=== PATIENT | female | born 1970 | race Caucasian/White ===

== ENCOUNTER 2017-08-05 10:26 | Emergency (ER) | payer SELFPAY ==
[2017-08-05 10:27] VITALS: BP 161/97; PULSE 77; RESP 16; TEMP 36.7; O2SAT 99; BMI 44.3
--- NOTE | 2017-08-05 10:43 | RAD_ITS ---
STUDY: X-RAY - ACUTE ABDOMINAL SERIES REASON FOR EXAM: Female, 46 years old. Abdominal pain. TECHNIQUE: Single view of the chest. Supine, and erect view(s) of the abdomen were obtained. COMPARISON: None. FINDINGS: There is hyperinflation of the lungs consistent with chronic obstructive lung disease (COPD). Normal size heart. Normal mediastinum and víctor. Normal visualized pulmonary arteries. Normal visualized aortic arch and descending thoracic aorta. There is a non-specific bowel gas pattern. Moderate fecal retention. The soft tissue structures of the abdomen and pelvis are unremarkable. Normal visualized osseous structures. RAD/Acute Abdomen Inc Chest IMPRESSION: Moderate fecal retention. No evidence for obstruction. Electronically Signed: Alan Petty MD at 12:37 EST , Service support ,
--- NOTE | 2017-08-05 10:44 | ED.VISSUMM ---
- ER Visit Summary Date of Service: 08/05/17 Chief Complaint: Abdominal pain History of Present Illness: The patient is a 46 F reports onset of abdominal pain and bloating yesterday. She denies nausea or vomiting. Her last bowel movement was last evening. Patient has had prior cholecystectomy. She does report a history of colitis. Physical Examination: Vital signs are significant for blood pressure 161/97, otherwise unremarkable. Patient is doing upright in bed no acute distress. She is nontoxic appearing. Head and neck examination is unremarkable. Heart is regular rate and rhythm. Lung sounds are clear. Abdomen is soft with mild diffuse tenderness. There is no guarding or rebound. Abdomen is distended. Bowel sounds are hypoactive. Test Results: CBC and chemistry studies are unremarkable. Urinalysis shows no sign of infection. test negative. Acute abdominal series reveals moderate fecal retention with no sign of obstruction. Emergency Department Course and Treatment: Repeat evaluation patient is resting comfortably. Test results were discussed with her. She will be given Go[facility] for home. She was instructed to eat a high-fiber diet and use MiraLAX for constipation. Treatment Plan: [] Disposition: Discharge Impression: Constipation This note was generated with [employer] dictation software. It may contain incorrect words, spelling, and punctuation that were not noted in review of the chart prior to signing ED Disposition - Plan for ED Patient: Disposition: Home or Assisted Living Chief Complaint: Abd Pain Instructions: ED Constipation Referrals: Hong Frazier MD [Primary Care Provider] - 1 Week if not improving
[2017-08-05 11:00] LABS: Absolute Lymphocyte Count 2.57 X10^3/ul (0.83-4.51); Absolute Neutrophil Count 6.5 X10^3/uL (2.0-7.7); Basophil# 0.05 X10^3/uL; Basophil% 0.5 % (0-1); Eosinophil# 0.21 X10^3/uL; Eosinophils% 2.1 % (0-5); Hematocrit 42.6 % (37-47); Hemoglobin 13.7 g/dl (12.0-15.0); Lymphocyte # 2.57 X10^3/ul (4.0); Lymphocyte % 25.8 % (19-41); Mean Corp Hgb Conc 32.2 g/gl (32-36); Mean Corpuscular Hgb 26.3 pg (27.0-32.0); Mean Corpuscular Volume 81.9 fL (81-99); Mean Platelet Vol. 8.8 fl (6.2-12.0); Monocyte# 0.58 X10^3/uL; Monocyte% 5.8 % (0-10); Neutrophil # 6.51 X10^3/uL (2.7-7.7); Neutrophil % 65.4 % (47-70); Platelet Count 384 K/mm3 (150-450); RBC Distribution Width CV 15.1 % (11.6-14.6); RBC Distribution Width SD 45.9 fl (35.1-43.9)
[2017-08-05 11:01] LABS: POSITIVE COUNT NO; POSITIVE DIFFERENTIAL NO; POSITIVE MORPHOLOGY NO
[2017-08-05 11:11] LABS: Anion Gap 8 (5-15); BUN 9 mg/dL (7-18); Calcium,Total 8.9 mg/dL (8.5-10.1); Chloride 107 mmol/L (98-107); Creatinine, Serum 0.75 mg/dL (0.55-1.02); EST Glomerular Filtration Rate 88 mL/min (>60); Est Glom Filt Rate - Afr Amer 107 mL/min (>60); Estimated Creatinine Clearance 92.11 ml/min; Glucose 89 mg/dL (74-106); Potassium 3.9 mmol/L (3.5-5.1); Sodium Level 142 mmol/L (136-145)
[2017-08-05] MEDS: Ketorolac 30 MG/ML Syringe IV (11:18)
[2017-08-05 11:41] LABS: Pregnancy, Serum, hCG Quali. NEGATIVE Negative (0-9 Nonpreg)
[2017-08-05 12:34] VITALS: BP 143/70; PULSE 80; RESP 14; O2SAT 96
[2017-08-05 12:39] LABS: Red Blood Cells-Urine 0 SEEN /hpf (0-5)
[2017-08-05 12:47] LABS: Color, Urine Yellow (Yellow); Glucose, Dipstick Normal (Normal); Ketone-Dipstick 5 mg/dl (Negative); Leukocyte Esterase-Dipstick 100 /ul (Negative); Nitrite-Dipstick Negative (Negative); Occult Blood-Urine 25 /ul (Negative); Protein-Dipstick 30 mg/dl (Negative); Specific Gravity, Urine 1.025 (1.002-1.030); Urine Bilirubin Dipstick Negative (Negative); Urine Clarity Sl. Cloudy (Clear); Urine Urobilinogen Normal (Normal)
[2017-08-05 13:04] LABS: Amorphous Sediment 1+; Bacteria RARE /hpf (None Seen); Mucous, Urine 1+ /hpf (<or=2+); Squamous Epithelial Cells - UA 5-10 SEEN /hpf (5-10); White Blood Cells 0-5 SEEN /hpf (0-5)
--- NOTE | 2017-08-05 13:22 | ED.DEP ---
ED Disposition - Plan for ED Patient: Disposition: Home or Assisted Living Chief Complaint: Abd Pain Instructions: ED Constipation Referrals: Hong Frazier MD [Primary Care Provider] - 1 Week if not improving
[2017-08-05] MEDS: Electrolyte Solution/Peg's 4000 ML PO (14:00)
[2017-08-05 14:01] VITALS: BP 144/70; PULSE 85; RESP 14; O2SAT 99
== END 2017-08-05 14:03 | disposition home or self-care (01) ==
PROVIDERS: Emergency Provider Emergency Medicine; Family Provider Family Medicine; PCP Family Medicine
DX: K59.00 Constipation, unspecified (principal); E66.9 Obesity, unspecified; E03.9 Hypothyroidism, unspecified; F60.4 Histrionic personality disorder; Z87.19 Personal history of other diseases of the digestive system; Z90.49 Acquired absence of other specified parts of digestive tract; Z87.891 Personal history of nicotine dependence; Z79.899 Other long term (current) drug therapy
CPT/HCPCS: 74022; 80048; 81001; 84703; 85025; 96374; 99283; A4216

== ENCOUNTER 2017-08-23 12:59 | Emergency (ER) | payer SELFPAY ==
[2017-08-23 12:59] VITALS: BP 136/89; PULSE 90; RESP 16; TEMP 36.2; O2SAT 96; BMI 44.0
[2017-08-23 13:16] VITALS: BP 138/95; PULSE 90; RESP 14; O2SAT 96
--- NOTE | 2017-08-23 13:29 | RAD_ITS ---
STUDY: X-RAY - LEFT TIBIA AND FIBULA REASON FOR EXAM: Female, 47 years old. Swelling and redness TECHNIQUE: 2 view(s) of the tibia and fibula were obtained. COMPARISON: None. FINDINGS: No evidence for acute fracture or dislocation. Extensive soft tissue swelling noted. The distal tibia and fibula are not entirely included on this exam RAD/Tibia & Fibula 2 Views IMPRESSION: Soft tissue swelling seen. No evidence for acute fractures Electronically Signed: Lucas Kang, at 14:13 EDT Tel , Service support ,
--- NOTE | 2017-08-23 13:30 | RAD_ITS ---
STUDY: X-RAY - LEFT ANKLE REASON FOR EXAM: Female, 47 years old. Leg swelling and redness TECHNIQUE: 3 view(s) of the ankle. COMPARISON: None. FINDINGS: Talar dome appears intact. Soft tissue swelling noted. Plantar spurring seen.. Fifth metatarsal base is within normal limits RAD/Ankle min 3 Views IMPRESSION: Soft tissue swelling noted. No evidence for acute fractures Electronically Signed: Lucas Kang, at 14:12 EDT Tel , Service support ,
--- NOTE | 2017-08-23 13:30 | ED.VISSUMM ---
- ER Visit Summary Date of Service: 08/23/17 Chief Complaint: [] Left lower extremity injury for a week after striking her mid concepcion against a baseboard History of Present Illness: The patient is a 47 F [] has chronic lower extremity edema she is a large woman, she indicates she was walking in [employer] about 1 week ago when she struck her left concepcion mid mid position against the baseboard in [employer] she has had pain to this area and also believe she may have twisted her left ankle pain to the lateral ankle symptoms have not gone away and she comes in for evaluation. She has had no history of fracture or any joint disorder to that extremity. She has no history of DVT PE that is her only complaint she has no other complaints review systems are negative, her chronic edema is unchanged Physical Examination: [] Again she is a large woman head neck chest unremarkable the abdomen is obese but soft the back is nontender the left lower extremity she has pain to the mid concepcion that goes into her left ankle, she has mild palpable discomfort to the left lateral ankle there is no instability deformity she is able dorsi and plantarflex Achilles intact foot is nontender she has symmetric edema to both lower extremities that is unchanged or different, there is some chronic skin changes bilaterally no signs of infection cellulitis no skin breakdown Test Results: [] Emergency Department Course and Treatment: [] xays are obtained pain management Trace of the tib-fib and ankle unremarkable, at this time I explained all the above to her she was started on Naprosyn [place]. 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 she does have bilateral lower extremity edema she is a large woman she has no history of DVT or PE but given all of the above I explained I believe would be prudent to obtain a duplex scan of her lower leg to make shows no signs of DVT, there is no DVT technology available today she is given outpatient referral to have that done tomorrow results to her physician and she will follow-up with her physicians and return for change in symptoms, I did discuss the concept of an occult injury Treatment Plan: [] Disposition: []Home stable Impression: [] Lower extremity injury on the left This note was generated with [employer] dictation software. It may contain incorrect words, spelling, and punctuation that were not noted in review of the chart prior to signing ED Disposition - Plan for ED Patient: Chief Complaint: Lower Extremity Injury Referrals: Hong Frazier MD [Primary Care Provider] -
[2017-08-23] MEDS: Naproxen 500 MG Tablet PO (13:58)
--- NOTE | 2017-08-23 14:28 | ED.DEP ---
ED Disposition - Plan for ED Patient: Chief Complaint: Lower Extremity Injury Instructions: ED Sprain Ankle W X Ray Prescriptions: Hydrocodone Bitart/Apap 5-325 [[place] 5/325] 1 tab PO Q4H PRN PRN #4 tab PRN Reason: Pain Naproxen [Naprosyn] 500 mg PO BID PRN #20 tab Referrals: Hong Frazier MD [Primary Care Provider] -
[2017-08-23 15:31] VITALS: PULSE 89; RESP 14; O2SAT 98
== END 2017-08-23 15:31 | disposition home or self-care (01) ==
PROVIDERS: Emergency Provider Emergency Medicine; Family Provider Family Medicine; PCP Family Medicine
DX: S99.912A Unspecified injury of left ankle, initial encounter (principal); S89.92XA Unspecified injury of left lower leg, initial encounter; R60.0 Localized edema; R23.9 Unspecified skin changes; W22.8XXA Striking against or struck by other objects, initial encounter; X50.1XXA Overexertion from prolonged static or awkward postures, initial encounter; Y93.9 Activity, unspecified; Y92.22 Religious institution as the place of occurrence of the external cause
CPT/HCPCS: 73590; 73610; 99283

== ENCOUNTER → 2017-08-24 11:18 | Outpatient (CLI) | payer SELFPAY ==
--- NOTE | 2017-08-24 11:20 | VDLE_ITS ---
Reason For Study: LEG PAIN AND SWELLING RIGHT LEFT GSV is normal. GSV is normal. CFV is compressible, spontaneous, phasic, CFV is compressible, spontaneous, phasic, competent and demonstrates normal competent, and demonstrates normal augmentation. augmentation. FV is compressible, spontaneous, phasic, FV is compressible, spontaneous, phasic, competent and demonstrates normal competent and demonstrates normal augmentation. augmentation. POP V is compressible, spontaneous, phasic, POP V is compressible, spontaneous, phasic, competent and demonstrates normal competent and demonstrates normal augmentation. augmentation. T/P Trunk is compressible. T/P Trunk is compressible. PTV is compressible. PTV is compressible. Procedure Exam performed in department. Technically difficult due to body habitus. PER V not visualized. Interpretation Summary Deep veins of the lower extremities are bilaterally patent and compressible segmentally. There is no evidence of deep vein thrombosis on either side. Valvular competence appears intact within the proximal deep venous systems bilaterally. The greater saphenous veins appear bilaterally patent and compressible segmentally. The peroneal veins were not visualized on either side due to the patient's body habitus. Ordering Physician: Angelica Sullivan Referring Physician: Hong Frazier Performed By: Nelly Witt RVT
== END ==
PROVIDERS: Family Provider Family Medicine; PCP Family Medicine; Visit Provider Emergency Medicine
DX: M79.605 Pain in left leg (principal)
CPT/HCPCS: 93970

== ENCOUNTER → 2017-09-29 10:38 | Outpatient (CLI) | payer SELFPAY ==
[2017-09-29 12:57] LABS: Thyroid Stim Hormone (TSH) 1.49 uIU/mL (0.358-3.74)
== END ==
PROVIDERS: Family Provider Family Medicine; PCP Family Medicine; Visit Provider Family Medicine
DX: E03.9 Hypothyroidism, unspecified (principal)
CPT/HCPCS: 36415; 84443

== ENCOUNTER → 2018-03-31 11:04 | Outpatient (CLI) | payer SELFPAY ==
[2018-03-31 12:27] LABS: Thyroid Stim Hormone (TSH) 2.93 uIU/mL (0.358-3.74)
== END ==
PROVIDERS: Family Provider Family Medicine; PCP Family Medicine; Visit Provider Family Medicine
DX: E03.9 Hypothyroidism, unspecified (principal)
CPT/HCPCS: 36415; 84443

== ENCOUNTER 2018-05-06 16:25 | Emergency (ER) | payer SELFPAY ==
[2018-05-06 16:26] VITALS: BP 165/86; PULSE 85; RESP 18; TEMP 36.4; O2SAT 99; BMI 44.4
--- NOTE | 2018-05-06 16:45 | RAD_ITS ---
STUDY: X-RAY - RIGHT TIBIA AND FIBULA REASON FOR EXAM: Female, 47 years old. Right lower leg pain since falling last week. History of lower leg edema. TECHNIQUE: Frontal and lateral view(s) of the tibia and fibula were obtained. COMPARISON: None. FINDINGS: Osteopenia. No apparent DJD of the knee or ankle. Tibia and fibula are acutely intact. Prominent induration and thickening of the lower leg superficial soft tissues suggesting the presence of dependent edema. Cannot exclude contusion in the setting of trauma. RAD/Tibia & Fibula 2 Views IMPRESSION: Lower leg superficial soft tissue edema. Intact tibia and fibula. Electronically Signed: Hari Guevara, at 17:48 EST Tel , Service support ,
--- NOTE | 2018-05-06 16:55 | ED.DCSUM_ITS ---
- ER Visit Summary Date of Service: 05/06/18 Chief Complaint: Right leg pain status post mechanical fall 1 week ago History of Present Illness: The patient is a 47 F who presents because of persistent pain that she localizes over the mid to distal third of the right fibula and anterior right leg. She reports she tripped. She presents because of increasing pain and pain with movement and weightbearing. She denied head trauma. She denies neck pain. She denies paresthesia, anesthesia or motor weakness. She denies back pain. She is on no anticoagulant. Past medical history is remarkable for hypothyroidism. Please read written note for complete detail. Physical Examination: Vital signs noted and blood pressure is elevated 165/86. HEENT exam is unremarkable. Heart is regular without murmur, gallop or rub. S1 and S2 are normal. Lungs are clear to auscultation with good movement of air bilaterally. Pelvis is nontender. Examination of the right lower extremity reveals soft tissue swelling and bruising anterior right leg. Significant amount of discomfort over the fibula distally. There is no pain the patient over the lateral or medial malleolus. There is no pain palpation over the tarsal bones or metatarsal bones. DP pulses palpable but diminished secondary to body habitus. Neuro exam is nonfocal. Test Results: Two-view x-ray of the right tib-fib reveals no fracture. There is soft tissue swelling. Emergency Department Course and Treatment: X-ray of the right tib-fib was obtained to evaluate for fracture. Since patient drove herself unable to treat with opiate analgesia. Treatment Plan: Rest, ice, elevation and anti-inflammatory medication since there is no contraindication Disposition: Discharge to home Impression: Contusion and hematoma right leg status post fall initial encounter This note was generated with [employer] dictation software. It may contain incorrect words, spelling, and punctuation that were not noted in review of the chart prior to signing ED Disposition - Plan for ED Patient: Disposition: Home or Assisted Living Chief Complaint: Lower Extremity Injury Instructions: ED Contusion Lower Ext Prescriptions: Naproxen [Naprosyn] 500 mg PO BID #14 tab Referrals: Hong Frazier MD [Primary Care Provider] - 1 Week if not improving
[2018-05-06] MEDS: Naproxen 250 MG Tablet 500 MG PO (17:02)
== END 2018-05-06 17:04 | disposition home or self-care (01) ==
PROVIDERS: Emergency Provider Emergency Medicine; Family Provider Family Medicine; PCP Family Medicine
DX: S80.11XA Contusion of right lower leg, initial encounter (principal); W01.0XXA Fall on same level from slipping, tripping and stumbling without subsequent striking against object, initial encounter; Y93.9 Activity, unspecified; Y92.9 Unspecified place or not applicable; E66.9 Obesity, unspecified; E03.9 Hypothyroidism, unspecified; Z79.899 Other long term (current) drug therapy
CPT/HCPCS: 73590; 99283

== ENCOUNTER 2018-07-25 20:43 | Emergency (ER) | payer SELFPAY ==
[2018-07-25 20:44] VITALS: BP 164/97; PULSE 95; RESP 18; TEMP 36.4; O2SAT 97; BMI 42.3
--- NOTE | 2018-07-25 21:31 | RAD_ITS ---
HISTORY: PAIN, NO INJURY COMPARISON: None FINDINGS: # of images incl. paperwork: 3 XR Wrist Min 3 Views: Left SOFT TISSUES: Unremarkable. No radiopaque foreign body. BONES: No acute fracture or subluxation. No sclerotic or destructive changes observed. JOINTS: Preservation of the joint space. Articular surfaces are unremarkable. RAD/Wrist min 3 Views IMPRESSION: Negative. at [id number] Reported and signed by: Jefferson Gibson MD Electronically Signed: Jefferson Gibson, at 22:44 EST Tel , Service support ,
[2018-07-25 21:45] VITALS: RESP 16
--- NOTE | 2018-07-25 23:13 | ED.DCSUM_ITS ---
- ER Visit Summary Date of Service: 07/25/18 Chief Complaint: Wrist pain History of Present Illness: The patient is a 47 F with left wrist pain in the snuffbox region. Patient denies trauma. She has been taking Tylenol, but the pain persists. Worse with use and movement. No other associated symptoms like redness, warmth, swelling. Physical Examination: Afebrile and vital signs unremarkable. Patient is a normal inspection of her left hand and wrist. Tender to palpation in the snuffbox region. Good range of motion. Skin normal without redness or warmth. Neurovascularly intact. Test Results: X-rays negative Emergency Department Course and Treatment: X-rays negative. Nothing to suggest gout or septic joint. Suspect a soft tissue disorder. She was placed in a splint. Rest, ice, elevate. Anti-inflammatories. Outpatient follow-up. Treatment Plan: As above Disposition: Discharge Impression: 1. Left wrist pain This note was generated with [employer] dictation software. It may contain incorrect words, spelling, and punctuation that were not noted in review of the chart prior to signing ED Disposition - Plan for ED Patient: Referrals: Hong Frazier MD [Primary Care Provider] -
--- NOTE | 2018-07-25 23:13 | ED.DEP ---
ED Disposition - Plan for ED Patient: Instructions: ED Sprain Wrist Prescriptions: Ibuprofen [Motrin] 800 mg PO TID PRN PRN #20 tab PRN Reason: Pain Referrals: Hong Frazier MD [Primary Care Provider] -
[2018-07-25] MEDS: Ibuprofen 600 MG Tablet PO (23:27)
[2018-07-25 23:33] VITALS: BP 137/89; PULSE 78; RESP 16; O2SAT 98
== END 2018-07-25 23:34 | disposition home or self-care (01) ==
PROVIDERS: Emergency Provider Emergency Medicine; Family Provider Family Medicine; PCP Family Medicine
DX: M25.532 Pain in left wrist (principal)
CPT/HCPCS: 73110; 99283

== ENCOUNTER → 2018-12-28 | Outpatient (CLI) | payer OTHER, SELFPAY ==
--- NOTE | 2018-12-28 12:23 | BI_ITS ---
MAMMOGRAPHY - BILATERAL SCREENING REASON FOR EXAM: Female, 48 years old. Routine annual screening examination. PERTINENT HISTORY: Non-contributory. TECHNIQUE: Digital bilateral breast marie (3D mammographic acquisition) in the CC and MLO projections. 2-D mediolateral oblique (MLO) and craniocaudad (CC) views of both breasts were obtained. CAD: Full Field Digital Mammography with Computer Added Detection was performed. COMPARISON: Comparison is made with prior examination dated May 11, 2015. FINDINGS: Breast Composition: There are scattered areas of fibroglandular density. There are no dominant masses or suspicious calcifications. Stable small bilateral axillary lymph nodes. No other significant abnormalities are identified. There has been no significant change since the prior study. BI/SCREEN MAMM (CAD) W/MARIE BILAT IMPRESSION: Stable bilateral screening mammogram. Yearly follow-up mammogram recommended. (A) ASSESSMENT CATEGORY: BIRADS Category 2: Benign. A letter regarding these results will be sent to the patient by the facility within 30 days. Approximately 10% of breast cancers are not detected by mammography. A normal mammogram should not delay biopsy of a clinically suspicious abnormality. [id number] Electronically Signed: Reggie Lopez, at 13:24 EDT , Service support ,
== END | disposition home or self-care (01) ==
PROVIDERS: Family Provider Family Medicine; PCP Family Medicine; Referring Provider Family Medicine; Visit Provider Family Medicine
DX: Z12.31 Encounter for screening mammogram for malignant neoplasm of breast (principal)
CPT/HCPCS: 77063; 77067

== ENCOUNTER → 2019-08-02 13:31 | Outpatient (CLI) | payer OTHER, SELFPAY ==
[2019-07-31 13:42] VITALS: BMI 42.3
[2019-08-02 17:34] LABS: Vitamin D,25 Hydroxy 38.8 ng/mL (29.95-100.01)
[2019-08-02 17:35] LABS: Anion Gap 6 (5-15); BUN 11 mg/dL (7-18); BUN/Creat Ratio 13.4 RATIO (10-20); Calcium,Total 9.4 mg/dL (8.5-10.1); Chloride 108 mmol/L (98-107); Creatinine, Serum 0.82 mg/dL (0.55-1.02); EST Glomerular Filtration Rate 79 mL/min (>60); Est Glom Filt Rate - Afr Amer 96 mL/min (>60); Glucose 87 mg/dL (74-106); Potassium 3.7 mmol/L (3.5-5.1); Sodium Level 143 mmol/L (136-145); Thyroid Stim Hormone (TSH) 0.45 uIU/mL (0.358-3.74)
== END ==
PROVIDERS: PCP Family Medicine; Visit Provider Family Medicine
DX: E03.9 Hypothyroidism, unspecified (principal); R60.9 Edema, unspecified
CPT/HCPCS: 36415; 80048; 82306; 84443

== ENCOUNTER → 2020-01-16 11:25 | Outpatient (CLI) | payer BC, MEDICAID, SELFPAY ==
[2019-08-31 14:08] VITALS: BMI 42.3
[2020-01-16 15:23] LABS: Anion Gap 6 (5-15); BUN 10 mg/dL (7-18); BUN/Creat Ratio 13.4 RATIO (10-20); Calcium,Total 9.4 mg/dL (8.5-10.1); Chloride 106 mmol/L (98-107); Creatinine, Serum 0.74 mg/dL (0.55-1.02); EST Glomerular Filtration Rate 88 mL/min (>60); Est Glom Filt Rate - Afr Amer 107 mL/min (>60); Glucose 89 mg/dL (74-106); Potassium 4.3 mmol/L (3.5-5.1); Sodium Level 139 mmol/L (136-145)
== END ==
PROVIDERS: PCP Family Medicine; Visit Provider Family Medicine
DX: R60.9 Edema, unspecified (principal)
CPT/HCPCS: 36415; 80048

== ENCOUNTER 2020-02-18 02:22 | Emergency (ER) | payer BC, MEDICAID, SELFPAY ==
[2020-02-09 08:23] VITALS: BMI 42.3
[2020-02-18 02:22] VITALS: BP 157/90; PULSE 75; RESP 18; TEMP 36.2; O2SAT 100; BMI 43.2
[2020-02-18 02:25] VITALS: BP 157/90; PULSE 75; RESP 18; TEMP 36.2; O2SAT 100
--- NOTE | 2020-02-18 02:54 | DCINST.ED_ITS ---
ED Disposition - Plan for ED Patient: Instructions: ED Tooth Pain Prescriptions: Hydrocodone Bitart/Apap 5-325 [[place] 5MG-325MG] 1 tab PO Q6H PRN PRN 3 Days #10 tab PRN Reason: Pain Prescription Printed Referrals: Hong Frazier MD [Primary Care Provider] -
--- NOTE | 2020-02-18 02:57 | ED.DCSUM_ITS ---
- ER Visit Summary Date of Service: 02/18/20 Chief Complaint: Toothache History of Present Illness: The patient is a 49 F presenting with toothache. Patient states this started yesterday. Pain is in the right upper teeth. She went to urgent care. They prescribed diclofenac and amoxicillin. She has an a ppointment with her dentist this coming Thursday. She complains of persistent pain right upper teeth. Denies fever. Denies other complaints. Physical Examination: Vitals are stable. Patient is afebrile. Alert no acute distress. HEENT exam tenderness right upper molar. No surrounding fluctuance. No sublingual edema. Neck is supple. Lungs are clear and equal bilaterally. Heart is regular rate and rhythm. Extremities are unremarkable. Skin is warm and dry. Remainder of exam is unremarkable. Emergency Department Course and Treatment: Patient was advised to continue her antibiotics until complete. She was given a prescription for short course of [place]. Advised to follow-up with dentist. Advised return to the ED for wors ening complaints. Disposition: Discharge home Impression: Odontalgia This note was generated with [employer] dictation software. It may contain incorrect words, spelling, and punctuation that were not noted in review of the chart prior to signing ED Disposition - Plan for ED Patient: Instructions: ED Tooth Pain Prescriptions: Hydrocodone Bitart/Apap 5-325 [[place] 5MG-325MG] 1 tab PO Q6H PRN PRN 3 Days #10 tab PRN Reason: Pain Prescription Printed Referrals: Hong Frazier MD [Primary Care Provider] -
== END 2020-02-18 03:06 | disposition home or self-care (01) ==
LOC: ED 02:58
PROVIDERS: Emergency Provider Emergency Medicine; PCP Family Medicine
DX: K08.89 Other specified disorders of teeth and supporting structures (principal); E07.9 Disorder of thyroid, unspecified; Z72.0 Tobacco use; Z79.899 Other long term (current) drug therapy
CPT/HCPCS: 99282

== ENCOUNTER → 2020-04-06 14:18 | Outpatient (CLI) | payer BC, MEDICAID, SELFPAY ==
[2020-04-06 18:35] LABS: AST(SGOT) 20 U/L (15-37); Alanine Aminotransfer ALT/SGPT 35 U/L (13-56); Albumin, Serum 3.7 g/dL (3.2-5.0); Alkaline Phosphatase 86 U/L (45-117); Anion Gap 6 (5-15); BUN 12 mg/dL (7-18); BUN/Creat Ratio 15.6 RATIO (10-20); Calcium,Total 9.3 mg/dL (8.5-10.1); Chloride 107 mmol/L (98-107); Creatinine, Serum 0.77 mg/dL (0.55-1.02); EST Glomerular Filtration Rate 85 mL/min (>60); Est Glom Filt Rate - Afr Amer 103 mL/min (>60); Globulin 3.8 g/dL (2.2-4.2); Glucose 97 mg/dL (74-106); Potassium 3.6 mmol/L (3.5-5.1); Protein, Total 7.5 g/dL (6.4-8.2); Sodium Level 139 mmol/L (136-145); T4 Free Direct 1.51 ng/dL (0.76-1.46); Thyroid Stim Hormone (TSH) 0.48 uIU/mL (0.358-3.74)
[2020-04-06 18:40] LABS: Vitamin D,25 Hydroxy 59.2 ng/mL
== END ==
PROVIDERS: PCP Family Medicine; Visit Provider Family Medicine
DX: E03.9 Hypothyroidism, unspecified (principal); R60.9 Edema, unspecified; E55.9 Vitamin D deficiency, unspecified
CPT/HCPCS: 36415; 80053; 82306; 84439; 84443

== ENCOUNTER → 2020-07-12 | Outpatient (CLI) | payer MEDICAID, SELFPAY ==
--- NOTE | 2020-07-12 09:10 | LES_PTH ---
PATIENT: CHRISTOPHER KWAN LOC: [facility] U#:[id number] AGE/SX: 49/F ROOM: RE07/12/[address]: Dr. Roberto Gabriel MD : 1970 BED: DIS: 07/12/2020 SPEC #: [id number] RECD: 07/12/20 11:03 STATUS: LEELEE CHAMBERSMichael #: [id number] TEJAS: 07/12/20 09:[address]: Roberto Gabriel DEPT: SURGICAL PATHOLOGY RECD BY: Anabella Donahue ENTERED: 07/12/20 13:03 SP TYPE: Lesion OTHR DR: Dr. Hong Frazier MD Tissues: A - Skin of arm B - Skin of forehead Procedures: Surgery Specimen Level IV HEADER OPERATION: Shave biopsy forehead and right arm PRE-OP DIAGNOSIS: Skin lesions L98.9 TISSUE SUBMITTED: A - Right arm tissue, B - Forehead tissue MICROSCOPIC DIAGNOSIS A. Skin lesion of right arm, biopsy: Hyperkeratotic and parakeratotic skin. B. Skin lesion of forehead, biopsy: Verrucoid keratosis with hyperkeratosis. AM:james 07/13/2020 MICROSCOPIC DESCRIPTION Slides are reviewed. GROSS DESCRIPTION A - Received in fixative is one container labeled with the patient's name and designated right arm. The specimen consists of an irregular fragment of light mack soft tissue measuring 0.3 x 0.2 x 0.1 cm. The specimen is totally submitted in one cassette. B - Received in fixative is one container labeled with the patient's name and designated forehead. The specimen consists of an irregular fragment of light mack soft tissue measuring 0.5 x 0.3 x 0.2 cm. The specimen is totally submitted in one cassette. / AM:james 07/12/20 TC:5 [facility]: [id number] x2
== END | disposition home or self-care (01) ==
LOC: LABSPEC 11:09
PROVIDERS: PCP Family Medicine; Referring Provider Surgery; Visit Provider Surgery
DX: L98.9 Disorder of the skin and subcutaneous tissue, unspecified (principal)
CPT/HCPCS: 88305

== ENCOUNTER → 2020-08-10 10:38 | Outpatient (CLI) | payer MEDICAID, SELFPAY ==
[2020-08-10 13:35] LABS: Vitamin D,25 Hydroxy 53.6 ng/mL
[2020-08-10 13:56] LABS: Anion Gap 8 (5-15); BUN 9 mg/dL (7-18); BUN/Creat Ratio 11.3 RATIO (10-20); Calcium,Total 9.6 mg/dL (8.5-10.1); Chloride 107 mmol/L (98-107); Creatinine, Serum 0.79 mg/dL (0.55-1.02); EST Glomerular Filtration Rate 82 mL/min (>60); Est Glom Filt Rate - Afr Amer 99 mL/min (>60); Glucose 83 mg/dL (74-106); Potassium 3.8 mmol/L (3.5-5.1); Sodium Level 141 mmol/L (136-145); T4 Free Direct 1.29 ng/dL (0.76-1.46); Thyroid Stim Hormone (TSH) 1.06 uIU/mL (0.358-3.74)
== END ==
PROVIDERS: PCP Family Medicine; Visit Provider Family Medicine
DX: E03.9 Hypothyroidism, unspecified (principal); E55.9 Vitamin D deficiency, unspecified; R60.9 Edema, unspecified
CPT/HCPCS: 36415; 80048; 82306; 84439; 84443

== ENCOUNTER → 2020-11-02 10:59 | Outpatient (CLI) | payer MEDICAID, SELFPAY ==
[2020-11-02 12:08] LABS: Absolute Lymphocyte Count 3.04 X10^3/uL (0.83-4.51); Absolute Neutrophil Count 5.3 X10^3/uL (2.0-7.7); Basophil# 0.06 X10^3/uL; Basophil% 0.7 % (0-1); Eosinophil# 0.16 X10^3/uL; Eosinophils% 1.8 % (0-5); Hematocrit 46.8 % (37-47); Hemoglobin 14.5 g/dL (12.0-15.0); Lymphocyte # 3.04 X10^3/ul (0.83-4.51); Lymphocyte % 33.6 % (19-41); Mean Corpuscular Hgb 26.9 pg (27.0-32.0); Mean Corpuscular Volume 86.8 fL (81-99); Mean Platelet Vol. 9.3 fl (6.2-12.0); Monocyte# 0.45 X10^3/uL; NRBC Flagged by Analyzer 0 % (0-5); Neutrophil % 58.6 % (47-70); Platelet Count 459 K/mm3 (150-450); RBC Distribution Width CV 14.9 % (11.6-14.6); RBC Distribution Width SD 47.8 fl (35.1-43.9); Red Blood Count 5.39 M/mm3 (4.2-5.4)
[2020-11-02 12:55] LABS: Anion Gap 5 (5-15); BUN 10 mg/dL (7-18); BUN/Creat Ratio 12.1 RATIO (10-20); Calcium,Total 9.1 mg/dL (8.5-10.1); Chloride 107 mmol/L (98-107); Creatinine, Serum 0.82 mg/dL (0.55-1.02); EST Glomerular Filtration Rate 78 mL/min (>60); Est Glom Filt Rate - Afr Amer 95 mL/min (>60); Glucose 90 mg/dL (74-106); Potassium 3.5 mmol/L (3.5-5.1); Sodium Level 140 mmol/L (136-145); T4 Free Direct 1.25 ng/dL (0.76-1.46)
[2020-11-08 12:44] LABS: Vitamin D,25 Hydroxy 61.2 ng/mL
== END ==
PROVIDERS: PCP Family Medicine; Referring Provider Family Medicine; Visit Provider Family Medicine
DX: E03.9 Hypothyroidism, unspecified (principal); R60.9 Edema, unspecified; R53.83 Other fatigue; E55.9 Vitamin D deficiency, unspecified
CPT/HCPCS: 36415; 80048; 82306; 84439; 84443; 85025

== ENCOUNTER 2020-11-21 09:58 | Outpatient (RCR) | payer MEDICAID, SELFPAY ==
--- NOTE | 2020-11-21 11:21 | HP.OTEVAL ---
Patient's Visit Information CHRISTOPHER KWAN is a 50 year old F, referred to Occupational Therapy by Dr. Hong Frazier MD, with a diagnosis of LE lymphedema. Date of Evaluation: 11/21/20 Occupational Therapist: Rola Taylor, CED/[place], CHT - Subjective This 50 year old female was seen for OT eval with dx of BLE lymphedema. Pt states she has had swelling in her LE for over 4 years. pt denies lymph node removal or LE sx. 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 pt states when she wakes up in the AM legs are down in size. pt would like to know what she can do to control the swelling. - Lymphedema (Circumferential Measure) Mid-foot: right 24cm left 25cm Ankle: right 40cm left 42cm Lower calf: right 44cm left 46cm Largest calf: right 47cm left 53cm Below knee: right 46cm left 55cm - Goals Demonstrate a 20% reduction in edema by d/c: Yes Demonstrate adequate knowledge of self-massage by 2nd week: Yes Demonstrate adequate knowledge skin care/prec by 2nd week: Yes Select approp compression garment w/donning/care/wear by d/c: Yes Voice need to replace compression garment every 4-6mo by dc: Yes - Rehabilitation General Assessment: pt demo with edema in B LE and limited understanding on mtg of edema. pt would benefit from skilled OT services 1x week for 3 weeks to ensure understanding of dx and lymph mtg plan. Rehabilitation Potential: Good - Anticipated Interventions A/AAROM/PROM, Education re Diagnosis, Manual Lymph Drainage, Education re Life-long lymphedema Management, Education re Skin Care and Precautions, Education re Self Massage Techniques, Education re Correct Donning Tech,Care&Wearing Sched Comp Garments, Home Program - Visit Plan Frequency: 1x/Week Duration: 3 Weeks TEXT: Thank you for the opportunity to evaluate your patient. For Medicare and Medicare HMO plans, please review the plan of care and approve it. It will need to be FAXED BACK to us at [phone] for Medicare purposes. Please let me know if there are questions or concerns regarding this plan of care. Physician Signature: Date:
--- NOTE | 2020-11-30 12:51 | HP.OTEVAL_ITS ---
Patient's Visit Information CHRISTOPHER KWAN is a 50 year old F, referred to Occupational Therapy by Dr. Hong Frazier MD, with a diagnosis of LE lymphedema. Date of Evaluation: 11/21/20 Occupational Therapist: Rola Taylor, CED/[place]en, CHT - Subjective This 50 year old female was seen for OT eval with dx of BLE lymphedema. Pt states she has had swelling in her LE for over 4 years. pt denies lymph node removal or LE sx. 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 pt states when she wakes up in the AM legs are down in size. pt would like to know what she can do to control the swelling. - Lymphedema (Circumferential Measure) Mid-foot: right 24cm left 25cm Ankle: right 40cm left 42cm Lower calf: right 44cm left 46cm Largest calf: right 47cm left 53cm Below knee: right 46cm left 55cm - Goals Demonstrate a 20% reduction in edema by d/c: Yes Demonstrate adequate knowledge of self-massage by 2nd week: Yes Demonstrate adequate knowledge skin care/prec by 2nd week: Yes Select approp compression garment w/donning/care/wear by d/c: Yes Voice need to replace compression garment every 4-6mo by dc: Yes - Rehabilitation General Assessment: pt demo with edema in B LE and limited understanding on mtg of edema. pt would benefit from skilled OT services 1x week for 3 weeks to ensure understanding of dx and lymph mtg plan. Rehabilitation Potential: Good - Anticipated Interventions A/AAROM/PROM, Education re Diagnosis, Manual Lymph Drainage, Education re Life- long lymphedema Management, Education re Skin Care and Precautions, Education re Self Massage Techniques, Education re Correct Donning Tech,Care&Wearing Sched Comp Garments, Home Program - Visit Plan Frequency: 1x/Week Duration: 3 Weeks TEXT: Thank you for the opportunity to evaluate your patient. For Medicare and Medicare HMO plans, please review the plan of care and approve it. It will need to be FAXED BACK to us at [phone] for Medicare purposes. Please let me know if there are questions or concerns regarding this plan of care. Physician Signature: Date:
--- NOTE | 2021-02-04 12:42 | HP.OT.NRP ---
CHRISTOPHER KWAN was seen in my office for initial evaluation on 11/21/20. The following Plan of Care was established for this patient: pt was seen for OT eval only- no further apts were scheduled- pt d/c at this time due to time lapse in services. Initial Frequency: 1x/Week Initial Duration: 3 Weeks Anticipated Interventions: A/AAROM/PROM, Education re Diagnosis, Manual Lymph Drainage, Education re Life-long lymphedema Management, Education re Skin Care and Precautions, Education re Self Massage Techniques, Education re Correct Donning Tech,Care&Wearing Sched Comp Garments, Home Program This patient was last seen in our office . Pertinent comments regarding their Occupational therapy will appear below: At this point I will be discontinuing this patient from occupational therapy. I would be happy to see this patient again in the future if found appropriate by the physician. Thank you! Rola Taylor, OTR/L, CHT
== END 2020-11-21 19:00 | disposition home or self-care (01) ==
LOC: OT 09:58
PROVIDERS: PCP Family Medicine; Referring Provider Family Medicine; Visit Provider Family Medicine
DX: I89.0 Lymphedema, not elsewhere classified (principal)
CPT/HCPCS: 97166

== ENCOUNTER 2021-01-11 10:00 | Outpatient (RCR) | payer MEDICAID, SELFPAY ==
[2020-12-28 09:20] VITALS: BP 136/93; PULSE 71; TEMP 35.8
--- NOTE | 2020-12-28 14:04 | PCM.WC.HP ---
History of Present Illness Date of Service: 12/28/20 Chief Complaint: chronic wound left concepcion, lymphedema bilateral LE History of Wound: Rosemary is a 50 yo young woman who presents to the wound healing center to [facility] for evaluation and treatment of a nonhealing ulcer of her left concepcion and chronic lymphedema to her lower legs. She has been referred by her PCP Dr. Hong Frazier. Rosemary has been struggling with lymphedema for several years and this is the first incidence that she developed an ulcer in the setting of her lymphedema. She reports that her lymphedema has been present for several years and has been worsening. She does not wear any compression currently. She was seen at the lymphedema clinic at [facility] and was given recommendations/measurements for compression stockings but was unclear on how to proceed with obtaining compression stockings. She was diagnosed with stage 2 lymphedema. 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 She denies idle standing for long periods of time. The ulcer developed approximately 2 weeks ago and she saw her PCP who referred her here. She has been applying petroleum based ointment and gauze to the ulcer daily. There is mild drainage from the ulcer. She has had a bruise on her concepcion from striking it against something for several weeks prior to this ulcer appearing. She denies fever, chills, erythema, warmth, odor. She has pain surrounding the ulcer. [facility] Medical History (Updated 12/28/20 @ 14:[address] Radha Ramires DO) Histrionic person multiple skuin lesions 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, pre-employment Skin lesions Home Medications levothyroxine 100 mcg PO DAILY 11/12/16 [History Last Taken Unknown] ibuprofen 800 mg PO TID PRN PRN #20 tab 07/25/18 [Rx Last Taken Unknown] ergocalciferol (vitamin D2) 1,250 mcg PO QWEEK 02/18/20 [History Last Taken Unknown] spironolactone 50 mg PO DAILY 02/18/20 [History Last Taken Unknown] Allergy/AdvReac Type Severity Reaction Status Date / Time No Known Allergies Allergy Verified 07/12/20 09:03 Family History Sister Arthritis Cancer Father Cancer liver cancer Surgical History History of History of cholecystectomy History of hernia repair Social History Smoking Status: Current every day smoker alcohol intake: never substance use type: does not use ROS Constitutional Constitutional: Denies chills, fatigue or fever(s) Eyes Eyes: Denies blurry vision ENT HEENT: Denies dizziness or headache(s) Cardiovascular Cardiovascular: Reports edema; Denies chest pain, dizziness or dyspnea Respiratory/Chest Respiratory/Chest: Denies cough or dyspnea Gastrointestinal Gastrointestinal: Denies abdominal pain, diarrhea or vomiting Genitourinary Genitourinary: Denies difficulty urinating or dysuria Musculoskeletal Musculoskeletal: Reports joint pain; Denies numbness or tingling Integumentary Integumentary: Reports change in pigmentation and skin ulcer Neurologic Neurologic: Denies dizziness or weakness Psychiatric Psychiatric: Denies suicidal thoughts Hematologic/Lymphatic Hematologic/Lymphatic: Denies easy bleeding or easy bruising Vital Signs Vital Signs Vital Signs: 12/28/20 09:20 Temperature 96.5 F L Temperature Source Temporal Pulse Rate 71 Blood Pressure 136/93 H Blood Pressure Mean 107 Blood Pressure Source Monitor Blood Pressure Position Semi-Fowlers Blood Pressure Location Left Arm Physical Exam Const alert, oriented x3 and no apparent distress General Appearance: cooperative Orientation / Consciousness: oriented to person and oriented to place Nutritional Appearance: obese HEENT normocephalic and head/scalp atraumatic Mouth: oral and palatal mucosa normal Throat: posterior oropharynx normal Eyes PERRL and EOMs intact bilaterally Neck no lymphadenopathy Lymph Lymphatic: lymphedema severe Resp normal respiratory effort Auscultation: clear to auscultation bilaterally Cardio regular rate and regular rhythm GI soft to palpation and non-tender Extremity General Extremity: edema Skin General Skin Exam: venous stasis and dermatitis Wounds: wounds noted Psych Appearance: grossly normal and appropriate Debridement Note Debridement Note Post-Debridement Measurements and Additional Note: Post-Debridement Measurements/Treatment - Nurse 1 - General Ulcer Assessment Start: 12/28/20 09:19 Freq: Status: Active Protocol: [email or web address] Activity Type Activity Date Activity User E-Sign Co-Sign Detail Recorded Client Recorded Date Recorded By Document 12/28/20 09:20 PAT [id number] 12/28/20 09:42 PAT 07/16/21 09:20 WC - Today's Visit Information Type of service Initial Visit Arrival Mode Ambulatory Patient Identification Verified (Name & Yes ) Vital Signs Temperature (97.8 F-99.1 F) 96.5 F L Temperature Source Temporal Pulse Rate (60-100) 71 Pulse Location Monitor Blood Pressure (90/60-120/80) 136/93 H Blood Pressure Mean 107 Source Monitor Position Semi-Fowlers Blood Pressure Location Left Arm History Since Last Visit- (Skip if this is Patient's initial visit) Have you changed medications since your No last visit? Any new allergies or adverse reactions No Had a fall/change in ADL's that may No increase risk of falls Signs or symptoms of abuse and/or No neglect since last visit Have you been in the hospital since your No last visit? Has dressing in place as prescribed No Has compression in place as prescribed N/A Has offloadiing in place as prescribed N/A Experienced any changes in pain level or No management Left Footwear Regular Shoe Right Footwear Regular Shoe Pain Scale: 0-10 Numeric Is Patient Pain Free? Yes Lower Extremity Assessment/ Foot Assessment/ Toe Nail Assessment Right -Popliteal Doppler Multiphasic -Posterior Tibial Doppler Monophasic -Dorsalis Pedis Doppler Monophasic -Extremity Color Normal -Hair Growth on Legs Yes -Hair Growth on Toes No -Temperature of Extremity Warm -Capillary Refill Less than 3 Seconds -Dependent Rubor No -Blanched when Elevated N/A -Lipodermatosclerosis No -Other Deformity No -Prior Foot Ulcer No -Charcot Joint No -Prior Amputation No -Thick Yes -Discolored Yes -Deformed No -Improper Length & Hygeine No Left -Popliteal Doppler Monophasic -Posterior Tibial Doppler Monophasic -Dorsalis Pedis Doppler Monophasic -Extremity Color Normal -Hair Growth on Legs Yes -Hair Growth on Toes No -Temperature of Extremity Warm -Capillary Refill Less than 3 Seconds -Dependent Rubor No -Blanched when Elevated N/A -Lipodermatosclerosis No -Other Deformity No -Prior Foot Ulcer No -Charcot Joint No -Prior Amputation No -Thick Yes -Discolored Yes -Deformed No -Improper Length & Hygeine No Neuropathy Assessment Feet - Top Side and Bottom <Entered> (a) (a) 1 - + 2 - + 3 - + 4 - + WC - Nurse 1 - General Ulcer Measurement Start: 12/28/20 09:19 Freq: Status: Active Protocol: Activity Type Activity Date Activity User E-Sign Co-Sign Detail Recorded Client Recorded Date Recorded By Document 12/28/20 09:20 KR [id number] 12/28/20 09:42 KR 12/28/20 09:20 Wound Center Nurse 1 #1 Left Concepcion -Current Size (cm) - Length 0.2 -Current Size (cm) - Width 0.2 -Current Size (cm) - Depth 0.1 -Total Square Cm 0.04 -Exudate Amt Small -Exudate Type Serosanguineous -Wound Margin Distinct, Outline Attached -Granulation Amt Small (1-33%) -Granulation Quality Red -Necrosis Amt None Present (0 %) -Texture (Rika-wound Skin Appearance) Assessed, Localized Edema ,Scarring -Moisture (Rika-wound Skin Appearance) Assessed, Maceration -Color (Rika-wound Skin Appearance) Assessed, Ecchymosis -Temperature (Rika-wound Skin No Abnormality Appearance) (Pt Warm) -Tenderness on Palpation (Rika-wound No Skin Appearance) -Ulcer Cleansing Rinsed/ Irrigated with Saline -Foul Odor after Cleansing No -Anesthetic Used 4% Lidocaine Solution Right Calf (cm) 49.2 Right Ankle (cm) 36.1 Left Calf (cm) 49 Left Ankle (cm) 37.4 WC - Nurse 2 - General Ulcer CM Notes Start: 12/28/20 09:19 Freq: Status: Active Protocol: Activity Type Activity Date Activity User E-Sign Co-Sign Detail Recorded Client Recorded Date Recorded By Document 12/28/20 10:00 MW [id number] 12/28/20 10:14 MW 12/28/20 10:00 Wound Center Nurse 2 #1 Left Concepcion -Time 10:00 -Correct Patient Yes -Correct Side, Site, Position Yes -Correct Procedure Yes -Procedure Performed Yes -Type of Procedure Debridement -Clinical Debridement Subcutaneous -Tissue Removed Subcutaneous -Post Debridement (cm) - Length 0.3 -Post Debridement (cm) - Width 0.2 -Post Debridement (cm) - Depth 0.1 -Total Square (Post) (cm) 0.06 -Area of Debridement (cm) - Length 0.3 -Area of Debridement (cm) - Width 0.2 -Total Square (Area) (cm) 0.06 -Tunneling No -Undermining/Tunneling No -Circular Undermining No -Wound/Ulcer Outcome Not Healed -Ulcer Cleansing Rinsed/ Irrigated with Saline -Foul Odor after Cleansing No -Bioengineered Tissue No -Bleeding Controlled with Pressure -Offloading No -Treatment Response Procedure Tolerated Well -Debridement - Subq, 1st 20sq cm Yes Pain Scale: 0-10 Numeric Is Patient Pain Free? Yes WC - Nurse 3 - General Ulcer D/C NN Start: 12/28/20 09:19 Freq: Status: Active Protocol: Activity Type Activity Date Activity User E-Sign Co-Sign Detail Recorded Client Recorded Date Recorded By Document 12/28/20 12:11 PAT [id number] 12/28/20 12:12 PAT 12/28/20 12:11 Wound Care Nurse 3 Right -Multi-Layered Wrap Application Multi-Layer Comp - Right ($ ) Left -Multi-Layered Wrap Application Unna Boot - Left ($) Pain Scale: 0-10 Numeric Is Patient Pain Free? Yes WC - Visit Discharge Discharge Condition Stable Ambulatory Status Ambulatory Transportation Private Auto Accompanied by self Wound debrided: left concepcion Laterality: Left Type of Debridement: Excisional debridement Anesthesia Used: 4% Lidocaine Solution, 5% Lidocaine Gel and Cetacaine Depth: Down to and including healthy tissue and in the subcutaneous layer Percentage of wound debrided: 100 Instrument Used: 3mm curette Tissue Removed: Yellow slough, devitalized tissue Severity: Fat Layer Exposed Amount of bleeding with debridement: Mild Bleeding Controlled with: Compression and gauze Patient tolerated procedure: Patient tolerated procedure well Assessment/Plan Assessment/Plan (1) Lymphedema associated with obesity: CODE(S): I89.0 - Lymphedema, not elsewhere classified; E66.9 - Obesity, unspecified (2) Venous ulcer of left lower extremity with varicose veins: CODE(S): I83.029 - Varicose veins of left lower extremity with ulcer of unspecified site; L97.929 - Non-pressure chronic ulcer of unspecified part of left lower leg with unspecified severity (3) Cellulitis: CODE(S): L03.90 - Cellulitis, unspecified QUALIFIERS: Site of cellulitis: extremity Site of cellulitis of extremity: lower extremity Laterality: left Qualified Code(s): L03.116 - Cellulitis of left lower limb (4) Hypothyroidism: CODE(S): E03.9 - Hypothyroidism, unspecified QUALIFIERS: Hypothyroidism type: unspecified Qualified Code(s): E03.9 - Hypothyroidism, unspecified (5) Morbid obesity: CODE(S): E66.01 - Morbid (severe) obesity due to excess calories PLAN: Rosemary's ulcer was evaluated and debrided today at the wound [facility] center. She has chronic lymphedema that has caused an ulceration of her left concepcion. A wound culture was taken today to evaluate for possible concurrent cellulitis and will treat her with antibiotics if needed based on results of wound culture. Her lower extremity edema of her right leg will be treated with a 3M compression dressing. Her ulcer and lower extremity edema of her left leg will be treated with an UNNA boot compression dressing. She was advised to keep dressings dry and intact until next visit in 1 week. Due to the chronicity of her lymphedema and the potential for recurrent ulcerations if left untreated, she would benefit from compression treatment with Circaid/juxtalite compression wraps and potentially lymphedema compression pumps. She is unable to don conventional compression stockings due to her obesity and difficulty with arthritis. She was encouraged to quit smoking as this will also impede wound healing. Encouraged elevation of legs at or above the level of her heart when sitting and to avoid idle standing. Walking and stretching and pedal pump exercises encouraged to activate calf muscles and help with edema. Would consider vascular testing of her lower legs but she clearly has varicose veins and venous insufficiency that have caused lymphedema. Encouraged weight loss and adequate protein intake. She was advised to call if develops pain, fever, chills. She will return in 1 week for follow up and wound care.
[2021-01-04 10:21] VITALS: BP 139/88; PULSE 65; RESP 18; TEMP 36
--- NOTE | 2021-01-04 12:05 | PN.PCM_ITS ---
History of Present Illness Date of Service: 01/04/21 Chief Complaint: chronic wound left concepcion, lymphedema bilateral LE History of Wound: Rosemary is a 50 yo young woman who presents to the wound healing center to day for evaluation and treatment of a nonhealing ulcer of her left concepcion and chronic lymphedema to her lower legs. She has been referred by her PCP Dr. Hong Frazier. Rosemary has been struggling with lymphedema for several years and this is the first incidence that she developed an ulcer in the setting of her lymphedema. She reports that her lymphedema has been present for several years and has been worsening. She does not wear any compression currently. She was seen at the lymphedema clinic at [facility] and was given recommendations/measurements for compression stockings but was unclear on how to proceed with obtaining compression stockings. She was diagnosed with stage 2 lymphedema. 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 She denies idle standing for long periods of time. The ulcer developed approximately 2 weeks ago and she saw her PCP who referred her here. She has been applying petroleum based ointment and gauze to the ulcer daily. There is mild drainage from the ulcer. She has had a bruise on her concepcion from striking it against something for several weeks prior to this ulcer appearing. She denies fever, chills, erythema, warmth, odor. She has pain surrounding the ulcer. Subjective Subjective Rosemary is here today for follow up of edema to her bilateral LE and ulcer to left concepcion. She tolerated UNNA boot compression with significant improvement in her edema. Left concepcion ulcer is nearly healed. Wound culture was positive for staph and she was started on doxycycline. She is tolerating doxycycline. She denies fever, chills, increased drainage or pain. Objective Data Objective Data Vital Signs: Vital Signs Temp Pulse Resp BP 96.8 F L 65 18 139/88 H 01/04/21 10:21 01/04/21 10:21 01/04/21 10:21 01/04/21 10:21 Lab / Micro Data Micro: Microbiology 12/28/20 10:10 Wound - Leg, Left Gram Stain - Final 12/28/20 10:10 Wound - Leg, Left Wound Culture - Final Staphylococcus lugdunensis 12/28/20 10:10 Wound - Leg, Left Anaerobic Culture - Final No anaerobic bacteria isolated. Physical Exam Const alert, oriented x3 and no apparent distress General Appearance: cooperative Orientation / Consciousness: oriented to person and oriented to place Nutritional Appearance: obese HEENT normocephalic and head/scalp atraumatic Eyes PERRL and EOMs intact bilaterally Neck no lymphadenopathy Lymph Lymphatic: lymphedema severe Resp normal respiratory effort Auscultation: clear to auscultation bilaterally Cardio regular rate and regular rhythm GI soft to palpation and non-tender Extremity General Extremity: edema Skin General Skin Exam: venous stasis and dermatitis Wounds: wounds noted Psych Appearance: grossly normal and appropriate Debridement Note Debridement Note Post-Debridement Measurements and Additional Note: Post-Debridement Measurements/Treatment - Nurse 1 - General Ulcer Assessment Start: 12/28/20 09:19 Freq: Status: Active Protocol: LAST Activity Type Activity Date Activity User E-Sign Co-Sign Detail Recorded Client Recorded Date Recorded By Document 12/28/20 09:20 KR [id number] 12/28/20 09:42 KR Document 01/04/21 10:21 DL [id number] 01/04/21 10:28 DL 12/28/20 01/04/21 09:20 10:21 - Today's Visit Information Type of service Initial Visit 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 ) Arrival Mode Ambulatory Ambulatory Transfer Assistance None Patient Identification Verified (Name & Yes Yes ) Patient Requires Transmission-Based No Precautions Vital Signs Temperature (97.8 F-99.1 F) 96.5 F L 96.8 F L Temperature Source Temporal Temporal Pulse Rate (60-100) 71 65 Pulse Location Monitor Monitor Respiratory Rate (12-18) 18 Respiratory rate source Observation Blood Pressure (90/60-120/80) 136/93 H 139/88 H Blood Pressure Mean (mm Hg) 107 105 Source Monitor Monitor Position Semi-Fowlers Blood Pressure Location Left Arm History Since Last Visit- (Skip if this is Patient's initial visit) Have you changed medications since your No No last visit? Any new allergies or adverse reactions No No Had a fall/change in ADL's that may No No increase risk of falls Signs or symptoms of abuse and/or No No neglect since last visit Have you been in the hospital since your No last visit? Has dressing in place as prescribed No Yes Has compression in place as prescribed N/A Yes Has offloadiing in place as prescribed N/A N/A Experienced any changes in pain level or No No management Left Footwear Regular Shoe Right Footwear Regular Shoe Pain Scale: 0-10 Numeric Is Patient Pain Free? Yes Yes Lower Extremity Assessment/ Foot Assessment/ Toe Nail Assessment Right -Popliteal Doppler Multiphasic -Posterior Tibial Doppler Monophasic -Dorsalis Pedis Doppler Monophasic -Extremity Color Normal -Hair Growth on Legs Yes -Hair Growth on Toes No -Temperature of Extremity Warm -Capillary Refill Less than 3 Seconds -Dependent Rubor No -Blanched when Elevated N/A -Lipodermatosclerosis No -Other Deformity No -Prior Foot Ulcer No -Charcot Joint No -Prior Amputation No -Thick Yes -Discolored Yes -Deformed No -Improper Length & Hygeine No Left -Popliteal Doppler Monophasic -Posterior Tibial Doppler Monophasic -Dorsalis Pedis Doppler Monophasic -Extremity Color Normal -Hair Growth on Legs Yes -Hair Growth on Toes No -Temperature of Extremity Warm -Capillary Refill Less than 3 Seconds -Dependent Rubor No -Blanched when Elevated N/A -Lipodermatosclerosis No -Other Deformity No -Prior Foot Ulcer No -Charcot Joint No -Prior Amputation No -Thick Yes -Discolored Yes -Deformed No -Improper Length & Hygeine No Neuropathy Assessment Feet - Top Side and Bottom <Entered> (a) (a) 1 - + 2 - + 3 - + 4 - + WC - Nurse 1 - General Ulcer Measurement Start: 12/28/20 09:19 Freq: Status: Active Protocol: Activity Type Activity Date Activity User E-Sign Co-Sign Detail Recorded Client Recorded Date Recorded By Document 12/28/20 09:20 KR [id number] 12/28/20 09:42 KR Document 01/04/21 10:21 DL [id number] 01/04/21 10:28 DL 12/28/20 01/04/21 09:20 10:21 Wound Center Nurse 1 #1 Left Concepcion -Current Size (cm) - Length 0.2 0.1 -Current Size (cm) - Width 0.2 0.1 -Current Size (cm) - Depth 0.1 0.1 -Total Square Cm 0.04 0.01 -Photo Taken No -Exudate Amt Small None Present -Exudate Type Serosanguineous -Wound Margin Distinct, Flat & Intact Outline Attached -Granulation Amt Small (1-33%) Small (1-33%) -Granulation Quality Red [place] -Necrosis Amt None Present (0 Small (1-33%) %) -Necrotic Tissue Type Adherent Slough -Structure Exposed N/A -Texture (Rika-wound Skin Appearance) Assessed, Scarring Localized Edema ,Scarring -Moisture (Rika-wound Skin Appearance) Assessed, No Abnormality Maceration -Color (Rika-wound Skin Appearance) Assessed, Ecchymosis, Ecchymosis Rubor -Temperature (Rika-wound Skin No Abnormality Appearance) (Pt Warm) -Tenderness on Palpation (Rika-wound No Yes Skin Appearance) -Ulcer Cleansing Rinsed/ Wound Cleanser Irrigated with Saline -Foul Odor after Cleansing No Yes, Due to Product Use -Anesthetic Used 4% Lidocaine 5% Lidocaine Solution Gel Right Calf (cm) 49.2 46 Right Ankle (cm) 36.1 30 Left Calf (cm) 49 46.5 Left Ankle (cm) 37.4 31 WC - Nurse 2 - General Ulcer CM Notes Start: 12/28/20 09:19 Freq: Status: Active Protocol: Activity Type Activity Date Activity User E-Sign Co-Sign Detail Recorded Client Recorded Date Recorded By Document 12/28/20 10:00 MW [id number] 12/28/20 10:14 MW Document 01/04/21 10:43 MW [id number] 01/04/21 10:47 MW 12/28/20 01/04/21 10:00 10:43 Wound Center Nurse 2 #1 Left Concepcion -Time 10:00 10:43 -Correct Patient Yes Yes -Correct Side, Site, Position Yes Yes -Correct Procedure Yes Yes -Procedure Performed Yes Yes -Type of Procedure Debridement Debridement -Clinical Debridement Subcutaneous Epidermis / Dermis -Tissue Removed Subcutaneous Epidermis -Post Debridement (cm) - Length 0.3 0.3 -Post Debridement (cm) - Width 0.2 0.2 -Post Debridement (cm) - Depth 0.1 0.1 -Total Square (Post) (cm) 0.06 0.06 -Area of Debridement (cm) - Length 0.3 0.3 -Area of Debridement (cm) - Width 0.2 0.2 -Total Square (Area) (cm) 0.06 0.06 -Tunneling No No -Undermining/Tunneling No No -Circular Undermining No No -Wound/Ulcer Outcome Not Healed Not Healed -Ulcer Cleansing Rinsed/ Rinsed/ Irrigated with Irrigated with Saline Saline -Foul Odor after Cleansing No No -Bioengineered Tissue No No -Bleeding Controlled with Pressure Pressure -Offloading No No -Treatment Response Procedure Procedure Tolerated Well Tolerated Well -Debridement - Open, 1st 20sq cm Yes -Debridement - Subq, 1st 20sq cm Yes Pain Scale: 0-10 Numeric Is Patient Pain Free? Yes Yes WC - Nurse 3 - General Ulcer D/C NN Start: 12/28/20 09:19 Freq: Status: Active Protocol: Activity Type Activity Date Activity User E-Sign Co-Sign Detail Recorded Client Recorded Date Recorded By Document 12/28/20 12:11 KR [id number] 12/28/20 12:12 KR Document 01/04/21 10:47 MW [id number] 01/04/21 10:48 MW 12/28/20 01/04/21 12:11 10:47 #1 Left Concepcion -Ulcer Cleansing Rinsed/ Irrigated with Saline -Foul Odor after Cleansing No -Negative Pressure Wound Therapy N/A -Primary Dressing Applied Promogran Alejandra Matter -Primary Dressing Covered/Secured with Dry Gauze, Secured with Tape -Promogran Alejandra Matter 1 Wound Care Nurse 3 Right -Multi-Layered Wrap Application Multi-Layer Comp - Right ($ ) Left -Multi-Layered Wrap Application Unna Boot - Left ($) Treatment Response Procedure Tolerated Well Pain Scale: 0-10 Numeric Is Patient Pain Free? Yes Yes Teaching: Wound Center Dressing Your Wound -Person Taught Patient -Teaching Method Discussion, Demonstration -Response to teaching Verbalize understanding WC - Visit Discharge Discharge Condition Stable Stable Ambulatory Status Ambulatory Ambulatory Transportation Private Auto Private Auto Accompanied by self self Medication Reconcilliation completed & No provided to patient/care provider Clinical Summary of Care Provided Yes Wound debrided: left concepcion Laterality: Left Type of Debridement: Selective debridement Anesthesia Used: 4% Lidocaine Solution Depth: Down to and including healthy tissue and in the subcutaneous layer Percentage of wound debrided: 100 Instrument Used: - (gauze) Tissue Removed: Yellow slough, devitalized tissue Severity: Limited To Skin Breakdown Amount of bleeding with debridement: Mild Bleeding Controlled with: Pressure Patient tolerated procedure: Patient tolerated procedure well Assessment/Plan Assessment/Plan (1) Lymphedema associated with obesity: CODE(S): I89.0 - Lymphedema, not elsewhere classified; E66.9 - Obesity, unspecified (2) Venous ulcer of left lower extremity with varicose veins: CODE(S): I83.029 - Varicose veins of left lower extremity with ulcer of unspecified site; L97.929 - Non-pressure chronic ulcer of unspecified part of left lower leg with unspecified severity (3) Cellulitis: CODE(S): L03.90 - Cellulitis, unspecified QUALIFIERS: Site of cellulitis: extremity Site of cellulitis of extremity: lower extremity Laterality: left Qualified Code(s): L03.116 - Cellulitis of left lower limb (4) Hypothyroidism: CODE(S): E03.9 - Hypothyroidism, unspecified QUALIFIERS: Hypothyroidism type: unspecified Qualified Code(s): E03.9 - Hypothyroidism, unspecified (5) Morbid obesity: CODE(S): E66.01 - Morbid (severe) obesity due to excess calories PLAN: Rosemary's ulcer was evaluated and debrided today at the wound healing center. She has chronic lymphedema that has caused an ulceration of her left concepcion. Wound culture was positive for staph. She has started doxycycline and tolerating this well. Will have her use Alejandra moistened to the left concepcion and cover with adaptic and gauze. She was given a prescription for compression stockings to obtain from [email or web address]. Due to the chronicity of her lymphedema and the potential for recurrent ulcerations if left untreated, she would benefit from compression treatment lymphedema compression pumps. She was encouraged to quit smoking as this will also impede wound healing. Encouraged elevation of legs at or above the level of her heart when sitting and to avoid idle standing. Walking and stretching and pedal pump exercises encouraged to activate calf muscles and help with edema. Would consider vascular testing of her lower legs but she clearly has varicose veins and venous insufficiency that have caused lymphedema. Encouraged weight loss and adequate protein intake. She was advised to call if develops pain, fever, chills. She will return in 1 week for follow up and wound care.
[2021-01-11 09:56] VITALS: BP 144/90; PULSE 84; TEMP 36.2
--- NOTE | 2021-01-11 10:52 | PCM.WC.PN ---
History of Present Illness Date of Service: 01/11/21 Chief Complaint: chronic wound left concepcion, lymphedema bilateral LE History of Wound: Rosemary is a 50 yo young woman who presents to the wound healing center to day for evaluation and treatment of a nonhealing ulcer of her left concepcion and chronic lymphedema to her lower legs. She has been referred by her PCP Dr. Hong Frazier. Rosemary has been struggling with lymphedema for several years and this is the first incidence that she developed an ulcer in the setting of her lymphedema. She reports that her lymphedema has been present for several years and has been worsening. She does not wear any compression currently. She was seen at the lymphedema clinic at [facility] and was given recommendations/measurements for compression stockings but was unclear on how to proceed with obtaining compression stockings. She was diagnosed with stage 2 lymphedema. 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 She denies idle standing for long periods of time. The ulcer developed approximately 2 weeks ago and she saw her PCP who referred her here. She has been applying petroleum based ointment and gauze to the ulcer daily. There is mild drainage from the ulcer. She has had a bruise on her concepcion from striking it against something for several weeks prior to this ulcer appearing. She denies fever, chills, erythema, warmth, odor. She has pain surrounding the ulcer. Subjective Subjective Rosemary is here today for follow up of edema to her bilateral LE and ulcer to left concepcion. She tolerated tubigrip compression with size F double layered with maintenance of her edema. Left concepcion ulcer is nearly healed. Wound culture was positive for staph and she was started on doxycycline. She is tolerating doxycycline and is almost finished with the treatment course. She denies fever, chills, increased drainage or pain. Objective Data Objective Data Vital Signs: Vital Signs Temp Pulse Resp BP 97.1 F L 84 18 144/90 H 01/11/21 09:56 01/11/21 09:56 01/04/21 10:21 01/11/21 09:56 Lab / Micro Data Micro: Microbiology 12/28/20 10:10 Wound - Leg, Left Gram Stain - Final 12/28/20 10:10 Wound - Leg, Left Wound Culture - Final Staphylococcus lugdunensis 12/28/20 10:10 Wound - Leg, Left Anaerobic Culture - Final No anaerobic bacteria isolated. Physical Exam Const alert, oriented x3 and no apparent distress General Appearance: cooperative Orientation / Consciousness: oriented to person and oriented to place Nutritional Appearance: obese HEENT normocephalic and head/scalp atraumatic Eyes PERRL and EOMs intact bilaterally Neck no lymphadenopathy Lymph Lymphatic: lymphedema severe Resp normal respiratory effort Auscultation: clear to auscultation bilaterally Cardio regular rate and regular rhythm GI soft to palpation and non-tender Extremity General Extremity: edema Skin General Skin Exam: venous stasis and dermatitis Wounds: wounds noted Psych Appearance: grossly normal and appropriate Debridement Note Debridement Note Post-Debridement Measurements and Additional Note: Post-Debridement Measurements/Treatment - Nurse 1 - General Ulcer Assessment Start: 12/28/20 09:19 Freq: Status: Active Protocol: LAST Activity Type Activity Date Activity User E-Sign Co-Sign Detail Recorded Client Recorded Date Recorded By Document 12/28/20 09:20 KR [id number] 12/28/20 09:42 KR Document 01/04/21 10:21 DL [id number] 01/04/21 10:28 DL Document 01/11/21 09:56 AK [id number] 01/11/21 10:06 AK 12/28/20 01/04/21 01/11/21 09:20 10:21 09:56 - Today's Visit Information Type of service Initial Visit Follow-up Visit Follow-up Visit (Physician/MANAGER E LEARNING (Physician/MANAGER E LEARNING ) ) Arrival Mode Ambulatory Ambulatory Ambulatory Transfer Assistance None Patient Identification Verified (Name & Yes Yes Yes ) Patient Requires Transmission-Based No Precautions Vital Signs Temperature (97.8 F-99.1 F) 96.5 F L 96.8 F L 97.1 F L Temperature Source Temporal Temporal Temporal Pulse Rate (60-100) 71 65 84 Pulse Location Monitor Monitor Respiratory Rate (12-18) 18 Respiratory rate source Observation Blood Pressure (90/60-120/80) 136/93 H 139/88 H 144/90 H Blood Pressure Mean (mm Hg) 107 105 108 Source Monitor Monitor Monitor Position Semi-Fowlers Blood Pressure Location Left Arm History Since Last Visit- (Skip if this is Patient's initial visit) Have you changed medications since your No No No last visit? Any new allergies or adverse reactions No No No Had a fall/change in ADL's that may No No No increase risk of falls Signs or symptoms of abuse and/or No No No neglect since last visit Have you been in the hospital since your No No last visit? Has dressing in place as prescribed No Yes Yes Has compression in place as prescribed N/A Yes Yes Has offloadiing in place as prescribed N/A N/A Experienced any changes in pain level or No No management Left Footwear Regular Shoe Regular Shoe Right Footwear Regular Shoe Regular Shoe Pain Scale: 0-10 Numeric Is Patient Pain Free? Yes Yes Lower Extremity Assessment/ Foot Assessment/ Toe Nail Assessment Right -Popliteal Doppler Multiphasic -Posterior Tibial Doppler Monophasic -Dorsalis Pedis Doppler Monophasic -Extremity Color Normal -Hair Growth on Legs Yes -Hair Growth on Toes No -Temperature of Extremity Warm -Capillary Refill Less than 3 Seconds -Dependent Rubor No -Blanched when Elevated N/A -Lipodermatosclerosis No -Other Deformity No -Prior Foot Ulcer No -Charcot Joint No -Prior Amputation No -Thick Yes -Discolored Yes -Deformed No -Improper Length & Hygeine No Left -Popliteal Doppler Monophasic -Posterior Tibial Doppler Monophasic -Dorsalis Pedis Doppler Monophasic -Extremity Color Normal -Hair Growth on Legs Yes -Hair Growth on Toes No -Temperature of Extremity Warm -Capillary Refill Less than 3 Seconds -Dependent Rubor No -Blanched when Elevated N/A -Lipodermatosclerosis No -Other Deformity No -Prior Foot Ulcer No -Charcot Joint No -Prior Amputation No -Thick Yes -Discolored Yes -Deformed No -Improper Length & Hygeine No Neuropathy Assessment Feet - Top Side and Bottom <Entered> (a) (a) 1 - + 2 - + 3 - + 4 - + WC - Nurse 1 - General Ulcer Measurement Start: 12/28/20 09:19 Freq: Status: Active Protocol: Activity Type Activity Date Activity User E-Sign Co-Sign Detail Recorded Client Recorded Date Recorded By Document 12/28/20 09:20 KR [id number] 12/28/20 09:42 KR Document 01/04/21 10:21 DL [id number] 01/04/21 10:28 DL Document 01/11/21 09:56 AK [id number] 01/11/21 10:06 AK 12/28/20 01/04/21 01/11/21 09:20 10:21 09:56 Wound Center Nurse 1 #1 Left Concepcion -Combined with other wound No -Current Size (cm) - Length 0.2 0.1 0.9 -Current Size (cm) - Width 0.2 0.1 0.5 -Current Size (cm) - Depth 0.1 0.1 0.1 -Total Square Cm 0.04 0.01 0.45 -Photo Taken No No -Epithelialization Small 1-33% -Tunneling No -Undermining/Tunneling No -Circular Undermining No -Change in Wound Grade/Stage No -Exudate Amt Small None Present Small -Exudate Type Serosanguineous Purulent -Wound Margin Distinct, Flat & Intact Distinct, Outline Outline Attached Attached -Granulation Amt Small (1-33%) Small (1-33%) Small (1-33%) -Granulation Quality Red [place] -Slough/Fibrin Yes -Necrosis Amt None Present (0 Small (1-33%) Medium (34-66%) %) -Necrotic Tissue Type Adherent Slough -Structure Exposed N/A N/A -Texture (Rika-wound Skin Appearance) Assessed, Scarring No Abnormality, Localized Edema Assessed ,Scarring -Moisture (Rika-wound Skin Appearance) Assessed, No Abnormality No Abnormality, Maceration Assessed -Color (Rika-wound Skin Appearance) Assessed, Ecchymosis, Assessed, Ecchymosis Rubor Hemosiderin Staining -Temperature (Rika-wound Skin No Abnormality No Abnormality Appearance) (Pt Warm) (Pt Warm) -Tenderness on Palpation (Rika-wound No Yes Yes Skin Appearance) -Ulcer Cleansing Rinsed/ Wound Cleanser Rinsed/ Irrigated with Irrigated with Saline Saline -Foul Odor after Cleansing No Yes, Due to No Product Use -Anesthetic Used 4% Lidocaine 5% Lidocaine 4% Lidocaine Solution Gel Solution Lower Limb Edema Present Yes Right Calf (cm) 49.2 46 Right Ankle (cm) 36.1 30 Left Calf (cm) 49 46.5 46.5 Left Ankle (cm) 37.4 31 31 WC - Nurse 2 - General Ulcer CM Notes Start: 12/28/20 09:19 Freq: Status: Active Protocol: Activity Type Activity Date Activity User E-Sign Co-Sign Detail Recorded Client Recorded Date Recorded By Document 12/28/20 10:00 MW [id number] 12/28/20 10:14 MW Document 01/04/21 10:43 MW [id number] 01/04/21 10:47 MW Document 01/11/21 10:20 AK [id number] 01/11/21 10:25 AK 12/28/20 01/04/21 01/11/21 10:00 10:43 10:20 Wound Center Nurse 2 #1 Left Concepcion -Time 10:00 10:43 10:21 -Correct Patient Yes Yes Yes -Correct Side, Site, Position Yes Yes Yes -Correct Procedure Yes Yes Yes -Procedure Performed Yes Yes Yes -Type of Procedure Debridement Debridement Debridement -Clinical Debridement Subcutaneous Epidermis / Epidermis / Dermis Dermis -Tissue Removed Subcutaneous Epidermis Epidermis -Post Debridement (cm) - Length 0.3 0.3 0.3 -Post Debridement (cm) - Width 0.2 0.2 0.2 -Post Debridement (cm) - Depth 0.1 0.1 0.1 -Total Square (Post) (cm) 0.06 0.06 0.06 -Area of Debridement (cm) - Length 0.3 0.3 0.3 -Area of Debridement (cm) - Width 0.2 0.2 0.2 -Total Square (Area) (cm) 0.06 0.06 0.06 -Tunneling No No No -Undermining/Tunneling No No No -Circular Undermining No No No -Wound/Ulcer Outcome Not Healed Not Healed Not Healed -Ulcer Cleansing Rinsed/ Rinsed/ Rinsed/ Irrigated with Irrigated with Irrigated with Saline Saline Saline -Foul Odor after Cleansing No No No -Bioengineered Tissue No No No -Bleeding Controlled with Pressure Pressure Pressure -Offloading No No No -Treatment Response Procedure Procedure Procedure Tolerated Well Tolerated Well Tolerated Well -Debridement - Open, 1st 20sq cm Yes Yes -Debridement - Subq, 1st 20sq cm Yes Pain Scale: 0-10 Numeric Is Patient Pain Free? Yes Yes Yes WC - Nurse 3 - General Ulcer D/C NN Start: 12/28/20 09:19 Freq: Status: Active Protocol: Activity Type Activity Date Activity User E-Sign Co-Sign Detail Recorded Client Recorded Date Recorded By Document 12/28/20 12:11 KR [id number] 12/28/20 12:12 KR Document 01/04/21 10:47 MW [id number] 01/04/21 10:48 MW Document 01/11/21 10:38 RB [id number] 01/11/21 10:39 RB 12/28/20 01/04/21 01/11/21 12:11 10:47 10:38 #1 Left Concepcion -Ulcer Cleansing Rinsed/ Irrigated with Saline -Foul Odor after Cleansing No -Negative Pressure Wound Therapy N/A -Primary Dressing Applied Promogran Promogran Alejandra Matter -Other Dressing stasis pad -Primary Dressing Covered/Secured with Dry Gauze, Dry Gauze,Dry Secured with Gauze & Roll Tape Gauze,Secured with Tape -Promogran 1 -Promogran Alejandra Matter 1 Wound Care Nurse 3 Right -Multi-Layered Wrap Application Multi-Layer Comp - Right ($ ) -Tubular Bandage Double Layer -Size of Tubigrip Used Size E -Size E ($) 2 -Stockings Yes Left -Multi-Layered Wrap Application Unna Boot - Left ($) -Tubular Bandage Double Layer -Size of Tubigrip Used Size E -Size E ($) 2 Treatment Response Procedure Tolerated Well Pain Scale: 0-10 Numeric Is Patient Pain Free? Yes Yes Yes Teaching: Wound Center Dressing Your Wound -Person Taught Patient -Teaching Method Discussion, Demonstration -Response to teaching Verbalize understanding WC - Visit Discharge Discharge Condition Stable Stable Stable Ambulatory Status Ambulatory Ambulatory Ambulatory Transportation Private Auto Private Auto Private Auto Accompanied by self self Medication Reconcilliation completed & No No provided to patient/care provider Clinical Summary of Care Provided Yes Yes Wound debrided: left concepcion Laterality: Left Type of Debridement: Selective debridement Anesthesia Used: 4% Lidocaine Solution Depth: Down to and including healthy tissue and in the subcutaneous layer Percentage of wound debrided: 100 Instrument Used: - (gauze) Tissue Removed: Yellow slough, devitalized tissue Severity: Fat Layer Exposed Amount of bleeding with debridement: Mild Bleeding Controlled with: Compression and gauze Patient tolerated procedure: Patient tolerated procedure well Assessment/Plan Assessment/Plan (1) Lymphedema associated with obesity: CODE(S): I89.0 - Lymphedema, not elsewhere classified; E66.9 - Obesity, unspecified (2) Venous ulcer of left lower extremity with varicose veins: CODE(S): I83.029 - Varicose veins of left lower extremity with ulcer of unspecified site; L97.929 - Non-pressure chronic ulcer of unspecified part of left lower leg with unspecified severity (3) Cellulitis: CODE(S): L03.90 - Cellulitis, unspecified QUALIFIERS: Laterality: left Site of cellulitis: extremity Site of cellulitis of extremity: lower extremity Qualified Code(s): L03.116 - Cellulitis of left lower limb (4) Hypothyroidism: CODE(S): E03.9 - Hypothyroidism, unspecified QUALIFIERS: Hypothyroidism type: unspecified Qualified Code(s): E03.9 - Hypothyroidism, unspecified (5) Morbid obesity: CODE(S): E66.01 - Morbid (severe) obesity due to excess calories PLAN: Rosemary's ulcer was evaluated and debrided today at the wound healing center. She has chronic lymphedema that has caused an ulceration of her left concepcion. Wound culture was positive for staph. She has started doxycycline and tolerating this well, has 1 day left. Will have her use Promogran moistened to the left concepcion and cover with adaptic and gauze. Venous stasis pad to her wound for extra compression to relieve edema from the area. She will wear tubigrip E double layer will be tried but may do single layer if she is unable to tolerate. She was given a prescription for compression stockings to obtain from [employer], these are on order. Due to the chronicity of her lymphedema and the potential for recurrent ulcerations if left untreated, she would benefit from compression treatment lymphedema compression pumps. She understands that she will need life-long use of compression to maintain control of her edema. She was encouraged to quit smoking as this will also impede wound healing. Encouraged elevation of legs at or above the level of her heart when sitting and to avoid idle standing. Walking and stretching and pedal pump exercises encouraged to activate calf muscles and help with edema. Would consider vascular testing of her lower legs but she clearly has varicose veins and venous insufficiency that have caused lymphedema. Encouraged weight loss and adequate protein intake. She was advised to call if develops pain, fever, chills. She will return in 1 week for follow up and wound care.
== END 2021-01-12 23:59 ==
LOC: WC 10:00
PROVIDERS: PCP Family Medicine; Visit Provider Family Medicine
DX: I83.028 Varicose veins of left lower extremity with ulcer other part of lower leg (principal); L97.822 Non-pressure chronic ulcer of other part of left lower leg with fat layer exposed; I87.2 Venous insufficiency (chronic) (peripheral); I87.8 Other specified disorders of veins; I89.0 Lymphedema, not elsewhere classified; L03.116 Cellulitis of left lower limb; E03.9 Hypothyroidism, unspecified; E66.01 Morbid (severe) obesity due to excess calories; F17.200 Nicotine dependence, unspecified, uncomplicated; Z79.890 Hormone replacement therapy; Z79.899 Other long term (current) drug therapy
CPT/HCPCS: 11042; 29580; 29581; 87070; 87075; 87077; 87186; 87205; 97597; 99213; G0463

== ENCOUNTER 2021-01-18 11:17 | Outpatient (RCR) | payer MEDICAID, SELFPAY ==
[2021-01-13 00:38] VITALS: BP 144/90; PULSE 84; RESP 18; TEMP 36.2
[2021-01-18 11:31] VITALS: BP 130/77; PULSE 71; RESP 16; TEMP 36.2
--- NOTE | 2021-01-18 13:49 | PCM.WC.PN ---
History of Present Illness Date of Service: 01/18/21 Chief Complaint: chronic wound left concepcion, lymphedema bilateral LE History of Wound: Rosemary is a 50 yo young woman who presents to the wound healing center to day for evaluation and treatment of a nonhealing ulcer of her left concepcion and chronic lymphedema to her lower legs. She has been referred by her PCP Dr. Hong Frazier. Rosemary has been struggling with lymphedema for several years and this is the first incidence that she developed an ulcer in the setting of her lymphedema. She reports that her lymphedema has been present for several years and has been worsening. She does not wear any compression currently. She was seen at the lymphedema clinic at [facility] and was given recommendations/measurements for compression stockings but was unclear on how to proceed with obtaining compression stockings. She was diagnosed with stage 2 lymphedema. 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 She denies idle standing for long periods of time. The ulcer developed approximately 2 weeks ago and she saw her PCP who referred her here. She has been applying petroleum based ointment and gauze to the ulcer daily. There is mild drainage from the ulcer. She has had a bruise on her concepcion from striking it against something for several weeks prior to this ulcer appearing. She denies fever, chills, erythema, warmth, odor. She has pain surrounding the ulcer. Subjective Subjective Rosemary is here today for follow up of edema to her bilateral LE and ulcer to left concepcion. She tolerated tubigrip compression with size E double layered with maintenance of her edema. Left concepcion ulcer is healed. She received compression stockings today. She denies fever, chills, increased drainage or pain. Objective Data Objective Data Vital Signs: Vital Signs Temp Pulse Resp BP 97.1 F L 71 16 130/77 H 01/18/21 11:31 01/18/21 11:31 01/18/21 11:31 01/18/21 11:31 Physical Exam Const alert, oriented x3 and no apparent distress General Appearance: cooperative and comfortable HEENT normocephalic Mouth: oral and palatal mucosa normal Lymph Lymphatic: lymphedema moderate Lymphatic Narrative: bilateral LE Resp normal respiratory effort Effort and Inspection: able to speak in complete sentences Auscultation: clear to auscultation bilaterally Cardio regular rate and regular rhythm Extremity General Extremity: edema bilateral lower extremity Details: moderate Skin General Skin Exam: venous stasis and dermatitis Psych mental status grossly normal Debridement Note Debridement Note Wound debrided: left concepcion Laterality: Left No debridement was completed: No debridement was completed today (wound healed) Assessment/Plan Assessment/Plan (1) Morbid obesity: CODE(S): E66.01 - Morbid (severe) obesity due to excess calories (2) Hypothyroidism: CODE(S): E03.9 - Hypothyroidism, unspecified QUALIFIERS: Hypothyroidism type: unspecified Qualified Code(s): E03.9 - Hypothyroidism, unspecified (3) Cellulitis: CODE(S): L03.90 - Cellulitis, unspecified QUALIFIERS: Site of cellulitis: extremity Site of cellulitis of extremity: lower extremity Laterality: left Qualified Code(s): L03.116 - Cellulitis of left lower limb (4) Venous ulcer of left lower extremity with varicose veins: CODE(S): I83.029 - Varicose veins of left lower extremity with ulcer of unspecified site; L97.929 - Non-pressure chronic ulcer of unspecified part of left lower leg with unspecified severity (5) Lymphedema associated with obesity: CODE(S): I89.0 - Lymphedema, not elsewhere classified; E66.9 - Obesity, unspecified PLAN: Rosemary's ulcer was evaluated at the wound healing center today and is healed. She has chronic lymphedema bilateral LE. She was advised to wear compression stockings of 20-30 mm Hg pressure daily. These were demonstrated for her on proper application today. Due to the chronicity of her lymphedema and the potential for recurrent ulcerations if left untreated, she would benefit from compression treatment lymphedema compression pumps. She understands that she will need life-long use of compression to maintain control of her edema. She was encouraged to quit smoking as this will also impede wound healing. Encouraged elevation of legs at or above the level of her heart when sitting and to avoid idle standing. Walking and stretching and pedal pump exercises encouraged to activate calf muscles and help with edema. Would consider vascular testing of her lower legs but she clearly has varicose veins and venous insufficiency that have caused lymphedema. Encouraged weight loss and adequate protein intake. She will be discharged today from treatment at the wound healing center and was instructed to call for referral in the future if she were to develop ulcers again.
== END 2021-01-18 12:30 | disposition home or self-care (01) ==
LOC: WC 11:17
PROVIDERS: PCP Family Medicine; Visit Provider Family Medicine
DX: I89.0 Lymphedema, not elsewhere classified (principal); I87.2 Venous insufficiency (chronic) (peripheral); E03.9 Hypothyroidism, unspecified; E66.01 Morbid (severe) obesity due to excess calories; F17.200 Nicotine dependence, unspecified, uncomplicated; Z79.890 Hormone replacement therapy; Z79.899 Other long term (current) drug therapy
CPT/HCPCS: 99212; G0463

== ENCOUNTER → 2021-03-01 12:41 | Outpatient (CLI) | payer MEDICAID, SELFPAY ==
--- NOTE | 2021-03-01 13:40 | RAD_ITS ---
STUDY: X-RAY CHEST REASON FOR EXAM: Female, 50 years old. HEMOPTYSIS TECHNIQUE: Frontal and lateral views of the chest. COMPARISON: None. FINDINGS: The lungs are clear and expanded. There is no demonstrated pleural abnormality. Normal size heart. Normal mediastinum and víctor. Normal visualized pulmonary arteries. Normal visualized aortic arch and descending thoracic aorta. There are diffuse degenerative changes of the visualized thoracic spine. Normal visualized ribs, clavicles, and shoulders. There is no demonstrated abnormality of the visualized soft tissue structures of the upper abdomen. RAD/Chest PA and Lateral IMPRESSION: Degenerative changes, as described above. No demonstrated acute cardiopulmonary process. Electronically Signed: Carlo Jerome MD at 4:50 EDT Tel , Service support ,
== END ==
PROVIDERS: PCP Family Medicine; Referring Provider Family Medicine; Visit Provider Family Medicine
DX: R04.2 Hemoptysis (principal); Z20.822 Contact with and (suspected) exposure to COVID-19
CPT/HCPCS: 71046; 87635; U0003

== ENCOUNTER → 2021-03-01 | Outpatient (CLI) | payer MEDICAID, SELFPAY | END | disposition home or self-care (01) | LOC: LABSPEC 03-04 08:42 | PROVIDERS: PCP Family Medicine; Referring Provider Family Medicine; Visit Provider Family Medicine | DX: Z20.822 Contact with and (suspected) exposure to COVID-19 (principal) | CPT/HCPCS: 87635; U0003 ==

== ENCOUNTER 2021-06-13 03:47 | Emergency (ER) | payer MEDICAID, SELFPAY ==
[2021-06-13 03:48] VITALS: BP 146/86; PULSE 79; RESP 18; TEMP 35.8; O2SAT 98; BMI 41.9
--- NOTE | 2021-06-13 04:16 | EX.ED.DYSGE1 ---
HPI History of Present Illness Chief Complaint: Lower Extremity Injury Narrative Narrative: Patient is a 50-year-old female who states she been going to wound care for quite some time secondary to wound to her left lower leg. She states she is approximately 5 days into a Covid diagnosis and over the last 1 to 2 days has had increased pain to her left lower leg around the wound. She states her family doctor placed her on some type of gel but it does not seem to be helping. She denies any fevers or chills or new skin irritation to the chronic wound but states that the pain is keeping her from sleeping and secondary to this she presents for evaluation [facility] Medical History Histrionic person Hypothyroidism multiple skuin lesions 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, pre-employment Skin lesions Home Medications levothyroxine 100 mcg PO DAILY 11/12/16 [History Last Taken Unknown] ibuprofen 800 mg PO TID PRN PRN #20 tab 07/25/18 [Rx Last Taken Unknown] ergocalciferol (vitamin D2) 1,250 mcg PO QWEEK 02/18/20 [History Last Taken Unknown] spironolactone 50 mg PO DAILY 02/18/20 [History Last Taken Unknown] gabapentin 300 mg PO TID 10 Days #30 cap 06/13/21 [Rx Last Taken Unknown] Allergy/AdvReac Type Severity Reaction Status Date / Time No Known Allergies Allergy Verified 06/13/21 03:50 Family History Sister Arthritis Cancer Father Cancer liver cancer Surgical History History of History of cholecystectomy History of hernia repair Social History Smoking Status: Current every day smoker tobacco type: cigarettes alcohol intake: never substance use type: does not use ROS ROS ED Constitutional Constitutional ED: Denies chills or fever(s) ENT ENT ED: Reports rhinorrhea and sore throat Cardiovascular Cardiovascular: Denies chest pain Respiratory/Chest Respiratory/Chest: Reports cough; Denies dyspnea Gastrointestinal Gastrointestinal: Denies abdominal pain, diarrhea, nausea or vomiting Genitourinary Genitourinary ED: Denies dysuria Musculoskeletal Musculoskeletal: Reports myalgias Integumentary Reports other Details: Positive chronic wound ; Denies rash Neurologic Neurologic: Denies headache(s) Hematologic/Lymphatic Hematologic/Lymphatic: Denies easy bleeding or easy bruising EXAM Physical Exam Const Vital Signs: 06/13/21 03:48 Temperature 96.5 F L Temperature Source Temporal Pulse Rate 79 Respiratory Rate 18 Blood Pressure 146/86 H Blood Pressure Mean 106 Pulse Ox 98 Oxygen Delivery Method Room Air Positive well nourished, well developed and obese General Appearance ED: well developed Nutritional Appearance: obese Eyes PERRL and EOMs intact bilaterally Neck supple Resp normal respiratory effort and clear to auscultation bilaterally Cardio regular rate and regular rhythm Extremity Extremity Narrative: Patient has a chronic wound to the anterior distal third of the tibia on the left. There are chronic changes associated with this but no acute infectious process noted. No induration or fluctuance or lymphangitic streaking. No asymmetric erythema or warmth. Patient does have multiple varicose veins in the lower leg. She has pain with palpation along the medial and lateral aspect of the lower leg as well without any underlying soft tissue abnormality palpated other than her chronic wound and varicosities. Negative Homans' sign bilaterally. Neuro oriented x3 and CN's II-XII intact bilaterally Sensorium / Orientation: alert Motor Exam: strength 5/5 throughout Psych mental status grossly normal Skin Skin Narrative: Chronic wound to the left anterior concepcion as documented above with varicosities MDM MDM MDM Narrative Medical decision making narrative: Scented to the ER afebrile and in no acute respiratory distress. She presented secondary to pain to her chronic wound/left lower leg. She was not any type of respiratory distress with her Covid symptoms and therefore I felt no need to further evaluate this aspect. The patient's wound does not appear infected and there are no physical exam findings concerning for DVT so do not feel the need for a venous duplex or treatment with Lovenox. I feel the patient's pain is related to chronic irritation of the nervous fibers from her wound and the dilated varicosities. Therefore I will place her on gabapentin to help reduce this and she can continue the diclofenac gel that was given by her family doctor but is otherwise safe for discharge. Discharge Plan Triage Chief Complaint: Lower Extremity Injury ED Provider: Wilmar Good Dx/Rx/DC Orders Clinical Impression: Left leg pain, Chronic wound of extremity Instructions: ED Wound Check (No Infection) Prescriptions: New gabapentin 300 mg capsule 300 mg PO TID 10 Days Qty: 30 RF: 0 No Action levothyroxine 75 MCG tablet 100 mcg PO DAILY RF: 0 ibuprofen 800 MG tablet 800 mg PO TID PRN PRN (Reason: Pain) Qty: 20 RF: 0 ergocalciferol (vitamin D2) 1,250 MCG capsule 1,250 mcg PO QWEEK RF: 0 spironolactone 50 MG tablet 50 mg PO DAILY RF: 0 Primary Care Provider: Hong Frazier Referrals: Hong Frazier MD [Primary Care Provider] - Disposition Disposition: Home, Self Care
[2021-06-13] MEDS: Gabapentin 300 MG Capsule PO (04:41)
== END 2021-06-13 04:47 | disposition home or self-care (01) ==
PROVIDERS: Emergency Provider Emergency Medicine; PCP Family Medicine
DX: I83.812 Varicose veins of left lower extremity with pain (principal); S81.802A Unspecified open wound, left lower leg, initial encounter; X58.XXXA Exposure to other specified factors, initial encounter; Y93.9 Activity, unspecified; Y92.9 Unspecified place or not applicable; Y99.9 Unspecified external cause status; U07.1 COVID-19; E03.9 Hypothyroidism, unspecified; E66.9 Obesity, unspecified; F17.210 Nicotine dependence, cigarettes, uncomplicated; Z79.890 Hormone replacement therapy; Z79.899 Other long term (current) drug therapy
CPT/HCPCS: 99283

== ENCOUNTER 2021-06-27 08:16 | Outpatient (CLI) | payer MEDICAID, SELFPAY ==
--- NOTE | 2021-06-27 08:21 | BI_ITS ---
MAMMOGRAPHY - BILATERAL SCREENING REASON FOR EXAM: Female, 50 years old. Routine annual screening examination. PERTINENT HISTORY: Non-contributory. TECHNIQUE: Digital bilateral breast marie (3D mammographic acquisition) in the CC and MLO projections. 2-D mediolateral oblique (MLO) and craniocaudad (CC) views of both breasts were obtained. CAD: Full Field Digital Mammography with Computer Added Detection was performed. COMPARISON: Comparison is made with prior study dated 12/28/2018. FINDINGS: Breast Composition: There are scattered areas of fibroglandular density. There are no dominant masses or suspicious calcifications. Stable small benign-appearing bilateral axillary lymph nodes. No other significant abnormalities are identified. There has been no significant change since the prior study. BI/SCRN MAMM (CAD)W/MARIE BILAT IMPRESSION: Stable bilateral screening mammogram. Yearly follow-up mammogram recommended. (A) ASSESSMENT CATEGORY: BIRADS Category 2: Benign. A letter regarding these results will be sent to the patient by the facility within 30 days. Approximately 10% of breast cancers are not detected by mammography. A normal mammogram should not delay biopsy of a clinically suspicious abnormality. [id number] Electronically Signed: Reggie Lopez MD at 9:49 EST , Service support ,
== END 2021-06-27 23:59 | disposition short-term general hospital (02) ==
LOC: OPBI 08:16
PROVIDERS: PCP Family Medicine; Referring Provider Family Medicine; Visit Provider Family Medicine
DX: Z12.31 Encounter for screening mammogram for malignant neoplasm of breast (principal)
CPT/HCPCS: 77063; 77067

== ENCOUNTER 2021-07-29 09:00 | Outpatient (RCR) | payer MEDICAID, SELFPAY ==
--- NOTE | 2021-07-05 10:36 | HP.PTEVAL ---
Patient's Visit Information CHRISTOPHER KWAN is a 50 year old F referred to Physical Therapy by Dr. Hong Frazier MD with a diagnosis of NECK PAIN. Date of Evaluation: 07/05/21 Physical Therapist: Susan Bedolla PT, Cert MDT - Visit Plan Frequency: 2-3x /Week Duration: 4-6 Weeks Plan: CHECK AUTH AND RECORD APPROVED CODES, VISITS AND EXPIRATION DATE. US TO RIGHT NECK. POSTURE CORRECTION/STRENGTHENING, INSTRUCTION IN APPROPRIATE BODY MECHANICS AND ACTIVITY MODIFICATIONS. AFUA UE ROM, STRETCHING AND STRENGTHENING. HEP INSTRUCTION. - Subjective Diagnosis: NECK PAIN. 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 MOTHER OF A 14 YEAR OLD DAUGHTER. Disability: NO. Present symptoms: RIGHT NECK PAIN. RIGHT SHLD BLADE AND POST RIGHT HEAD PAIN. DENIES AFUA UE PAIN, NUMBNESS AND TINGLING. Present since: ABOUT A MONTH AGO. Pain Scale: Worst - 5/10 Least - 1-2/10. Currently: 06/24. Commenced as a result of: NO APPARENT REASON. Symptoms at onset: RIGHT SIDE OF HEAD AND NECK PAIN. Worse: SLEEPING, LYING DOWN, TURNING ON LEFT SIDE IN LYING, TURNING HEAD TO THE LEFT. VARIES. Better: TYLONOL. Disturbed sleep: YES. Previous history/Previous treatment: UNREMARKABLE. This episode: NONE. Dizziness: NO. Tinnitis: NO. Nausea: NO. Shortness of Breath: NO. Difficulty Swollowing: NO. Gait: NORMAL. Accidents: NO. Unexplained weight loss: NO. Imaging: NO. PMH/Recent major surgery: HYPOTHYROIDISM. RECENT EPISODE OF COVID May AND SICK FOR A WEEK BUT NOT HOSPITALIZED. - Objective Sitting Posture/Standing Posture: POOR. FH. SH'S. Active Correction of posture: BETTER. Other Observations: INDEP GAIT AND TRANSFERS. 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 AFUA UE STRENGTH IS GROSSLY 5/5 WITH MMT'ING EXCEPT SHLDS 4/5 AND RIGHT SHLD FLEX AND ABD TESTING PROVOKES TEMPROARY INCRASE IN RIGHT NECK PAIN. Sensory deficit: AFUA UE LIGHT TOUCH SENSATION IS GROSSLY INTACT AND SYMMETRICAL. ROM deficit: AFUA UE ROM WFL BUT SHLD TIGHTNESS INTO ELEVATION AND ABOUT 20 LIMITED AFUA. Reflexes: 2/3 AFUA UE'S. Dural Signs: NEGATIVE AFUA UE'S. Cervical Mvmt Loss: Flex: NIL. Pro: NIL. Ext: MOD. Ret: MOD. RSB: MOD. LSB: MOD. R Rot: MIN. L Rot: MOD. PATIENT C/O INCREASED RIGHT NECK PAIN WITH CERVICAL ROM TESTING INTO EXT, RETRACTION, AFUA SB, R ROT AND ESPECIALLY LEFT ROTATION. Postural strength: POOR. Palpation: NO ACUTE CERVICAL, UPPER THORACIC OR AFUA NECK TENDERNESS. TREATMENT: NEUROMUSCULAR REEDUCATION - RETRAINING OF MVMT AND POSTURE FOR SITTING, LYING AND STANDING ACTIVITIES. - Balance/Special Test Scores Oswestry Neck Score: 8 - Goals Goal 1:: DECREASE C/O R HEAD AND NECK PAIN Goal Time Frame: 4-6 Weeks Goal 2:: IMPROVE READING, SLEEP, WORK, DRIVING AND RECREATIONAL FUNCTION. Goal Time Frame: 4-6 Weeks Goal 3:: INSTRUCT IN PROPHYLAXIS Goal Time Frame: 4-6 Weeks - Anticipated Interventions Patient/Client Instruction: Educate patient on: Condition, Plan of Care, Risk Factors For the Purpose of:: To improve self management Therapeutic Exercise to Include: Strength training, Body mechanics, Postural training, Flexibilty training, Neuromotor development, Scapular Strength/Stabilization For the Purpose of:: To decrease pain, To increase ROM, To improve muscle performance and motor function, To increase tolerance to activity/condition/position, To improve ability of physical actions for home/community/work/leisure Cryotherapy (ice pack, ice massage): Yes Thermo therapy (hot pack): Yes Ultrasound (thermal/non thermal): Yes For the Purpose of:: To decrease pain, To improve nutrient delivery to tissue Thank you for the opportunity to evaluate your patient. For Medicare and Medicare HMO plans, please review the plan of care and approve it. It will need to be FAXED BACK to us at [phone] for Medicare purposes. For Medicare only, by signing this I certify the plan of care. Please let me know if there are questions or concerns regarding this plan of care. Physician Signature: Date:
== END 2021-07-29 19:00 | disposition home or self-care (01) ==
LOC: PT 09:00
PROVIDERS: PCP Family Medicine; Referring Provider Family Medicine; Visit Provider Family Medicine
DX: M54.2 Cervicalgia (principal)
CPT/HCPCS: 97035; 97112; 97162; 97530

== ENCOUNTER 2021-10-03 19:18 | Inpatient (IN) | payer MEDICAID, SELFPAY ==
[2021-10-03 19:19] VITALS: BP 150/100; PULSE 100; RESP 18; TEMP 36.2; O2SAT 98; BMI 43.2
[2021-10-03 20:13] LABS: Bacteria 0 SEEN /hpf (None Seen); Mucous, Urine 0 SEEN /hpf (<or=2+); Red Blood Cells-Urine 0 SEEN /hpf (0-5)
[2021-10-03 20:20] LABS: Color, Urine Yellow (Yellow); Glucose, Dipstick Normal (Normal); Ketone-Dipstick 5 mg/dl (Negative); Leukocyte Esterase-Dipstick Negative /ul (Negative); Nitrite-Dipstick Negative (Negative); Occult Blood-Urine 10 /ul (Negative); Protein-Dipstick Negative (Negative); Urine Bilirubin Dipstick Negative (Negative); Urine Clarity Clear (Clear); Urine Urobilinogen Normal (Normal)
[2021-10-03 20:29] LABS: Squamous Epithelial Cells - UA 0-5 SEEN /hpf (5-10); White Blood Cells 0-5 SEEN /hpf (0-5)
[2021-10-03 20:38] LABS: Absolute Lymphocyte Count 3.05 X10^3/uL (0.83-4.51); Absolute Neutrophil Count 3.3 X10^3/uL (2.0-7.7); Basophil# 0.03 X10^3/uL; Basophil% 0.4 % (0-1); Eosinophil# 0.14 X10^3/uL; Hematocrit 34.5 % (37-47); Hemoglobin 11.1 g/dL (12.0-15.0); Lymphocyte # 3.05 X10^3/ul (0.83-4.51); Lymphocyte % 44.3 % (19-41); Mean Corp Hgb Conc 32.2 g/dL (32-36); Mean Corpuscular Hgb 27.6 pg (27.0-32.0); Mean Corpuscular Volume 85.8 fL (81-99); Monocyte# 0.36 X10^3/uL; Monocyte% 5.2 % (0-10); NRBC Flagged by Analyzer 0 % (0-5); Neutrophil # 3.27 X10^3/uL (2.7-7.7); Neutrophil % 47.5 % (47-70); Platelet Count 436 K/mm3 (150-450); RBC Distribution Width CV 14.7 % (11.6-14.6); RBC Distribution Width SD 46.5 fl (35.1-43.9); Red Blood Count 4.02 M/mm3 (4.2-5.4); White Blood Count 6.9 K/mm3 (4.4-11.0)
[2021-10-03 20:54] LABS: Anion Gap 3 (5-15); BUN 23 mg/dL (7-18); BUN/Creat Ratio 30.5 RATIO (10-20); Chloride 109 mmol/L (98-107); Creatinine, Serum 0.75 mg/dL (0.55-1.02); EST Glomerular Filtration Rate 86 mL/min (>60); Est Glom Filt Rate - Afr Amer 105 mL/min (>60); Estimated Creatinine Clearance 87.27 ml/min; Glucose 104 mg/dL (74-106); Sodium Level 138 mmol/L (136-145)
[2021-10-03 21:52] LABS: CPK Total, Creatine Kinase 74 U/L (26-192); Lipase 239 U/L (73-393)
[2021-10-03 22:03] LABS: AST(SGOT) 15 U/L (15-37); Alanine Aminotransfer ALT/SGPT 26 U/L (13-56); Albumin, Serum 3.4 g/dL (3.2-5.0); Alkaline Phosphatase 67 U/L (45-117); Bilirubin, Direct < 0.05 mg/dL (0.00-0.30); Globulin 3.7 g/dL (2.2-4.2); Protein, Total 7.1 g/dL (6.4-8.2)
[2021-10-03 22:27] VITALS: BP 114/74; PULSE 103; RESP 16; O2SAT 100
[2021-10-03 22:45] VITALS: BP 118/77; BP 122/90; BP 127/89; PULSE 116; PULSE 118; PULSE 95
--- NOTE | 2021-10-03 22:48 | ED.VIS.GI ---
HPI HPI - GI History of Present Illness Chief Complaint: Abd Pain Informant: patient Narrative Narrative: Patient is a 51-year-old female with history of hypothyroid and lymphedema presenting with black stools. Patient states has been having burning epigastric pain and black stools for the past week. Denies any radiation of pain. Initially she was having black diarrhea however it is progressed to more soft/pastelike stools. She does have a remote history of colitis but states this feels different. Does not have any lower abdominal pain. Has some nausea and decreased appetite. Is not on any blood thinners. Does not take a daily aspirin. Does not drink alcohol regularly. Takes NSAIDs a couple times a week. She does not feel lightheaded. No chest pain, shortness of breath or difficulty breathing. No other complaints at this time. Was put on amoxicillin for sinus infection earlier this week. At that time the [facility] told her that she should just watch for blood in her stool. PFSH 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 Hypothyroidism multiple skuin lesions 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, pre-employment Skin lesions Smoker Home Medications levothyroxine 100 mcg PO DAILY 11/12/16 [History Last Taken Unknown] ergocalciferol (vitamin D2) 1,250 mcg PO QWEEK 02/18/20 [History Last Taken Unknown] spironolactone 50 mg PO DAILY 02/18/20 [History Last Taken Unknown] amoxicillin 875 mg-potassium clavulanate 125 mg tablet 1 tab PO Q12H 10 Days #20 tab 10/01/21 [Rx Last Taken Unknown] Allergy/AdvReac Type Severity Reaction Status Date / Time No Known Allergies Allergy Verified 10/03/21 19:23 Family History Sister Arthritis Cancer Father Cancer liver cancer Surgical History History of History of cholecystectomy History of hernia repair Social History Smoking Status: Current every day smoker tobacco type: cigarettes alcohol intake: never substance use type: does not use ROS ROS ED Constitutional Constitutional ED: Denies chills or fever(s) ENT ENT ED: Denies rhinorrhea or sore throat Cardiovascular Cardiovascular: Denies chest pain Respiratory/Chest Respiratory/Chest: Denies cough or dyspnea Gastrointestinal Gastrointestinal: Reports abdominal pain and melena; Denies nausea or vomiting Genitourinary Genitourinary ED: Denies dysuria or hematuria Musculoskeletal Musculoskeletal: Denies myalgias Integumentary Denies rash Neurologic Neurologic: Denies headache(s) or weakness Psychiatric Psychiatric: Denies depression EXAM Physical Exam Const Vital Signs: 10/03/21 19:19 10/03/21 22:27 10/03/21 22:45 Temperature 97.2 F L Temperature Source Temporal Pulse Rate 100 103 H Pulse Rate [Lying] 95 Pulse Rate [Sitting (for 1 minute prior to obtaining)] 118 H Pulse Rate [Standing (for 1 minute prior to obtaining)] 116 H Respiratory Rate 18 16 Blood Pressure 150/100 H 114/74 Blood Pressure [Lying] 118/77 Blood Pressure [Sitting (for 1 minute prior to obtaining)] 122/90 H Blood Pressure [Standing (for 1 minute prior to obtaining)] 127/89 H Blood Pressure Mean 116 87 Blood Pressure Mean [Lying] 90 Blood Pressure Mean [Sitting (for 1 minute prior to obtaining)] 100 Blood Pressure Mean [Standing (for 1 minute prior to obtaining)] 101 Pulse Ox 98 100 Oxygen Delivery Method Room Air Room Air Positive well nourished and well developed General Appearance ED: well developed HEENT Reports moist mucous membranes normocephalic and atraumatic Eyes PERRL General Eye ED: Negative for pale conjunctiva Neck supple Resp normal respiratory effort and clear to auscultation bilaterally Cardio regular rate, regular rhythm and no murmurs GI non-tender and non-distended GI Narrative: Dark stool on exam, Hemoccult positive. Auscultation: normoactive bowel sounds Palpation: soft Back/Spine no CVA tenderness Extremity full ROM Neuro Sensorium / Orientation: alert, oriented to person, oriented to place and oriented to time Motor Exam: Negative for general weakness Psych mental status grossly normal and thought process normal Skin Rashes: no rashes MDM MDM MDM Narrative Medical decision making narrative: Patient evaluated for black stools for the past week. She appears nontoxic in no acute distress. Heart rate mildly elevated. She is Hemoccult positive. She is mildly anemic with a hemoglobin 11.1. Her baseline appears to be between 13 and 14. BUN is mildly elevated from her baseline at 23. I suspect this is an upper GIB. She is given a dose of IV Protonix in the ER. Patient is orthostatic positive so she will be admitted for further evaluation of her GI bleed. Lab Data Attestation: I reviewed the patient's lab results. Labs: Laboratory Results - last 24 hr 10/03/21 10/03/21 10/03/21 19:33 20:25 20:25 WBC 6.9 RBC 4.02 L Hgb 11.1 L Hct 34.5 L MCV 85.8 MCH 27.6 MCHC 32.2 RDW Std Deviation 46.5 H RDW Coeff of Amy 14.7 H Plt Count 436 MPV 9.0 Immature Gran % (Auto) 0.600 Neut % (Auto) 47.5 Lymph % (Auto) 44.3 H Chambers % (Auto) 5.2 Eos % (Auto) 2.0 Baso % (Auto) 0.4 Absolute Neuts (auto) 3.3 Absolute Lymphs (auto) 3.05 Nucleated RBC % 0 Sodium 138 Potassium 4.0 Chloride 109 H Carbon Dioxide 26.0 Anion Gap 3 L BUN 23 H Creatinine 0.75 Estim Creat Clear Calc 87.27 Est GFR (MDRD) Af Amer 105 Est GFR (MDRD) Non-Af 86 BUN/Creatinine Ratio 30.5 H Glucose 104 Calcium 9.0 Total Bilirubin Direct Bilirubin AST ALT Alkaline Phosphatase Total Creatine Kinase Total Protein Albumin Globulin Lipase Urine Color Yellow Urine Clarity Clear Urine pH 6.0 Ur Specific [place] 1.020 Urine Protein Negative Urine Glucose (UA) Normal Urine Ketones 5 H Urine Occult Blood 10 H Urine Nitrite Negative Urine Bilirubin Negative Urine Urobilinogen Normal Ur Leukocyte Esterase Negative Urine RBC 0 SEEN Urine WBC 0-5 SEEN Ur Squamous Epith Cells 0-5 SEEN Urine Bacteria 0 SEEN Urine Mucus 0 SEEN 10/03/21 10/03/21 20:25 20:25 WBC RBC Hgb Hct MCV MCH MCHC RDW Std Deviation RDW Coeff of Amy Plt Count MPV Immature Gran % (Auto) Neut % (Auto) Lymph % (Auto) Chambers % (Auto) Eos % (Auto) Baso % (Auto) Absolute Neuts (auto) Absolute Lymphs (auto) Nucleated RBC % Sodium Potassium Chloride Carbon Dioxide Anion Gap BUN Creatinine Estim Creat Clear Calc Est GFR (MDRD) Af Amer Est GFR (MDRD) Non-Af BUN/Creatinine Ratio Glucose Calcium Total Bilirubin 0.10 L Direct Bilirubin < 0.05 AST 15 ALT 26 Alkaline Phosphatase 67 Total Creatine Kinase 74 Total Protein 7.1 Albumin 3.4 Globulin 3.7 Lipase 239 Urine Color Urine Clarity Urine pH Ur Specific [place] Urine Protein Urine Glucose (UA) Urine Ketones Urine Occult Blood Urine Nitrite Urine Bilirubin Urine Urobilinogen Ur Leukocyte Esterase Urine RBC Urine WBC Ur Squamous Epith Cells Urine Bacteria Urine Mucus Discharge Plan Triage Chief Complaint: Abd Pain ED Provider: Hellen Thomas Dx/Rx/DC Orders Clinical Impression: Acute GI bleeding, Anemia Prescriptions: No Action amoxicillin-pot clavulanate 875-125 mg tablet 1 tab PO Q12H 10 Days Qty: 20 RF: 0 levothyroxine 75 MCG tablet 100 mcg PO DAILY RF: 0 ergocalciferol (vitamin D2) 1,250 MCG capsule 1,250 mcg PO QWEEK RF: 0 spironolactone 50 MG tablet 50 mg PO DAILY RF: 0 Primary Care Provider: Hong Frazier Referrals: Hong Frazier MD [Primary Care Provider] -
--- NOTE | 2021-10-03 23:00 | CON.PCM_ITS ---
Assessment & Plan Assessment/Plan (1) Acute GI bleeding: PLAN: The differential diagnosis for an acute GI bleed in her would be peptic ulcer disease, AVM, esophagitis, duodenitis, gastric ulcer or duodenal ulcer. Also given diagnosis could be GI bleed from the small bowel or the colon. Being that her BUN/creatinine ratio was elevated there is a high suspicion for upper GI bleeds we will perform an upper endoscopy. If the test is negative then she will need a colonoscopy and possible capsule endoscopy. She was explained alternatives, risk, benefits including not withstanding bleeding, infection, sepsis, perforation, need for emergent . She will have an ASA of 1. HPI Consult Data Date of Consult: 10/04/21 HPI Narrative HPI Narrative: CHRISTOPHER KWAN, is a 51 F who presents with black stools. She has a history of hypothyroid and lymphedema presenting with black stools. Patient states has been having burning epigastric pain and black stools for the past week. Denies any radiation of pain. Initially she was having black diarrhea however it is progressed to more soft/pastelike stools. She does have a remote history of colitis but states this feels different. Does not have any lower abdominal pain. She had some nausea and decreased appetite. Is not on any blood thinners. Does not take a daily aspirin. Does not drink alcohol regularly. Takes NSAIDs a couple times a week. She does not feel lightheaded. No chest pain, shortness of breath or difficulty breathing. No other complaints at this time. Was put on amoxicillin for sinus infection earlier this week. At that time the now clinic told her that she should just watch for blood in her stool. She went to the now clinic on Thursday for a sinus infection was given antibiotics. At that time she mentioned her dark stools and was told that if she sees blood to come to the ER. Since she continued to have black stools and also developed epigastric abdominal pain she presented to the ER. She was found to have blood in her stools on testing and her hemoglobin is down to 11 when her baseline is around 13-15. [facility] Medical History Histrionic person Hypothyroidism multiple skuin lesions 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, pre-employment Skin lesions Smoker Home Medications levothyroxine 100 mcg PO DAILY 11/12/16 [History Last Taken Unknown] ergocalciferol (vitamin D2) 1,250 mcg PO QWEEK 02/18/20 [History Last Taken Unknown] spironolactone 50 mg PO DAILY 02/18/20 [History Last Taken Unknown] amoxicillin 875 mg-potassium clavulanate 125 mg tablet 1 tab PO Q12H 10 Days #20 tab 10/01/21 [Rx Last Taken Unknown] Allergy/AdvReac Type Severity Reaction Status Date / Time No Known Allergies Allergy Verified 10/03/21 19:23 Family History Sister Arthritis Cancer Father Cancer liver cancer Surgical History History of History of cholecystectomy History of hernia repair Social History Smoking Status: Current every day smoker tobacco type: cigarettes alcohol intake: never substance use type: does not use ROS Gastrointestinal Gastrointestinal: Reports melena Physical Exam Const alert General Appearance: cooperative Orientation / Consciousness: oriented to person HEENT hearing grossly normal bilaterally Head and Scalp: normal to inspection Face and Sinus: face symmetric Nose: external nose normal Mouth: oral and palatal mucosa normal Eyes conjunctivae normal General Eye: normal appearance of both eyes Neck full ROM General: normal visual inspection Lymph Lymphatic: no lymphadenopathy noted Chest inspection of chest normal and palpation of chest normal Chest: symmetrical chest wall rise Resp normal respiratory effort Effort and Inspection: able to speak in complete sentences Cardio regular rate GI non-distended Percussion: normal to percussion Rectal Exam: deferred Neuro Speech: speech normal Gait (Neuro): normal gait Lab / Micro Data Result Diagrams: 10/04/21 14:00 10/04/21 05:45 Labs: Laboratory Results - last 24 hr 10/03/21 19:33: Urine Color Yellow, Urine Clarity Clear, Urine pH 6.0, Ur Specific [place] 1.020, Urine Protein Negative, Urine Glucose (UA) Normal, Urine Ketones 5 H, Urine Occult Blood 10 H, Urine Nitrite Negative, Urine Bilirubin Negative, Urine Urobilinogen Normal, Ur Leukocyte Esterase Negative, Urine RBC 0 SEEN, Urine WBC 0-5 SEEN, Ur Squamous Epith Cells 0-5 SEEN, Urine Bacteria 0 SEEN, Urine Mucus 0 SEEN 10/03/21 20:25: WBC 6.9, RBC 4.02 L, Hgb 11.1 L, Hct 34.5 L, MCV 85.8, MCH 27.6, MCHC 32.2, RDW Std Deviation 46.5 H, RDW Coeff of Amy 14.7 H, Plt Count 436, MPV 9.0, Immature Gran % (Auto) 0.600, Neut % (Auto) 47.5, Lymph % (Auto) 44.3 H, [place] % (Auto) 5.2, Eos % (Auto) 2.0, Baso % (Auto) 0.4, Absolute Neuts (auto) 3.3, Absolute Lymphs (auto) 3.05, Nucleated RBC % 0 10/03/21 20:25: Sodium 138, Potassium 4.0, Chloride 109 H, Carbon Dioxide 26.0, Anion Gap 3 L, BUN 23 H, Creatinine 0.75, Estim Creat Clear Calc 87.27, Est GFR (MDRD) Af Amer 105, Est GFR (MDRD) Non-Af 86, BUN/Creatinine Ratio 30.5 H, Glucose 104, Calcium 9.0 10/03/21 20:25: Total Bilirubin 0.10 L, Direct Bilirubin < 0.05, AST 15, ALT 26, Alkaline Phosphatase 67, Total Protein 7.1, Albumin 3.4, Globulin 3.7 10/03/21 20:25: Total Creatine Kinase 74, Lipase 239 10/04/21 05:45: WBC 8.9, RBC 3.87 L, Hgb 10.6 L, Hct 33.3 L, MCV 86.0, MCH 27.4, MCHC 31.8 L, RDW Std Deviation 47.6 H, RDW Coeff of Amy 15.2 H, Plt Count 437, MPV 9.1, Immature Gran % (Auto) 0.600, Neut % (Auto) 49.3, Lymph % (Auto) 41.4 H , [place] % (Auto) 6.0, Eos % (Auto) 2.1, Baso % (Auto) 0.6, Absolute Neuts (auto) 4.4, Absolute Lymphs (auto) 3.67, Nucleated RBC % 0 10/04/21 05:45: Sodium 138, Potassium 4.0, Chloride 109 H, Carbon Dioxide 24.0, Anion Gap 5, BUN 23 H, Creatinine 0.68, Estim Creat Clear Calc 96.25, Est GFR (MDRD) Af Amer 118, Est GFR (MDRD) Non-Af 98, BUN/Creatinine Ratio 33.9 H, Glucose 103, Calcium 8.5 10/04/21 10:35: Hgb 9.3 L, Hct 29.6 L 10/04/21 14:00: Hgb 9.7 L, Hct 30.2 L 10/04/21 : COVID-19 (KRUNAL) Cancelled Micro: Microbiology 10/04/21 14:55 Nasal Secretion SARS-CoV-2 Antigen (Rapid) - Final 10/03/21 21:49 Stool Stool Occult Blood (OPHELIA) - Final Occult Blood Positive Charges/Coding Visit Charges Inpatient E&M: 52294 Init Hosp L2
[2021-10-03 23:18] VITALS: BP 120/78; PULSE 102; RESP 16; TEMP 36.8; O2SAT 98
--- NOTE | 2021-10-03 23:25 | HP.PCM.HOS_ITS ---
HPI - General HPI Narrative CHRISTOPHER KWAN, is a 51 F who presents to the hospital with black stools since Thursday. She has never had a colonoscopy or an EGD in the past. She denies any lightheadedness or dizziness or shortness of breath. They did do orthostatic vital signs in the ER and she was positive with her heart rate going from 95 to 118. [facility] on Thursday for a sinus infection was given antibiotics. At that time she mentioned her dark stools and was told that if she sees blood to come to the ER. Since she continued to have black stools and also developed epigastric abdominal pain she presented to the ER. She was found to have blood in her stools on testing and her hemoglobin is down to 11 when her baseline is around 13-15. 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 Hypothyroidism multiple skuin lesions 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, pre-employment Skin lesions Smoker Home Medications levothyroxine 100 mcg PO DAILY 11/12/16 [History Last Taken Unknown] ergocalciferol (vitamin D2) 1,250 mcg PO QWEEK 02/18/20 [History Last Taken Unknown] spironolactone 50 mg PO DAILY 02/18/20 [History Last Taken Unknown] amoxicillin 875 mg-potassium clavulanate 125 mg tablet 1 tab PO Q12H 10 Days #20 tab 10/01/21 [Rx Last Taken Unknown] Allergy/AdvReac Type Severity Reaction Status Date / Time No Known Allergies Allergy Verified 10/03/21 19:23 Family History Sister Arthritis Cancer Father Cancer liver cancer Surgical History History of History of cholecystectomy History of hernia repair Social History Smoking Status: Current every day smoker tobacco type: cigarettes alcohol intake: never substance use type: does not use ROS Constitutional Constitutional: Denies chills, fatigue, fever(s) or malaise Eyes Eyes: Denies blurry vision ENT HEENT: Denies headache(s) or nasal discharge Cardiovascular Cardiovascular: Denies chest pain, dyspnea on exertion or syncope Respiratory/Chest Respiratory/Chest: Denies cough, shortness of breath at rest or shortness of breath with exertion Gastrointestinal Gastrointestinal: Reports abdominal pain and melena; Denies constipation, diarrhea, nausea or vomiting Genitourinary Genitourinary: Denies dysuria Neurologic Neurologic: Denies focal weakness, numbness or tremor(s) Psychiatric Psychiatric: Denies anxiety or depression Vital Signs Vital Signs Vital Signs: 10/03/21 19:19 10/03/21 22:27 10/03/21 22:45 Temperature 97.2 F L Temperature Source Temporal Pulse Rate 100 103 H Pulse Rate [Lying] 95 Pulse Rate [Sitting (for 1 minute prior to obtaining)] 118 H Pulse Rate [Standing (for 1 minute prior to obtaining)] 116 H Respiratory Rate 18 16 Blood Pressure 150/100 H 114/74 Blood Pressure [Lying] 118/77 Blood Pressure [Sitting (for 1 minute prior to obtaining)] 122/90 H Blood Pressure [Standing (for 1 minute prior to obtaining)] 127/89 H Blood Pressure Mean 116 87 Blood Pressure Mean [Lying] 90 Blood Pressure Mean [Sitting (for 1 minute prior to obtaining)] 100 Blood Pressure Mean [Standing (for 1 minute prior to obtaining)] 101 Pulse Ox 98 100 Oxygen Delivery Method Room Air Room Air 10/03/21 23:18 Temperature 98.2 F Temperature Source Oral Pulse Rate 102 H Pulse Rate [Lying] Pulse Rate [Sitting (for 1 minute prior to obtaining)] Pulse Rate [Standing (for 1 minute prior to obtaining)] Respiratory Rate 16 Blood Pressure 120/78 Blood Pressure [Lying] Blood Pressure [Sitting (for 1 minute prior to obtaining)] Blood Pressure [Standing (for 1 minute prior to obtaining)] Blood Pressure Mean 92 Blood Pressure Mean [Lying] Blood Pressure Mean [Sitting (for 1 minute prior to obtaining)] Blood Pressure Mean [Standing (for 1 minute prior to obtaining)] Pulse Ox 98 Oxygen Delivery Method Room Air Weight Weight: 276 lb 3.827 oz Body Mass Index (BMI) 43.2 Physical Exam Const alert and oriented x3 General Appearance: cooperative HEENT normocephalic and moist oral mucous membranes Eyes PERRL, EOMs intact bilaterally and conjunctivae normal Neck supple and no JVD Resp normal respiratory effort, no retractions, no use of accessory muscles and clear to auscultation bilaterally Auscultation: Negative for crackles, rales, rhonchi or wheezes Cardio regular rate, regular rhythm, S1 normal heart sound, S2 normal heart sound and no murmurs GI soft to palpation and non-distended; Negative for hepatosplenomegaly Palpation: tender epigastric Extremity no clubbing, cyanosis or edema Skin no rashes or lesions noted Neuro no focal motor deficits and no sensory deficits noted Psych affect normal Appearance: appropriate Results Lab / Micro Data Result Diagrams: 10/03/21 20:25 10/03/21 20:25 Labs: Laboratory Results - last 24 hr 10/03/21 19:33: Urine Color Yellow, Urine Clarity Clear, Urine pH 6.0, Ur Specific [place] 1.020, Urine Protein Negative, Urine Glucose (UA) Normal, Urine Ketones 5 H, Urine Occult Blood 10 H, Urine Nitrite Negative, Urine Bilirubin Negative, Urine Urobilinogen Normal, Ur Leukocyte Esterase Negative, Urine RBC 0 SEEN, Urine WBC 0-5 SEEN, Ur Squamous Epith Cells 0-5 SEEN, Urine Bacteria 0 SEEN, Urine Mucus 0 SEEN 10/03/21 20:25: WBC 6.9, RBC 4.02 L, Hgb 11.1 L, Hct 34.5 L, MCV 85.8, MCH 27.6, MCHC 32.2, RDW Std Deviation 46.5 H, RDW Coeff of Amy 14.7 H, Plt Count 436, MPV 9.0, Immature Gran % (Auto) 0.600, Neut % (Auto) 47.5, Lymph % (Auto) 44.3 H, [place] % (Auto) 5.2, Eos % (Auto) 2.0, Baso % (Auto) 0.4, Absolute Neuts (auto) 3.3, Absolute Lymphs (auto) 3.05, Nucleated RBC % 0 10/03/21 20:25: Sodium 138, Potassium 4.0, Chloride 109 H, Carbon Dioxide 26.0, Anion Gap 3 L, BUN 23 H, Creatinine 0.75, Estim Creat Clear Calc 87.27, Est GFR (MDRD) Af Amer 105, Est GFR (MDRD) Non-Af 86, BUN/Creatinine Ratio 30.5 H, Glucose 104, Calcium 9.0 10/03/21 20:25: Total Bilirubin 0.10 L, Direct Bilirubin < 0.05, AST 15, ALT 26, Alkaline Phosphatase 67, Total Protein 7.1, Albumin 3.4, Globulin 3.7 10/03/21 20:25: Total Creatine Kinase 74, Lipase 239 Micro: Microbiology 10/03/21 21:49 Stool Stool Occult Blood (OPHELIA) - Final Occult Blood Positive Assessment & Plan Assessment/Plan (1) Acute GI bleeding: PLAN: 1. Acute upper GI bleed ? Continue with Protonix drip ? Consult gastroenterology for an EGD ? She does not take any aspirin, or consistent NSAIDs so unsure as to the etiology at this time ? We will place her on a clear liquid diet ? IV fluids ? Repeat CBC in the morning 2. Hypothyroidism ? Stable ? Continue with Synthroid 3. Recently diagnosed with sinusitis, can complete Augmentin, first dose was on Thursday DVT: SCDs Charges/Coding Visit Charges Inpatient E&M: 54257 Init Hosp L2
[2021-10-04] VITALS (9 sets, daily range): BP systolic 108–141; BP diastolic 58–89; PULSE 73–100; RESP 14–18; TEMP 36.6–37.3; O2SAT 92–97; BMI 43.2
[2021-10-04] MEDS: 0.9% Saline Lock 10 ML Syringe IV (00:49)
[2021-10-04] MEDS: 0.9% Normal Saline 1,000 ML 100 ML IV (00:49)
[2021-10-04] MEDS: Acetaminophen 325 MG Tablet 650 MG PO ×2 (04:57→21:17)
[2021-10-04] MEDS: Levothyroxine 100 MCG Tablet PO (04:57)
[2021-10-04 06:26] LABS: Absolute Lymphocyte Count 3.67 X10^3/uL (0.83-4.51); Absolute Neutrophil Count 4.4 X10^3/uL (2.0-7.7); Basophil# 0.05 X10^3/uL; Basophil% 0.6 % (0-1); Eosinophil# 0.19 X10^3/uL; Eosinophils% 2.1 % (0-5); Hematocrit 33.3 % (37-47); Hemoglobin 10.6 g/dL (12.0-15.0); Lymphocyte # 3.67 X10^3/ul (0.83-4.51); Lymphocyte % 41.4 % (19-41); Mean Corp Hgb Conc 31.8 g/dL (32-36); Mean Corpuscular Hgb 27.4 pg (27.0-32.0); Mean Platelet Vol. 9.1 fl (6.2-12.0); Monocyte# 0.53 X10^3/uL; NRBC Flagged by Analyzer 0 % (0-5); Neutrophil # 4.37 X10^3/uL (2.7-7.7); Neutrophil % 49.3 % (47-70); Platelet Count 437 K/mm3 (150-450); RBC Distribution Width CV 15.2 % (11.6-14.6); RBC Distribution Width SD 47.6 fl (35.1-43.9); Red Blood Count 3.87 M/mm3 (4.2-5.4); White Blood Count 8.9 K/mm3 (4.4-11.0)
[2021-10-04 07:01] LABS: Anion Gap 5 (5-15); BUN 23 mg/dL (7-18); BUN/Creat Ratio 33.9 RATIO (10-20); Calcium,Total 8.5 mg/dL (8.5-10.1); Chloride 109 mmol/L (98-107); Creatinine, Serum 0.68 mg/dL (0.55-1.02); EST Glomerular Filtration Rate 98 mL/min (>60); Est Glom Filt Rate - Afr Amer 118 mL/min (>60); Estimated Creatinine Clearance 96.25 ml/min; Glucose 103 mg/dL (74-106); Sodium Level 138 mmol/L (136-145)
[2021-10-04] MEDS: Amox/Clavulanate 875 MG Tablet PO ×2 (09:31→21:17)
--- NOTE | 2021-10-04 09:43 | PN.HOSP_ITS ---
Subjective Subjective Patient is a 51-year-old lady who presented with blood tarry stools. An assessment of acute upper GI bleed made admitted to regular nursing floor with consultation placed to GI for possible endoscopic evaluation Objective Data Objective Data Vital Signs: Vital Signs Temp Pulse Resp BP Pulse Ox 97.8 F 79 16 114/72 96 10/04/21 08:55 10/04/21 08:55 10/04/21 08:55 10/04/21 08:55 10/04/21 08:55 Oxygen Delivery Method Room Air Weight: 125.362 kg Body Mass Index (BMI) 43.2 Intake & Output: Intake and Output for Last 24 Hours 10/02/21 10/03/21 10/04/21 23:59 23:59 23:59 Intake Total 35 / 35 Balance 35 / Lab / Micro Data Result Diagrams: 10/04/21 05:45 10/04/21 05:45 Labs: Laboratory Results - last 24 hr 10/03/21 19:33: Urine Color Yellow, Urine Clarity Clear, Urine pH 6.0, Ur Specific [place] 1.020, Urine Protein Negative, Urine Glucose (UA) Normal, Urine Ketones 5 H, Urine Occult Blood 10 H, Urine Nitrite Negative, Urine Bilirubin Negative, Urine Urobilinogen Normal, Ur Leukocyte Esterase Negative, Urine RBC 0 SEEN, Urine WBC 0-5 SEEN, Ur Squamous Epith Cells 0-5 SEEN, Urine Bacteria 0 SEEN, Urine Mucus 0 SEEN 10/03/21 20:25: WBC 6.9, RBC 4.02 L, Hgb 11.1 L, Hct 34.5 L, MCV 85.8, MCH 27.6, MCHC 32.2, RDW Std Deviation 46.5 H, RDW Coeff of Amy 14.7 H, Plt Count 436, MPV 9.0, Immature Gran % (Auto) 0.600, Neut % (Auto) 47.5, Lymph % (Auto) 44.3 H, [place] % (Auto) 5.2, Eos % (Auto) 2.0, Baso % (Auto) 0.4, Absolute Neuts (auto) 3.3, Absolute Lymphs (auto) 3.05, Nucleated RBC % 0 10/03/21 20:25: Sodium 138, Potassium 4.0, Chloride 109 H, Carbon Dioxide 26.0, Anion Gap 3 L, BUN 23 H, Creatinine 0.75, Estim Creat Clear Calc 87.27, Est GFR (MDRD) Af Amer 105, Est GFR (MDRD) Non-Af 86, BUN/Creatinine Ratio 30.5 H, Glucose 104, Calcium 9.0 10/03/21 20:25: Total Bilirubin 0.10 L, Direct Bilirubin < 0.05, AST 15, ALT 26, Alkaline Phosphatase 67, Total Protein 7.1, Albumin 3.4, Globulin 3.7 10/03/21 20:25: Total Creatine Kinase 74, Lipase 239 10/04/21 05:45: WBC 8.9, RBC 3.87 L, Hgb 10.6 L, Hct 33.3 L, MCV 86.0, MCH 27.4, MCHC 31.8 L, RDW Std Deviation 47.6 H, RDW Coeff of Amy 15.2 H, Plt Count 437, MPV 9.1, Immature Gran % (Auto) 0.600, Neut % (Auto) 49.3, Lymph % (Auto) 41.4 H , [place] % (Auto) 6.0, Eos % (Auto) 2.1, Baso % (Auto) 0.6, Absolute Neuts (auto) 4.4, Absolute Lymphs (auto) 3.67, Nucleated RBC % 0 10/04/21 05:45: Sodium 138, Potassium 4.0, Chloride 109 H, Carbon Dioxide 24.0, Anion Gap 5, BUN 23 H, Creatinine 0.68, Estim Creat Clear Calc 96.25, Est GFR (MDRD) Af Amer 118, Est GFR (MDRD) Non-Af 98, BUN/Creatinine Ratio 33.9 H, Glucose 103, Calcium 8.5 Micro: Microbiology 10/03/21 21:49 Stool Stool Occult Blood (OPHELIA) - Final Occult Blood Positive Physical Exam Narrative GENERAL: cooperative HEENT: Atraumatic; EYES; Anicteric, Normal Conjunctiva NECK; supple, normal thyroid, RESPIRATORY: Diminished to auscultation CARDIOVASCULAR: Regular S1 S2, GI: soft, normoactive bowel sounds, : No Renal angle tenderness; EXTREMITIES: No edema, no clubbing, MUSCULOSKELETAL: no muscle wasting NEURO: Awake; no lateralizing signs. SKIN: No Rash PSYCH; Flat affect Assessment & Plan Assessment/Plan (1) Acute GI bleeding: PLAN: Patient is a 51-year-old lady who presented with blood tarry stools. An assessment of acute upper GI bleed made admitted to regular nursing floor with consultation placed to GI for possible endoscopic evaluation 1. Acute upper GI bleed ? Admitted to regular nursing floor patient started on Protonix drip continued consult placed to GI for possible endoscopic evaluation. Patient being monitored with serial H&H 2. Acute blood loss anemia ? Secondary to upper GI bleed monitoring with H&H with plans to transfuse if hemoglobin falls below 7 or patient is deemed to be symptomatic 3. Hypothyroidism - Patient is on levothyroxine home dose continued 4. Class III obesity with BMI of 43.3 ? Weight loss advised 5.. Recent sinus infection ? Treated with outpatient antibiotics 6. DVT -Bilateral SCDs Charges/Coding Visit Charges Inpatient E&M: 90776 Subs Hosp L3
[2021-10-04 10:42] LABS: Hematocrit 29.6 % (37-47); Hemoglobin 9.3 g/dL (12.0-15.0)
--- NOTE | 2021-10-04 11:05 | CM.UR ---
MAGDA MOJICA Assessment: Face to Face with pt for initial transition planning/care coordination assessment. RN GALINA introduced self and role at [facility], pt voices understanding and consents to assessment. Pt is A/O x4 and answers all questions appropriately at this time. Pt sitting up on eob in no distress. Care providers, pharmacy, and demographics verified/updated. Admitting Dx: MARVEL PCP:Karin Specialists:Pt denies. Preferred Pharmacy: [facility] Insurance: [facility] Prescription Benefit: yes LW/HPOA: Pt denies having a LW/DPOA and denies need for info regarding AD. LNOK: Clarissa Shields, mother Living Arrangements: Pt lives with mother and her dtr in a mobile home with 3 steps to enter with a rail. Pt reports she is I in ADL's and denies concerns at home. Transportation: Pt drives self and denies concerns with transportation. DME/HHC/SNF: Pt denies having any DME other than wound supplies for her L concepcion wound that is a trauma wound. Pt denies hx of HHC or SNF stays. Pt states no concerns with going home at time of dc. Pt had been following up at the [facility] but has been dc'd and is performing dressing changes on her own. She states she receives a rx for the medication for the wound and obtains her supplies at [facility]. Pt states no further concerns/needs. CM to follow. Advised pt to ask CM if any further question/concerns/needs arise, voices understanding. Pt Goal: Home Plan: Home
[2021-10-04 14:15] LABS: Hematocrit 30.2 % (37-47); Hemoglobin 9.7 g/dL (12.0-15.0)
--- NOTE | 2021-10-04 15:22 | NURSING ---
pt off unit for scheduled procedure. spoke vega, explained pt may not be back to unit in time to order supper before they closed. asked that they accept regular order and deliver to front load trash truck driver at end of their shift unless theyve heard from us first. that way, if pt is allowed diet, she can eat, if not, we will dispose of it.
--- NOTE | 2021-10-04 16:31 | OP.CCLET_ITS ---
03/13/2022 Hong Frazier Re : Upper GI endoscopy procedure for Rosemary Shields Dear Karin This procedure was performed on Monday, October 04, 2021. My impressions and recommendations are as follows: Impressions : - Bleb found in the esophagus. 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 Treated with a heater probe. - Gastritis. - Multiple oozing duodenal ulcers with a visible vessel. Injected. Treated with a monopolar probe. - No specimens collected. Recommendations : - Return patient to hospital box for ongoing care. - Clear liquid diet today. - Use sucralfate tablets 1 gram PO QID for 4 weeks. - Use Protonix (pantoprazole) 40 mg IV BID for 8 weeks. - No aspirin, ibuprofen, naproxen, or other non-steroidal anti-inflammatory drugs for 4 days. My findings are described in the full procedure note, which is enclosed. If I can be of further assistance, please feel free to contact me at . Sincerely, Jarod Monzon, 10/04/2021 4:30:50 PM This report has been signed electronically.
--- NOTE | 2021-10-04 16:31 | OP.EGD_ITS ---
Patient Name: Rosemary Shields Procedure Date: 10/04/2021 3:58 PM Date of : 1970 Age: 51 Procedure: Upper GI endoscopy Indications: Melena Providers: Jarod Monzon DO Medicines: See the Anesthesia note for documentation of the administered medications Patient Profile: This is a 51 year old female. Refer to note in patient chart for documentation of history and physical. Patient has symptoms. Complications: No immediate complications. Procedure: Pre-Anesthesia Assessment: - Prior to the procedure, a History and Physical was performed, and patient medications and allergies were reviewed. The risks and benefits of the procedure and the sedation options and risks were discussed with the patient. All questions were answered and informed consent was obtained. Patient identification and proposed procedure were verified by the physician. Mental Status Examination: alert and oriented. Airway Examination: normal oropharyngeal airway and neck mobility. Respiratory Examination: clear to auscultation. CV Examination: normal. Prophylactic Antibiotics: The patient does not require prophylactic antibiotics. Prior Anticoagulants: The patient has taken no previous anticoagulant or antiplatelet agents. After reviewing the risks and benefits, the patient was deemed in satisfactory condition to undergo the procedure. The anesthesia plan was to use moderate sedation / analgesia (conscious sedation). Immediately prior to administration of medications, the patient was re-assessed for adequacy to receive sedatives. The heart rate, respiratory rate, oxygen saturations, blood pressure, adequacy of pulmonary ventilation, and response to care were monitored throughout the procedure. The physical status of the patient was re-assessed after the procedure. After obtaining informed consent, the endoscope was passed under direct vision. Throughout the procedure, the patient's blood pressure, pulse, and oxygen saturations were monitored continuously. The gastroscope was introduced through the mouth, and advanced to the second part of duodenum. The upper GI endoscopy was accomplished without difficulty. The patient tolerated the procedure well. Moderate Sedation: Moderate (conscious) sedation was administered by the endoscopy nurse and supervised by the endoscopist. The patient's oxygen saturation, heart rate, blood pressure and response to care were monitored. Total physician intraservice time was 15 minutes. Scope In: 4:13:34 PM Scope Out: 4:23:31 PM Total Procedure Duration Time 0 hours 9 minutes 57 seconds Findings: A single medium-sized bleb with a localized distribution was found in the lower third of the esophagus, 39 cm from the incisors. A single 5 mm bleeding angiodysplastic lesion was found in the gastric body. Coagulation for hemostasis using heater probe was successful. Estimated blood loss was minimal. Localized mild inflammation characterized by erythema was found in the prepyloric region of the stomach. Six oozing cratered duodenal ulcers with a visible vessel were found in the duodenal bulb. The largest lesion was 6 mm in largest dimension. Area was successfully injected with 5 mL of a 1:10,000 solution of epinephrine for hemostasis. Coagulation for hemostasis using monopolar probe was successful. Estimated blood loss was minimal. Impression: - Bleb found in the esophagus. 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 Treated with a heater probe. - Gastritis. - Multiple oozing duodenal ulcers with a visible vessel. Injected. Treated with a monopolar probe. - No specimens collected. Recommendation: - Return patient to hospital box for ongoing care. - Clear liquid diet today. - Use sucralfate tablets 1 gram PO QID for 4 weeks. - Use Protonix (pantoprazole) 40 mg IV BID for 8 weeks. - No aspirin, ibuprofen, naproxen, or other non-steroidal anti-inflammatory drugs for 4 days. Procedure Code(s): --- Professional --- 95140, Esophagogastroduodenoscopy, flexible, transoral; with control of bleeding, any method G0500, Moderate sedation services provided by the same physician or other qualified health health care administrator performing a gastrointestinal endoscopic service that sedation supports, requiring the presence of an independent trained observer to assist in the monitoring of the patient's level of consciousness and physiological status; initial 15 minutes of intra-service time; patient age 5 years or older (additional time may be reported with 14764, as appropriate) CPT copyright 2017 [employer]. All rights reserved. The codes documented in this report are preliminary and upon electronic service technician review may be revised to meet current compliance requirements. Jarod Monzon DO 10/04/2021 4:30:50 PM This report has been signed electronically. Number of Addenda: 1 Note Initiated On: 10/04/2021 3:58 PM Addendum Number: 1 Addendum Date: 03/13/2022 6:27:46 AM MAC was used as sedation for this procedure. Jarod Monzon DO 03/13/2022 6:27:50 AM This report has been signed electronically.
[2021-10-04 18:12] LABS: Hematocrit 30.6 % (37-47)
[2021-10-04] MEDS: MELATONIN 3 MG TABLET PO (21:17)
[2021-10-04 21:49] LABS: Hematocrit 27.8 % (37-47); Hemoglobin 9.2 g/dL (12.0-15.0)
[2021-10-05 03:00] VITALS: BP 101/51; PULSE 80; RESP 18; TEMP 36.9; O2SAT 94
[2021-10-05] MEDS: Levothyroxine 100 MCG Tablet PO (04:59)
[2021-10-05] MEDS: Sucralfate 1 GM Tablet PO ×2 (06:24→10:23)
--- NOTE | 2021-10-05 07:37 | PN.HOSP_ITS ---
Subjective Subjective Patient underwent EGD today Findings are as below. Plan is for patient to be assessed for possible discharge Objective Data Objective Data Vital Signs: Vital Signs Temp Pulse Resp BP Pulse Ox 98.4 F 80 18 101/51 L 94 10/05/21 03:00 10/05/21 03:00 10/05/21 03:00 10/05/21 03:00 10/05/21 03:00 Oxygen Delivery Method Room Air Weight: 125.191 kg Body Mass Index (BMI) 43.2 Intake & Output: Intake and Output for Last 24 Hours 10/03/21 10/04/21 10/05/21 23:59 23:59 23:59 Intake Total 1214.08 / 1414.08 600 / 600 Output Total 600 / 600 Balance 1214.08 / 1414.08 0 / 0 Lab / Micro Data Result Diagrams: 10/04/21 21:38 10/04/21 05:45 Labs: Laboratory Results - last 24 hr 10/04/21 10:35: Hgb 9.3 L, Hct 29.6 L 10/04/21 14:00: Hgb 9.7 L, Hct 30.2 L 10/04/21 18:00: Hgb 10.0 L, Hct 30.6 L 10/04/21 21:38: Hgb 9.2 L, Hct 27.8 L 10/04/21 : COVID-19 (KRUNAL) Cancelled Micro: Microbiology 10/04/21 14:55 Nasal Secretion SARS-CoV-2 Antigen (Rapid) - Final 10/03/21 21:49 Stool Stool Occult Blood (OPHELIA) - Final Occult Blood Positive Physical Exam Narrative GENERAL: cooperative HEENT: Atraumatic; EYES; Anicteric, Normal Conjunctiva NECK; supple, normal thyroid, RESPIRATORY: Diminished to auscultation CARDIOVASCULAR: Regular S1 S2, GI: soft, normoactive bowel sounds, : No Renal angle tenderness; EXTREMITIES: No edema, no clubbing, MUSCULOSKELETAL: no muscle wasting NEURO: Awake; no lateralizing signs. SKIN: No Rash PSYCH; Flat affect Assessment & Plan Assessment/Plan (1) Acute GI bleeding: PLAN: Patient is a 51-year-old lady who presented with blood tarry stools. An assessment of acute upper GI bleed made admitted to regular nursing floor with consultation placed to GI for possible endoscopic evaluation 1. Acute upper GI bleed ? Admitted to regular nursing floor patient started on Protonix drip continued consult placed to GI for possible endoscopic evaluation. Patient being monitored with serial H&H ?10/05/2021 EGD performed the day prior impressions and recommendations from Dr. Monzon as below Impressions : - Bleb found in the esophagus. 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 Treated with a heater probe. - Gastritis. - Multiple oozing duodenal ulcers with a visible vessel. Injected. Treated with a monopolar probe. - No specimens collected. Recommendations : - Return patient to hospital box for ongoing care. - Clear liquid diet today. - Use sucralfate tablets 1 gram PO QID for 4 weeks. - Use Protonix (pantoprazole) 40 mg IV BID for 8 weeks. - No aspirin, ibuprofen, naproxen, or other non-steroidal anti-inflammatory drugs for 4 days. 2. Acute blood loss anemia ? Secondary to upper GI bleed monitoring with H&H with plans to transfuse if hemoglobin falls below 7 or patient is deemed to be symptomatic 3. Hypothyroidism - Patient is on levothyroxine home dose continued 4. Class III obesity with BMI of 43.3 ? Weight loss advised 5.. Recent sinus infection ? Treated with outpatient antibiotics 6. DVT -Bilateral SCDs Charges/Coding Visit Charges Inpatient E&M: 39685 [facility] Hosp L2
[2021-10-05 08:12] VITALS: BP 129/74; PULSE 73; RESP 16; TEMP 36.6; O2SAT 97
--- NOTE | 2021-10-05 09:17 | PCM.DC.SUM ---
Providers Date of Admission: 10/03/21 Primary Care Physician: Dr. Hong Frazier MD Consultations 10/04/21 00:03 Consult: Gastroenterology Routine Consulting Provider: [facility] Reason for Consult: UGIB EMERGENT Consult: No MD Notified: Yes Date Notified: 10/03/21 Time Notified: 23:07 Method of Notification: Verbal Reason For Visit: GI BLEED Diagnosis Discharge Diagnosis (1) Acute GI bleeding: Status: Acute Code(s): K92.2 - Gastrointestinal hemorrhage, unspecified Medications at Discharge Home Medications levothyroxine 100 mcg PO DAILY 11/12/16 ergocalciferol (vitamin D2) 1,250 mcg PO QWEEK 02/18/20 spironolactone 50 mg PO DAILY 02/18/20 amoxicillin 875 mg-potassium clavulanate 125 mg tablet 1 tab PO Q12H 10 Days #20 tab 10/01/21 ferrous sulfate [iron] 325 mg PO DAILY #60 tab 10/05/21 pantoprazole [Protonix] 40 mg PO BID 56 Days #112 tab 10/05/21 sucralfate 1 g PO 4X/DAY #120 tab 10/05/21 Hospital Course Operations None Procedures EGD Summary of Care Provided Minutes Spent on Discharge: 35 Hospital Course: Patient is a 51-year-old lady who presented with blood tarry stools. An assessment of acute upper GI bleed made admitted to regular nursing floor with consultation placed to GI for possible endoscopic evaluation 1. Acute upper GI bleed ? Admitted to regular nursing floor patient started on Protonix drip continued consult placed to GI for possible endoscopic evaluation. Patient being monitored with serial H&H ?10/05/2021 EGD performed the day prior impressions and recommendations from Dr. Monzon as below Impressions : - Bleb found in the esophagus. 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 Treated with a heater probe. - Gastritis. - Multiple oozing duodenal ulcers with a visible vessel. Injected. Treated with a monopolar probe. - No specimens collected. Recommendations : - Return patient to hospital box for ongoing care. - Clear liquid diet today. - Use sucralfate tablets 1 gram PO QID for 4 weeks. - Use Protonix (pantoprazole) 40 mg IV BID for 8 weeks. - No aspirin, ibuprofen, naproxen, or other non-steroidal anti-inflammatory drugs for 4 days. 2. Acute blood loss anemia ? Secondary to upper GI bleed monitoring with H&H with plans to transfuse if hemoglobin falls below 7 or patient is deemed to be symptomatic 3. Hypothyroidism - Patient is on levothyroxine home dose continued 4. Class III obesity with BMI of 43.3 ? Weight loss advised 5.. Recent sinus infection ? Treated with outpatient antibiotics 6. DVT -Bilateral SCDs Physical Exam Narrative GENERAL: cooperative HEENT: Atraumatic; EYES; Anicteric, Normal Conjunctiva NECK; supple, normal thyroid, RESPIRATORY: Diminished to auscultation CARDIOVASCULAR: Regular S1 S2, GI: soft, normoactive bowel sounds, : No Renal angle tenderness; EXTREMITIES: No edema, no clubbing, MUSCULOSKELETAL: no muscle wasting NEURO: Awake; no lateralizing signs. SKIN: No Rash PSYCH; Flat affect Weight / BMI Weight Weight: 125.191 kg Body Mass Index (BMI) 43.2 ABG / Lab / Microbiology Data Result Diagrams: 10/04/21 21:38 10/04/21 05:45 Laboratory: Laboratory Results - last 24 hr 10/04/21 10:35: Hgb 9.3 L, Hct 29.6 L 10/04/21 14:00: Hgb 9.7 L, Hct 30.2 L 10/04/21 18:00: Hgb 10.0 L, Hct 30.6 L 10/04/21 21:38: Hgb 9.2 L, Hct 27.8 L 10/04/21 : COVID-19 (KRUNAL) Cancelled Microbiology: Microbiology 10/04/21 14:55 Nasal Secretion SARS-CoV-2 Antigen (Rapid) - Final 10/03/21 21:49 Stool Stool Occult Blood (OPHELIA) - Final Occult Blood Positive D/C Instructions Discharge Diet: No restrictions Discharge Activity: Return to Normal Activity Call your doctor if you observe: Fever of 101 or Higher, Shortness of breath, Fainting spells and Chest pain Meaningful Use Info Meaningful Use Diagnoses (Choose all that apply): None applicable Discharge Plan Admission Admit Date/Time: 10/03/21 23:04 Attending Provider: Mono Fuentes Primary Care Provider: Hong Frazier Discharge Orders/Prescriptions Prescriptions: New sucralfate 1 gram Tablet 1 g PO 4X/DAY Qty: 120 RF: 0 pantoprazole [Protonix] 40 mg tablet,delayed release (DR/EC) 40 mg PO BID 56 Days Qty: 112 RF: 0 ferrous sulfate [iron] 325 mg (65 mg iron) tablet 325 mg PO DAILY Qty: 60 RF: 0 Continued amoxicillin-pot clavulanate 875-125 mg tablet 1 tab PO Q12H 10 Days Qty: 20 RF: 0 levothyroxine 75 MCG tablet 100 mcg PO DAILY RF: 0 ergocalciferol (vitamin D2) 1,250 MCG capsule 1,250 mcg PO QWEEK RF: 0 spironolactone 50 MG tablet 50 mg PO DAILY RF: 0 Referrals / Follow Up: Jarod Monzon DO [STAFF PHYSICIAN] - Within 1 Month Hong Frazier MD [Primary Care Provider] - Within 1 Week Disposition Disposition (needs filled in before D/C Order can be placed): Home, Self Care Charges/Coding Visit Charges Inpatient E&M: 82141 Disch Hosp
[2021-10-05] MEDS: Amox/Clavulanate 875 MG Tablet PO (10:23)
[2021-10-05 11:25] VITALS: BP 106/61; PULSE 81; RESP 16; TEMP 36.8; O2SAT 97
== END 2021-10-05 11:56 | disposition home or self-care (01) | DRG 253 ==
LOC: ED 20:32 → MS3 23:31
PROVIDERS: Internal Medicine Gastroenterology; Admitting Provider Family Medicine; Emergency Provider Emergency Medicine; PCP Family Medicine; Visit Provider Internal Medicine
PROC: 0DJ08ZZ Inspection of Upper Intestinal Tract, Via Natural or Artificial Opening Endoscopic (ICD-10-PCS; CPT 43235; principal; 2021-10-04 10:55)
DX: K31.811 Angiodysplasia of stomach and duodenum with bleeding (principal); D62 Acute posthemorrhagic anemia; Z68.41 Body mass index [BMI] 40.0-44.9, adult; F60.4 Histrionic personality disorder; E03.9 Hypothyroidism, unspecified; J01.90 Acute sinusitis, unspecified; F17.210 Nicotine dependence, cigarettes, uncomplicated; K29.71 Gastritis, unspecified, with bleeding; K26.4 Chronic or unspecified duodenal ulcer with hemorrhage; Z20.822 Contact with and (suspected) exposure to COVID-19; Z79.890 Hormone replacement therapy; Z79.899 Other long term (current) drug therapy; K22.89 Other specified disease of esophagus; E66.9 Obesity, unspecified
CPT/HCPCS: 36415; 80048; 80076; 81001; 82274; 82550; 83690; 85014; 85018; 85025; 87426; 90471; 99284; J7030; A4216; J3490

== ENCOUNTER 2021-10-14 22:50 | Emergency (ER) | payer MEDICAID, SELFPAY ==
[2021-10-14 22:51] VITALS: BP 166/101; PULSE 100; RESP 18; TEMP 36.1; O2SAT 98; BMI 43.0
--- NOTE | 2021-10-14 23:26 | EX.ED.DYSGE1 ---
HPI History of Present Illness Chief Complaint: Abd Pain Narrative Narrative: Patient is presenting with epigastric pain. She also has intermittent nausea and some slight diarrhea. She was recently admitted for an upper GI bleed and was found to have ulcers, she is on a PPI and Carafate. She continues to have the same epigastric pain, she is worried because she had 3 episodes of loose stools. No fevers or chills. She is denying chest pain or shortness of breath. She has no back pain or tearing sensation. She has no urinary symptoms. She does not feel lightheaded, she has been able to tolerate fluids. [facility] Medical History Bleeding acute gastric ulcer Histrionic person Hypothyroidism multiple skuin lesions 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, pre-employment Skin lesions Smoker Home Medications levothyroxine 100 mcg PO DAILY 11/12/16 [History Last Taken Unknown] ergocalciferol (vitamin D2) 1,250 mcg PO QWEEK 02/18/20 [History Last Taken Unknown] spironolactone 50 mg PO DAILY 02/18/20 [History Last Taken Unknown] ferrous sulfate [iron] 325 mg PO DAILY #60 tab 10/05/21 [Rx Last Taken Unknown] pantoprazole [Protonix] 40 mg PO BID 56 Days #112 tab 10/05/21 [Rx Last Taken Unknown] sucralfate 1 g PO 4X/DAY #120 tab 10/05/21 [Rx Last Taken Unknown] ondansetron 4 mg PO Q8H #14 tab 10/15/21 [Rx Last Taken Unknown] Allergy/AdvReac Type Severity Reaction Status Date / Time No Known Allergies Allergy Verified 10/14/21 22:53 Family History Sister Arthritis Cancer Father Cancer liver cancer Surgical History History of History of cholecystectomy History of hernia repair Social History Smoking Status: Current every day smoker tobacco type: cigarettes alcohol intake: never substance use type: does not use ROS ROS ED ROS Narrative Past medical history: Reviewed, significant for gastric ulcers, hypothyroidism and vitamin D deficiency Medications: Reviewed Social history: Noncontributory Review of systems: All systems negative except as indicated General: No fever Eyes: No visual changes ENT: No upper airway congestion, normal voice Neck: No neck pain Cardiovascular: No chest pain Respiratory: No shortness of breath or cough Gastrointestinal: As in HPI Genitourinary: No dysuria Musculoskeletal: Denies myalgias no difficulty with ambulation Skin: No rash Neurological: No memory loss, confusion or any focal weakness Psych: No recent behavioral changes Hematologic: No easy bleeding or easy bruising EXAM Physical Exam Narrative Exam Narrative: 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 General: Patient appears relatively comfortable in the bed Head: Normocephalic, Atraumatic Eyes: Conjunctiva not pale ENT: Moist mucous membranes. No signs of dehydration Neck: Supple, Nontender, No lymphadenopathy Cardiovascular: Regular rate, Regular rhythm Respiratory: No distress, CTA bilaterally Abdomen: Soft, mild epigastric tenderness. No guarding or rebound. There is no right upper quadrant pain. Negative Trevizo's. No lower abdominal pain. Overall a benign abdominal exam. Back: Nontender, Normal Inspection. Negative for: CVA tenderness Extremities: Nontender, No edema Skin: Normal color, No rash Neurological: Alert, Normal Strength, Normal Sensation Psychological: Normal affect Const Vital Signs: 10/14/21 22:51 Temperature 96.9 F L Temperature Source Temporal Pulse Rate 100 Respiratory Rate 18 Blood Pressure 166/101 H Blood Pressure Mean 122 Pulse Ox 98 Oxygen Delivery Method Room Air MDM MDM MDM Narrative Medical decision making narrative: Patient has an unremarkable work-up, she is given antacids IV and a GI cocktail she improved. I reassured her and I will discharge her in stable condition. She gets nauseated from time to time therefore I will prescribe nausea medications. If anything changes she is to return. Lab Data Labs: Laboratory Results - last 24 hr 10/14/21 10/14/21 23:05 23:05 WBC 5.6 RBC 3.99 L Hgb 10.8 L Hct 35.7 L MCV 89.5 MCH 27.1 MCHC 30.3 L RDW Std Deviation 51.5 H RDW Coeff of Amy 15.8 H Plt Count 511 H MPV 8.7 Immature Gran % (Auto) 0.700 Neut % (Auto) 55.0 Lymph % (Auto) 32.3 Erie % (Auto) 9.9 Eos % (Auto) 1.6 Baso % (Auto) 0.5 Absolute Neuts (auto) 3.1 Absolute Lymphs (auto) 1.82 Nucleated RBC % 0 Sodium 141 Potassium 3.6 Chloride 111 H Carbon Dioxide 24.0 Anion Gap 6 BUN 8 Creatinine 0.96 Estim Creat Clear Calc 68.18 Est GFR (MDRD) Af Amer 79 Est GFR (MDRD) Non-Af 65 BUN/Creatinine Ratio 8.3 L Glucose 91 Calcium 8.7 Total Bilirubin 0.20 AST 20 ALT 24 Alkaline Phosphatase 78 Total Protein 7.3 Albumin 3.4 Globulin 3.9 Albumin/Globulin Ratio 0.9 Lipase 179 Discharge Plan Triage Chief Complaint: Abd Pain ED Provider: Nacho York Dx/Rx/DC Orders Clinical Impression: Gastritis, Nausea Instructions: ED PEPTIC ULCER vs GASTRITIS Prescriptions: New ondansetron 4 mg tablet,disintegrating 4 mg PO Q8H Qty: 14 RF: 0 No Action levothyroxine 75 MCG tablet 100 mcg PO DAILY RF: 0 ergocalciferol (vitamin D2) 1,250 MCG capsule 1,250 mcg PO QWEEK RF: 0 spironolactone 50 MG tablet 50 mg PO DAILY RF: 0 sucralfate 1 gram Tablet 1 g PO 4X/DAY Qty: 120 RF: 0 pantoprazole [Protonix] 40 mg tablet,delayed release (DR/EC) 40 mg PO BID 56 Days Qty: 112 RF: 0 ferrous sulfate [iron] 325 mg (65 mg iron) tablet 325 mg PO DAILY Qty: 60 RF: 0 Primary Care Provider: Hong Frazier Referrals: Hong Frazier MD [Primary Care Provider] - 3-5 Days Disposition Disposition: Home, Self Care
[2021-10-14 23:34] LABS: Absolute Lymphocyte Count 1.82 X10^3/uL (0.83-4.51); Absolute Neutrophil Count 3.1 X10^3/uL (2.0-7.7); Basophil# 0.03 X10^3/uL; Basophil% 0.5 % (0-1); Eosinophil# 0.09 X10^3/uL; Eosinophils% 1.6 % (0-5); Hematocrit 35.7 % (37-47); Hemoglobin 10.8 g/dL (12.0-15.0); Lymphocyte # 1.82 X10^3/ul (0.83-4.51); Lymphocyte % 32.3 % (19-41); Mean Corp Hgb Conc 30.3 g/dL (32-36); Mean Corpuscular Hgb 27.1 pg (27.0-32.0); Mean Corpuscular Volume 89.5 fL (81-99); Mean Platelet Vol. 8.7 fl (6.2-12.0); Monocyte# 0.56 X10^3/uL; Monocyte% 9.9 % (0-10); NRBC Flagged by Analyzer 0 % (0-5); Neutrophil # 3.09 X10^3/uL (2.7-7.7); Platelet Count 511 K/mm3 (150-450); RBC Distribution Width CV 15.8 % (11.6-14.6); RBC Distribution Width SD 51.5 fl (35.1-43.9); Red Blood Count 3.99 M/mm3 (4.2-5.4); White Blood Count 5.6 K/mm3 (4.4-11.0)
[2021-10-14] MEDS: Famotidine 200 MG/20 ML MDV 20 MG in 0.9% Normal Saline (Pres. free 8 ML 300 MG IV (23:39)
[2021-10-14 23:52] LABS: ALB/GLOB Ratio 0.9 RATIO (0.9-2.4); AST(SGOT) 20 U/L (15-37); Alanine Aminotransfer ALT/SGPT 24 U/L (13-56); Albumin, Serum 3.4 g/dL (3.2-5.0); Alkaline Phosphatase 78 U/L (45-117); Anion Gap 6 (5-15); BUN 8 mg/dL (7-18); BUN/Creat Ratio 8.3 RATIO (10-20); Calcium,Total 8.7 mg/dL (8.5-10.1); Chloride 111 mmol/L (98-107); Creatinine, Serum 0.96 mg/dL (0.55-1.02); EST Glomerular Filtration Rate 65 mL/min (>60); Est Glom Filt Rate - Afr Amer 79 mL/min (>60); Estimated Creatinine Clearance 68.18 ml/min; Globulin 3.9 g/dL (2.2-4.2); Glucose 91 mg/dL (74-106); Lipase 179 U/L (73-393); Potassium 3.6 mmol/L (3.5-5.1); Protein, Total 7.3 g/dL (6.4-8.2); Sodium Level 141 mmol/L (136-145)
[2021-10-15 00:54] VITALS: PULSE 78; RESP 18; O2SAT 96
== END 2021-10-15 00:55 | disposition home or self-care (01) ==
PROVIDERS: Emergency Provider Emergency Medicine; PCP Family Medicine; Visit Provider Emergency Medicine
DX: K29.70 Gastritis, unspecified, without bleeding (principal); R11.0 Nausea; F17.210 Nicotine dependence, cigarettes, uncomplicated
CPT/HCPCS: 80053; 83690; 85025; 96365; 99283; J7030; A4216; J3490

== ENCOUNTER 2021-12-10 08:00 | Outpatient (RCR) | payer MEDICAID, SELFPAY ==
[2021-12-06 11:18] VITALS: BP 129/77; PULSE 80; RESP 20; TEMP 36.6
--- NOTE | 2021-12-06 12:47 | PCM.WC.HP ---
History of Present Illness Date of Service: 12/06/21 Chief Complaint: chronic wound left concepcion, lymphedema bilateral LE History of Wound: Rosemary is a 51 yo young woman who presents to the wound healing center today for evaluation and treatment of a nonhealing ulcer of her left concepcion and chronic lymphedema to her lower legs. She has been referred by her PCP Dr. Hong Frazier. Rosemary has been struggling with lymphedema for several years and she developed an ulcer in the setting of her lymphedema last year and it recurred approx. 6 months ago. She reports that her lymphedema has been present for several years and has been stable since last being seen at the wound healing center. She has been wearing old tubigrips compression currently. She was seen at the lymphedema clinic at [facility] and was given recommendations/measurements for compression stockings but has not been able to wear the compression stockings. She was diagnosed with stage 2 lymphedema. 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 She denies idle standing for long periods of time. The ulcer developed approximately 6 months ago. She has been applying triple antibiotic ointment and gauze to the ulcer daily. There is mild drainage from the ulcer. She has had a bruise on her concepcion from striking it against something for several weeks prior to this ulcer appearing. She denies fever, chills, erythema, warmth, odor. She has pain surrounding the ulcer. [facility] Medical History Bleeding acute gastric ulcer Histrionic person Hypothyroidism multiple skuin lesions 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, pre-employment Skin lesions Smoker Home Medications levothyroxine 75 mcg tablet 100 mcg PO DAILY 11/12/16 [History Last Taken Unknown] ergocalciferol (vitamin D2) 1,250 mcg (50,000 unit) capsule 1,250 mcg PO QWEEK SUPPLEMENT 02/18/20 [History Last Taken Unknown] spironolactone 50 mg tablet 50 mg PO DAILY DIURETIC 02/18/20 [History Last Taken Unknown] ferrous sulfate 325 mg (65 mg iron) tablet (iron) 325 mg PO DAILY #60 tabs 10/05/21 [Rx Last Taken Unknown] pantoprazole 40 mg tablet,delayed release (Protonix) 40 mg PO BID 8 weeks #112 tabs 10/05/21 [Rx Last Taken Unknown] sucralfate 1 gram tablet 1 g PO 4X/DAY #120 tabs 10/05/21 [Rx Last Taken Unknown] ondansetron 4 mg disintegrating tablet 4 mg PO Q8H #14 tabs 10/15/21 [Rx Last Taken Unknown] Allergy/AdvReac Type Severity Reaction Status Date / Time No Known Allergies Allergy Verified 10/14/21 22:53 Family History Sister Arthritis Cancer Father Cancer liver cancer Surgical History History of History of cholecystectomy History of hernia repair Social History Smoking Status: Current every day smoker tobacco type: cigarettes alcohol intake: never substance use type: does not use ROS Constitutional Constitutional: Denies chills, fatigue, fever(s) or weakness Eyes Eyes: Denies blurry vision, erythema or loss of vision ENT HEENT: Denies dry mouth, hearing loss, hoarseness or sore throat Cardiovascular Cardiovascular: Reports leg edema; Denies chest pain, dyspnea or palpitations Respiratory/Chest Respiratory/Chest: Denies dry cough, dyspnea or productive cough Gastrointestinal Gastrointestinal: Denies diarrhea, nausea or vomiting Genitourinary Genitourinary: Denies dysuria, hematuria or polyuria Musculoskeletal Musculoskeletal: Denies arthralgias, muscle weakness or numbness Integumentary Integumentary: Reports non-healing lesions, skin ulcer and wounds Neurologic Neurologic: Denies dizziness, numbness or weakness Psychiatric Psychiatric: Denies homicidal ideation or suicidal ideation Endocrine Endocrinology: Denies fatigue or polyuria Hematologic/Lymphatic Hematologic/Lymphatic: Denies easy bleeding or easy bruising Vital Signs Vital Signs Vital Signs: 12/06/21 11:18 Temperature 97.8 F Temperature Source Temporal Pulse Rate 80 Respiratory Rate 20 H Blood Pressure 129/77 H Blood Pressure Mean 94 Blood Pressure Source Monitor Physical Exam Const alert, oriented x3 and no apparent distress General Appearance: cooperative and comfortable HEENT normocephalic and head/scalp atraumatic Lymph Lymphatic: lymphedema severe Resp normal respiratory effort Effort and Inspection: able to speak in complete sentences Cardio regular rate and regular rhythm Extremity General Extremity: edema bilateral lower extremity Details: severe Skin Wounds: wounds noted Wound Narrative: as in clinical panel Psych mental status grossly normal, thought process normal, cooperative and affect normal Debridement Note Debridement Note Wound debrided: left concepcion Laterality: Left Type of Debridement: Excisional debridement Anesthesia Used: 4% Lidocaine Solution, 5% Lidocaine Gel and Cetacaine Depth: Down to and including healthy tissue and in the subcutaneous layer Percentage of wound debrided: 100 Instrument Used: 5mm curette Tissue Removed: Yellow slough, devitalized tissue Severity: Fat Layer Exposed Amount of bleeding with debridement: Mild Bleeding Controlled with: Compression and gauze Patient tolerated procedure: Patient tolerated procedure well Post-Debridement Measurements and Additional Note: Post-Debridement Measurements/Treatment - Nurse 1 - General Ulcer Assessment Start: 12/06/21 09:38 Freq: Status: Active Protocol: LAST Activity Type Activity Date Activity User E-sign Co-sign Detail Recorded Client Recorded Date Recorded By Document 12/06/21 11:18 DL [id number] 12/06/21 11:35 DL 12/06/21 11:18 WC - Today's Visit Information Type of service Initial Visit Arrival Mode Ambulatory Transfer Assistance None Patient Identification Verified (Name & Yes ) Patient Requires Transmission-Based No Precautions Vital Signs Temperature (97.8 F-99.1 F) 97.8 F Temperature Source Temporal Pulse Rate (60-100) 80 Pulse Location Monitor Respiratory Rate (12-18) 20 H Respiratory rate source Observation Blood Pressure (90/60-120/80) 129/77 H Blood Pressure Mean 94 Source Monitor Pain Scale: 0-10 Numeric Is Patient Pain Free? Yes Lower Extremity Assessment/ Foot Assessment/ Toe Nail Assessment Left -Posterior Tibial Palpable Yes -Dorsalis Pedis Palpable Yes -Extremity Color Normal -Hair Growth on Legs No -Hair Growth on Toes No -Temperature of Extremity Warm -Capillary Refill Less than 3 Seconds -Dependent Rubor No -Blanched when Elevated No -Lipodermatosclerosis No -Other Deformity No -Prior Foot Ulcer No -Charcot Joint No -Prior Amputation No -Thick Yes -Discolored Yes -Deformed Yes -Improper Length & Hygeine Yes Right -Posterior Tibial Palpable Yes -Dorsalis Pedis Palpable Yes -Extremity Color Normal -Hair Growth on Legs No -Hair Growth on Toes No -Temperature of Extremity Warm -Capillary Refill Greater than 3 Seconds -Dependent Rubor No -Blanched when Elevated No -Lipodermatosclerosis No -Other Deformity No -Prior Foot Ulcer No -Charcot Joint No -Prior Amputation No -Thick Yes -Discolored Yes -Deformed Yes -Improper Length & Hygeine Yes Neuropathy Assessment Feet - Top Side and Bottom <Entered> (a) Communication Assessment Preferred language Nauruan Able to Read Yes Able to Write Yes Right Hearing Abillity Normal Left Hearing Abillity Normal Visual Assistive Devices Glasses Teaching Assessment Preferences Verbal,Written, Demonstration Readiness To Learn Fair Willingness to Engage in Self Management Low Activies Readiness to Engage in Self Management Med Activities Anxiety Level Calm Cooperation Cooperative Perception Coherent Interest in Health Problem Uninterested Education Importance Acknowledges Need Does Patient Smoke tobacco or other Yes substances Smoking Status Current every day smoker Is Patient Diabetic No Functional Assessment Recent Decline in Ability to Perform Denies Any Declines Culture/Catholic/[employer]at [employer] Associate Cultural/Catholic Needs that may affect No Treatment Plan Teaching: Wound Center Discharge Instructions -Person Taught Patient Dressing Your Wound -Person Taught Patient *Welcome to the Wound Center -Person Taught Patient (a) 1 - + WC - Nurse 1 - General Ulcer Measurement Start: 12/06/21 09:38 Freq: Status: Active Protocol: Activity Type Activity Date Activity User E-sign Co-sign Detail Recorded Client Recorded Date Recorded By Document 12/06/21 11:18 DL [id number] 12/06/21 11:35 DL 12/06/21 11:18 Wound Center Nurse 1 #2 L Concepcion -Current Size (cm) - Length 1.6 -Current Size (cm) - Width 1 -Current Size (cm) - Depth 0.2 -Total Square Cm 1.6 -Photo Taken Yes -Exudate Amt Medium -Exudate Type Serosanguineous -Wound Margin Distinct, Outline Attached -Granulation Amt Medium (34-66%) -Granulation Quality Red -Necrosis Amt Medium (34-66%) -Necrotic Tissue Type Adherent Slough -Structure Exposed N/A -Texture (Rika-wound Skin Appearance) Localized Edema ,Scarring,Rash -Moisture (Rika-wound Skin Appearance) Weeping -Color (Rika-wound Skin Appearance) Erythema -Temperature (Rika-wound Skin No Abnormality Appearance) (Pt Warm) -Tenderness on Palpation (Rika-wound No Skin Appearance) -Ulcer Cleansing Soap and Water -Foul Odor after Cleansing No -Anesthetic Used 5% Lidocaine Gel Right Calf (cm) 45 Right Ankle (cm) 29 Left Calf (cm) 45.5 Left Ankle (cm) 28 WC - Nurse 2 - General Ulcer CM Notes Start: 12/06/21 09:38 Freq: Status: Active Protocol: Activity Type Activity Date Activity User E-sign Co-sign Detail Recorded Client Recorded Date Recorded By Document 12/06/21 12:02 MW [id number] 12/06/21 12:15 MW 12/06/21 12:02 Wound Center Nurse 2 #2 L Concepcion -Time 12:02 -Correct Patient Yes -Correct Side, Site, Position Yes -Correct Procedure Yes -Procedure Performed Yes -Type of Procedure Debridement -Clinical Debridement Subcutaneous -Tissue Removed Subcutaneous -Post Debridement (cm) - Length 1.6 -Post Debridement (cm) - Width 1.0 -Post Debridement (cm) - Depth 0.1 -Total Square (Post) (cm) 1.60 -Area of Debridement (cm) - Length 1.6 -Area of Debridement (cm) - Width 1.0 -Total Square (Area) (cm) 1.60 -Tunneling No -Undermining/Tunneling No -Circular Undermining No -Wound/Ulcer Outcome Not Healed -Ulcer Cleansing Rinsed/ Irrigated with Saline -Foul Odor after Cleansing No -Bioengineered Tissue No -Bleeding Controlled with Pressure -Treatment Response Procedure Tolerated Well -Offloading No -Debridement - Subq, 1st 20sq cm Yes Pain Scale: 0-10 Numeric Is Patient Pain Free? Yes - Nurse 3 - General Ulcer D/C NN Start: 12/06/21 09:38 Freq: Status: Active Protocol: Activity Type Activity Date Activity User E-sign Co-sign Detail Recorded Client Recorded Date Recorded By Document 12/06/21 12:25 RB [id number] 12/06/21 12:28 RB 12/06/21 12:25 Wound Care Nurse 3 #2 L Concepcion -Ulcer Cleansing Wound Cleanser -Primary Dressing Applied Promogran -Promogran 1 Left -Multi-Layered Wrap Application Unna Boot - Left ($) Treatment Response Procedure Tolerated Well Pain Scale: 0-10 Numeric Is Patient Pain Free? No LLE -Description Dull,Aching -Intensity 4 -Duration (hours) Acute -Pain Behavior Guarding -Pain Aggravating Factors Walking -Alleviating Factors/Interventions Medication -Effectiveness of Alleviating Factor/ Minimally Intervention effective - Visit Discharge Discharge Condition Stable Ambulatory Status Ambulatory Transportation Private Auto Medication Reconcilliation completed & No provided to patient/care provider Clinical Summary of Care Provided Yes Assessment/Plan Assessment/Plan (1) Lymphedema associated with obesity: CODE(S): I89.0 - Lymphedema, not elsewhere classified; E66.9 - Obesity, unspecified (2) Venous ulcer of left lower extremity with varicose veins: CODE(S): I83.029 - Varicose veins of left lower extremity with ulcer of unspecified site; L97.929 - Non-pressure chronic ulcer of unspecified part of left lower leg with unspecified severity (3) Cellulitis: CODE(S): L03.90 - Cellulitis, unspecified QUALIFIERS: Site of cellulitis: extremity Site of cellulitis of extremity: lower extremity Laterality: left Qualified Code(s): L03.116 - Cellulitis of left lower limb (4) Hypothyroidism: CODE(S): E03.9 - Hypothyroidism, unspecified QUALIFIERS: Hypothyroidism type: unspecified Qualified Code(s): E03.9 - Hypothyroidism, unspecified (5) Morbid obesity: CODE(S): E66.01 - Morbid (severe) obesity due to excess calories PLAN: Plan Rosemary's ulcer [facility]. She has chronic lymphedema that has caused an ulceration of her left concepcion. A wound culture was taken today to evaluate for possible concurrent cellulitis and will treat her with antibiotics if needed based on results of wound culture. Her ulcer and lower extremity edema of her left leg will be treated with promogran and an UNNA boot compression dressing. She was advised to keep dressings dry and intact until next visit in 1 week. She will have it changed on Thursday. Due to the chronicity of her lymphedema and the potential for recurrent ulcerations if left untreated, she would benefit from compression treatment with Circaid/juxtalite compression wraps and potentially lymphedema compression pumps. She is unable to don conventional compression stockings due to her obesity and difficulty with arthritis. She was encouraged to quit smoking as this will also impede wound healing. Encouraged elevation of legs at or above the level of her heart when sitting and to avoid idle standing. Walking and stretching and pedal pump exercises encouraged to activate calf muscles and help with edema. Vascular testing of her lower legs ordered but she clearly has varicose veins and venous insufficiency that have caused lymphedema. Encouraged weight loss and adequate protein intake. She was advised to call if develops pain, fever, chills. She will return in 1 week for follow up and wound care.
== END 2021-12-12 23:59 | disposition home or self-care (01) ==
LOC: WC 08:00
PROVIDERS: PCP Family Medicine; Visit Provider Family Medicine
DX: I83.028 Varicose veins of left lower extremity with ulcer other part of lower leg (principal); L97.822 Non-pressure chronic ulcer of other part of left lower leg with fat layer exposed; E66.01 Morbid (severe) obesity due to excess calories; L03.116 Cellulitis of left lower limb; I89.0 Lymphedema, not elsewhere classified; E03.9 Hypothyroidism, unspecified; Z79.890 Hormone replacement therapy; Z79.899 Other long term (current) drug therapy
CPT/HCPCS: 11042; 29580; 87070; 87075; 87077; 87186; 87205; 99213; G0463

== ENCOUNTER 2021-12-27 08:30 | Outpatient (RCR) | payer MEDICAID, SELFPAY ==
[2021-12-13 00:49] VITALS: BP 129/77; PULSE 80; RESP 20; TEMP 36.6
[2021-12-13 08:46] VITALS: BP 138/94; PULSE 91; RESP 18; TEMP 36.2
--- NOTE | 2021-12-13 14:03 | PN.PCM_ITS ---
History of Present Illness Date of Service: 12/13/21 Chief Complaint: chronic wound left concepcion, lymphedema bilateral LE History of Wound: Rosemary is a 51 yo young woman who presents to the wound healing center today for evaluation and treatment of a nonhealing ulcer of her left concepcion and chronic lymphedema to her lower legs. She has been referred by her PCP Dr. Hong Frazier. Rosemary has been struggling with lymphedema for several years and she developed an ulcer in the setting of her lymphedema last year and it recurred approx. 6 months ago. She reports that her lymphedema has been present for several years and has been stable since last being seen at the wound healing center. She has been wearing old tubigrips compression currently. She was seen at the lymphedema clinic at [facility] and was given recommendations/measurements for compression stockings but has not been able to wear the compression stockings. She was diagnosed with stage 2 lymphedema. 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 She denies idle standing for long periods of time. The ulcer developed approximately 6 months ago. She has been applying triple antibiotic ointment and gauze to the ulcer daily. There is mild drainage from the ulcer. She has had a bruise on her concepcion from striking it against something for several weeks prior to this ulcer appearing. She denies fever, chills, erythema, warmth, odor. She has pain surrounding the ulcer. Subjective Subjective Patient tolerated UNNA boot compression and Promogran treatment with improvement in her edema and the size of her ulcer. She denies fever or chills or increased pain. Tolerating doxycycline. Objective Data Objective Data Vital Signs: Vital Signs Temp Pulse Resp BP 97.1 F L 91 18 138/94 H 12/13/21 08:46 12/13/21 08:46 12/13/21 08:46 12/13/21 08:46 Physical Exam Const alert, oriented x3 and no apparent distress General Appearance: cooperative and comfortable HEENT normocephalic and head/scalp atraumatic Lymph Lymphatic: lymphedema severe Resp normal respiratory effort Effort and Inspection: able to speak in complete sentences Cardio regular rate and regular rhythm Extremity General Extremity: edema bilateral lower extremity Details: severe Skin Wounds: wounds noted Wound Narrative: as in clinical panel Psych mental status grossly normal, thought process normal, cooperative and affect normal Debridement Note Debridement Note Wound debrided: left concepcion Laterality: Left Type of Debridement: Excisional debridement Anesthesia Used: 4% Lidocaine Solution, 5% Lidocaine Gel and Cetacaine Depth: Down to and including healthy tissue and in the subcutaneous layer Percentage of wound debrided: 100 Instrument Used: 5mm curette Tissue Removed: Yellow slough, devitalized tissue Severity: Fat Layer Exposed Amount of bleeding with debridement: Mild Bleeding Controlled with: Compression and gauze Patient tolerated procedure: Patient tolerated procedure well Post-Debridement Measurements and Additional Note: Post-Debridement Measurements/Treatment WC - Nurse 1 - General Ulcer Assessment Start: 12/13/21 08:42 Freq: Status: Active Protocol: LAST Activity Type Activity Date Activity User E-sign Co-sign Detail Recorded Client Recorded Date Recorded By Document 12/13/21 08:46 MARILY [id number] 12/13/21 08:52 MARILY 12/13/21 08:46 WC - Today's Visit Information Type of service Follow-up Visit (Physician/REPLENISHMENT ANALYST ) Arrival Mode Ambulatory Transfer Assistance None Patient Identification Verified (Name & Yes ) Patient Requires Transmission-Based No Precautions Vital Signs Temperature (97.8 F-99.1 F) 97.1 F L Temperature Source Temporal Pulse Rate (60-100) 91 Pulse Location Monitor Respiratory Rate (12-18) 18 Respiratory rate source Observation Blood Pressure (90/60-120/80) 138/94 H Blood Pressure Mean (mm Hg) 108 Source Monitor Position Semi-Fowlers Blood Pressure Location Left Arm History Since Last Visit- (Skip if this is Patient's initial visit) Have you changed medications since your No last visit? Any new allergies or adverse reactions No Had a fall/change in ADL's that may No increase risk of falls Signs or symptoms of abuse and/or No neglect since last visit Have you been in the hospital since your No last visit? Has dressing in place as prescribed Yes Has compression in place as prescribed Yes Has offloadiing in place as prescribed No Experienced any changes in pain level or No management Pain Scale: 0-10 Numeric Is Patient Pain Free? No LLE -Description Sharp -Intensity 4 -Duration (hours) Acute -Pain Behavior Withdrawal from Touch -Pain Aggravating Factors ADL's -Alleviating Factors/Interventions Medication -Effectiveness of Alleviating Factor/ Moderately Intervention effective WC - Nurse 1 - General Ulcer Measurement Start: 12/13/21 08:42 Freq: Status: Active Protocol: Activity Type Activity Date Activity User E-sign Co-sign Detail Recorded Client Recorded Date Recorded By Document 12/13/21 08:46 RB [id number] 12/13/21 08:52 RB 12/13/21 08:46 Wound Center Nurse 1 #2 L Concepcion -Current Size (cm) - Length 1 -Current Size (cm) - Width 0.4 -Current Size (cm) - Depth 0.2 -Total Square Cm 0.4 -Photo Taken Yes -Tunneling No -Undermining/Tunneling No -Circular Undermining No -Exudate Amt Large -Exudate Type Serosanguineous -Wound Margin Distinct, Outline Attached -Granulation Amt Small (1-33%) -Granulation Quality [place] -Necrosis Amt Large (67-100%) -Necrotic Tissue Type Adherent Slough -Structure Exposed N/A -Texture (Rika-wound Skin Appearance) Assessed -Moisture (Rika-wound Skin Appearance) Assessed -Color (Rika-wound Skin Appearance) Hemosiderin Staining -Temperature (Rika-wound Skin No Abnormality Appearance) (Pt Warm) -Tenderness on Palpation (Rika-wound No Skin Appearance) -Ulcer Cleansing Wound Cleanser -Anesthetic Used 4% Lidocaine Solution,5% Lidocaine Gel Lower Limb Edema Present Yes Left Calf (cm) 45 Left Ankle (cm) 28.2 WC - Nurse 2 - General Ulcer CM Notes Start: 12/13/21 08:42 Freq: Status: Active Protocol: Activity Type Activity Date Activity User E-sign Co-sign Detail Recorded Client Recorded Date Recorded By Document 12/13/21 08:57 MW [id number] 12/13/21 09:10 MW 12/13/21 08:57 Wound Center Nurse 2 #2 L Concepcion -Time 09:04 -Correct Patient Yes -Correct Side, Site, Position Yes -Correct Procedure Yes -Procedure Performed Yes -Type of Procedure Debridement -Clinical Debridement Subcutaneous -Tissue Removed Subcutaneous -Post Debridement (cm) - Length 1.2 -Post Debridement (cm) - Width 1.0 -Post Debridement (cm) - Depth 0.1 -Total Square (Post) (cm) 1.20 -Area of Debridement (cm) - Length 1.2 -Area of Debridement (cm) - Width 1.0 -Total Square (Area) (cm) 1.20 -Tunneling No -Circular Undermining No -Wound/Ulcer Outcome Not Healed -Ulcer Cleansing Rinsed/ Irrigated with Saline -Foul Odor after Cleansing No -Bioengineered Tissue No -Bleeding Controlled with Pressure -Treatment Response Procedure Tolerated Well -Offloading No -Debridement - Subq, 1st 20sq cm Yes Pain Scale: 0-10 Numeric Is Patient Pain Free? Yes WC - Nurse 3 - General Ulcer D/C NN Start: 12/13/21 08:42 Freq: Status: Active Protocol: Activity Type Activity Date Activity User E-sign Co-sign Detail Recorded Client Recorded Date Recorded By Document 12/13/21 09:21 ML [id number] 12/13/21 09:22 ML 12/13/21 09:21 Wound Care Nurse 3 #2 L Concepcion -Ulcer Cleansing Rinsed/ Irrigated with Saline -Primary Dressing Applied Promogran -Promogran 1 Left -Compression Wrap Unna Boot ($) ( single) Pain Scale: 0-10 Numeric Is Patient Pain Free? Yes Assessment/Plan Assessment/Plan (1) Lymphedema associated with obesity: CODE(S): I89.0 - Lymphedema, not elsewhere classified; E66.9 - Obesity, unspecified (2) Venous ulcer of left lower extremity with varicose veins: CODE(S): I83.029 - Varicose veins of left lower extremity with ulcer of unspecified site; L97.929 - Non-pressure chronic ulcer of unspecified part of left lower leg with unspecified severity (3) Cellulitis: CODE(S): L03.90 - Cellulitis, unspecified QUALIFIERS: Site of cellulitis: extremity Site of cellulitis of extremity: lower extremity Laterality: left Qualified Code(s): L03.116 - Cellulitis of left lower limb (4) Hypothyroidism: CODE(S): E03.9 - Hypothyroidism, unspecified QUALIFIERS: Hypothyroidism type: unspecified Qualified Code(s): E03.9 - Hypothyroidism, unspecified (5) Morbid obesity: CODE(S): E66.01 - Morbid (severe) obesity due to excess calories PLAN: Plan Yovanys ulcer was evaluated and debrided today at the wound healing center. She has chronic lymphedema that has caused an ulceration of her left concepcion. Wound culture was positive and she is tolerating antibiotic treatment with doxycycline. Her ulcer and lower extremity edema of her left leg will be treated with promogran and an UNNA boot compression dressing. She was advised to keep dressings dry and intact until next visit in 1 week. She will have it changed on Thursday. Due to the chronicity of her lymphedema and the potential for recurrent ulcerations if left untreated, she would benefit from compression treatment with Circaid/juxtalite compression wraps and potentially lymphedema compression pumps. She is unable to don conventional compression stockings due to her obesity and difficulty with arthritis. She was encouraged to quit smoking as this will also impede wound healing. Encouraged elevation of legs at or above the level of her heart when sitting and to avoid idle standing. Walking and stretching and pedal pump exercises encouraged to activate calf muscles and help with edema. Vascular testing of her lower legs ordered but she clearly has varicose veins and venous insufficiency that have caused lymphedema. Encouraged weight loss and adequate protein intake. She was advised to call if develops pain, fever, chills. She will return in 1 week for follow up and wound care.
[2021-12-20 09:46] VITALS: BP 139/87; PULSE 81; RESP 18; TEMP 36.1
--- NOTE | 2021-12-20 13:00 | PCM.WC.PN ---
History of Present Illness Date of Service: 12/20/21 Chief Complaint: chronic wound left concepcion, lymphedema bilateral LE History of Wound: Rosemary is a 51 yo young woman who presents to the wound healing center today for evaluation and treatment of a nonhealing ulcer of her left concepcion and chronic lymphedema to her lower legs. She has been referred by her PCP Dr. Hong Frazier. Rosemary has been struggling with lymphedema for several years and she developed an ulcer in the setting of her lymphedema last year and it recurred approx. 6 months ago. She reports that her lymphedema has been present for several years and has been stable since last being seen at the wound healing center. She has been wearing old tubigrips compression currently. She was seen at the lymphedema clinic at [facility] and was given recommendations/measurements for compression stockings but has not been able to wear the compression stockings. She was diagnosed with stage 2 lymphedema. 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 She denies idle standing for long periods of time. The ulcer developed approximately 6 months ago. She has been applying triple antibiotic ointment and gauze to the ulcer daily. There is mild drainage from the ulcer. She has had a bruise on her concepcion from striking it against something for several weeks prior to this ulcer appearing. She denies fever, chills, erythema, warmth, odor. She has pain surrounding the ulcer. Objective Data Objective Data Vital Signs: Vital Signs Temp Pulse Resp BP 97 F L 81 18 139/87 H 12/20/21 09:46 12/20/21 09:46 12/20/21 09:46 12/20/21 09:46 Physical Exam Const alert, oriented x3 and no apparent distress General Appearance: cooperative and comfortable HEENT normocephalic and head/scalp atraumatic Lymph Lymphatic: lymphedema severe Resp normal respiratory effort Effort and Inspection: able to speak in complete sentences Cardio regular rate and regular rhythm Extremity General Extremity: edema bilateral lower extremity Details: severe Skin Wounds: wounds noted Wound Narrative: as in clinical panel Psych mental status grossly normal, thought process normal, cooperative and affect normal Debridement Note Debridement Note Wound debrided: left concepcion Laterality: Left Type of Debridement: Excisional debridement Anesthesia Used: 4% Lidocaine Solution, 5% Lidocaine Gel and Cetacaine Depth: Down to and including healthy tissue and in the subcutaneous layer Percentage of wound debrided: 100 Instrument Used: 5mm curette Tissue Removed: Yellow slough, devitalized tissue Severity: Fat Layer Exposed Amount of bleeding with debridement: Mild Bleeding Controlled with: Compression and gauze Patient tolerated procedure: Patient tolerated procedure well Post-Debridement Measurements and Additional Note: Post-Debridement Measurements/Treatment - Nurse 1 - General Ulcer Assessment Start: 12/13/21 08:42 Freq: Status: Active Protocol: LAST Activity Type Activity Date Activity User E-sign Co-sign Detail Recorded Client Recorded Date Recorded By Document 12/13/21 08:46 RB [id number] 12/13/21 08:52 RB Document 12/20/21 09:46 RB [id number] 12/20/21 09:57 RB 12/13/21 12/20/21 08:46 09:46 - Today's Visit Information Type of service Follow-up Visit Follow-up Visit (Physician/INDUSTRIAL RADIOGRAPHER (Physician/INDUSTRIAL RADIOGRAPHER ) ) Arrival Mode Ambulatory Ambulatory Transfer Assistance None None Patient Identification Verified (Name & Yes Yes ) Patient Requires Transmission-Based No Precautions Vital Signs Temperature (97.8 F-99.1 F) 97.1 F L 97 F L Temperature Source Temporal Temporal Pulse Rate (60-100) 91 81 Pulse Location Monitor Monitor Respiratory Rate (12-18) 18 18 Respiratory rate source Observation Observation Blood Pressure (90/60-120/80) 138/94 H 139/87 H Blood Pressure Mean (mm Hg) 108 104 Source Monitor Monitor Position Semi-Fowlers Semi-Fowlers Blood Pressure Location Left Arm Left Arm History Since Last Visit- (Skip if this is Patient's initial visit) Have you changed medications since your No No last visit? Any new allergies or adverse reactions No No Had a fall/change in ADL's that may No No increase risk of falls Signs or symptoms of abuse and/or No No neglect since last visit Have you been in the hospital since your No No last visit? Has dressing in place as prescribed Yes Yes Has compression in place as prescribed Yes Yes Has offloadiing in place as prescribed No No Experienced any changes in pain level or No No management Pain Scale: 0-10 Numeric Is Patient Pain Free? No Yes LLE -Description Sharp -Intensity 4 -Duration (hours) Acute -Pain Behavior Withdrawal from Touch -Pain Aggravating Factors ADL's -Alleviating Factors/Interventions Medication -Effectiveness of Alleviating Factor/ Moderately Intervention effective WC - Nurse 1 - General Ulcer Measurement Start: 12/13/21 08:42 Freq: Status: Active Protocol: Activity Type Activity Date Activity User E-sign Co-sign Detail Recorded Client Recorded Date Recorded By Document 12/13/21 08:46 RB [id number] 12/13/21 08:52 RB Document 12/20/21 09:46 RB [id number] 12/20/21 09:57 RB 12/13/21 12/20/21 08:46 09:46 Wound Center Nurse 1 #2 L Concepcion -Combined with other wound No -Current Size (cm) - Length 1 1 -Current Size (cm) - Width 0.4 0.7 -Current Size (cm) - Depth 0.2 0.1 -Total Square Cm 0.4 0.7 -Photo Taken Yes Yes -Tunneling No No -Undermining/Tunneling No No -Circular Undermining No No -Exudate Amt Large Medium -Exudate Type Serosanguineous Serosanguineous -Wound Margin Distinct, Distinct, Outline Outline Attached Attached -Granulation Amt Small (1-33%) Medium (34-66%) -Granulation Quality [place] -Slough/Fibrin Yes -Necrosis Amt Large (67-100%) Large (67-100%) -Necrotic Tissue Type Adherent Slough Adherent Slough -Structure Exposed N/A N/A -Texture (Rika-wound Skin Appearance) Assessed Assessed -Moisture (Rika-wound Skin Appearance) Assessed Assessed -Color (Rika-wound Skin Appearance) Hemosiderin Hemosiderin Staining Staining -Temperature (Rika-wound Skin No Abnormality No Abnormality Appearance) (Pt Warm) (Pt Warm) -Tenderness on Palpation (Rika-wound No No Skin Appearance) -Ulcer Cleansing Wound Cleanser Wound Cleanser -Foul Odor after Cleansing No -Anesthetic Used 4% Lidocaine 5% Lidocaine Solution,5% Gel Lidocaine Gel Lower Limb Edema Present Yes Yes Left Calf (cm) 45 49 Left Ankle (cm) 28.2 29.8 WC - Nurse 2 - General Ulcer CM Notes Start: 12/13/21 08:42 Freq: Status: Active Protocol: Activity Type Activity Date Activity User E-sign Co-sign Detail Recorded Client Recorded Date Recorded By Document 12/13/21 08:57 MW [id number] 12/13/21 09:10 MW Document 12/20/21 10:01 MW [id number] 12/20/21 10:11 MW 12/13/21 12/20/21 08:57 10:01 Wound Center Nurse 2 #2 L Concepcion -Time 09:04 10:09 -Correct Patient Yes Yes -Correct Side, Site, Position Yes Yes -Correct Procedure Yes Yes -Procedure Performed Yes Yes -Type of Procedure Debridement Debridement -Clinical Debridement Subcutaneous Subcutaneous -Tissue Removed Subcutaneous Subcutaneous -Post Debridement (cm) - Length 1.2 0.9 -Post Debridement (cm) - Width 1.0 0.8 -Post Debridement (cm) - Depth 0.1 0.1 -Total Square (Post) (cm) 1.20 0.72 -Area of Debridement (cm) - Length 1.2 0.9 -Area of Debridement (cm) - Width 1.0 0.8 -Total Square (Area) (cm) 1.20 0.72 -Tunneling No No -Undermining/Tunneling No -Circular Undermining No No -Wound/Ulcer Outcome Not Healed Not Healed -Ulcer Cleansing Rinsed/ Rinsed/ Irrigated with Irrigated with Saline Saline -Foul Odor after Cleansing No No -Bioengineered Tissue No No -Bleeding Controlled with Pressure Pressure -Treatment Response Procedure Procedure Tolerated Well Tolerated Well -Offloading No -Type of Offloading Total Contact Cast (TCC) - Left ($) -Debridement - Subq, 1st 20sq cm Yes Yes Pain Scale: 0-10 Numeric Is Patient Pain Free? Yes Yes WC - Nurse 3 - General Ulcer D/C NN Start: 12/13/21 08:42 Freq: Status: Active Protocol: Activity Type Activity Date Activity User E-sign Co-sign Detail Recorded Client Recorded Date Recorded By Document 12/13/21 09:21 ML [id number] 12/13/21 09:22 ML Edit Result 12/13/21 09:21 ML (1) [id number] 12/17/21 07:14 PL Document 12/20/21 10:28 RB [id number] 12/20/21 10:29 RB (1) Left - Multi-Layered Wrap Application => Unna Boot - Left ( => $) 12/13/21 12/20/21 09:21 10:28 Wound Care Nurse 3 #2 L Concepcion -Ulcer Cleansing Rinsed/ Wound Cleanser Irrigated with Saline -Primary Dressing Applied Promogran NonAdherent Contact Layer, Promogran -Primary Dressing Covered/Secured with Dry Gauze,Dry Gauze & Roll Gauze,Secured with Tape -Promogran 1 1 Left -Multi-Layered Wrap Application Unna Boot - Left ($) -Compression Wrap Unna Boot ($) ( single) -Other circaid demonstrated and applied to pt Treatment Response Procedure Tolerated Well Pain Scale: 0-10 Numeric Is Patient Pain Free? Yes Yes WC - Visit Discharge Discharge Condition Stable Ambulatory Status Ambulatory Transportation Private Auto Medication Reconcilliation completed & No provided to patient/care provider Clinical Summary of Care Provided Yes Assessment/Plan Assessment/Plan (1) Lymphedema associated with obesity: CODE(S): I89.0 - Lymphedema, not elsewhere classified; E66.9 - Obesity, unspecified (2) Venous ulcer of left lower extremity with varicose veins: CODE(S): I83.029 - Varicose veins of left lower extremity with ulcer of unspecified site; L97.929 - Non-pressure chronic ulcer of unspecified part of left lower leg with unspecified severity (3) Cellulitis: CODE(S): L03.90 - Cellulitis, unspecified QUALIFIERS: Site of cellulitis: extremity Site of cellulitis of extremity: lower extremity Laterality: left Qualified Code(s): L03.116 - Cellulitis of left lower limb (4) Hypothyroidism: CODE(S): E03.9 - Hypothyroidism, unspecified QUALIFIERS: Hypothyroidism type: unspecified Qualified Code(s): E03.9 - Hypothyroidism, unspecified (5) Morbid obesity: CODE(S): E66.01 - Morbid (severe) obesity due to excess calories PLAN: Plan Rosemary's ulcer was evaluated and debrided today at the wound healing center. She has chronic lymphedema that has caused an ulceration of her left concepcion. Wound culture was positive and she tolerated antibiotic treatment with doxycycline. Her ulcer and lower extremity edema of her left leg will be treated with promogran and adaptic and covered with rolled gauze. She will use Circaids for compression of her left leg and this was demonstrated how to apply by nursing staff today. Due to the chronicity of her lymphedema and the potential for recurrent ulcerations if left untreated, she would benefit from compression treatment with Circaid/juxtalite compression wraps and potentially lymphedema compression pumps. She is unable to don conventional compression stockings due to her obesity and difficulty with arthritis. She was encouraged to quit smoking as this will also impede wound healing. Encouraged elevation of legs at or above the level of her heart when sitting and to avoid idle standing. Walking and stretching and pedal pump exercises encouraged to activate calf muscles and help with edema. Vascular testing of her lower legs ordered but she clearly has varicose veins and venous insufficiency that have caused lymphedema. Encouraged weight loss and adequate protein intake. She was advised to call if develops pain, fever, chills. She will return in 1 week for follow up and wound care.
[2021-12-27 08:35] VITALS: BP 144/85; PULSE 89; RESP 18; TEMP 36.2
--- NOTE | 2021-12-27 12:30 | PCM.WC.PN ---
History of Present Illness Date of Service: 12/27/21 Chief Complaint: chronic wound left concepcion, lymphedema bilateral LE History of Wound: Rosemary is a 51 yo young woman who presents to the wound healing center today for evaluation and treatment of a nonhealing ulcer of her left concepcion and chronic lymphedema to her lower legs. She has been referred by her PCP Dr. Hong Frazier. Rosemary has been struggling with lymphedema for several years and she developed an ulcer in the setting of her lymphedema last year and it recurred approx. 6 months ago. She reports that her lymphedema has been present for several years and has been stable since last being seen at the wound healing center. She has been wearing old tubigrips compression currently. She was seen at the lymphedema clinic at [facility] and was given recommendations/measurements for compression stockings but has not been able to wear the compression stockings. She was diagnosed with stage 2 lymphedema. 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 She denies idle standing for long periods of time. The ulcer developed approximately 6 months ago. She has been applying triple antibiotic ointment and gauze to the ulcer daily. There is mild drainage from the ulcer. She has had a bruise on her concepcion from striking it against something for several weeks prior to this ulcer appearing. She denies fever, chills, erythema, warmth, odor. She has pain surrounding the ulcer. Subjective Subjective Patient tolerated Circaid compression and Promogran treatment with improvement in her edema and the size of her ulcer. She denies fever or chills or increased pain. Completed doxycycline. Objective Data Objective Data Vital Signs: Vital Signs Temp Pulse Resp BP 97.1 F L 89 18 144/85 H 12/27/21 08:35 12/27/21 08:35 12/27/21 08:35 12/27/21 08:35 Physical Exam Const alert, oriented x3 and no apparent distress General Appearance: cooperative and comfortable HEENT normocephalic and head/scalp atraumatic Lymph Lymphatic: lymphedema severe Resp normal respiratory effort Effort and Inspection: able to speak in complete sentences Cardio regular rate and regular rhythm Extremity General Extremity: edema bilateral lower extremity Details: severe Skin Wounds: wounds noted Wound Narrative: as in clinical panel Psych mental status grossly normal, thought process normal, cooperative and affect normal Debridement Note Debridement Note Wound debrided: left concepcion Laterality: Left Type of Debridement: Selective debridement Anesthesia Used: 4% Lidocaine Solution Depth: Down to and including healthy tissue and in the subcutaneous layer Percentage of wound debrided: 100 Instrument Used: - (gauze) Tissue Removed: Yellow slough, devitalized tissue Severity: Fat Layer Exposed Amount of bleeding with debridement: Mild Bleeding Controlled with: Compression and gauze Patient tolerated procedure: Patient tolerated procedure well Post-Debridement Measurements and Additional Note: Post-Debridement Measurements/Treatment - Nurse 1 - General Ulcer Assessment Start: 12/13/21 08:42 Freq: Status: Active Protocol: LAST Activity Type Activity Date Activity User E-sign Co-sign Detail Recorded Client Recorded Date Recorded By Document 12/13/21 08:46 RB [id number] 12/13/21 08:52 RB Document 12/20/21 09:46 RB [id number] 12/20/21 09:57 RB Document 12/27/21 08:35 DL [id number] 12/27/21 08:40 DL 12/13/21 12/20/21 12/27/21 08:46 09:46 08:35 - Today's Visit Information Type of service Follow-up Visit Follow-up Visit Follow-up Visit (Physician/ANTI TANK MISSILEMAN (Physician/ANTI TANK MISSILEMAN (Physician/ANTI TANK MISSILEMAN ) ) ) Arrival Mode Ambulatory Ambulatory Ambulatory Transfer Assistance None None None Patient Identification Verified (Name & Yes Yes Yes ) Patient Requires Transmission-Based No Precautions Vital Signs Temperature (97.8 F-99.1 F) 97.1 F L 97 F L 97.1 F L Temperature Source Temporal Temporal Temporal Pulse Rate (60-100) 91 81 89 Pulse Location Monitor Monitor Monitor Respiratory Rate (12-18) 18 18 18 Respiratory rate source Observation Observation Observation Blood Pressure (90/60-120/80) 138/94 H 139/87 H 144/85 H Blood Pressure Mean (mm Hg) 108 104 104 Source Monitor Monitor Monitor Position Semi-Fowlers Semi-Fowlers Blood Pressure Location Left Arm Left Arm History Since Last Visit- (Skip if this is Patient's initial visit) Have you changed medications since your No No No last visit? Any new allergies or adverse reactions No No No Had a fall/change in ADL's that may No No No increase risk of falls Signs or symptoms of abuse and/or No No No neglect since last visit Have you been in the hospital since your No No No last visit? Has dressing in place as prescribed Yes Yes Yes Has compression in place as prescribed Yes Yes Yes Has offloadiing in place as prescribed No No N/A Experienced any changes in pain level or No No No management Pain Scale: 0-10 Numeric Is Patient Pain Free? No Yes Yes LLE -Description Sharp -Intensity 4 -Duration (hours) Acute -Pain Behavior Withdrawal from Touch -Pain Aggravating Factors ADL's -Alleviating Factors/Interventions Medication -Effectiveness of Alleviating Factor/ Moderately Intervention effective WC - Nurse 1 - General Ulcer Measurement Start: 12/13/21 08:42 Freq: Status: Active Protocol: Activity Type Activity Date Activity User E-sign Co-sign Detail Recorded Client Recorded Date Recorded By Document 12/13/21 08:46 RB [id number] 12/13/21 08:52 RB Document 12/20/21 09:46 RB [id number] 12/20/21 09:57 RB Document 12/27/21 08:35 DL [id number] 12/27/21 08:40 DL 12/13/21 12/20/21 12/27/21 08:46 09:46 08:35 Wound Center Nurse 1 #2 L Concepcion -Combined with other wound No -Current Size (cm) - Length 1 1 1 -Current Size (cm) - Width 0.4 0.7 0.5 -Current Size (cm) - Depth 0.2 0.1 0.1 -Total Square Cm 0.4 0.7 0.5 -Photo Taken Yes Yes Yes -Tunneling No No -Undermining/Tunneling No No -Circular Undermining No No -Exudate Amt Large Medium Small -Exudate Type Serosanguineous Serosanguineous Serosanguineous -Wound Margin Distinct, Distinct, Distinct, Outline Outline Outline Attached Attached Attached -Granulation Amt Small (1-33%) Medium (34-66%) Small (1-33%) -Granulation Quality Hessmer Hessmer Red -Slough/Fibrin Yes -Necrosis Amt Large (67-100%) Large (67-100%) Small (1-33%) -Necrotic Tissue Type Adherent Slough Adherent Slough Adherent Slough -Structure Exposed N/A N/A N/A -Texture (Rika-wound Skin Appearance) Assessed Assessed Scarring -Moisture (Rika-wound Skin Appearance) Assessed Assessed No Abnormality -Color (Rika-wound Skin Appearance) Hemosiderin Hemosiderin Hemosiderin Staining Staining Staining -Temperature (Rika-wound Skin No Abnormality No Abnormality No Abnormality Appearance) (Pt Warm) (Pt Warm) (Pt Warm) -Tenderness on Palpation (Rika-wound No No Skin Appearance) -Ulcer Cleansing Wound Cleanser Wound Cleanser Rinsed/ Irrigated with Saline -Foul Odor after Cleansing No No -Anesthetic Used 4% Lidocaine 5% Lidocaine 5% Lidocaine Solution,5% Gel Gel Lidocaine Gel Lower Limb Edema Present Yes Yes Left Calf (cm) 45 49 45.5 Left Ankle (cm) 28.2 29.8 27.5 WC - Nurse 2 - General Ulcer CM Notes Start: 12/13/21 08:42 Freq: Status: Active Protocol: Activity Type Activity Date Activity User E-sign Co-sign Detail Recorded Client Recorded Date Recorded By Document 12/13/21 08:57 MW [id number] 12/13/21 09:10 MW Document 12/20/21 10:01 MW [id number] 12/20/21 10:11 MW Edit Result 12/20/21 10:01 MW (1) [id number] 12/23/21 06:56 PL Document 12/27/21 08:48 MW [id number] 12/27/21 08:58 MW (1) #2 L Concepcion - Type of Offloading Total Contact Cast => (TCC) - Left ($) => 12/13/21 12/20/21 12/27/21 08:57 10:01 08:48 Wound Center Nurse 2 #2 L Concepcion -Time 09:04 10:09 08:48 -Correct Patient Yes Yes Yes -Correct Side, Site, Position Yes Yes Yes -Correct Procedure Yes Yes Yes -Procedure Performed Yes Yes Yes -Type of Procedure Debridement Debridement Debridement -Clinical Debridement Subcutaneous Subcutaneous Epidermis / Dermis -Tissue Removed Subcutaneous Subcutaneous Epidermis -Post Debridement (cm) - Length 1.2 0.9 0.3 -Post Debridement (cm) - Width 1.0 0.8 0.2 -Post Debridement (cm) - Depth 0.1 0.1 0.1 -Total Square (Post) (cm) 1.20 0.72 0.06 -Area of Debridement (cm) - Length 1.2 0.9 0.3 -Area of Debridement (cm) - Width 1.0 0.8 0.2 -Total Square (Area) (cm) 1.20 0.72 0.06 -Tunneling No No No -Undermining/Tunneling No No -Circular Undermining No No No -Wound/Ulcer Outcome Not Healed Not Healed Not Healed -Ulcer Cleansing Rinsed/ Rinsed/ Rinsed/ Irrigated with Irrigated with Irrigated with Saline Saline Saline -Foul Odor after Cleansing No No No -Bioengineered Tissue No No No -Bleeding Controlled with Pressure Pressure Pressure -Treatment Response Procedure Procedure Procedure Tolerated Well Tolerated Well Tolerated Well -Offloading No No -Debridement - Open, 1st 20sq cm Yes -Debridement - Subq, 1st 20sq cm Yes Yes Pain Scale: 0-10 Numeric Is Patient Pain Free? Yes Yes Yes WC - Nurse 3 - General Ulcer D/C NN Start: 12/13/21 08:42 Freq: Status: Active Protocol: Activity Type Activity Date Activity User E-sign Co-sign Detail Recorded Client Recorded Date Recorded By Document 12/13/21 09:21 ML [id number] 12/13/21 09:22 ML Edit Result 12/13/21 09:21 ML (1) [id number] 12/17/21 07:14 PL Document 12/20/21 10:28 RB [id number] 12/20/21 10:29 RB Document 12/27/21 09:15 MW [id number] 12/27/21 10:13 MW (1) Left - Multi-Layered Wrap Application => Unna Boot - Left ( => $) 12/13/21 12/20/21 12/27/21 09:21 10:28 09:15 Wound Care Nurse 3 #2 L Concepcion -Ulcer Cleansing Rinsed/ Wound Cleanser Rinsed/ Irrigated with Irrigated with Saline Saline -Foul Odor after Cleansing No -Negative Pressure Wound Therapy N/A -Primary Dressing Applied Promogran NonAdherent C Hydrogel ($) Contact Layer, Promogran -Primary Dressing Covered/Secured with Dry Gauze,Dry Dry Gauze & Gauze & Roll Roll Gauze, Gauze,Secured Secured with with Tape Tape -Promogran 1 1 Left -Lotion applied to leg before No compression wrap -Multi-Layered Wrap Application Unna Boot - Left ($) -Compression Wrap Unna Boot ($) ( single) -Other circaid circ-aid demonstrated and applied to pt Treatment Response Procedure Procedure Tolerated Well Tolerated Well Pain Scale: 0-10 Numeric Is Patient Pain Free? Yes Yes Yes Teaching: Wound Center Dressing Your Wound -Person Taught Patient -Teaching Method Discussion, Demonstration -Response to teaching Verbalize understanding WC - Visit Discharge Discharge Condition Stable Stable Ambulatory Status Ambulatory Ambulatory Transportation Private Auto Private Auto Accompanied by self Medication Reconcilliation completed & No No provided to patient/care provider Clinical Summary of Care Provided Yes Yes Assessment/Plan Assessment/Plan (1) Lymphedema associated with obesity: CODE(S): I89.0 - Lymphedema, not elsewhere classified; E66.9 - Obesity, unspecified (2) Venous ulcer of left lower extremity with varicose veins: CODE(S): I83.029 - Varicose veins of left lower extremity with ulcer of unspecified site; L97.929 - Non-pressure chronic ulcer of unspecified part of left lower leg with unspecified severity (3) Cellulitis: CODE(S): L03.90 - Cellulitis, unspecified QUALIFIERS: Site of cellulitis: extremity Site of cellulitis of extremity: lower extremity Laterality: left Qualified Code(s): L03.116 - Cellulitis of left lower limb (4) Hypothyroidism: CODE(S): E03.9 - Hypothyroidism, unspecified QUALIFIERS: Hypothyroidism type: unspecified Qualified Code(s): E03.9 - Hypothyroidism, unspecified (5) Morbid obesity: CODE(S): E66.01 - Morbid (severe) obesity due to excess calories PLAN: Plan Rosemary's ulcer was evaluated and debrided today at the wound healing center. She has chronic lymphedema that has caused an ulceration of her left concepcion. Wound culture was positive and she tolerated antibiotic treatment with doxycycline. Her ulcer and lower extremity edema of her left leg will be treated with hydrogel and adaptic and covered with rolled gauze. She will use Circaids for compression of her left leg and this was demonstrated how to apply by nursing staff today. Due to the chronicity of her lymphedema and the potential for recurrent ulcerations if left untreated, she would benefit from compression treatment with Circaid/juxtalite compression wraps and potentially lymphedema compression pumps. She is unable to don conventional compression stockings due to her obesity and difficulty with arthritis. She was encouraged to quit smoking as this will also impede wound healing. Encouraged elevation of legs at or above the level of her heart when sitting and to avoid idle standing. Walking and stretching and pedal pump exercises encouraged to activate calf muscles and help with edema. Vascular testing of her lower legs ordered but she clearly has varicose veins and venous insufficiency that have caused lymphedema. Encouraged weight loss and adequate protein intake. She was advised to call if develops pain, fever, chills. She will return in 1 week for follow up and wound care.
--- NOTE | 2022-01-10 13:02 | VDLE_ITS ---
Reason For Study: Ulcer Procedure LEFT This is a venous duplex using B-mode, color CFV is compressible, spontaneous, phasic, flow and spectral Doppler. competent, and demonstrates normal Exam performed in department. augmentation. Patient was scanned in supine position FV is compressible, spontaneous, phasic, during reflux assessment. competent and demonstrates normal A preliminary report was called and/or faxed augmentation. to WC. POP V is compressible, spontaneous, phasic, competent and demonstrates normal augmentation. T/P Trunk is compressible. PTV is compressible. LT PerV is compressible. SFJ is INCOMPETENT and measures 1.35 x 1.56 cm. GSV proximal thigh measures 1.05 x 1.18 cm. GSV above knee is INCOMPETENT for greater than 0.5 seconds. GSV at knee measures 0.56 x 0.55 cm. GSV below knee is competent. ASV mid thigh is INCOMPETENT for greater than 0.5 seconds and measures 0.94 x 0.80 cm. SSV at junction is INCOMPETENT for greater than 0.5 seconds and measures 0.40 x 0.39 cm. VL/Venous Duplex US, Unilateral Interpretation Summary Deep veins of the left lower extremity are patent and compressible segmentally. There is no evidence of left lower extremity deep vein thrombosis. Valvular competence appears intac t within the proximal deep venous system on the left . The left great saphenous vein appears patent a nd compressible segmentally. The left sapheno-femoral junction is incompetent . The left great saphenous vein appears incompetent above the knee. The left great saphenous vein appears compe tent below the knee. The left small saphenous vein is patent and incompetent. The accessory saphenou s vein in the left mid-thigh is incompetent. Ordering Physician: Radha Ramires Referring Physician: Hong Frazier Performed By: Tanisha Quiroz RVT
--- NOTE | 2022-01-10 13:03 | ART_ITS ---
Reason For Study: Ulcer Procedure A bilateral lower extremity continuous wave Doppler with analog waveform analysis,segmental pressures,and ankle brachial indexes without exercise. Left Segmental Pressures Left brachial= 127mmHg. Left posterior tibial artery = 151mmHg. Left dorsalis pedis artery = 143mmHg. Left digit = 137 mmHg. The left dorsalis pedis waveforms are triphasic. The left posterior tibial artery waveforms are triphasic. Right Segmental Pressures Right brachial= 121mmHg. Right posterior tibial artery = 164mmHg. Right dorsalis pedis artery = 151mmHg. Right digit = 128 mmHg. The right dorsalis pedis waveforms are triphasic. The right posterior tibial artery waveforms are triphasic. Indices The right ankle brachial index by the dorsalis pedis is 1.19. The right ankle brachial index by the posterior tibial artery is 1.29. The right digital-brachial index is 1.01. The left ankle brachial index by the dorsalis pedis is 1.13. The left ankle brachial index by the posterior tibial artery is 1.19. The left digital-brachial index is 1.08. VL/Lower Ext Art Exam w/o Exercis Interpretation Summary Triphasic Doppler waveforms are noted at ankle level bilaterally. Pulse-volume recordings appear satisfactory at all levels bilaterally, including low thigh, calf, ankle, and d igital levels. Resting ankle-brachial indices are normal bilaterally. Digital-brachial indices are normal bilaterally. There is no evidence of significant arterial occlusive disease in the lower ext remities bilaterally. Ordering Physician: Radha Ramires Referring Physician: Hong Frazier Performed By: Tanisha Quiroz RVT
== END 2022-01-12 23:59 | disposition home or self-care (01) ==
LOC: WC 08:30
PROVIDERS: PCP Family Medicine; Visit Provider Family Medicine
DX: I83.028 Varicose veins of left lower extremity with ulcer other part of lower leg (principal); L97.822 Non-pressure chronic ulcer of other part of left lower leg with fat layer exposed; I73.9 Peripheral vascular disease, unspecified; E66.01 Morbid (severe) obesity due to excess calories; L03.116 Cellulitis of left lower limb; I89.0 Lymphedema, not elsewhere classified; E03.9 Hypothyroidism, unspecified; I87.2 Venous insufficiency (chronic) (peripheral); Z79.890 Hormone replacement therapy; Z79.899 Other long term (current) drug therapy
CPT/HCPCS: 29445; 11042; 29580; 93923; 93971; 97597

== ENCOUNTER 2022-01-04 23:29 | Emergency (ER) | payer MEDICAID, SELFPAY ==
[2022-01-04 23:30] VITALS: BP 158/95; PULSE 95; RESP 16; TEMP 35.7; BMI 42.5
--- NOTE | 2022-01-04 23:59 | EDS_ITS ---
HPI History of Present Illness Chief Complaint: Rash Informant: patient Onset/Context/Timing Onset: Weeks (2 to 3 weeks) Current Severity: Moderate Maximum Severity: Moderate Narrative Narrative: Patient presents secondary to rash under her breasts and on her upper abdomen for the past 2 to 3 weeks. Patient states that she is try to see her primary care physician but the appointment keeps getting canceled. She has tried [id number] treatments without improvement. She describes a burning sensation with occasional itching. [facility] Medical History Bleeding acute gastric ulcer Histrionic person Hypothyroidism multiple skuin lesions 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, pre-employment Skin lesions Smoker Home Medications ergocalciferol (vitamin D2) 1,250 mcg (50,000 unit) capsule 1,250 mcg PO QWEEK SUPPLEMENT 02/18/20 [History Last Taken Unknown] spironolactone 50 mg tablet 50 mg PO DAILY DIURETIC 02/18/20 [History Last Taken Unknown] fluconazole 150 mg tablet (Diflucan) 150 mg PO QWEEK 2 doses #2 tabs 01/04/22 [Rx Last Taken Unknown] levothyroxine 100 mcg tablet See Rx Instructions .Route .COMPLEX 01/04/22 [History Last Taken Unknown] ketoconazole 2 % topical cream 1 applic topical BID #60 grams 01/05/22 [Rx Last Taken Unknown] Allergy/AdvReac Type Severity Reaction Status Date / Time No Known Allergies Allergy Verified 10/14/21 22:53 Family History Sister Arthritis Cancer Father Cancer liver cancer Surgical History History of History of cholecystectomy History of hernia repair Social History Smoking Status: Current every day smoker tobacco type: cigarettes alcohol intake: never substance use type: does not use ROS ROS ED Constitutional Constitutional ED: Denies chills or fever(s) Eyes Eyes: Denies change in vision or discharge from eye(s) ENT ENT ED: Denies discharge from eye(s), rhinorrhea or sore throat Cardiovascular Cardiovascular: Denies chest pain or palpitations Respiratory/Chest Respiratory/Chest: Denies cough or dyspnea Gastrointestinal Gastrointestinal: Denies abdominal pain, diarrhea, nausea or vomiting Genitourinary Genitourinary ED: Denies difficulty urinating or dysuria Musculoskeletal Musculoskeletal: Denies back pain or extremity pain Integumentary Reports rash; Denies Abrasions Neurologic Neurologic: Denies headache(s) or weakness Psychiatric Psychiatric: Denies anxiety or depression Allergic/Immunologic Allergic/Immunologic ED: Denies lip swelling or urticaria EXAM Physical Exam Const Vital Signs: 01/04/22 23:30 01/04/22 23:30 01/05/22 00:13 Temperature 96.3 F L 96.3 F L Temperature Source Temporal Temporal Pulse Rate 95 95 Respiratory Rate 16 16 16 Blood Pressure 158/95 H 158/95 H Blood Pressure Mean 116 116 Positive well nourished and well developed General Appearance ED: well developed HEENT Reports normocephalic and head/scalp atraumatic Eyes PERRL and EOMs intact bilaterally Neck supple Chest Wall palpation of chest normal Chest Narrative: Rash consistent with Sho infection noted in the inframammary folds bilaterally as well as under the upper abdomen. Satellite lesions noted. No sign of secondary bacterial infection. Resp normal respiratory effort and clear to auscultation bilaterally Cardio regular rate and regular rhythm GI non-tender Palpation: soft Back/Spine no CVA tenderness Extremity normal to inspection Neuro oriented x3 and no sensory deficits noted Sensorium / Orientation: alert Motor Exam: strength 5/5 throughout Psych mental status grossly normal Skin Skin Narrative: Skin exam as above. MDM MDM Treatment and Re-Evaluation Narrative: Patient's exam is consistent with Sho skin infection. She will be treated with Diflucan as well as ketoconazole cream topically. She is to follow-up with her primary care physician. Return instructions provided. Discharge Plan Triage Chief Complaint: Rash ED Provider: Desirae Tierney Dx/Rx/DC Orders Clinical Impression: Skin yeast infection Instructions: ED Sho Skin Infection (Adult) Prescriptions: New fluconazole [Diflucan] 150 mg tablet 150 mg PO QWEEK Qty: 2 0RF ketoconazole 2 % cream 1 applic topical BID Qty: 60 2RF No Action ergocalciferol (vitamin D2) 1,250 MCG capsule 1,250 mcg PO QWEEK Rx Instructions: TAKES EVERY THURSDAY spironolactone 50 MG tablet 50 mg PO DAILY levothyroxine 100 mcg tablet See Rx Instructions .ROUTE .COMPLEX Label Comments: TAKE 2 TABLETS BY MOUTH ON THURSDAY AND THURSDAY, 1 TABLET ALL OTHER DAYS OF THE WEEK. Rx Instructions: 1 - 2 TAB orally Primary Care Provider: Hong Frazier Referrals: Hong Frazier MD [Primary Care Provider] - 1-2 Weeks Disposition Disposition: Home, Self Care Discharge Date/Time: 01/05/22 00:13
[2022-01-05] MEDS: Ketoconazole Cream 1 APPLIC TOPICAL (00:11)
[2022-01-05] MEDS: Fluconazole 100 MG Tablet 200 MG PO (00:11)
[2022-01-05 00:13] VITALS: RESP 16
== END 2022-01-05 00:13 | disposition home or self-care (01) ==
LOC: ED 01-05 00:06
PROVIDERS: Emergency Provider Emergency Medicine; PCP Family Medicine; Visit Provider Emergency Medicine
DX: B37.2 Candidiasis of skin and nail (principal); E03.9 Hypothyroidism, unspecified; F17.210 Nicotine dependence, cigarettes, uncomplicated; Z79.890 Hormone replacement therapy; Z79.899 Other long term (current) drug therapy
CPT/HCPCS: 99283

== ENCOUNTER → 2022-01-10 | Outpatient (CLI) | payer MEDICAID, SELFPAY | END | disposition home or self-care (01) | LOC: CVS 12:57 | PROVIDERS: PCP Family Medicine; Referring Provider Family Medicine; Visit Provider Family Medicine | DX: L97.829 Non-pressure chronic ulcer of other part of left lower leg with unspecified severity (principal); I73.9 Peripheral vascular disease, unspecified; I89.0 Lymphedema, not elsewhere classified ==

== ENCOUNTER 2022-01-31 12:28 | Outpatient (RCR) | payer MEDICAID, SELFPAY ==
[2022-01-13 00:35] VITALS: BP 144/85; PULSE 89; RESP 18; TEMP 36.2
[2022-01-31 12:33] VITALS: BP 153/84; PULSE 104; TEMP 36.1
--- NOTE | 2022-01-31 15:02 | PN.PCM_ITS ---
History of Present Illness Date of Service: 01/31/22 Chief Complaint: chronic wound left concepcion, lymphedema bilateral LE History of Wound: Rosemary is a 51 yo young woman who presents to the wound healing center today for evaluation and treatment of a nonhealing ulcer of her left concepcion and chronic lymphedema to her lower legs. She has been referred by her PCP Dr. Hong Frazier. Rosemary has been struggling with lymphedema for several years and she developed an ulcer in the setting of her lymphedema last year and it recurred approx. 6 months ago. She reports that her lymphedema has been present for several years and has been stable since last being seen at the wound healing center. She has been wearing old tubigrips compression currently. She was seen at the lymphedema clinic at [facility] and was given recommendations/measurements for compression stockings but has not been able to wear the compression stockings. She was diagnosed with stage 2 lymphedema. 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 She denies idle standing for long periods of time. The ulcer developed approximately 6 months ago. She has been applying triple antibiotic ointment and gauze to the ulcer daily. There is mild drainage from the ulcer. She has had a bruise on her concepcion from striking it against something for several weeks prior to this ulcer appearing. She denies fever, chills, erythema, warmth, odor. She has pain surrounding the ulcer. Subjective Subjective Patient tolerating Circaid compression at 20-30 mm Hg. Her ulcer is healed! She has venous incompetence and has seen Dr. Salmon regarding vascular procedure for treatment and this is scheduled for February. Objective Data Objective Data Vital Signs: Vital Signs Temp Pulse Resp BP 97.0 F L 104 H 18 153/84 H 01/31/22 12:33 01/31/22 12:33 01/13/22 00:35 01/31/22 12:33 Physical Exam Const alert, oriented x3 and no apparent distress General Appearance: cooperative and comfortable HEENT normocephalic and head/scalp atraumatic Lymph Lymphatic: lymphedema severe Resp normal respiratory effort Effort and Inspection: able to speak in complete sentences Cardio regular rate and regular rhythm Extremity General Extremity: edema bilateral lower extremity Details: severe Skin Wounds: wounds noted Wound Narrative: as in clinical panel Psych mental status grossly normal, thought process normal, cooperative and affect normal Debridement Note Debridement Note Wound debrided: left concepcion Laterality: Left No debridement was completed: No debridement was completed today (ulcer is healed) Assessment/Plan Assessment/Plan (1) Lymphedema associated with obesity: CODE(S): I89.0 - Lymphedema, not elsewhere classified; E66.9 - Obesity, unspecified (2) Venous ulcer of left lower extremity with varicose veins: CODE(S): I83.029 - Varicose veins of left lower extremity with ulcer of u nspecified site; L97.929 - Non-pressure chronic ulcer of unspecified part of left lower leg with unspecified severity (3) Cellulitis: CODE(S): L03.90 - Cellulitis, unspecified QUALIFIERS: Site of cellulitis: extremity Site of cellulitis of extremity: lower extremity Laterality: left Qualified Code(s): L03.116 - Cellulitis of left lower limb (4) Hypothyroidism: CODE(S): E03.9 - Hypothyroidism, unspecified QUALIFIERS: Hypothyroidism type: unspecified Qualified Code(s): E03.9 - Hypothyroidism, unspecified (5) Morbid obesity: CODE(S): E66.01 - Morbid (severe) obesity due to excess calories PLAN: Plan Rosemary's ulcer is healed. She has chronic lymphedema and venous insufficiency. She was referred to Dr. Salmon for vascular intervention. This is scheduled for February. She will continue to use Circaids for compression of her left leg. Due to the chronicity of her lymphedema and the potential for recurrent ulcerations if left untreated, she would benefit from compression treatment with Circaid/juxtalite compression wraps and potentially lymphedema compression pumps. She is unable to don conventional compression stockings due to her obesity and difficulty with arthritis. She was encouraged to quit smoking as this will also impede wound healing. Encouraged elevation of legs at or above the level of her heart when sitting and to avoid idle standing. Walking and stretching and pedal pump exercises encouraged to activate calf muscles and help with edema. Encouraged weight loss and adequate protein intake. She was advised to call if she develops any new wounds/ulcers. She will be discharged at this time.
== END 2022-01-31 13:05 | disposition home or self-care (01) ==
LOC: WC 12:28
PROVIDERS: PCP Family Medicine; Visit Provider Family Medicine
DX: Z09 Encounter for follow-up examination after completed treatment for conditions other than malignant neoplasm (principal); E66.01 Morbid (severe) obesity due to excess calories; I83.92 Asymptomatic varicose veins of left lower extremity; L03.116 Cellulitis of left lower limb; I89.0 Lymphedema, not elsewhere classified; E03.9 Hypothyroidism, unspecified; Z79.82 Long term (current) use of aspirin; Z79.02 Long term (current) use of antithrombotics/antiplatelets; Z79.890 Hormone replacement therapy; Z79.899 Other long term (current) drug therapy
CPT/HCPCS: 99213; G0463

== ENCOUNTER 2022-02-19 06:51 | Day surgery (SDC) | payer MEDICAID, SELFPAY ==
[2022-02-14 14:56] LABS: Hematocrit 42.7 % (37-47); Hemoglobin 13.2 g/dL (12.0-15.0); Mean Corp Hgb Conc 30.9 g/dL (32-36); Mean Corpuscular Hgb 24.9 pg (27.0-32.0); Mean Corpuscular Volume 80.4 fL (81-99); Mean Platelet Vol. 9.2 fl (6.2-12.0); Platelet Count 492 K/mm3 (150-450); RBC Distribution Width CV 17.2 % (11.6-14.6); RBC Distribution Width SD 49.8 fl (35.1-43.9); Red Blood Count 5.31 M/mm3 (4.2-5.4); White Blood Count 7.1 K/mm3 (4.4-11.0)
[2022-02-14 15:30] LABS: Vitamin D,25 Hydroxy 48.1 ng/mL
[2022-02-14 15:31] LABS: Anion Gap 6 (5-15); BUN 11 mg/dL (7-18); BUN/Creat Ratio 14.7 RATIO (10-20); Calcium,Total 9.2 mg/dL (8.5-10.1); Chloride 107 mmol/L (98-107); Creatinine, Serum 0.75 mg/dL (0.55-1.02); EST Glomerular Filtration Rate 87 mL/min (>60); Est Glom Filt Rate - Afr Amer 106 mL/min (>60); Glucose 78 mg/dL (74-106); Potassium 4.3 mmol/L (3.5-5.1); Sodium Level 140 mmol/L (136-145); T4 Free Direct 1.24 ng/dL (0.76-1.46); Thyroid Stim Hormone (TSH) 2.75 uIU/mL (0.358-3.74)
[2022-02-18 08:57] VITALS: BMI 43.4
--- NOTE | 2022-02-19 08:36 | HP.PCM_ITS ---
History and Physical Patient is a 51 yo female with recurrent LLE venous ulceration. Wound has healed in interval since last seen in office. Was found to have significant saph- femoral reflux and reflux throughout GSV. In order to fully evaluate potential contributing factors the plan is to evaluate the central venous system and treat and compression/occlusion before addressing reflux in GSV. Aside from wound healing, no changes since seen in office. Intake Vital Signs ? 01/04/2223:30 01/28/2210:27 Height 5 ft 8 in 5 ft 7 in Weight: 279 lb 12.266 oz 286 lb 8 oz BMI 42.5 44.9 BP 158/95 H 128/84 H Blood Pressure Location ? Lt brachial Position ? Sitting Respiration 16 18 Pulse 95 81 Pulse Source ? Monitor Temp 96.3 F L ? Temp Source Temporal ? Pulse Oximetry (%) ? 96 Intake Visit Reasons:?VENOUS ULCER Chief Complaint: venous ulcer left leg Patient Accounts Manager Required: No Is patient in pain?: No Allergies No Known Allergies Allergy (Verified 01/28/22 10:30) Medications ergocalciferol (vitamin D2) 1,250 mcg (50,000 unit) capsule 1,250 mcg PO QWEEK SUPPLEMENT 02/18/20 [History Confirmed 01/28/22] spironolactone 50 mg tablet 50 mg PO DAILY DIURETIC 02/18/20 [History Confirmed 01/28/22] levothyroxine 100 mcg tablet See Rx Instructions .Route .COMPLEX 01/04/22 [History Confirmed 01/28/22] PFSH Medical History? Anxiety Bleeding acute gastric ulcer Colitis Depression Duodenal ulcer hemorrhage Dyspnea Edema Histrionic person Hypothyroidism multiple skuin lesions 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, pre-employment Skin lesions Smoker Tobacco dependence syndrome Varicose veins of both lower extremities Vitamin D deficiency Surgical History? History of History of cholecystectomy History of hernia repair Family History? Sister Arthritis CancerFather Cancer ?? ? liver cancer Social History? Smoking Status:? Current every day smoker tobacco type: cigarettes alcohol intake:? never substance use type:? does not use ROS General General: Yes weight change; No appetite, fatigue, colon cancer, breast cancer or weakness HEENT HEENT: No difficulty swallowing, eye injury, eye surgery, swollen glands or hoarseness Endo Endocrine: Yes thyroid disease; No diabetes mellitus, thyroid cancer, Hair loss, heat intolerance or cold intolerance Skin Skin: Yes rash; No changing moles Musc Musculoskeletal: Yes arthritis; No back problems, rheumatoid arthritis, gout or joint pain Cardio Cardiovascular: No murmur, pacemaker, heart disease, atrial fibrillation, high blood pressure, heart attack, heart stent, palpitations, shortness of breat with exertion or chest pain Psych Psychiatric: No depression, anxiety or hearing voices Resp Respiratory: No shortness of breath, No sleep apnea, No cough, No COPD, No asthma, No emphysema and No wheezing Gastro Gastrointestinal: No abdominal pain, No nausea or vomiting, No diarrhea, No cons tipation, No blood in stool, Yes acid reflux, No hemorrhoids, No ulcers, No gallbladder problem and No black,tarry stools Sanket Hematologic: No blood thinners, No blood disorders, No bleeding, No anemia and No blood clots Neuro Neurologic: No system reviewed and no additional complaints, except as documented, No as per HPI, No abnormal gait, No abnormal hearing, No abnormal movements, No abnormal speech, No behavioral changes, No burning sensations, No confusion, No convulsions, No disequilibrium, No dizziness, No localized weakness, No frequent falls, No headache(s), No lack of coordination, No loss of vision, No memory loss, No numbness, No other visual disturbances, No radicular pain, No restless legs, No sensory deficit, No syncope, No tingling, No tremor(s), No weakness and No other Assessment and Plan Assessment and Plan (1) Venous ulcer of left lower extremity with varicose veins: ?Status:?Chronic ?Plan: -CEAP C6, though improving -will get proper fitting compression -left lower extremity venous reflux shows GSV incompetent at SF junction and throughout, enlarged to 1.5 cm in parts; also with accessory saphenous reflux -given severity of clinical CEAP will image central venous system with venogram/IVUS to assess for compression/occlusion and if present stent -pending results of venogram would benefit from left GSV ligation/ablation
[2022-02-19 11:14] VITALS: BP 133/79; BP 158/78; PULSE 106; RESP 96; TEMP 36.1; O2SAT 6
--- NOTE | 2022-02-19 11:17 | OP.PCM_ITS ---
Report of Operation Date of Procedure: 02/19/22 Pre-Operative Diagnosis: Venous insufficiency with ulceration Post-Operative Diagnosis: Same, left common iliac vein compression Surgeon: Edd Salmon Type of Anesthesia: General Estimated Blood Loss (mL): 4 Description of Procedure: HPI: Patient is a 51-year-old female with recurrent left lower extremity venous ulceration with a current healing venous wound. She had reflux studies which revealed significant reflux in the saphenofemoral junction as well as in the great saphenous vein. Given the diffuse reflux and severity of her venous sym ptoms was felt that evaluation treatment of the central venous system was appropriate so she is brought now for elective angiogram with possible stenting of any compression or occlusion. Description of procedure: Upon obtaining informed consent and verification correct patient procedure site patient was taken to the [facility] where she was placed under general anesthesia. She was then positioned prepped and draped in usual sterile fashion and timeout was performed. An ultrasound guidance the left common femoral vein was accessed in retrograde fashion using micropuncture needle and wire. This was then exchanged out for micropuncture sheath through which hand-injection venogram was performed revealing satisfactory placement with no extravasation or dissection. Initial venogram did reveal what appeared to be dilated common femoral vein. Through my puncture sheath a Magic wire was advanced and my puncture sheath exchanged out for a short 8 [place] sheath. Through the 8 [place] sheath intravascular ultrasound probe was advanced over the Magic wire and recorded pullback of the IVC and the left common and external iliac veins was performed. This revealed significant pression of approximately 63% of the superior aspect of the common iliac vein. Is felt this warranted intervention as proximity to the confluence required access to the contralateral side and evaluation of the contralateral system. Next under ultrasound guidance the right common femoral vein was accessed in regular fashion he had micropuncture needle and wire. This was then exchanged for micropuncture sheath through which injection venogram was performed revealing satisfactory placement no extravasation or dissection. Through my puncture sheath a Magic wire was advanced and the micropuncture exchanged for a 10 [place] sheath. Patient was then heparinized and was circulate for 3 minutes. While this was circulating the left 8 [place] sheath exchanged out for 10 [place] sheath. Intravascular ultrasound was then advanced via the right femoral access sheath and recorded pullback of the IVC and right common and external advancement performed normal caliber vessels with no compression. Cobb that we were able to treat to the left iliac in satisfactory fashion without imposing on the right iliac so a [place] [employer] Wallstent 18 x 90 was brought on the field and prep for deburrer machine instructions. Endograft ultrasound then used to raul the confluence of the IVC and the distal extent of the compression. The Wallstent was advanced in the position and deployed afterwards it was postdilated with a 16 x 40 angioplasty [place] balloon. Repeat intravascular ultrasound recorded pullback revealed satisfactory placement with resolution of the compression and good wall apposition throughout. Completion venogram was then performed of the left femoral sheath which showed brisk contrast transit across the stented segment. Further no further intervention was required so the wire and sheath were withdrawn and manual pressure held for 10 minutes afterwards satisfactory hemostasis noted. Dry sterile dressings were then applied and the patient was taken to the recovery room with ultimate plan to discharge home.
[2022-02-19 11:30] VITALS: BP 121/77; BP 158/78; PULSE 72; RESP 16; O2SAT 93
[2022-02-19 11:45] VITALS: BP 122/61; BP 158/78; PULSE 72; RESP 16; O2SAT 92
[2022-02-19 12:00] VITALS: BP 128/77; BP 158/78; PULSE 76; RESP 16; O2SAT 92
[2022-02-19 12:12] VITALS: BP 123/61; BP 158/78; PULSE 96; RESP 16; O2SAT 93
--- NOTE | 2022-02-19 12:16 | SUR.PHASEI ---
1115 LT AND RT GROIN SITES INTACT . NO BLEEDING OR HEMATOMA NOTED 1130 LT AND RT GROIN SITES INACT. NO BLEEDING OR HEMATOMA NOTED. 1145LT AND RT GROIN SITES INACT. NO BLEEDING OR HEMATOMA NOTED. 1200 LT AND RT GROIN SITES INACT. NO BLEEDING OR HEMATOMA NOTED. 1215 LT AND RT GROIN SITES INACT. NO BLEEDING OR HEMATOMA NOTED.
[2022-02-19 12:19] VITALS: BP 112/66; BP 158/78; PULSE 67; RESP 16; TEMP 36.5; O2SAT 92
== END 2022-02-19 14:10 | disposition home or self-care (01) ==
PROVIDERS: PCP Family Medicine; Referring Provider Surgery Trauma Surgery; Visit Provider Surgery Trauma Surgery
DX: I87.1 Compression of vein (principal); I87.2 Venous insufficiency (chronic) (peripheral); I83.92 Asymptomatic varicose veins of left lower extremity; E03.9 Hypothyroidism, unspecified; E55.9 Vitamin D deficiency, unspecified; R60.9 Edema, unspecified; F32.A Depression, unspecified; F41.9 Anxiety disorder, unspecified; F17.210 Nicotine dependence, cigarettes, uncomplicated; Z79.890 Hormone replacement therapy; Z79.899 Other long term (current) drug therapy
CPT/HCPCS: 01930; 75822; 36005; 36415; 37238; 37252; 76937; 80048; 82306; 84439; 84443; 85027; C1725; C1894; J7040; C1769; C1876; C1887; J2405

== ENCOUNTER 2022-06-12 13:03 | Emergency (ER) | payer MEDICAID, SELFPAY ==
[2022-06-12 13:04] VITALS: BP 128/73; PULSE 76; RESP 16; TEMP 36.4; O2SAT 98; BMI 45.0
--- NOTE | 2022-06-12 13:44 | RAD_ITS ---
STUDY: X-RAY - PELVIS AND LEFT HIP REASON FOR EXAM: Female, 51 years old. Left hip pain. TECHNIQUE: 3 views of the pelvis and hips on 4 images COMPARISON: None. FINDINGS: There is a non-specific bowel gas pattern. Left aortoiliac graft. Normal bilateral iliac wings, sacroiliac joints and visualized sacrum. Normal bilateral superior and inferior pubic rami. Normal pubic symphysis. Normal bilateral ischial tuberosities. Mild arthrosis of both hips. RAD/HIP, UNI W/ Pelvis 2-3 Views IMPRESSION: Mild arthrosis of both hips. No other abnormality is present. Electronically Signed: Travis Tom, at 15:37 EST ,
--- NOTE | 2022-06-12 13:46 | VDLE_ITS ---
Reason For Study: Pain Procedure LEFT This is a venous duplex using B-mode, color GSV is normal. flow and spectral Doppler. CFV is compressible, spontaneous, phasic, Exam performed portable in ED. competent, and demonstrates normal A preliminary report was called and/or faxed augmentation. to ED. FV is compressible, spontaneous, phasic, competent and demonstrates normal augmentation. POP V is compressible, spontaneous, phasic, competent and demonstrates normal augmentation. T/P Trunk is compressible. PTV is compressible. LT PerV is compressible. VL/Venous Duplex US, Unilateral Interpretation Summary Deep veins of the left lower extremity are patent and compressible segmentally. There is no evidence of left lower extremity deep vein thrombosis. The left great saphenous vein luis carlos ears patent and compressible segmentally. Ordering Physician: Hellen Thomas Referring Physician: Hong Frazier Performed By: Tanisha Quiroz RVT
--- NOTE | 2022-06-12 13:47 | EDS_ITS ---
HPI History of Present Illness Chief Complaint: Lower Extremity Injury Informant: patient Narrative Narrative: Patient is a 51-year-old female with history of chronic lower extremity lymphedema, May Thurner syndrome, hypothyroid, varicose veins and a stent in her right lower extremity which she follows with Dr. Salmon for presenting with left groin pain. Patient states she works third shift last night and felt normal. She developed some pain in her left groin this morning and took Tylenol for it. The pain improved and she went to work meeting around lunchtime. She then had worsening pain and felt that her hip locked up. She notes that she felt her mus trav jump about 4-5 times. She states it was not like a spasm/charley horse. Since then she not been able to straighten her leg out completely to stand up straight. She not been able to walk or put weight on her leg. She came in by EMS. She denies any associated numbness or tingling. She denies any weakness of her lower leg. Denies any trauma or injury to the area. Denies any other systemic symptoms. No other complaints at this time. [facility] Medical History Bleeding acute gastric ulcer Colitis Depression Duodenal ulcer hemorrhage Dyspnea Edema History of pain when walking Histrionic person Hyperactive gag reflex Hypothyroidism Leg cramps multiple skuin lesions 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, pre-employment Post-menopausal Skin lesions Smoker Tobacco dependence syndrome Varicose veins of both lower extremities Vitamin D deficiency Wears glasses Home Medications ergocalciferol (vitamin D2) 1,250 mcg (50,000 unit) capsule 1,250 mcg PO QWEEK SUPPLEMENT 02/18/20 [History Last Taken Unknown] spironolactone 50 mg tablet 50 mg PO DAILY DIURETIC 02/18/20 [History Last Taken Unknown] levothyroxine 100 mcg tablet 200 mcg PO TUSA 01/04/22 [History Last Taken Unknown] levothyroxine 100 mcg capsule 100 mcg PO SUMOWETHFR 02/18/22 [History Last Taken Unknown] aspirin 81 mg tablet,delayed release 81 mg PO DAILY #90 tabs 02/19/22 [Rx Last Taken Unknown] clopidogrel 75 mg tablet (Plavix) 75 mg PO DAILY #90 tabs 02/19/22 [Rx Last Taken Unknown] hydrocodone-acetaminophen 5-325mg 5mg-325mg 1 tab PO Q8H PRN pain 3 days #9 tabs 06/12/22 [Rx Last Taken Unknown] prednisone 20 mg tablet 40 mg PO DAILY #10 tabs 06/12/22 [Rx Last Taken Unknown] Allergy/AdvReac Type Severity Reaction Status Date / Time No Known Allergies Allergy Verified 06/12/22 13:06 Family History Sister Arthritis Cancer Father Cancer liver cancer Surgical History History of History of esophagogastroduodenoscopy (EGD) History of hernia repair Social History Smoking Status: Current every day smoker tobacco type: cigarettes alcohol intake: never substance use type: does not use ROS ROS ED Constitutional Constitutional ED: Denies chills or fever(s) Eyes Eyes: Denies diplopia ENT ENT ED: Denies rhinorrhea Cardiovascular Cardiovascular: Denies chest pain or palpitations Respiratory/Chest Respiratory/Chest: Denies cough Gastrointestinal Gastrointestinal: Denies abdominal pain or nausea Genitourinary Genitourinary ED: Denies dysuria or hematuria Musculoskeletal Musculoskeletal: Reports other Details: left groin pain ; Denies arthralgias Integumentary Denies Abrasions or rash Neurologic Neurologic: Denies headache(s), paresthesias or weakness Psychiatric Psychiatric: Denies anxiety Hematologic/Lymphatic Hematologic/Lymphatic: Denies easy bleeding or easy bruising EXAM Physical Exam Const Vital Signs: 06/12/22 13:04 Temperature 97.5 F L Temperature Source Temporal Pulse Rate 76 Respiratory Rate 16 Blood Pressure 128/73 H Blood Pressure Mean 91 Pulse Ox 98 Oxygen Delivery Method Room Air Positive well nourished and well developed General Appearance ED: well developed and NAD HEENT Reports moist mucous membranes normocephalic and atraumatic Chest Wall inspection of chest normal Resp normal respiratory effort Cardio regular rate and regular rhythm Cardio Narrative: 2+ left DP pulses GI non-tender, non-distended and no masses Extremity Extremity Narrative: Patient has difficulty flexing her left hip. She states it hurts and points to her left mid groin as the area of pain. No obvious deformity, pulsatile mass or other abnormality in that area appreciated. Does have increased pain with flexion of the hip once she gets to approximately 30 degrees. Normal movement of the lower leg. General Extremety ED: Yes weight-bearing difficulty General Extremity: weight-bearing difficulty Neuro oriented x3 Neuro Narrative: 5/5 plantar and dorsiflexion. Sensation intact in the bilateral feet. Sensorium / Orientation: alert Motor Exam: Negative for general weakness Psych mental status grossly normal MDM MDM MDM Narrative Medical decision making narrative: Evaluated for sudden onset of groin pain. Patient peers nontoxic no acute distress. Does have pain when I do tend to flex her hip. Does not have significant pain with logroll. Does not have associated back pain. Not have associated numbness, tingling or distal weakness. Have a low suspicion for central nervous process given that is localized really to her proximal thigh. Venous duplex is obtained which is negative for DVT. She has good distal pulses and I do not think arterial insufficiency is the cause of her pain. While she denies any injuries possible she might of strained her groin which is causing the pain. X-ray does show mild arthrosis of both hips. This interpreted by myself as well as radiology. CBC and CMP as well as CK and coags are normal. Patient is ambulated she is able to walk and even walk backwards but has a hard time lifting up her leg. Will be given a walker to go home with. Will be placed on a course of steroids and a short course of pain medicine to help with her symptoms. Counseled return precautions. Patient verbalizes agreement of transplant. Discharged home in stable condition. Lab Data Attestation: I reviewed the patient's lab results. Labs: Laboratory Results - last 24 hr 06/12/22 06/12/22 06/12/22 14:00 14:00 14:00 WBC 6.7 RBC 5.07 Hgb 13.5 Hct 42.6 MCV 84.0 MCH 26.6 L MCHC 31.7 L RDW Std Deviation 45.0 H RDW Coeff of Amy 14.7 H Plt Count 436 MPV 8.6 PT 12.3 INR 1.0 APTT 31.2 Sodium 141 Potassium 3.7 Chloride 108 H Carbon Dioxide 32.0 Anion Gap 1 L BUN 16 Creatinine 0.79 Estim Creat Clear Calc 85.94 Est GFR (MDRD) Af Amer 99 Est GFR (MDRD) Non-Af 82 BUN/Creatinine Ratio 20.3 H Glucose 100 Calcium 8.9 Magnesium 2.3 Total Creatine Kinase 112 Radiography Diagnostic Testing: Clinical Impression(s) from Imaging Studies Hip/Pelvis X-Ray 06/12/22 13:44 IMPRESSION: Mild arthrosis of both hips. No other abnormality is present. Electronically Signed: Travis Tom, at 15:37 EST , Discharge Plan Triage Chief Complaint: Lower Extremity Injury ED Provider: Hellen Thomas Dx/Rx/DC Orders Clinical Impression: Strain of left inguinal muscle, Difficulty walking Instructions: ED Hip Strain Prescriptions: New hydrocodone-acetaminophen 5-325 mg tablet 1 tab PO Q8H PRN (Reason: pain) 3 Days Qty: 9 0RF prednisone 20 mg tablet 40 mg PO DAILY Qty: 10 0RF No Action ergocalciferol (vitamin D2) 1,250 MCG capsule 1,250 mcg PO QWEEK Rx Instructions: TAKES EVERY THURSDAY spironolactone 50 MG tablet 50 mg PO DAILY levothyroxine 100 mcg tablet 200 mcg PO Label Comments: TAKE 2 TABLETS BY MOUTH ON THURSDAY AND THURSDAY, 1 TABLET ALL OTHER DAYS OF THE WEEK. levothyroxine 100 mcg Capsule 100 mcg PO SUMOWETHFR clopidogrel [Plavix] 75 mg tablet 75 mg PO DAILY Qty: 90 3RF aspirin 81 mg tablet,delayed release (DR/EC) 81 mg PO DAILY Qty: 90 0RF Primary Care Provider: Hong Frazier Referrals: Hong Frazier MD [Primary Care Provider] - Hong Hodgson MD [Med Staff - Active Staff] - 3-5 Days if not improving Activity Restrictions/Additional Instructions: I suspect you strained your hip or your groin and that was causing her pain. At this time there is not appear to be any blood clot, vascular insufficiency or fracture. Your x-ray did show some mild arthritis in your hip. Alternate ibuprofen and Tylenol at home. He began a short course of steroids as well as p ain medicine. Ice the groin area. Follow-up with orthopedics especially if you are not improving. Return if your symptoms worsen or if you have further mobility issues. Return if you develop any neurologic symptoms such as numbness or tingling of the leg or change in your weakness. Disposition Disposition: Home, Self Care
[2022-06-12] MEDS: Acetaminophen 325 MG Tablet 650 MG PO (13:52)
[2022-06-12 14:07] LABS: Hematocrit 42.6 % (37-47); Hemoglobin 13.5 g/dL (12.0-15.0); Mean Corp Hgb Conc 31.7 g/dL (32-36); Mean Corpuscular Hgb 26.6 pg (27.0-32.0); Mean Platelet Vol. 8.6 fl (6.2-12.0); Platelet Count 436 K/mm3 (150-450); RBC Distribution Width CV 14.7 % (11.6-14.6); Red Blood Count 5.07 M/mm3 (4.2-5.4); White Blood Count 6.7 K/mm3 (4.4-11.0)
[2022-06-12 14:22] LABS: Anion Gap 1 (5-15); BUN 16 mg/dL (7-18); BUN/Creat Ratio 20.3 RATIO (10-20); CPK Total, Creatine Kinase 112 U/L (26-192); Calcium,Total 8.9 mg/dL (8.5-10.1); Chloride 108 mmol/L (98-107); Creatinine, Serum 0.79 mg/dL (0.55-1.02); EST Glomerular Filtration Rate 82 mL/min (>60); Est Glom Filt Rate - Afr Amer 99 mL/min (>60); Estimated Creatinine Clearance 85.94 ml/min; Glucose 100 mg/dL (74-106); Magnesium 2.3 mg/dL (1.6-2.6); Potassium 3.7 mmol/L (3.5-5.1); Sodium Level 141 mmol/L (136-145)
[2022-06-12 14:25] LABS: Prothrombin Time (Protime)PT. 12.3 SECONDS (11.7-14.9)
[2022-06-12 14:26] LABS: Partial Thromboplast Time 31.2 Seconds (24.1-36.2)
[2022-06-12] MEDS: Ketorolac 15 MG/ML Vial IV (15:49)
== END 2022-06-12 17:34 | disposition home or self-care (01) ==
PROVIDERS: Emergency Provider Emergency Medicine; PCP Family Medicine; Visit Provider Emergency Medicine
DX: S73.102A Unspecified sprain of left hip, initial encounter (principal); R26.2 Difficulty in walking, not elsewhere classified; M16.0 Bilateral primary osteoarthritis of hip; I89.0 Lymphedema, not elsewhere classified; I83.91 Asymptomatic varicose veins of right lower extremity; R10.2 Pelvic and perineal pain; F17.210 Nicotine dependence, cigarettes, uncomplicated; Z79.52 Long term (current) use of systemic steroids; M25.552 Pain in left hip; X58.XXXA Exposure to other specified factors, initial encounter
CPT/HCPCS: 73502; 80048; 82550; 83735; 85027; 85610; 85730; 93971; 96374; 99285; A4216

== ENCOUNTER 2022-07-14 12:00 | Outpatient (RCR) | payer MEDICAID, SELFPAY ==
--- NOTE | 2022-06-20 09:59 | HP.PTEVAL ---
Patient's Visit Information CHRISTOPHER KWAN is a 51 year old F referred to Physical Therapy by Dr. Hong Hodgson MD with a diagnosis of Strain of inguinal muscle, OA L hip. Date of Evaluation: 06/20/22 Physical Therapist: GLORIA Otto - Visit Plan Frequency: 2-3x /Week Duration: 6 Weeks Plan: 2-3X/ week for 6 weeks for L hip PROM, AAROM, AROM, stretching, strengthening, gait training, functional activities with HEP. May use heat and ice as needed. HEP: LTR, LAQ, QS, Heel slides, stand up tall - Subjective Pt does not know what happened she worked a shift last week and then went to a meeting and could not get up from the chair and they took her by squad to the hospital cause she could not move her L leg at all. They ran some tests at the hospital and sent her home. She followed up with her Dr and then saw Dr Hodgson and he sent her here. The hospital took an x-ray and she was told that she had L hip arthritis. She has pain anterior part of her hip and sometimes she has pain down to her L knee. She feels that the weather does bother it. The longer she sits the worse she is standing up. Walking or standing in one spot for long distances increases her pain. Going up the steps is painful but easier if she starts up on her R foot. Her hip locks up sometimes. It has not woken her up the last few days. said he was going to get her set up for injections in her L hip. - Pain L hip pain Pain Intensity (Out of 10): 1 Pain Intensity Range: 3 Comment: with walking back to treatment room - Objective Gait: Walks with decrease stride length on the L LE and decrease stance time on the L LE. Pt can heel and toe rise with UE support about 50% normal motion. Pt struggles to get up on the mat table as she struggle to lift her L hip to get up on the table. LE MMT: R hip flex 7.9# and L hip flex 4.1#. R knee ext 18.4# and L knee ext 17.1#. R knee flex 9.6# and L knee flex 6.9#. Sit to stand: needs UE to get up out of the chair. Sit to supine was a struggle for the patient. Bridges (increase pain in back). LTR: no pain. Pt stuggles to heel slide and back down. QS increase L hip pain and increase cramping. Pt had increase pain on the L with hip IR and very little pain with ER until end range on the L - Balance/Special Test Scores Lower Extremity Functional Score: 48 - Goals Goal 1:: I HEP Goal Time Frame: 6-8 Weeks Goal 2:: Be able to walk with a normal gait pattern with normal stride length Goal Time Frame: 6-8 Weeks Goal 3:: Increase L LE strength (at time of the eval: LE MMT: R hip flex 7.9# and L hip flex 4.1#. R knee ext 18.4# and L knee ext 17.1#. R knee flex 9.6# and L knee flex 6.9#). Goal Time Frame: 6-8 Weeks Goal 4:: Decrease L hip pain to 1/10 with ADL's Goal Time Frame: 6-8 Weeks Goal 5:: Be able to get in her car and up on the mat table and get into bed without having to use hand to get L leg up Goal Time Frame: 6-8 Weeks - Rehabilitation Potential Rehabilitation Potential: Good - Anticipated Interventions Patient/Client Instruction: Educate patient on: Condition, Plan of Care For the Purpose of:: To decrease pain, To increase ROM, To improve nutrient delivery to tissue, To increase oxygenation perfusion, To improve muscle performance and motor function, To improve ability to perform ADL's, To increase tolerance to activity/condition/position, To improve performance and independence with ADL's, To decrease level of supervision to perform tasks, To improve ability of physical actions for home/community/work/leisure, To improve gait and locomotor functions, To improve health of tissue, To decrease soft tissue restriction, To increase flexibility/ROM, To improve endurance, To improve balance, To improve safety with gait Therapeutic Exercise to Include: Strength training, Endurance training, Balance training, Coordination, Body mechanics, Postural training, Flexibilty training, Gait and locomotor training, Neuromotor development, In an aquatic setting, Passive ROM, Active ROM, Dynamic Lumbar Stabilization For the Purpose of:: To decrease pain, To increase ROM, To improve nutrient delivery to tissue, To increase oxygenation perfusion, To improve muscle performance and motor function, To improve ability to perform ADL's, To increase tolerance to activity/condition/position, To improve performance and independence with ADL's, To decrease level of supervision to perform tasks, To improve ability of physical actions for home/community/work/leisure, To improve gait and locomotor functions, To improve health of tissue, To decrease soft tissue restriction, To increase flexibility/ROM, To improve endurance, To improve balance, To improve safety with gait Functional Training to Include: Gait training For the Purpose of:: To improve gait and locomotor functions, To improve safety with gait Manual Therapy Techniques to Include: Passive ROM, Soft tissue mobilization For the Purpose of:: To decrease pain, To increase ROM, To improve nutrient delivery to tissue, To improve health of tissue, To decrease soft tissue restriction, To increase flexibility/ROM Cryotherapy (ice pack, ice massage): Yes Thermo therapy (hot pack): Yes For the Purpose of:: To decrease pain, To decrease swelling/inflammation, To increase ROM, To improve nutrient delivery to tissue Thank you for the opportunity to evaluate your patient. For Medicare and Medicare HMO plans, please review the plan of care and approve it. It will need to be FAXED BACK to us at [phone] for Medicare purposes. For Medicare only, by signing this I certify the plan of care. Please let me know if there are questions or concerns regarding this plan of care. Physician Signature: Date:
--- NOTE | 2022-08-01 12:22 | HP.PTDCSUM ---
It has been my pleasure to treat CHRISTOPHER KWAN referred by Dr. Hong Hodgson MD, with the diagnosis of Strain of inguinal muscle, OA L hip for a total of 4 visit(s). Discharge Date: 08/01/22 Please see the following information for a summary of their discharge status. Subjective: Patient reports she is compliant with her HEP. States her hip hasn't felt like it's going to lock up. Feeling very stiff today. L hip pain Pain Intensity (Out of 10): 1 Objective/Function: Added Nustep today for warmup and mobility as pt stated she was more stiff than normal today. Able to progress exercises to standing with good tolerance. Pt demonstrated LE weakness L>R added BTB above knees with STS for tactile cues to help correct valgus collapse with better tech demonstrated. Appropriate fatigue noted at EOS. Goal 1:: I HEP Goal 2:: Be able to walk with a normal gait pattern with normal stride length Goal 3:: Increase L LE strength (at time of the eval: LE MMT: R hip flex 7.9# and L hip flex 4.1#. R knee ext 18.4# and L knee ext 17.1#. R knee flex 9.6# and L knee flex 6.9#). Goal 4:: Decrease L hip pain to 1/10 with ADL's Goal 5:: Be able to get in her car and up on the mat table and get into bed without having to use hand to get L leg up Plan: 2-3X/ week for 6 weeks for L hip PROM, AAROM, AROM, stretching, strengthening, gait training, functional activities with HEP. May use heat and ice as needed. HEP: LTR, LAQ, QS, Heel slides, stand up tall Discharge Comments: DC PT for 3 no shows in a row If there are questions or concerns regarding this patient's physical therapy, please feel free to call me at [phone]. Thank you for the referral of this patient. Sincerely, Alondra Rodriguez, MPT Balance/Gait/Functional tests - Balance/Special Test Scores Lower Extremity Functional Score: 48
== END 2022-07-14 19:00 | disposition home or self-care (01) ==
LOC: PT 12:00
PROVIDERS: PCP Family Medicine; Referring Provider Orthopaedic Surgery Sports Medicine; Visit Provider Orthopaedic Surgery Sports Medicine
DX: M16.12 Unilateral primary osteoarthritis, left hip; S76.219D Strain of adductor muscle, fascia and tendon of unspecified thigh, subsequent encounter
CPT/HCPCS: 97110; 97161

== ENCOUNTER → 2022-10-06 | Outpatient (CLI) | payer MEDICAID, SELFPAY ==
[2022-10-06 12:08] LABS: Absolute Neutrophil Count 3.5 X10^3/uL (2.0-7.7); Basophil# 0.05 X10^3/uL; Basophil% 0.8 % (0-1); Eosinophil# 0.17 X10^3/uL; Eosinophils% 2.8 % (0-5); Hematocrit 46.8 % (37-47); Hemoglobin 14.2 g/dL (12.0-15.0); Lymphocyte % 31.6 % (19-41); Mean Corp Hgb Conc 30.3 g/dL (32-36); Mean Corpuscular Hgb 25.9 pg (27.0-32.0); Mean Corpuscular Volume 85.2 fL (81-99); Mean Platelet Vol. 9.2 fl (6.2-12.0); Monocyte# 0.36 X10^3/uL; NRBC Flagged by Analyzer 0 % (0-5); Neutrophil # 3.52 X10^3/uL (2.7-7.7); Neutrophil % 58.5 % (47-70); Platelet Count 412 K/mm3 (150-450); RBC Distribution Width CV 16.4 % (11.6-14.6); RBC Distribution Width SD 51.3 fl (35.1-43.9); Red Blood Count 5.49 M/mm3 (4.2-5.4)
[2022-10-06 12:32] LABS: Erythrocyte Sedimentation Rate 24 mm/hr (0-30)
[2022-10-06 12:44] LABS: CRP 7.34 mg/L (0.0-3.0); Rheumatoid Factor < 10.0 IU/mL (<15)
[2022-10-07 12:08] LABS: CCP IgG Antibodies 4 units (0-19)
== END | disposition home or self-care (01) ==
LOC: BFHLAB 09:45
PROVIDERS: PCP Nurse Practitioner Family; Referring Provider Nurse Practitioner Family; Visit Provider Nurse Practitioner Family
DX: M25.50 Pain in unspecified joint (principal)
CPT/HCPCS: 36415; 85025; 85652; 86140; 86200; 86431

== ENCOUNTER → 2022-11-04 | Outpatient (CLI) | payer MEDICAID, SELFPAY ==
[2022-11-04 12:15] LABS: Absolute Lymphocyte Count 2.75 X10^3/uL (0.83-4.51); Basophil# 0.05 X10^3/uL; Basophil% 0.7 % (0-1); Eosinophils% 2.7 % (0-5); Hematocrit 44.8 % (37-47); Hemoglobin 14.2 g/dL (12.0-15.0); Lymphocyte # 2.75 X10^3/ul (0.83-4.51); Lymphocyte % 36.8 % (19-41); Mean Corp Hgb Conc 31.7 g/dL (32-36); Mean Corpuscular Hgb 26.5 pg (27.0-32.0); Mean Corpuscular Volume 83.7 fL (81-99); Mean Platelet Vol. 9.1 fl (6.2-12.0); Monocyte# 0.44 X10^3/uL; Monocyte% 5.9 % (0-10); NRBC Flagged by Analyzer 0 % (0-5); Neutrophil % 53.4 % (47-70); Platelet Count 439 K/mm3 (150-450); RBC Distribution Width CV 16.6 % (11.6-14.6); RBC Distribution Width SD 50.3 fl (35.1-43.9); Red Blood Count 5.35 M/mm3 (4.2-5.4); White Blood Count 7.5 K/mm3 (4.4-11.0)
[2022-11-04 12:32] LABS: Vitamin D,25 Hydroxy 52.6 ng/mL
[2022-11-04 12:59] LABS: ALB/GLOB Ratio 0.8 RATIO (0.9-2.4); AST(SGOT) 19 U/L (15-37); Alanine Aminotransfer ALT/SGPT 33 U/L (13-56); Albumin, Serum 3.4 g/dL (3.2-5.0); Alkaline Phosphatase 85 U/L (45-117); Anion Gap 5 (5-15); BUN 16 mg/dL (7-18); Chloride 107 mmol/L (98-107); Cholesterol 168 mg/dL (200); Creatinine, Serum 0.84 mg/dL (0.55-1.02); EST Glomerular Filtration Rate 76 mL/min (>60); Est Glom Filt Rate - Afr Amer 92 mL/min (>60); Glucose 110 mg/dL (74-106); High Density Lipoprotein 54 mg/dL; Potassium 4.5 mmol/L (3.5-5.1); Protein, Total 7.4 g/dL (6.4-8.2); Sodium Level 139 mmol/L (136-145); T4 Free Direct 1.11 ng/dL (0.76-1.46); Thyroid Stim Hormone (TSH) 2.08 uIU/mL (0.358-3.74); Triglycerides 177 mg/dL; Very Low Density Lipoprotein 35 mg/dL (5-40)
== END | disposition home or self-care (01) ==
LOC: BFHLAB 10:27
PROVIDERS: PCP Nurse Practitioner Family; Referring Provider Nurse Practitioner Family; Visit Provider Nurse Practitioner Family
DX: Z00.00 Encounter for general adult medical examination without abnormal findings (principal); E03.9 Hypothyroidism, unspecified; E55.9 Vitamin D deficiency, unspecified
CPT/HCPCS: 36415; 80053; 80061; 82306; 84439; 84443; 85025

== ENCOUNTER 2023-01-19 22:51 | Emergency (ER) | payer MEDICAID, SELFPAY ==
[2023-01-19 22:52] VITALS: BP 155/101; PULSE 91; RESP 16; TEMP 36.6; O2SAT 98; BMI 44.0
[2023-01-19] MEDS: Morphine 4 MG/ML Syringe 6 MG IM (23:40)
[2023-01-19] MEDS: Orphenadrine 60 MG/2 ML Ampul IM (23:41)
[2023-01-19] MEDS: Ondansetron ODT 4 MG Tablet PO (23:41)
[2023-01-19 23:46] VITALS: BP 131/76; PULSE 96; RESP 16; O2SAT 97
--- NOTE | 2023-01-19 23:51 | EDS_ITS ---
HPI History of Present Illness Chief Complaint: Back Informant: patient Narrative Narrative: Patient is a 52-year-old female with past medical history of hypothyroidism morbid obesity and depression. She states over the last 2 days she has been feeling pain radiating from her left-sided neck/shoulder down her arm. She denies any recent trauma or excessive activity. She states she has been trying [id number] medications without any symptom improvement and secondary to this comes in for evaluation. [facility] Medical History Biceps tendinitis of right shoulder Bleeding acute gastric ulcer Colitis Depression Duodenal ulcer hemorrhage Dyspnea Edema History of pain when walking Histrionic person Hyperactive gag reflex Hypothyroidism Leg cramps multiple skuin lesions Osteoarthritis of left hip 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, pre-employment Post-menopausal Skin lesions Smoker Tobacco dependence syndrome Varicose veins of both lower extremities Vitamin D deficiency Wears glasses Home Medications ergocalciferol (vitamin D2) 1,250 mcg (50,000 unit) capsule 1,250 mcg PO QWEEK SUPPLEMENT 02/18/20 [History Last Taken Unknown] spironolactone 50 mg tablet 50 mg PO DAILY DIURETIC 02/18/20 [History Last Taken Unknown] levothyroxine 100 mcg capsule 100 mcg PO SUMOWETHFR 02/18/22 [History Last Taken Unknown] aspirin 81 mg tablet,delayed release 81 mg PO DAILY #90 tabs 02/19/22 [Rx Last Taken Unknown] clopidogrel 75 mg tablet (Plavix) 75 mg PO DAILY #90 tabs 02/19/22 [Rx Last Taken Unknown] azithromycin 250 mg tablet See Rx Instructions PO .COMPLEX #6 tabs 07/22/22 [Rx Last Taken Unknown] methylprednisolone 4 mg tablets in a dose pack (Medrol (Yogi)) See Rx Instructions PO PER PKG DIR #21 tabs 08/20/22 [Rx Last Taken Unknown] gabapentin 100 mg capsule 100 mg PO BID 30 days #60 caps 01/20/23 [Rx Last Taken Unknown] methocarbamol 500 mg tablet 1,000 mg (2 x 500 mg) PO 4X/DAY PRN PRN Muscle pain/spasm 7 days #56 tabs 01/20/23 [Rx Last Taken Unknown] Allergy/AdvReac Type Severity Reaction Status Date / Time No Known Allergies Allergy Verified 01/19/23 22:54 Family History Sister Arthritis Cancer Father Cancer liver cancer Surgical History History of History of esophagogastroduodenoscopy (EGD) History of hernia repair Social History Smoking Status: Current every day smoker tobacco type: cigarettes alcohol intake: never substance use type: does not use ROS ROS ED Constitutional Constitutional ED: Denies chills or fever(s) ENT ENT ED: Denies sore throat Cardiovascular Cardiovascular: Denies chest pain Respiratory/Chest Respiratory/Chest: Denies cough or dyspnea Gastrointestinal Gastrointestinal: Denies abdominal pain, diarrhea, nausea or vomiting Genitourinary Genitourinary ED: Denies dysuria Musculoskeletal Musculoskeletal: Reports back pain, neck pain and other Details: Positive left arm pain Integumentary Denies rash Neurologic Neurologic: Denies headache(s), paresthesias or weakness Hematologic/Lymphatic Hematologic/Lymphatic: Reports easy bleeding and easy bruising EXAM Physical Exam Const Vital Signs: 01/19/23 22:52 01/19/23 23:46 01/20/23 01:57 Temperature 98 F Temperature Source Temporal Pulse Rate 91 96 87 Respiratory Rate 16 16 18 Blood Pressure 155/101 H 131/76 H 149/78 H Blood Pressure Mean 119 94 Pulse Ox 98 97 99 Oxygen Delivery Method Room Air Room Air Positive well nourished, well developed and obese General Appearance ED: well developed Nutritional Appearance: obese HEENT HEENT Narrative: Normocephalic atraumatic Eyes PERRL and EOMs intact bilaterally Neck supple Neck Narrative: No bony deformity or step-off of the cervical spine no midline pain with palpation. Patient does have left-sided paracervical tension and spasm noted worsens with side bending but negative Spurling sign bilaterally. Resp normal respiratory effort and clear to auscultation bilaterally Cardio regular rate and regular rhythm Rate: other Other Details: Radial and carotid pulses equal and symmetric Back/Spine Back/Spine Narrative: No bony deformity or step-off of the thoracic or lumbar spine no midline pain with palpation Patient does have left upper parathoracic/posterior shoulder tension and spasm noted in pain on palpation at the site. No overlying soft tissue changes to suggest trauma or infection Extremity normal to inspection Extremity Narrative: Left upper extremity is neurovascularly intact; AIN/PIN are intact and normal. No overlying erythema or warmth to suggest cellulitis or abscess formation. No asymmetric edema or firmness to suggest upper extremity DVT and compartments are soft going against compartment syndrome. Neuro oriented x3, CN's II-XII intact bilaterally and no sensory deficits noted Sensorium / Orientation: alert Psych mental status grossly normal Skin no rashes or lesions noted MDM MDM MDM Narrative Medical decision making narrative: Patient presented to the ER complaining of pain radiating from her left neck left shoulder down her arm without acute trauma or excessive activity. By exam she does not have signs of infection upper extremity DVT or signs of arterial occlusion. Spurling test is negative going against cervical compression as a cause of her recurrent pain and there is muscular tension and spasm in the posterior shoulder region indicating this is most likely a peripheral or superficial muscle spasm leading to nerve compression. However because of the potential this is related to the cervical spine elect perform a noncontrast CT. this showed mild degenerative changes without obvious signs of nervous compression or obstruction. Patient was treated with IM morphine and oral gabapentin. On reevaluation she has had improvement of her pain and as her exam does not show signs of infection arterial occlusion upper extremity DVT or compartment syndrome there is no need for further work-up and he is otherwise safe for discharge. History & Record Review Discussion w/independent historian: Patient Radiography Diagnostic Testing: Clinical Impression(s) from Imaging Studies Cervical Spine CT 01/20/23 00:00 IMPRESSION: 1. No CT evidence of acute compression or displaced fracture. 2. Multilevel degenerative changes of the cervical spine, as described. Electronically Signed: April Nicholas MD at 1:43 EDT Reading Location ID and State: [facility] / [place] , Service support , Discharge Plan Triage Chief Complaint: Back Other Complaint: Upper Extremity Injury ED Provider: Wilmar Good Dx/Rx/DC Orders Clinical Impression: Muscle spasm, Cervical radiculopathy, Morbid obesity, Hypothyroidism Instructions: ED Neck Spasm, No Trauma, ED Radiculopathy, Cervical Prescriptions: New gabapentin 100 mg capsule 100 mg PO BID 30 Days Qty: 60 0RF methocarbamol 500 mg tablet 1,000 mg PO 4X/DAY PRN PRN (Reason: Muscle pain/spasm) 7 Days Qty: 56 0RF No Action azithromycin 250 mg tablet See Rx Instructions PO .COMPLEX Qty: 6 0RF Rx Instructions: take 500 mg today (day 1), then 250 mg for 4 days (days 2-5) PO methylprednisolone [Medrol (Yogi)] 4 mg tablets,dose pack See Rx Instructions PO PER PKG DIR Qty: 21 0RF Rx Instructions: PO PER PKG DIR ergocalciferol (vitamin D2) 1,250 MCG capsule 1,250 mcg PO QWEEK Rx Instructions: TAKES EVERY THURSDAY spironolactone 50 MG tablet 50 mg PO DAILY levothyroxine 100 mcg Capsule 100 mcg PO SUMOWETHFR clopidogrel [Plavix] 75 mg tablet 75 mg PO DAILY Qty: 90 3RF aspirin 81 mg tablet,delayed release (DR/EC) 81 mg PO DAILY Qty: 90 0RF Stand Alone Forms: ED Work / School Excuse Primary Care Provider: Diamond Moore Referrals: Diamond Moore, [employer] [Primary Care Provider] - Disposition Disposition: Home, Self Care Discharge Date/Time: 01/20/23 02:10
[2023-01-19] MEDS: Gabapentin 100 MG Capsule PO (23:52)
--- NOTE | 2023-01-20 | CT_ITS ---
STUDY: CT CERVICAL SPINE WITHOUT CONTRAST REASON FOR EXAM: Female, 52 years old patient with cervical radiculopathy RADIATION DOSAGE (If Supplied By Facility): CTDIvol = ( 26.82 ) mGy, DLP = ( 436.85 ) mGycm TECHNIQUE: High resolution transaxial imaging was performed without contrast material. Sagittal and coronal images were reconstructed. Individualized dose optimization techniques were used for this CT. COMPARISON: None FINDINGS: Normal craniovertebral junction. Normal anterior atlantoaxial articulation. Normal odontoid process. There is straightening of the normal cervical lordosis. Normal vertebral bodies and posterior osseous elements. C2-3: Normal endplates. Normal disc height and morphology. Normal central canal and intervertebral neuroforamina. C3-4: Normal endplates. Normal disc height and morphology. Normal central canal and intervertebral neuroforamina. C4-5: There is narrowing of the disc space. There is mild neural foraminal narrowing with uncovertebral and facet arthropathy. There is no central acquired canal stenosis. C5-6: Normal endplates. There is narrowing of the disk space. Normal central canal. There is moderate narrowing of the left intervertebral neuroforamen with uncovertebral and facet joint hypertrophy. C6-7: Normal endplates. Normal disc height and morphology. Normal central canal and intervertebral neuroforamina. C7-T1: Normal endplates. Normal disc height and morphology. Normal central canal and intervertebral neuroforamina. Lung apices appear to be clear. The thyroid appears within normal limits. Visualized parotid and submandibular glands appear grossly normal appearance. CT/Spine Cervical without Contras IMPRESSION: 1. No CT evidence of acute compression or displaced fracture. 2. Multilevel degenerative changes of the cervical spine, as described. Electronically Signed: April Nicholas MD at 1:43 EDT Reading Location ID and State: [id number] [facility] , Service support ,
[2023-01-20 01:57] VITALS: BP 149/78; PULSE 87; RESP 18; O2SAT 99
== END 2023-01-20 02:10 | disposition home or self-care (01) ==
PROVIDERS: Emergency Provider Emergency Medicine; PCP Nurse Practitioner Family; Visit Provider Emergency Medicine
DX: M47.22 Other spondylosis with radiculopathy, cervical region (principal); E66.01 Morbid (severe) obesity due to excess calories; E03.9 Hypothyroidism, unspecified; M62.838 Other muscle spasm; F32.A Depression, unspecified; F17.210 Nicotine dependence, cigarettes, uncomplicated; Z79.82 Long term (current) use of aspirin; Z79.02 Long term (current) use of antithrombotics/antiplatelets; Z79.890 Hormone replacement therapy; Z79.899 Other long term (current) drug therapy
CPT/HCPCS: 72125; 99284

== ENCOUNTER 2023-02-06 09:59 | Outpatient (RCR) | payer MEDICAID, SELFPAY ==
--- NOTE | 2023-02-06 11:20 | HP.PTEVAL ---
Patient's Visit Information Visit Information Visit Information: CHRISTOPHER KWAN is a 52 year old F referred to Physical Therapy by ADY Fox with a diagnosis of THORACIC PAIN ,NEURITIS AND NEURALGIA. Date of Evaluation: 02/06/23 Physical Therapist: Jonh Brar, PT, Cert MDT, OCS Visit Plan Frequency: 2x /Week Duration: 4 Weeks Plan: PT INTERVENTIONS MANUAL TRACTION CERVICAL SPINE ,GRISELDA EX'S ,POSTURAL EX'S ,THORACIC SPINE MOBILITY AND MODLATIES Subjective Subjective: This 52 y/o female presents to physical therapy with thoracic/cervical pain . Patient has had thoracic pain~ 1 month insidious onset. Patient went to ER with CATSCAN -. Patient seen DR recommended PT and medication gabapentin ,muscle relaxer and naproxen. Patient pain located lower cervical pain with radicular symptoms to fingers. Aggravating lifting OH and moving rotating c-spine. Patient alleviating factors rest and medication. Pain affects sleeping. Patient c/o paresthesia/tingling-. Bowel/bladder-. Coughing/sneezing - .Denies ALVARADO /nausea/tinnitus. 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 Patient condition affects QOL and function. Patient goals to decrease pain. SOCIAL: single VOCATION: [employer] Pain Bilateral: Pain Intensity (Out of 10): 2 Pain Intensity Range: 10 Bilateral Neck: Pain Intensity (Out of 10): 2 Pain Intensity Range: 10 Bilateral Back: Pain Intensity (Out of 10): 2 Pain Intensity Range: 10 Comment: thoracic -sacpular Right Wrist: Pain Intensity (Out of 10): 2 Objective Objective: POSTURE: rounded shoulders head forward PALAPTION: unremarkable NEURO: denies paresthesia/tingling ,reflexes C5-6-7 1/3 AROM CERVICAL : flexion min loss , lateral flexion/rotation ,extension mod loss THORACIC ROM: flexion min loss ,extension mod loss ,rotation min/mod loss BUE AROM : WFL MMT: grossly 4/5 ,except 4-/5 Special Tests C/S Radiculapathy - Left Upper limb tension test: Negative C/S Radiculapathy - Right Upper limb tension test: Negative C/S Radiculapathy - Left Spurlings: Positive C/S Radiculapathy - Right Spurlings: Negative C/S Radiculapathy - Left Cervical distraction: Negative C/S Radiculapathy - Right Cervical distraction: Negative C/S Radiculapathy - Left Relief test: Negative C/S Radiculapathy - Right Relief test: Negative C/S Radiculapathy - Valsalva: Negative Sharp Maik: Negative Vertebral Artery Test: Negative Alar Ligament Test: Negative Cervical Sitting: Protrusion - Mechanical Response: No effect Cervical Sitting: Protrusion - Symptoms During Testing: No effect Cervical Sitting: Protrusion - Symptoms After Testing: No effect Cervical Sitting: Retraction - Mechanical Response: No effect Cervical Sitting: Retraction - Symptoms During Testing: Increases Cervical Sitting: Retraction - Symptoms After Testing: No better Comments:: NECK Cervical Sitting: Retraction-Extension - Mechanical Response: No effect Cerv Sitting: Retraction-Extension - Symptoms During Testing: Increases Cerv Sitting: Retraction-Extension - Symptoms After Testing: No worse Comments:: CERVICAL Cervical Sitting: Sidebend Right - Mechanical Response: No effect Cervical Sitting: Sidebend Right - Symptoms During Testing: No effect Cervical Sitting: Sidebend Right - Symptoms After Testing: No effect Cervical Sitting: Sidebend Left - Mechanical Response: No effect Cervical Sitting: Sidebend Left - Symptoms During Testing: No effect Cervical Sitting: Sidebend Left - Symptoms After Testing: No effect Cervical Sitting: Rotation Right - Mechanical Response: No effect Cervical Sitting: Rotation Right - Symptoms During Testing: No effect Cervical Sitting: Rotation Right - Symptoms After Testing: No effect Cervical Sitting: Rotation Left - Mechanical Response: No effect Cervical Sitting: Rotation Left - Symptoms During Testing: No effect Cervical Sitting: Rotation Left - Symptoms After Testing: No effect Cervical Sitting: Flexion - Mechanical Response: No effect Cervical Sitting: Flexion - Symptoms During Testing: No effect Cervical Sitting: Flexion - Symptoms After Testing: No effect Balance/Special Test Scores Oswestry Neck Score: 25 Goals Goal 1:: I with HEP for posture Goal Time Frame: 4-6 Weeks Goal 2:: Patient to demonstrate 50% improvement with improved function and less pain in left arm and neck Goal Time Frame: 4-6 Weeks Goal 3:: Patient to improve cervical ROM for function of recovery for job demands Goal Time Frame: 4-6 Weeks Goal 4:: Patient to improve neck oswestry score by 5 points to improve QOL and job demands Goal Time Frame: 4-6 Weeks Goal 5:: Patient to return to perform job demands without restriction. Rehabilitation Potential Physical Therapy Diagnosis: This patient has cervical radicular symptoms affecting left arm worse with positioning and motion testing thus affects job demands and housework tasks thus benefit from skilled PT Anticipated Interventions Patient/Client Instruction: Educate patient on: Condition and Plan of Care For the Purpose of:: To decrease pain, To increase ROM, To improve muscle performance and motor function, To increase tolerance to activity/condition/position, To improve ability of physical actions for home/community/work/leisure, To improve health of tissue, To decrease soft tissue restriction, To increase flexibility/ROM, To prevent re-injury and To improve tolerance to ADL's Therapeutic Exercise to Include: Strength training, Postural training, Flexibilty training, Active ROM and Griselda Exercises For the Purpose of:: To decrease pain, To increase ROM, To improve muscle performance and motor function, To improve ability to perform ADL's, To increase tolerance to activity/condition/position, To improve ability of physical actions for home/community/work/leisure, To improve health of tissue, To decrease soft tissue restriction, To increase flexibility/ROM and To improve health and function Manual Therapy Techniques to Include: Mobilization Comment: CERVICAL TRACTION For the Purpose of:: To decrease pain, To increase ROM, To improve health of tissue, To decrease soft tissue restriction and To increase flexibility/ROM TENS: Yes IF ES: Yes Cryotherapy (ice pack, ice massage): Yes Thermo therapy (hot pack): Yes Intermittent cervical traction: Yes For the Purpose of:: To decrease pain, To increase ROM, To increase oxygenation perfusion, To improve health of tissue and To decrease soft tissue restriction Text: Thank you for the opportunity to evaluate your patient. For Medicare and Medicare HMO plans, please review the plan of care and approve it. It will need to be FAXED BACK to us at [phone] for Medicare purposes. For Medicare only, by signing this I certify the plan of care. Please let me know if there are questions or concerns regarding this plan of care. Physician Signature: Date:
== END 2023-02-06 19:00 | disposition home or self-care (01) ==
LOC: PT 09:59
PROVIDERS: PCP Nurse Practitioner Family; Referring Provider Nurse Practitioner Family; Visit Provider Nurse Practitioner Family
DX: M54.6 Pain in thoracic spine (principal); M79.2 Neuralgia and neuritis, unspecified
CPT/HCPCS: 97162

== ENCOUNTER → 2023-03-23 | Outpatient (CLI) | payer MEDICAID, SELFPAY ==
--- NOTE | 2023-03-23 08:55 | AAVD_ITS ---
Reason For Study: S/P Lt CIV Stent Inferior Vena Cava Proximal inferior vena cava measures 1.39 x 1.48 cm. in the cross-sectional axis. Proximal inferior vena cava measures 1.37 cm. in the longitudinal axis. Mid inferior vena cava measures 1.28 x 1.51 cm. in the cross-sectional axis. Mid inferior vena cava measures 1.25 cm. in the longitudinal axis. Distal inferior vena cava measures 1.26 x 1.45 cm. in the cross-sectional axis. Distal inferior vena cava measures 1.34 cm. in the longitudinal axis. The inferior vena cava has spontaneous, phasic flow throughout. Left Common Iliac Vein Left common iliac vein measures 1.35 x 1.35 cm. in the cross-sectional axis. Left common iliac vein measures 1.30 cm. in the longitudinal axis. The left common iliac vein has spontaneous, phasic flow throughout. Stent visualized. Right Common Iliac Vein Right common iliac vein measures 1.17 x 1.06 cm. in the cross-sectional axis. Right common iliac vein measures 1.16 cm. in the longitudinal axis. The right common iliac vein has spontaneous, phasic flow throughout. Procedure Aorta IVC Iliac vasculature or bypass grafts 54428. The exam was diagnostic. VL/Abd Aortic/IVC Duplex scan Interpretation Summary Inferior vena cava and bilateral common iliac veins patent with normal venous f low pattern Ordering Physician: Edd Salmon Referring Physician: Edd Salmon Performed By: Kishan John, RVT
== END | disposition home or self-care (01) ==
LOC: CVS 08:52
PROVIDERS: PCP Nurse Practitioner Family; Referring Provider Surgery Trauma Surgery; Visit Provider Surgery Trauma Surgery
DX: I83.029 Varicose veins of left lower extremity with ulcer of unspecified site (principal); L97.929 Non-pressure chronic ulcer of unspecified part of left lower leg with unspecified severity; I87.1 Compression of vein
CPT/HCPCS: 93978

== ENCOUNTER 2023-03-31 00:08 | Emergency (ER) | payer MEDICAID, SELFPAY ==
[2023-03-31 00:09] VITALS: BP 152/94; PULSE 79; RESP 16; TEMP 35.8; O2SAT 100
--- NOTE | 2023-03-31 00:35 | EX.ED.VIS.UR ---
HPI HPI - URI History of Present Illness Chief Complaint: Ear Problem Detail of Chief Complaint: Ear pain Informant: patient Narrative Narrative: Patient presents with left ear pain that started 3 days ago. Patient states that she woke up with pain in her ear and went to urgent care where she was told there was some blood on her eardrum and was concern for TM rupture. Patient was started on amoxicillin. Patient at that time was feeling a lot of pressure in the left side of her face and she continues to feel that. Does not feel like she is got much better. She denies decreased hearing. Denies fevers or chills or sweats. She does have some discomfort into her throat on the left side. ROS ROS ED Review of Systems ROS Unobtainable: other Constitutional Constitutional ED: Reports lethargy; Denies chills, fever(s), sweats or weight loss Eyes Eyes: Denies blurry vision, change in vision or diplopia ENT ENT ED: Reports ear pain and sore throat; Denies rhinorrhea Cardiovascular Cardiovascular: Denies chest pain, orthopnea or racing heartbeat Respiratory/Chest Respiratory/Chest: Denies cough, dyspnea, dyspnea on exertion, orthopnea or sputum Gastrointestinal Gastrointestinal: Denies abdominal pain, diarrhea, nausea or vomiting Genitourinary Genitourinary ED: Denies dysuria, hematuria or urinary frequency Musculoskeletal Musculoskeletal: Denies arthralgias, back pain, myalgias or neck pain Integumentary Denies abscess, Abrasions or rash Neurologic Neurologic: Denies headache(s) or weakness Psychiatric Psychiatric: Denies anxiety, depression or suicidal thoughts Endocrine Endocrinology: Denies polydipsia, polyphagia or polyuria Hematologic/Lymphatic Hematologic/Lymphatic: Denies easy bleeding, easy bruising or lymphadenopathy Allergic/Immunologic Allergic/Immunologic ED: Denies mouth swelling, tongue swelling or urticaria PFSH PFSH Medical History Biceps tendinitis of right shoulder Bleeding acute gastric ulcer Colitis Depression Duodenal ulcer hemorrhage Dyspnea Edema History of pain when walking Histrionic person Hyperactive gag reflex Hypothyroidism Leg cramps multiple skuin lesions Osteoarthritis of left hip 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, pre-employment Post-menopausal Skin lesions Smoker Tobacco dependence syndrome Varicose veins of both lower extremities Vitamin D deficiency Wears glasses Home Medications ergocalciferol (vitamin D2) 1,250 mcg (50,000 unit) capsule 1,250 mcg PO QWEEK SUPPLEMENT 02/18/20 [History Last Taken Unknown] spironolactone 50 mg tablet 50 mg PO DAILY DIURETIC 02/18/20 [History Last Taken Unknown] levothyroxine 100 mcg capsule 100 mcg PO SUMOWETHFR 02/18/22 [History Last Taken Unknown] aspirin 81 mg tablet,delayed release 81 mg PO DAILY #90 tabs 02/19/22 [Rx Last Taken Unknown] clopidogrel 75 mg tablet (Plavix) 75 mg PO DAILY #90 tabs 02/19/22 [Rx Last Taken Unknown] gabapentin 100 mg capsule 100 mg PO BID 30 days #60 caps 01/20/23 [Rx Last Taken Unknown] methocarbamol 500 mg tablet 1,000 mg (2 x 500 mg) PO 4X/DAY PRN PRN Muscle pain/spasm 7 days #56 tabs 01/20/23 [Rx Last Taken Unknown] amoxicillin 500 mg tablet 500 mg PO BID 10 days #20 tabs 03/28/23 [Rx Last Taken Unknown] hydrocodone-acetaminophen 5-325mg 5mg-325mg 1 tab PO Q4H PRN PRN Pain 2 days #10 TABLETS 03/31/23 [Rx Last Taken Unknown] loratadine-pseudoephedrine ER 10 mg-240 mg tablet,extended [id number] (Claritin-D 24 Hour) 1 tab PO DAILY #14 tabs 03/31/23 [Rx Last Taken Unknown] Allergy/AdvReac Type Severity Reaction Status Date / Time No Known Allergies Allergy Verified 03/28/23 12:09 Family History Sister Arthritis Cancer Father Cancer liver cancer Surgical History History of History of esophagogastroduodenoscopy (EGD) History of hernia repair Social History Smoking Status: Current every day smoker tobacco type: cigarettes alcohol intake: never substance use type: does not use EXAM Physical Exam Const Vital Signs: 03/31/23 00:09 Temperature 96.4 F L Temperature Source Temporal Pulse Rate 79 Respiratory Rate 16 Blood Pressure 152/94 H Blood Pressure Mean 113 Pulse Ox 100 Oxygen Delivery Method Room Air Positive well nourished and well developed General Appearance ED: well developed and NAD HEENT Reports TM's clear and moist mucous membranes HEENT Narrative: Evaluation of left tympanic membrane reveals some distention of the tympanic membrane but I do not appreciate any obvious perforation. There is no blood in the ear canal. There is no significant erythema. I am able to visualize landmarks. No pain with traction on the pinna. Pharynx-no erythema noted. Uvula midline. No trismus. No significant adenopathy. normocephalic and atraumatic; Negative for trauma or tenderness Tympanic Membrane ED: Yes TM's clear Eyes PERRL and EOMs intact bilaterally General Eye ED: Negative for pale conjunctiva or scleral icterus Neck no lymphadenopathy, supple and no JVD General: Negative for tenderness Chest Wall inspection of chest normal and palpation of chest normal Chest: Negative for tenderness Resp normal respiratory effort and clear to auscultation bilaterally Effort and Inspection: Negative for respiratory distress or pain with movement Auscultation: Negative for rhonchi, wheezes or diminished lung sounds Cardio regular rate, regular rhythm, S1 normal heart sound, S2 normal heart sound and no murmurs Peripheral Pulses: pulses 2+ throughout GI normal to inspection, nondistended, normoactive bowel sounds, soft to palpation, non-tender, non-distended and no masses Back/Spine no CVA tenderness and no thoracic nor lumbar tenderness Extremity normal to inspection General Extremety ED: Negative for edema General Extremity: Negative for edema Neuro oriented x3, CN's II-XII intact bilaterally, no sensory deficits noted and gait normal Sensorium / Orientation: awake, alert, oriented to person, oriented to place and oriented to time Motor Exam: strength 5/5 throughout and strength abnormal Psych mental status grossly normal Skin no rashes or lesions noted and no wounds MDM MDM MDM Narrative Medical decision making narrative: Patient with left ear pain on amoxicillin. Clinically suspect eustachian tube dysfunction. Gave patient dose of Claritin and will write her for a few [place] for pain. Will be given referral to ENT for follow-up. I do not appreciate an obvious TM perforation at this time but do not have insufflation available. Discharge Plan Triage Chief Complaint: Ear Problem ED Provider: Marisol Quintero Dx/Rx/DC Orders Clinical Impression: Acute dysfunction of eustachian tube, Acute ear pain Instructions: ED Earache Without Infection (Adult) Prescriptions: New hydrocodone-acetaminophen [hydrocodone-acetaminophen] 5-325 mg tablet 1 tab PO Q4H PRN PRN (Reason: Pain) 2 Days Qty: 10 0RF Claritin-D 24 Hour 10-240 mg tablet extended release 24 hr 1 tab PO DAILY Qty: 14 0RF No Action amoxicillin 500 mg tablet 500 mg PO BID 10 Days Qty: 20 0RF ergocalciferol (vitamin D2) 1,250 MCG capsule 1,250 mcg PO QWEEK Rx Instructions: TAKES EVERY THURSDAY spironolactone 50 MG tablet 50 mg PO DAILY levothyroxine 100 mcg Capsule 100 mcg PO SUMOWE clopidogrel [Plavix] 75 mg tablet 75 mg PO DAILY Qty: 90 3RF aspirin 81 mg tablet,delayed release (DR/EC) 81 mg PO DAILY Qty: 90 0RF gabapentin 100 mg capsule 100 mg PO BID 30 Days Qty: 60 0RF methocarbamol 500 mg tablet 1,000 mg PO 4X/DAY PRN PRN (Reason: Muscle pain/spasm) 7 Days Qty: 56 0RF Primary Care Provider: Diamond Moore Referrals: Hemant Montalvo MD [Med Staff - Active Staff] - 3-5 Days Diamond Moore, [facility] [facility] [Primary Care Provider] - Disposition Disposition: Home, Self Care Discharge Date/Time: 03/31/23 01:13
[2023-03-31] MEDS: Loratadine 10 MG Tablet PO (00:48)
[2023-03-31] MEDS: HYDROcodone Bitartrate/Apap 5/325 Tablet PO (00:49)
== END 2023-03-31 01:13 | disposition home or self-care (01) ==
LOC: ED 00:45
PROVIDERS: Emergency Provider Emergency Medicine; PCP Nurse Practitioner Family; Visit Provider Emergency Medicine
DX: H69.92 Unspecified Eustachian tube disorder, left ear (principal); H92.02 Otalgia, left ear; J02.9 Acute pharyngitis, unspecified; F17.210 Nicotine dependence, cigarettes, uncomplicated; Z79.82 Long term (current) use of aspirin; Z79.02 Long term (current) use of antithrombotics/antiplatelets; Z79.890 Hormone replacement therapy; Z79.899 Other long term (current) drug therapy
CPT/HCPCS: 99282

== ENCOUNTER → 2023-11-06 | Outpatient (CLI) | payer OTHER, SELFPAY ==
[2023-11-06 12:37] LABS: Absolute Lymphocyte Count 1.84 X10^3/uL (0.83-4.51); Basophil# 0.06 X10^3/uL; Basophil% 0.9 % (0-1); Eosinophils% 3.1 % (0-5); Hematocrit 44.5 % (37-47); Hemoglobin 13.6 g/dL (12.0-15.0); Lymphocyte # 1.84 X10^3/ul (0.83-4.51); Lymphocyte % 28.3 % (19-41); Mean Corp Hgb Conc 30.6 g/dL (32-36); Mean Corpuscular Hgb 26.6 pg (27.0-32.0); Mean Corpuscular Volume 87.1 fL (81-99); Mean Platelet Vol. 9.7 fl (6.2-12.0); Monocyte# 0.39 X10^3/uL; NRBC Flagged by Analyzer 0 % (0-5); Neutrophil % 61.5 % (47-70); Platelet Count 405 K/mm3 (150-450); RBC Distribution Width CV 14.9 % (11.6-14.6); RBC Distribution Width SD 47.7 fl (35.1-43.9); Red Blood Count 5.11 M/mm3 (4.2-5.4); White Blood Count 6.5 K/mm3 (4.4-11.0)
[2023-11-06 12:50] LABS: AST(SGOT) 15 U/L (15-37); Alanine Aminotransfer ALT/SGPT 23 U/L (13-56); Albumin, Serum 3.5 g/dL (3.2-5.0); Alkaline Phosphatase 82 U/L (45-117); Anion Gap 7 (5-15); BUN 13 mg/dL (7-18); BUN/Creat Ratio 15.9 RATIO (10-20); Calcium,Total 9.2 mg/dL (8.5-10.1); Chloride 109 mmol/L (98-107); Cholesterol 139 mg/dL (200); Creatinine, Serum 0.82 mg/dL (0.55-1.02); EST Glomerular Filtration Rate 78 mL/min (>60); Est Glom Filt Rate - Afr Amer 95 mL/min (>60); Globulin 3.5 g/dL (2.2-4.2); Glucose 85 mg/dL (74-106); High Density Lipoprotein 53 mg/dL; Potassium 3.9 mmol/L (3.5-5.1); Sodium Level 140 mmol/L (136-145); T4 Free Direct 1.37 ng/dL (0.76-1.46); Triglycerides 86 mg/dL; Very Low Density Lipoprotein 17 mg/dL (5-40)
== END | disposition home or self-care (01) ==
LOC: BFHLAB 09:25
PROVIDERS: PCP Nurse Practitioner Family; Referring Provider Nurse Practitioner Family; Visit Provider Nurse Practitioner Family
DX: Z00.01 Encounter for general adult medical examination with abnormal findings (principal); E03.9 Hypothyroidism, unspecified; E55.9 Vitamin D deficiency, unspecified
CPT/HCPCS: 36415; 80053; 80061; 82306; 84439; 84443; 85025

== ENCOUNTER → 2024-03-25 | Outpatient (CLI) | payer OTHER, SELFPAY ==
--- NOTE | 2024-03-25 09:10 | AAVD_ITS ---
Reason For Study: S/P Iliac vein stent Inferior Vena Cava Proximal inferior vena cava measures 0.83 x 1.67 cm. in the cross-sectional axis. Proximal inferior vena cava measures 0.78 cm. in the longitudinal axis. Mid inferior vena cava measures 1.04 x 2.23 cm. in the cross-sectional axis. Mid inferior vena cava measures 0.90 cm. in the longitudinal axis. Distal inferior vena cava measures 1.33 x 1.36 cm. in the cross-sectional axis. Distal inferior vena cava measures 1.39 cm. in the longitudinal axis. The inferior vena cava has spontaneous, phasic flow throughout. Left Common Iliac Vein Left common iliac vein measures 1.33 x 1.31 cm. in the cross-sectional axis. Left common iliac vein measures 1.28 cm. in the longitudinal axis. The left common iliac vein has spontaneous, phasic flow throughout. Stent noted in the left CIV. Right Common Iliac Vein Right common iliac vein measures 1.28 x 1.26 cm. in the cross-sectional axis. Right common iliac vein measures 1.06 cm. in the longitudinal axis. The right common iliac vein has spontaneous, phasic flow throughout. Procedure Aorta IVC Iliac vasculature or bypass grafts [id number]. Exam performed in department. VL/Abd Aortic/IVC Duplex scan Interpretation Summary Inferior vena cava and right iliac vein patent with normal venous flow pattern Left iliac vein stent patent with normal venous flow pattern. Ordering Physician: Brielle Snow Referring Physician: Diamond Moore Performed By: Tanisha Quiroz RVT
== END | disposition home or self-care (01) ==
LOC: CVS 09:05
PROVIDERS: PCP Nurse Practitioner Family; Referring Provider Physician Assistant; Visit Provider Physician Assistant
DX: I87.1 Compression of vein (principal); Z48.812 Encounter for surgical aftercare following surgery on the circulatory system
CPT/HCPCS: 93978

== ENCOUNTER → 2024-03-31 | Outpatient (CLI) | payer OTHER, SELFPAY | END | disposition home or self-care (01) | LOC: LABSPEC 10:27 | PROVIDERS: PCP Nurse Practitioner Family; Referring Provider Physician Assistant; Visit Provider Physician Assistant | DX: J02.9 Acute pharyngitis, unspecified (principal) | CPT/HCPCS: 87070 ==

== ENCOUNTER 2024-12-23 22:47 | Emergency (ER) | payer OTHER, SELFPAY ==
[2024-12-23 22:49] VITALS: BP 147/96; PULSE 78; RESP 16; TEMP 36.8; O2SAT 100; BMI 43.0
[2024-12-23 23:15] LABS: Hematocrit 40.2 % (37-47); Hemoglobin 12.6 g/dL (12.0-15.0); Immature Granulocytes Count 0.030 X10^3/uL (0.0-0.0); Mean Corp Hgb Conc 31.3 g/dL (32-36); Mean Corpuscular Volume 86.1 fL (81-99); Mean Platelet Vol. 9.2 fl (6.2-12.0); NRBC Flagged by Analyzer 0 % (0-5); Platelet Count 386 K/mm3 (150-450); RBC Distribution Width CV 15.1 % (11.6-14.6); RBC Distribution Width SD 47.7 fl (35.1-43.9); Red Blood Count 4.67 M/mm3 (4.2-5.4); White Blood Count 8.3 K/mm3 (4.4-11.0)
--- NOTE | 2024-12-23 23:23 | RAD_ITS ---
PROCEDURE: TIBIA FIBULA 2 VIEWS 12/23/2024 REASON FOR EXAM: CHRONIC WOUND LATERAL LEG TECHNIQUE: Frontal and lateral view radiographs of the right tibia and fibula COMPARISON: Right tib-fib radiographs 05/06/2018 FINDINGS: No acute fracture or dislocation. Alignment is anatomic. Visualized joint spaces are preserved. No osseous erosion/destruction or periosteal reaction. Marked generalized soft tissue swelling/edema of the right lower extremity. No subcutaneous emphysema or radiopaque foreign body appreciated. RAD/Tibia & Fibula 2 Views IMPRESSION: No acute or aggressive osseous abnormality. No evidence for osteomyelitis. Marked generalized lower extremity soft tissue swelling/edema. Reading Location: [id number]
--- NOTE | 2024-12-23 23:28 | EX.ED.DYSGE1 ---
HPI History of Present Illness Chief Complaint: Cellulitis Narrative Narrative: Patient is a 54-year-old female with past medical history of histrionic personality disorder, hypothyroidism, depression, vitamin D deficiency, BMI 43 who presented to the emergency department with concern for cellulitis of the right leg. She states that she has a chronic wound to the right lower extremity that she states that has been healing well. She states that yesterday she noted that she felt the back of her leg and had some discomfort and redness. States that she called her doctor and they called a prescription but does not recall what the antibiotic was. She states that she was unable to pick this up secondary to her working. She states that she was concerned about the cellulitis therefore she came here for further evaluation management. Patient states that she has not been on any antibiotics to this point for this. She states that this all started yesterday. [facility] Medical History Acute pharyngitis Biceps tendinitis of right shoulder Osteoarthritis of left hip Post-menopausal Wears glasses Hyperactive gag reflex Leg cramps History of pain when walking Duodenal ulcer hemorrhage Varicose veins of both lower extremities Vitamin D deficiency Dyspnea Edema Colitis Tobacco dependence syndrome Depression Bleeding acute gastric ulcer Smoker Hypothyroidism Skin lesions multiple skuin lesions 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, 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 Home Medications ?Medication ?Instructions ?Recorded ?Last Taken ?Type ergocalciferol (vitamin D2) 1,250 1,250 mcg PO QWEEK SUPPLEMENT 02/18/20 Unknown History mcg (50,000 unit) capsule spironolactone 50 mg tablet 50 mg PO DAILY DIURETIC 02/18/20 Unknown History aspirin 81 mg tablet,delayed 81 mg PO DAILY #90 tabs 02/19/22 Unknown Rx release levothyroxine 100 mcg tablet mcg PO 10/27/24 Unknown History sertraline 100 mg tablet 100 mg PO QDAY 10/27/24 Unknown History sertraline 50 mg tablet 50 mg PO QDAY 10/27/24 Unknown History topiramate 100 mg tablet 100 mg PO QHS 10/27/24 Unknown History trazodone 50 mg tablet 25 mg (1/2 x 50 mg) PO QHS PRN 10/27/24 Unknown Rx sleep #15 tabs Allergy/AdvReac Type Severity Reaction Status Date / Time No Known Allergies Allergy Verified 12/23/24 22:52 Family History Sister Arthritis Cancer Father Cancer liver cancer Surgical History History of esophagogastroduodenoscopy (EGD) History of hernia repair History of Social History housing: house Smoking Status: Current every day smoker tobacco type: cigarettes alcohol intake: never substance use type: does not use ROS ROS ED ROS Narrative Constitutional: Denies any fevers, chills Neurological: Denies numbness, wheeze, tingling Musculoskeletal: Complains of right lower leg pain as noted above Skin: Complains of cellulitis to the right leg as noted above EXAM Physical Exam Narrative Exam Narrative: General: Patient was lying in bed rest comfortably do not appear to be in acute distress Head: Atraumatic, normocephalic Eyes: PERRL bilaterally, EOMI blood, no conjunctival injection noted Neck: Soft, supple, trachea midline Cardiovascular: Regular in rhythm Respiratory: Clear to auscultation bilaterally Extremities: +4/5 strength noted in the bilateral upper and lower extremities, patient has chronic lymphedema to the lower extremities she states Neurological: Patient following commands that she was at [facility] year is 2024 Skin: Warm, dry, patient does have erythema noted to the anterior concepcion and lateral leg as well to the posterior aspect. No petechia no purpura no sloughing of the skin noted Const Vital Signs: 12/23/24 22:49 Temperature 98.2 F Temperature Source Oral Pulse Rate 78 Respiratory Rate 16 Blood Pressure 147/96 H Blood Pressure Mean 113 Pulse Ox 100 Oxygen Delivery Method Room Air MDM MDM MDM Narrative Medical decision making narrative: Patient is a 54-year-old female who presented to the emergency department with a chief complaint of concern for cellulitis to the right lower extremity. On the differential diagnose includes but not limited to cellulitis, erysipelas, osteomyelitis. Once workup is obtained reviewed she will be reevaluated. Patient will be given a liter of fluids as well as a gram of Rocephin. Patient CBC was reviewed and showed no evidence leukocytosis white blood count 8.3, hemoglobin 12.6, plate count of 386. Patient sodium was 140, potassium 3.8, creatinine was normal at 0.79. Patient glucose normal 106, anion gap normal at 11. Patient's x-ray of her tibia/fibula was reviewed by myself and by radiology showed no acute or aggressive osseous abnormality no evidence of osteomyelitis. Marked generalized lower extremity soft tissue swelling/edema. Discussed the results with the patient she would like to go home at this point time. Patient once again does have prescription already sent to her pharmacy by her primary care physician which she was advised that she needs to pick this up tomorrow morning and start taking this as she is given a dose of Rocephin here in the emergency department. She was encouraged to keep a close eye on this and if this is worsening in the next 24 to 48 hours while on oral antibiotic she needs to return to the emergency department. She is agreeable this plan all question concerns answered she was discharged home in stable condition. Patient did drive here therefore cannot give any narcotic medication. Lab Data Labs: Laboratory Results - last 24 hr 12/23/24 23:03 WBC 8.3 RBC 4.67 Hgb 12.6 Hct 40.2 MCV 86.1 MCH 27.0 MCHC 31.3 L RDW Std Deviation 47.7 H RDW Coeff of Amy 15.1 H Plt Count 386 MPV 9.2 Immature Gran % (Auto) 0.400 Neut % (Auto) 60.7 Lymph % (Auto) 29.1 [place] % (Auto) 6.4 Eos % (Auto) 2.7 Baso % (Auto) 0.7 Absolute Neuts (auto) 5.0 Absolute Lymphs (auto) 2.41 Nucleated RBC % 0 Sodium 140 Potassium 3.8 Chloride 108 Carbon Dioxide 21.6 Anion Gap 11 BUN 17 Creatinine 0.79 Estim Creat Clear Calc 112.92 Est GFR (MDRD) Non-Af 90 BUN/Creatinine Ratio 21.1 H Glucose 106 H Calcium 9.6 Total Bilirubin 0.18 AST 14 ALT 12 Alkaline Phosphatase 92 Total Protein 7.0 Albumin 4.2 Globulin 2.8 Albumin/Globulin Ratio 1.5 Radiography Diagnostic Testing: Clinical Impression(s) from Imaging Studies Tibia/Fibula X-Ray 12/23/24 23:23 IMPRESSION: No acute or aggressive osseous abnormality. No evidence for osteomyelitis. Marked generalized lower extremity soft tissue swelling/edema. Reading Location: [facility] Discharge Plan Triage Chief Complaint: Cellulitis ED Provider: Maurilio Jacome Dx/Rx/DC Orders Clinical Impression: Cellulitis of leg, right, Depression, Varicose veins of both lower extremities, Venous insufficiency, Lymphedema Prescriptions: No Action levothyroxine 100 mcg tablet PO topiramate 100 mg tablet 100 mg PO QHS sertraline 100 mg tablet 100 mg PO QDAY sertraline 50 mg tablet 50 mg PO QDAY trazodone 50 mg tablet 25 mg PO QHS PRN (Reason: sleep) Qty: 15 1RF ergocalciferol (vitamin D2) 1,250 MCG capsule 1,250 mcg PO QWEEK Rx Instructions: TAKES EVERY THURSDAY spironolactone 50 MG tablet 50 mg PO DAILY aspirin 81 mg tablet,delayed release (DR/EC) 81 mg PO DAILY Qty: 90 0RF Primary Care Provider: Diamond Moore Referrals: Diamond Moore, [facility] [Primary Care Provider] - Activity Restrictions/Additional Instructions: You were given your first dose of antibiotics here in the emergency department through your IV. Your blood work did not show any acute findings your x-ray did not show any acute findings either. Tomorrow morning you need to cloth picker your antibiotic and take as prescribed. Return with worsening symptoms or any other concerns. If the redness is getting worse after 24 to 48 hours of oral antibiotics you need to return to the emergency department for reevaluation. Keep the area dry and clean do not put any lotion or creams on this. Rotate Tylenol and I Profen [id number] for pain control when you do this you can take something every 3 hours. Max dose of Tylenol in 24 hours 4000 mg max dose of ibuprofen in 24 hours 3200 mg. Print Language: Austrian Disposition Disposition: Home, Self Care
--- OUTSIDE RECORDS SUMMARY | 2024-12-23 23:34 | XMS RPT_ITS | CCD ---
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 Hong Frazier Primary Care Provider Dr. Hong Frazier Referring Provider PACO Mock Attending Provider Dr. Hellen Thomas Emergency Provider Dr. Can Childs Admit Provider Dr. Can Childs Attending Provider Dr. Can Childs Other Provider Dr. Mono Fuentes Attending Provider Unavailable Dr. Mono Fuentes Other Provider Unavailable Dr. Jarod Monzon Attending Provider Dr. Mono Fuentes Referring Provider Unavailable HONG FRAZIER MD Primary Care Physician [phone] Hong Frazier Primary Care Provider Dr. Hong Frazier Referring Provider Dr. Edd Salmon Attending Provider Dr. Hong Frazier Primary Care Provider Dr. Edd Salmon Referring Provider [phone] Edd Salmon Other Provider Dr. Hong Frazier Primary Care Provider Dr. Edd Salmon Attending Provider [phone] Edd Salmon Referring Provider [phone] Edd Salmon Other Provider Dr. Hong Frazier Referring Provider Dr. Hong Frazier Primary Care Provider Dr. Edd Salmon Attending Provider Dr. Hellen Thomas Referring Provider Dr. Hong Frazier Referring Provider MD Hong Hodgson Attending Provider PACO Mock Attending Provider Dr. Hong Frazier Primary Care Provider Dr. Hong Frazier Referring Provider PACO Mock Attending Provider PACO Gil Attending Provider Tiffani, HEAD BUYER TOBACCO-C Negrita Primary Care Provider Dr. Edd Salmon Attending Provider Tiffani, HEAD BUYER TOBACCO-C Negrita Referring Provider PACO Hernandez Attending Provider Hong Frazier MD Unavailable Tiffani UTILITY ARBORIST-HUMAN RESOURCES ANALYST, Negrita Primary Care Provider Tiffani, HEAD BUYER TOBACCO-C Negrita Primary Care Provider Tiffani, HEAD BUYER TOBACCO-C Negrita Referring Provider PACO Mock Attending Provider Tiffani HEAD BUYER TOBACCO, Negrita Primary Care Provider TIFFANI, NEGRITA Primary Care Unavailable Tiffani UTILITY ARBORIST-HUMAN RESOURCES ANALYST, Negrita Primary Care Provider TIFFANI, NEGRITA Primary Care Unavailable Snow, Brielle Referring Unavailable Tiffani, Negrita Primary Care Unavailable Edd Salmon Attending Unavailable Tiffani, Negrita Primary Care Unavailable SnowCheikhBrielle Attending Unavailable Tiffani, Negrita Referring Unavailable Tiffani, Negrita Primary Care Unavailable Dylan Gil Attending Unavailable Tiffani, Negrita Referring Unavailable Tiffani, Negrita Primary Care Unavailable Javier Mock Attending Unavailable Tiffani, Negrita Referring Unavailable Tiffani, Negrita Primary Care Unavailable Tiffani, Negrita Attending Unavailable Tiffani, Negrita Referring Unavailable Tiffani, Negrita Primary Care Unavailable Renae Hutchison Attending Unavailable Tiffani, Negrita Referring Unavailable Desirae Richards Attending Unavailable Tiffani, Negrita Primary Care Unavailable Snow, Brielle Attending Unavailable Snow, Brielle Referring Unavailable Tiffani, Negrita Primary Care Unavailable Tiffani, Negrita Attending Unavailable Tiffani, Negrita Primary Care Unavailable Tiffani, Negrita Attending Unavailable Tiffani, Negrita Referring Unavailable Tiffani, Negrita Primary Care Unavailable Tiffani, Negrita Primary Care Unavailable Dylan Gil Attending Unavailable Dylan Gil Referring Unavailable Medications Current Medications Medication Drug Class(es) Dates Sig (Normalized) Sig (Original) acetaminophen 325 mg / oxyCODONE hydrochloride 5 mg oral tablet (1 source) Opioid Agonist Start: 12-01-2021 End: 12-04-2021 take 1 tablet by mouth every six hours as needed for pain Percocet 5 mg-325 mg oral tablet Dose = 1 tab(s), Oral, q6h, PRN for pain, X 3 day(s), # 10 tab(s), 0 Refill(s), Leg pain, 112.3 Start Date: 12/01/21 Stop Date: 12/04/21 Status: Ordered aspirin 81 mg delayed release oral tablet (9 sources) Platelet Aggregation Inhibitor, Nonsteroidal Anti-inflammatory Drug Start: 02-19-2022 take 81 mg by mouth once daily Aspirin Active 81 MG PO DAILY February 19, 2022 12:00am azithromycin 250 mg oral tablet (7 sources) Macrolide Antimicrobial Start: 05-27-2024 End: 06-01-2024 take 2 tablets by mouth once daily, then take 1 tablet by mouth once daily azithromycin (ZITHROMAX) 250 mg tablet Indications: Acute otitis media, right Take 2 tablets by mouth once daily for 1 day, THEN 1 tablet once daily for 4 days. 6 tablet 05/27/2024 06/01/2024 Active Start: 07-22-2022 End: 03-31-2023 Azithromycin Discontinued 0 PO .COMPLEX July 22, 2022 1:00am March 31, 2023 12:15am take 500 mg today (day 1), then 250 mg for 4 days (days 2-5) PO budesonide 0.032 mg/actuat metered dose nasal spray (1 source) Corticosteroid Start: 05-27-2024 End: 06-03-2024 take 2 spray(s) by mouth once daily budesonide (RHINOCORT AQ) 32 mcg/actuation nasal spray Indications: Sinus congestion Use 2 Sprays in each nostril once daily for 7 days. Rinse mouth after use. 8.43 mL 05/27/2024 06/03/2024 Active clopidogrel 75 mg oral tablet (8 sources) P2Y12 Platelet Inhibitor Start: 02-19-2022 take 1 tablet by mouth once daily Clopidogrel (Plavix) 75 mg tablet Active 75 MG PO DAILY February 19, 2022 12:00am dextromethorphan hydrobromide 1 mg/ml / guaiFENesin 20 mg/ml oral solution (1 source) Uncompetitive N-qctriz-H-aspartat e Receptor Antagonist, Sigma-1 Agonist Start: 05-27-2024 take 10 mL by mouth every four hours as needed Dextromethorphan-g uaiFENesin (ROBITUSSIN COUGH-CHEST JOSUE DM) 5-100 mg/5 mL liqd Indications: Acute cough Take 10 mL by mouth every 4 hours as needed. 237 mL 05/27/2024 Active ergocalciferol 1.25 mg oral capsule (18 sources) Provitamin D2 Compound Start: 12-01-2021 ergocalciferol 50,000 intl units (1.25 mg) oral capsule 0 Refill(s) Start Date: 12/01/21 Status: Ordered Start: 02-07-2020 take 1250 ug by mout h every week Ergocalciferol (Vitamin D2) Active 1250 MCG PO EVERY WEEK February 18, 2020 12:00am TAKES EVERY THURSDAY FeroSul 325 mg (65 mg elemental iron) oral tablet (1 source) Start: 12-01-2021 FeroSul 325 mg (65 mg elemental iron) oral tablet 0 Refill(s) Start Date: 12/01/21 Status: Ordered ferrous sulfate 325 mg oral tablet (4 sources) Start: 10-05-2021 take 1 tablet by mouth once daily Ferrous Sulfate (Iron) 325 mg (65 mg iron) tablet Active 325 MG PO DAILY 60 October 05, 2021 12:00am Ibuprofen (1 source) Nonsteroidal Anti-inflammatory Drug Start: 2015 ibuprofen ibuprofen, 0 Refill(s) Start Date: 08/13/15 Status: Ordered levothyroxine sodium 0.1 mg oral capsule (20 sources) l-Thyroxine Start: 02-18-2022 Levothyroxine Active 100 MCG PO SUMOWETHFR February 18, 2022 12:00am Start: 01-04-2022 End: 06-19-2022 Levothyroxine Discontinued 2 00 MCG PO TUSA January 04, 2022 12:00am June 19, 2022 11:56am Start: 12-01-2021 levothyroxine 100 mcg (0.1 mg) oral tablet 0 Refill(s) Start Date: 12/01/21 Status: Ordered Start: 07-07-2017 Levothyroxine Active 0 .ROUTE .COMPLEX January 04, 2022 12:00am 1 - 2 TAB orally Start: 11-12-2016 take 100 ug by mouth once daily Levothyroxine Active 100 MCG PO DAILY November 12, 2016 12:00am pantoprazole 40 mg delayed release oral tablet (4 sources) Proton Pump Inhibitor Start: 10-05-2021 take 1 tablet by mouth twice daily Pantoprazole (Protonix) 40 mg tablet,delayed release (DR/EC) Active 40 MG PO TWICE A DAY 112 56 October 05, 2021 12:00am raNITIdine 300 mg oral tablet (1 source) Histamine-2 Receptor Antagonist Start: 08-08-2015 ranitidine 300 mg oral tablet (NF) Dose : 300 mg = 1 tab(s), Oral, BID, # 30 tab(s), 0 Refill(s) Start Date: 08/08/15 Status: Ordered sertraline 100 mg oral tablet (1 source) Serotonin Reuptake Inhibitor Start: 05-26-2024 take 1 tablet by mouth once daily sertraline (ZOLOFT) 100 mg tablet Take 100 mg by mouth once daily. 05/26/2024 Active spironolactone 50 mg oral tablet (18 sources) Aldosterone Antagonist Start: 02-18-2020 spironolactone (ALDACTONE) 50 mg tablet 06/02/2021 Active sucralfate 1000 mg oral tablet (4 sources) Aluminum Complex Start: 10-05-2021 take 1 g by mouth four times daily Sucralfate Active 1 GM PO 4 TIMES DAILY 120 October 05, 2021 12:00am topiramate 100 mg oral tablet (1 source) Start: 05-09-2024 topiramate (TOPAMAX) 100 mg tablet Take 100 mg by mouth as needed (mirgrane). 05/09/2024 Active Completed/Discontinued Medications Medication Drug Class(es) Dates Sig (Normalized) Sig (Original) acetaminophen 325 mg oral tablet (1 source) Start: 08-22-2023 End: 08-22-2023 acetaminophen (Tylenol) tablet 650 mg acetaminophen 325 mg / HYDROcodone bitartrate 5 mg oral tablet (20 sources) Opioid Agonist Start: 03-31-2023 End: 04-14-2023 take 1 tablet by mouth every four hours as needed Hydrocodone-Acetami nophen Discontinued 1 TABLET PO EVERY 4 HOURS NEEDED 10 March 31, 2023 April 14, 2023 11:02am Start: 06-12-2022 End: 06-19-2022 take 1 tablet by mouth every eight hours Hydrocodone-Acetaminophen Discontinued 1 TABLET PO Q8H 9 June 12, 2022 June 19, 2022 11:56am Start: 02-18-2020 End: 02-21-2020 take 1 tablet by mouth every six hours as needed Hydrocodone-Acetaminophen Discontinued 1 TABLET PO EVERY 6 HOURS NEEDED 10 February 18, 2020 February 21, 2020 12:02am Start: 2015 take 1 tablet by la th every four hours as needed for pain [place] 325- 5 mg oral tablet Dose = 1 tab(s), Oral, q4h, PRN as needed for pain, 0 Refill(s) Start Date: 08/13/15 Status: Ordered amoxicillin 500 mg oral tablet (18 sources) Penicillin-class Antibacterial Start: 03-28-2023 End: 04-07-2023 take 500 mg by mouth twice daily Amoxicillin Discontinued 500 MG PO TWICE A DAY 03 04March 28, 2023 12:00am April 07, 2023 12:05am Start: 02-18-2020 End: 06-28-2020 take 875 mg by mouth twice daily Amoxicillin Discontinued 875 MG PO TWICE A DAY February 18, 2020 12:00am June 28, 2020 9:38am amoxicillin 875 mg / clavulanate 125 mg oral tablet (16 sources) Penicillin-class Antibacterial Start: 10-01-2021 End: 10-11-2021 take 1 tablet by mouth every twelve hours Amoxicillin-Pot Clavulanate Discontinued 1 TABLET PO Q12H 03 04October 01, 2021 12:00am October 11, 2021 12:04am bacitracin zinc 0.5 unt/mg topical ointment (1 source) Start: 08-22-2023 End: 08-22-2023 bacitracin ointment 1 Application ciprofloxacin 500 mg oral tablet (16 sources) Quinolone Antimicrobial Start: 05-02-2013 End: 05-05-2013 take 500 mg by mouth twice daily Ciprofloxacin Hcl Discontinued 500 MG PO TWICE A DAY May 02, 2013 1:00am May 05, 2013 1:28pm diclofenac sodium 50 mg delayed release oral tablet (16 sources) Nonsteroidal Anti-inflammatory Drug Start: 02-18-2020 End: 06-28-2020 take 50 mg by mouth three times daily at mealtime Diclofenac Sodium Discontinued 50 MG PO 3 TIMES DAILY WITH MEALS February 18, 2020 12:00am June 28, 2020 9:39am doxycycline hyclate 100 mg oral capsule (2 sources) Tetracycline-class Drug Start: 05-14-2023 End: 05-24-2023 take 100 mg by mouth twice daily Doxycycline Hyclate Discontinued 100 MG PO TWICE A DAY 03 04May 14, 2023 1:00am May 24, 2023 1:04am Start: 12-01-2021 End: 12-08-2021 doxycycline hyclate 100 mg o ral capsule Dose : 100 mg = 1 cap(s), Oral, BID, X 7 day(s), # 14 cap(s), 0 Refill(s), 12/08/21 9:18:00 EDT, 112.3 Start Date: 12/01/21 Stop Date: 12/08/21 Status: Ordered EPINEPHrine 0.01 mg/ml / lidocaine hydrochloride 10 mg/ml injectable solution (3 sources) Antiarrhythmic, alpha-Adrenergic Agonist, beta-Adrenergic Agonist, Catecholamine, Amide Local Anesthetic Start: 11-27-2024 End: 11-27-2024 20 mL, infiltration, Once, On 11/27/24 at 0150, For 1 dose Start: 11-27-2024 End: 11-27-2024 Starting on 11/27/24 at 0 147, For 1 dose, Created by cabinet override Start: 08-22-2023 End: 08-22-2023 lidocaine-epinephrine (Xyloc marcelo W/EPI) injection - [employer] Override Pull fluconazole 150 mg oral tablet (11 sources) Azole Antifungal Start: 01-04-2022 End: 01-28-2022 take 1 tablet by mouth every week Fluconazole (Diflucan) 150 mg tablet Discontinued 150 MG PO EVERY WEEK 2 January 04, 2022 12:00am January 28, 2022 10:31am gabapentin 100 mg oral capsule (4 sources) Anti-epileptic Agent Start: 01-20-2023 End: 04-14-2023 take 100 mg by mouth twice daily Gabapentin Discontinued 100 MG PO TWICE A DAY 60 30 January 20, 2023 12:00am April 14, 2023 11:02am ketoconazole 20 mg/ml topical cream (11 sources) Azole Antifungal Start: 01-05-2022 End: 01-28-2022 Ketoconazole Discontinued 1 APPLIC TOPICAL TWICE A DAY 60 January 05, 2022 12:00am January 28, 2022 10:31am Lidocaine (14 sources) Antiarrhythmic, Amide Local Anesthetic Start: 10-07-2021 End: 10-14-2021 Lidocaine Hcl (Lidocaine Viscous) 2 % solution Discontinued 1 APPLIC MUCOUS MEM THREE TIMES A DAY 100 October 07, 2021 6:33pm October 14, 2021 12:03am Start: 10-07-2021 End: 10-14-2021 Lidocaine Hcl (Lidocaine Vis cous) 2 % solution Discontinued 1 APPLIC MUCOUS MEM THREE TIMES A DAY 100 October 06, 2021 11:00pm October 13, 2021 11:03pm Start: 10-07-2021 End: 10-14-2021 Lidocaine Hcl (Lidocaine Vis cous) 2 % solution Discontinued 1 APPLIC MUCOUS MEM THREE TIMES A DAY 100 October 07, 2021 12:00am October 14, 2021 12:03am 24 hr loratadine 10 mg / pseudoephedrine sulfate 240 mg extended release oral tablet (2 sources) alpha-Adrenergic Agonist Start: 03-31-2023 End: 04-14-2023 take 1 tablet by mouth once daily, then take 1 tablet by mouth every twenty-four hours Loratadine-Pseudoephedrine (Claritin-D 24 Hour) 10-240 mg tablet extended release 24 hr Discontinued 1 TABLET PO DAILY March 31, 2023 12:00am April 14, 2023 11:03am methocarbamol 500 mg oral tablet (4 sources) Muscle Relaxant Start: 01-20-2023 End: 04-14-2023 take 1000 mg by mouth four times daily as needed Methocarbamol Discontinued 1000 MG PO 4 TIMES DAILY NEEDED January 20, 2023 1:54am April 14, 2023 11:03am methylPREDNISolone 4 mg oral tablet (6 sources) Corticosteroid Start: 05-14-2023 End: 05-20-2023 take 1 tablet by mouth once Methylprednisolone (Medrol (Yogi)) 4 mg tablets,dose pack Discontinued 4 MG PO per package directions 03 12May 14, 2023 1:00am May 20, 2023 1:05am Start: 08-20-2022 End: 03-31-2023 take 1 tablet by mouth once Methylprednisolone (Medrol (Yogi)) 4 mg tablets,dose pack Discontinued 0 PO per package directions August 20, 2022 1:00am March 31, 2023 12:15am PO PER PKG DIR metroNIDAZOLE 500 mg oral tablet (16 sources) Nitroimidazole Antimicrobial Start: 05-02-2013 End: 05-05-2013 take 500 mg by mouth every eight hours Metronidazole Discontinued 500 MG PO EVERY 8 HOURS May 02, 2013 1:00am May 05, 2013 1:28pm nystatin [id number] unt/ml oral suspension (14 sources) Polyene Antifungal Start: 10-07-2021 End: 10-14-2021 take 1 mL by mouth every six hours Nystatin Discontinued 1 ML PO EVERY 6 HOURS 09 01October 07, 2021 12:00am October 14, 2021 12:03am swish and swallow ondansetron 4 mg disintegrating oral tablet (4 sources) Serotonin-3 Receptor Antagonist Start: 08-22-2023 End: 08-22-2023 ondansetron ODT (Zofran-ODT) disintegrating tablet 4 mg Start: 10-15-2021 take 4 mg by mouth e very eight hours Ondansetron Active 4 MG PO Q8H 14 May 3rd, 2022 12:00am predniSONE 20 mg oral tablet (20 sources) Start: 06-12-2022 End: 06-19-2022 take 40 mg by mouth once daily Prednisone Discontinued 40 MG PO DAILY June 12, 2022 1:00am June 19, 2022 11:56am Start: 05-02-2013 End: 05-05-2013 Prednisone Discontinued 10 M G PO DAILY 48 May 02, 2013 1:00am May 05, 2013 1:28pm 6 po qd x 3 days, 4 po qd x 3 days, 2 po qd x 3 days, 1 po qd x 3 days Problems Active Problems Problem Classification Problem Date Documented Da te Episodic/Chronic Acute bronchitis (8 sources) Acute bronchitis; Translations: [Acute bronchitis, unspecified] 07-22-2022 Episodic Deficiency and other anemia (16 sources) Anemia; Translations: [Anemia, unspecified] 10-03-2021 Episodic Deficiency and other anemia (8 sources) Anemia, unspecified; Translations: [Anemia, unspecified] Episodic Esophageal disorders (1 source) Reflux 2015 Chronic Gastritis and duodenitis (14 sources) Gastritis; Translations: [Gastritis, unspecified, without bleeding] 10-23-2021 Episodic Gastrointestinal hemorrhage (20 sources) Acute gastrointestinal hemorrhage; Translations: [Gastrointestinal hemorrhage, unspecified] Episodic Immunizations and screening for infectious disease (8 sources) Contact with and (suspected) exposure to other viral communicable diseases; Translations: [Contact with or suspected exposure to other viral communicable disease] 07-22-2022 Episodic Mood disorders (9 sources) Depressive disorder; Translations: [Depression] 01-22-2022 Chronic Mycoses (11 sources) Candidiasis of skin; Translations: [Candidiasis of skin and nail] 01-05-2022 Episodic Nausea and vomiting (14 sources) Nausea; Translations: [Nausea] 10-23-2021 Episodic Open wounds of extremities (17 sources) Wound ; Translations: [Chronic wound of extremity] 06-21-2021 Episodic Osteoarthritis (7 sources) Osteoarthritis of left hip joint; Translations: [Unilateral primary osteoarthritis, left hip] 06-19-2022 Chronic Other circulatory disease (16 sources) Telangiectasia of skin of face; Translations: [Nevus, non-neoplastic] 01-16-2016 Episodic Other connective tissue disease (16 sources) Pain in left lower limb; Translations: [Pain in left leg] 06-21-2021 Episodic Other connective tissue disease (1 source) Pain in lower limb; Translations: [Pain in leg, unspecified] Onset: Episodic Other connective tissue disease (5 sources) Biceps tendinitis; Translations: [Bicipital tendinitis, right shoulder] 08-20-2022 Episodic Other connective tissue disease (1 source) Bicipital tendinitis, right shoulder; Translations: [Bicipital tenosynovitis] 08-20-2022 Episodic Other connective tissue disease (4 sources) Spasm; Translations: [Other muscle spasm] 01-20-2023 Episodic Other diseases of veins and lymphatics (16 sources) Lymphedema associated with obesity; Translations: [Lymphedema, not elsewhere classified] 12-28-2020 Chronic Other diseases of veins and lymphatics (12 sources) Lymphedema, not elsewhere classified; Translations: [Other lymphedema] Chronic Other diseases of veins and lymphatics (7 sources) Iliac vein compression syndrome; Translations: [Compression of vein] 03-13-2022 Episodic Other ear and sense organ disorders (2 sources) Pain of ear structure; Translations: [Otalgia, unspecified ear] 03-31-2023 Episodic Other ear and sense organ disorders (1 source) Impacted cerumen of bilateral ears; Translations: [Impacted cerumen, bilateral] 05-27-2024 Episodic Other lower respiratory disease (9 sources) Dyspnea; Translations: [Dyspnea, unspecified] 01-22-2022 Episodic Other lower respiratory disease (1 source) Cough; Translations: [Acute cough] 05-27-2024 Episodic Other nervous system disorders (7 sources) Difficulty walking; Translations: [Difficulty in walking, not elsewhere classified] 06-20-2022 Chronic Other nutritional; endocrine; and metabolic disorders (16 sources) Morbid obesity; Translations: [Morbid (severe) obesity due to excess calories] 12-28-2020 Chronic Other nutritional; endocrine; and metabolic disorders (12 sources) Morbid (severe) obesity due to excess calories; Translations: [Morbid obesity] Chronic Other nutritional; endocrine; and metabolic disorders (1 source) Body mass index 40+ - severely obese; Translations: [Morbid (severe) obesity due to excess calories] Onset: 8 07-07-2017 Chronic Other screening for suspected conditions (not mental disorders or infectious disease) (1 source) Encounter for other screening for malignant neoplasm of breast; Translations: [Encounter for other screening for malignant neoplasm of breast] Onset: 5 Episodic Other skin disorders (16 sources) Skin lesion; Translations: [Disorder of the skin and subcutaneous tissue, unspecified] 06-28-2020 Episodic Other skin disorders (3 sources) Pyogenic granuloma; Translations: [Pyogenic granuloma] Onset: 5 11-27-2024 Episodic Other skin disorders (1 source) Pyogenic granuloma; Translations: [Pyogenic granuloma] Onset: 5 Episodic Other upper respiratory disease (1 source) Congestion of nasal sinus; Translations: [Nasal congestion] 05-27-2024 Episodic Otitis media and related conditions (6 sources) Dysfunction of eustachian tube; Translations: [Unspecified Eustachian tube disorder, unspecified ear] 03-31-2023 Episodic 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; 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 Skin and subcutaneous tissue infections (20 sources) Cellulitis; Translations: [Cellulitis, unspecified] Episodic Spondylosis; intervertebral disc disorders; other back problems (4 sources) Cervical radiculopathy; Translations: [Radiculopathy, cervical region] 01-20-2023 Episodic Sprains and strains (7 sources) Muscle strain; Translations: [Strain of muscle, fascia and tendon of pelvis, initial encounter] 06-20-2022 Episodic Substance-related disorders (9 sources) Tobacco dependence syndrome; Translations: [Nicotine dependence, unspecified, uncomplicated] 01-22-2022 Chronic Thyroid disorders (20 sources) Hypothyroidism; Translations: [Hypothyroidism, unspecified] Onset: 8 Chronic Varicose veins of lower extremity (20 sources) Varicose ulcer of lower extremity; Translations: [Varicose veins of left lower extremity with ulcer of unspecified site] Episodic Past or Other Problems Problem Classification Problem Date Documented Da te Episodic/Chronic Administrative/social admission (18 sources) Patient encounter status; Translations: [Encounter for pre-employment examination] Onset: 07-07-2017 06-28-2020 Episodic Other diseases of veins and lymphatics (2 sources) Compression of vein; Translations: [Compression of vein] Onset: 04-18-2024 Episodic Other upper respiratory infections (20 sources) Acute sinusitis; Translations: [Acute sinusitis, unspecified] Onset: 04-26-2024 Episodic Screening and history of mental health and substance abuse codes (1 source) Ex-smoker; Translations: [Personal history of nicotine dependence] Onset: 07-07-2017 07-07-2017 Episodic Unclassified (11 sources) multiple skuin lesions 01-03-2022 Results Test Name Value Interpretation Reference Range Facility HIV 1+2 Ab+HIV1 p24 Agon HIV 1+2 Ab+HIV1 p24 Ag IA Ql Non-Reactive Normal Nonreactive [facility] Comment on above: Order Comment: HIV A g/Ab screen is performed using the Siemens Moasis HIV Ag/Ab Combo assay which detects the presence of HIV p24 antigen as well as antibodies to HIV-1 (Group M and O) and HIV-2. No laboratory evidence of HIV infection. If acute HIV infection is suspected, consider testing for HIV RNA by PCR (viral load). Performed By: #### [id number] #### DARREN Deras ([id number]) [facility] [address] [place] [address] Hepatitis B virus surface Ag on 11-27-2024 HBV surface Ag IA Ql Non-Reactive Normal Nonreactive [facility] Comment on above: Result Comment: Biot in interference may cause falsely decreased results. Patients taking a Biotin dose of up to 5 mg/day should refrain from taking Biotin for 24 hours before sample collection. Providers may contact their local laboratory for further information. Performed By: #### [id number] #### DARREN Deras ([id number]) [facility] [address] [place], [place] [address] Hepatitis C virus Abon 11-27 HCV Ab Ql (S) Non-Reactive Normal Nonreactive [facility] Comment on above: Result Comment: Resu lts from patients taking biotin supplements or receiving high-dose biotin therapy should be interpreted with caution due to possible interference with this test. Providers may contact their local laboratory for further information. Performed By: #### 1 [id number] #### DARREN ALVARENGAER L ([id number]) [facility] [address] [place] [address] MR/BMS.BPon 11-03-2024 MR/BMS.BP [facility] [address], [address] [place] [address] OFFICE VISIT Date of Service: 11/03/24 MR#: [id number] Acct: [id number] Name: ROSEMARY KWAN Rep #: [id number] : 1970 Provider: [facility] Desirae talavera Age/Sex: 54/F Location: [facility].BP Status: Signed Intake Vital Signs 05/14/23 12:34 11/03/24 10:00 Height 5 ft 7 in 5 ft 7 in BP Intake Visit Reasons: Establish Care Allergies No Known Allergies Allergy (Verified 10/27/24 14:24) [facility] Medical History (Updated 10/28/24 @ 07:26 by Renae Hutchison NP-C) Acute pharyngitis Biceps tendinitis of right shoulder Osteoarthritis of left hip Post-menopausal Wears glasses Hyperactive gag reflex Leg cramps History of pain when walking Duodenal ulcer hemorrhage Varicose veins of both lower extremities Vitamin D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 Lymphocytes Auto (Unsp spec) [#/Vol] 2.75 10*3/uL 0.83-4.51 [facility] [place] Basophil percentageOrdered B y: Negrita Tompkinsgar on 11-04-2022 Basophils/100 WBC (Bld) 0.7 % 0-1 [facility] [place] Bilirubin [Mass/Vol] 0.20 mg/dL 0.20-1.00 [facility] Comment on above: For patients on eltr ombopag therapy, use of Dimension [place] TBIL is not recommended. Chloride [Moles/Vol] 107 mmol/L 98-107 [facility] Cholesterol [Mass/Vol] 168 mg/dL <200 [facility] [place] Comment on above: <200 mg/dL Desirable 200-240 mg/dL Borderline >240 mg/dL High Risk Eosinophils/100 WBC (Bld) 2.7 % 0-5 [facility] [place] Glucose [Mass/Vol] 110 mg/dL 74-106 [facility] Comment on above: Fasting Glucose resu lt from 100 to 125 mg/dL suggests IMPAIRED HOMEOSTASIS per A.D.A. criteria. Neutrophils (Bld) [#/Vol] 4.0 10*3/uL 2.0-7.7 [facility] [place] Neutrophils/100 WBC (Bld) 53.4 % 47-70 [facility] [place] Potassium [Moles/Vol] 4.5 mmol/L 3.5-5.1 [facility] [place] Protein [Mass/Vol] 7.4 g/dL 6.4-8.2 [facility] Sodium [Moles/Vol] 139 mmol/L 136-145 [facility] Triglyceride [Mass/Vol] 177 mg/dL <199 [facility] [place] Comment on above: The drugs N-Acetylcy steine and Metamizole may falsely depress this assay.Serum Triglycerides Reference Interval Normal <150 mg/dL Borderline high 150 - 199 mg/dL High 200 - 499 mg/dL Very High > or = 500 mg/dL WBC (Bld) [#/Vol] 7.5 10*3/uL 4.4-11.0 [facility] Blood erythrocytes count (nu mber/volume)Ordered By: Negrita Nixon on 11-04-2022 RBC (Bld) [#/Vol] 5.35 10*6/uL 4.2-5.4 [facility] Blood hemoglobin measurement (mass/volume)Ordered By: Negrita Nixon on 11-04-2022 Hemoglobin (Bld) [Mass/Vol] 14.2 g/dL 12.0-15.0 [facility] [place] Blood lymphocytes/100 leukoc ytesOrdered By: Negrita Nixon on 11-04-2022 Lymphocytes/100 WBC (Bld) 36.8 % 19-41 [facility] [place] Blood monocytes/100 leukocyt esOrdered By: Negritaarpit Nixon on 11-04-2022 Monocytes/100 WBC (Bld) 5.9 % 0-10 [facility] [place] Blood platelet mean volumeOr dered By: Negritaarpit Nixon on 11-04-2022 Platelet mean volume (Bld) [Entitic vol] 9.1 fL 6.2-12.0 [facility] [place] Determination of erythrocyte mean corpuscular volume (MCV)Ordered By: Negrita Nixon on 11-04-2022 MCV (RBC) [Entitic vol] 83.7 fL 81-99 [facility] [place] Hematocrit Auto (Bld) [Volum e fraction]Ordered By: Holbrook Tiffani on 11-04-2022 Hematocrit (Bld) [Volume fraction] 44.8 % 37-47 [facility] [place] Laboratory - Chemistry and C hemistry - challengeOrdered By: Holbrook Tiffani on 11-04-2022 ALP [Catalytic activity/Vol] 85 U/L 45-117 [facility] [place] ALT [Catalytic activity/Vol] 33 U/L 13-56 [facility] [place] CO2 [Moles/Vol] 27.0 mmol/L 21.0-32.0 [facility] [place] Free T4 [Mass/Vol] 1.11 ng/dL 0.76-1.46 [facility] Globulin (S) [Mass/Vol] 4.0 g/dL 2.2-4.2 [facility] [place] Urea nitrogen/Creatinine [Mass ratio] 19.0 mg/mg 10-20 [facility] [place] Laboratory - Hematology and Cell countsOrdered By: Negritaarpit Nixon on 11-04-2022 Erythrocyte distribution width (RBC) [Entitic vol] 50.3 fL 35.1-43.9 [facility] [place] Erythrocyte distribution width (RBC) [Ratio] 16.6 % 11.6-14.6 [facility] [place] Immature granulocytes/100 WBC (Bld) 0.500 % 0.0-0.9 [facility] [place] Comment on above: IG% - Immature Granu locytes (promyelocytes, myelocytes and metamyelocytes) > 1% indicates that a LEFT SHIFT is Present. MCH (RBC) [Entitic mass] 26.5 pg 27.0-32.0 [facility] [place] Nucleated RBC/100 WBC (Bld) [Ratio] 0 % 0-5 [facility] [place] MCHC Auto (RBC) [Mass/Vol]Or dered By: Negrita Nixon on 11-04-2022 MCHC (RBC) [Mass/Vol] 31.7 g/dL 32-36 [facility] [place] No Panel InformationOrdered By: Negrita Nixon on 11-04-2022 Estimated GFR (MDRD) Amer 92 mL/min >60 [facility] [place] Comment on above: GFR Calc Estimated GFR (MDRD) Non-Af Amer 76 mL/min >60 [facility] [place] Comment on above: Non- GFR Calc Thyroid Stimulating Hormone (TSH) 2.08 uIU/mL 0.358-3.74 [facility] [place] Vitamin D 25-Hydroxy 52.6 ng/mL [facility] Comment on above: Vitamin D 25(OH) Sta tus Range Deficiency <20 ng/mL (50nmol/L) Insufficiency 20 - 30 ng/mL (50 - 75 nmol/L) Sufficiency 30 - 100 ng/mL (75 - 250 nmol/L) Toxicity >100 ng/mL (>250 nmol/L) Platelets bldOrdered By: Wayne Nixon on 11-04-2022 Platelets (Bld) [#/Vol] 439 10*3/uL 150-450 [facility] [place] Serum or plasma albumin joseph urement (mass/volume)Ordered By: Negrita Nixon on 11-04-2022 Albumin [Mass/Vol] 3.4 g/dL 3.2-5.0 [facility] Serum or plasma albumin/glob ulin mass ratioOrdered By: Negrita Nixon on 11-04-2022 Albumin/Globulin [Mass ratio] 0.8 {ratio} 0.9-2.4 [facility] [place] Serum or plasma calcium joseph urement (mass/volume)Ordered By: Negrita Nioxn on 11-04-2022 Calcium [Mass/Vol] 9.0 mg/dL 8.5-10.1 [facility] Serum or plasma cholesterol in HDL measurement (mass/volume)Ordered By: Negrita Nixon on 11-04-2022 Cholesterol in HDL [Mass/Vol] 54 mg/dL >40 [facility] [place] Comment on above: The drugs N-Acetylcy steine and Metamizole may falsely depress this assay. Reference Range HDL <40 mg/dL Low HDL Cholesterol HDL >or= 60 mg/dL High HDL Cholesterol Serum or plasma cholesterol in VLDL measurement (mass/volume)Ordered By: Negrita Nixon on 11-04-2022 Cholesterol in VLDL [Mass/Vol] 35 mg/dL 5-40 [facility] [place] Serum or plasma creatinine m easurement (mass/volume)Ordered By: Negrita Nixon on 11-04-2022 Creatinine [Mass/Vol] 0.84 mg/dL 0.55-1.02 [facility] [place] Comment on above: The validity of the calculated GFR & GFRAA in patients over 70 years has not been determined. Clinical correlation is essential. Serum or plasma low density lipoprotein (LDL) cholesterol measurement (mass/volume)Ordered By: Negrita Nixon on 11-04-2022 Cholesterol in LDL [Mass/Vol] 79 mg/dL 0-130 [facility] [place] Serum or plasma urea nitroge n measurement (mass/volume)Ordered By: Negrita Nixon on 11-04-2022 Urea nitrogen [Mass/Vol] 16 mg/dL 7-18 [facility] [place] Thin prep Papanicolaou smear with manual screeningOrdered By: Negritaarpit Nixon on 11-04-2022 Thin prep Papanicolaou smear with manual screening 19 U/L 15-37 [facility] [place] Thin prep Papanicolaou smear with manual screening 5 5-15 [facility] [place] Absolute lymphocyte countOrd ered By: Negrita Nixon on 10-06-2022 Lymphocytes Auto (Unsp spec) [#/Vol] 1.90 10*3/uL 0.83-4.51 [facility] [place] Basophil percentageOrdered B y: Negrita Nixon on 10-06-2022 Basophils/100 WBC (Bld) 0.8 % 0-1 [facility] [place] Eosinophils/100 WBC (Bld) 2.8 % 0-5 [facility] [place] Neutrophils (Bld) [#/Vol] 3.5 10*3/uL 2.0-7.7 [facility] [place] Neutrophils/100 WBC (Bld) 58.5 % 47-70 [facility] [place] WBC (Bld) [#/Vol] 6.0 10*3/uL 4.4-11.0 [facility] Blood erythrocytes count (nu mber/volume)Ordered By: Negrita Nixon on 10-06-2022 RBC (Bld) [#/Vol] 5.49 10*6/uL 4.2-5.4 [facility] Blood hemoglobin measurement (mass/volume)Ordered By: Negrita Nixon on 10-06-2022 Hemoglobin (Bld) [Mass/Vol] 14.2 g/dL 12.0-15.0 [facility] [place] Blood lymphocytes/100 leukoc ytesOrdered By: Nergita Nixon on 10-06-2022 Lymphocytes/100 WBC (Bld) 31.6 % 19-41 [facility] [place] Blood monocytes/100 leukocyt esOrdered By: Negrita Nixon on 10-06-2022 Monocytes/100 WBC (Bld) 6.0 % 0-10 [facility] [place] Blood platelet mean volumeOr dered By: Negrita Nixon on 10-06-2022 Platelet mean volume (Bld) [Entitic vol] 9.2 fL 6.2-12.0 [facility] [place] Determination of erythrocyte mean corpuscular volume (MCV)Ordered By: Negrita Nixon on 10-06-2022 MCV (RBC) [Entitic vol] 85.2 fL 81-99 [facility] [place] Erythrocyte sedimentation ra teOrdered By: Negrita Nixon on 10-06-2022 ESR (Bld) [Velocity] 24 mm/h 0-30 [facility] Hematocrit Auto (Bld) [Volum e fraction]Ordered By: Negrita Nixon on 10-06-2022 Hematocrit (Bld) [Volume fraction] 46.8 % 37-47 [facility] [place] Laboratory - Hematology and Cell countsOrdered By: Negrita Nixon on 10-06-2022 Erythrocyte distribution width (RBC) [Entitic vol] 51.3 fL 35.1-43.9 [facility] [place] Erythrocyte distribution width (RBC) [Ratio] 16.4 % 11.6-14.6 [facility] [place] Immature granulocytes/100 WBC (Bld) 0.300 % 0.0-0.9 [facility] [place] Comment on above: IG% - Immature Granu locytes (promyelocytes, myelocytes and metamyelocytes) > 1% indicates that a LEFT SHIFT is Present. MCH (RBC) [Entitic mass] 25.9 pg 27.0-32.0 [facility] [place] Nucleated RBC/100 WBC (Bld) [Ratio] 0 % 0-5 [facility] [place] MCHC Auto (RBC) [Mass/Vol]Or dered By: Negrita Nixon on 10-06-2022 MCHC (RBC) [Mass/Vol] 30.3 g/dL 32-36 [facility] [place] Platelets bldOrdered By: Wayne Nixon on 10-06-2022 Platelets (Bld) [#/Vol] 412 10*3/uL 150-450 [facility] [place] Serum cyclic citrullinated p eptide IgG antibody assay (units/volume)Ordered By: Negrita Nixon on 10-06-2022 Cyclic citrullinated peptide IgG Qn 4 units 0-19 [facility] [place] Comment on above: Negative <20 Weak po sitive 20 - 39 Moderate positive 40 - 59 Strong positive >59Performed at: [facility] [place] [id number] Director: Antonio Combs PhD, Phone: [phone] Serum or plasma C reactive p rotein measurement (mass/volume)Ordered By: Negrita Nixon on 10-06-2022 CRP [Mass/Vol] 7.34 mg/L 0.0-3.0 [facility] [place] Comment on above: C-Reactive Protein ( CRP) provides useful information for thediagnosis, therapy and monitoring of inflammatory processesand associated diseases. For the evaluation of Relative Riskfor Cardiovascular Disease, a High Sensitivity CRP (HSCRP)should be ordered. Serum rheumatoid factor dete ctionOrdered By: Negrita Nixon on 10-06-2022 Rheumatoid factor Ql (S) < 10.0 IU/mL <15 [facility] [place] No Panel Informationon 07-22 POC SARS CoV-2 Antigen Negative [facility] [place] Basophil percentageOrdered B y: Dr. Thomas on 06-12-2022 Chloride [Moles/Vol] 108 mmol/L 98-107 [facility] Glucose [Mass/Vol] 100 mg/dL 74-106 [facility] Comment on above: Fasting Glucose resu lt from 100 to 125 mg/dL suggests IMPAIRED HOMEOSTASIS per A.D.A. criteria. Potassium [Moles/Vol] 3.7 mmol/L 3.5-5.1 [facility] [place] Sodium [Moles/Vol] 141 mmol/L 136-145 [facility] WBC (Bld) [#/Vol] 6.7 10*3/uL 4.4-11.0 [facility] Blood erythrocytes count (nu mber/volume)Ordered By: Dr. Thomas on 06-12-2022 RBC (Bld) [#/Vol] 5.07 10*6/uL 4.2-5.4 [facility] Blood hemoglobin measurement (mass/volume)Ordered By: Dr. Thomas on 06-12-2022 Hemoglobin (Bld) [Mass/Vol] 13.5 g/dL 12.0-15.0 [facility] [place] Blood platelet mean volumeOr dered By: Dr. Thomas on 06-12-2022 Platelet mean volume (Bld) [Entitic vol] 8.6 fL 6.2-12.0 [facility] [place] Determination of erythrocyte mean corpuscular volume (MCV)Ordered By: Dr. Thomas on 06-12-2022 MCV (RBC) [Entitic vol] 84.0 fL 81-99 [facility] [place] Hematocrit Auto (Bld) [Volum e fraction]Ordered By: Dr. Thomas on 06-12-2022 Hematocrit (Bld) [Volume fraction] 42.6 % 37-47 [facility] [place] INR in Blood by Coagulation assayOrdered By: Dr. Thomas on 06-12-2022 INR Coag (Bld) [Relative time] 1.0 {INR} [facility] [place] Laboratory - Chemistry and C hemistry - challengeOrdered By: Dr. Thomas on 06-12-2022 CK [Catalytic activity/Vol] 112 U/L 26-192 [facility] [place] CO2 [Moles/Vol] 32.0 mmol/L 21.0-32.0 [facility] [place] Magnesium [Mass/Vol] 2.3 mg/dL 1.6-2.6 [facility] Urea nitrogen/Creatinine [Mass ratio] 20.3 mg/mg 10-20 [facility] [place] Laboratory - CoagulationOrde red By: Dr. Thomas on 06-12-2022 aPTT Coag (Bld) [Time] 31.2 s 24.1-36.2 [facility] [place] PT Coag (PPP) [Time] 12.3 s 11.7-14.9 [facility] Laboratory - Hematology and Cell countsOrdered By: Dr. Thomas on 06-12-2022 Erythrocyte distribution width (RBC) [Entitic vol] 45.0 fL 35.1-43.9 [facility] [place] Erythrocyte distribution width (RBC) [Ratio] 14.7 % 11.6-14.6 [facility] [place] MCH (RBC) [Entitic mass] 26.6 pg 27.0-32.0 [facility] [place] MCHC Auto (RBC) [Mass/Vol]Or dered By: Dr. Thomas on 06-12-2022 MCHC (RBC) [Mass/Vol] 31.7 g/dL 32-36 [facility] [place] No Panel InformationOrdered By: Dr. Thomas on 06-12-2022 Estimated Creatinine Clearance Calc 85.94 ml/min [facility] [place] Estimated GFR (MDRD) Amer 99 mL/min >60 [facility] [place] Comment on above: GFR Calc Estimated GFR (MDRD) Non-Af Amer 82 mL/min >60 [facility] [place] Comment on above: Non- GFR Calc Platelets bldOrdered By: Dr. Thomas on 06-12-2022 Platelets (Bld) [#/Vol] 436 10*3/uL 150-450 [facility] [place] Serum or plasma calcium joseph urement (mass/volume)Ordered By: Dr. Thomas on 06-12-2022 Calcium [Mass/Vol] 8.9 mg/dL 8.5-10.1 [facility] Serum or plasma creatinine m easurement (mass/volume)Ordered By: Dr. Thomas on 06-12-2022 Creatinine [Mass/Vol] 0.79 mg/dL 0.55-1.02 [facility] [place] Comment on above: The validity of the calculated GFR & GFRAA in patients over 70 years has not been determined. Clinical correlation is essential. Serum or plasma urea nitroge n measurement (mass/volume)Ordered By: Dr. Thomas on 06-12-2022 Urea nitrogen [Mass/Vol] 16 mg/dL 7-18 [facility] [place] Thin prep Papanicolaou smear with manual screeningOrdered By: Dr. Thomas on 06-12-2022 Thin prep Papanicolaou smear with manual screening 1 5-15 [facility] [place] Basophil percentageon 2021 Chloride [Moles/Vol] 107 mmol/L 98-107 [facility] Work Phone: Glucose [Mass/Vol] 78 mg/dL 74-106 [facility] Work Phone: Potassium [Moles/Vol] 4.3 mmol/L 3.5-5.1 [facility] [place] Work Phone: Sodium [Moles/Vol] 140 mmol/L 136-145 [facility] Work Phone: WBC (Bld) [#/Vol] 7.1 10*3/uL 4.4-11.0 [facility] Work Phone: Blood erythrocytes count (nu mber/volume)on 02-14-2022 RBC (Bld) [#/Vol] 5.31 10*6/uL 4.2-5.4 [facility] Work Phone: Blood hemoglobin measurement (mass/volume)on 02-14-2022 Hemoglobin (Bld) [Mass/Vol] 13.2 g/dL 12.0-15.0 [facility] [place] Work Phone: Blood platelet mean volumeon 02-14-2022 Platelet mean volume (Bld) [Entitic vol] 9.2 fL 6.2-12.0 [facility] [place] Work Phone: Determination of erythrocyte mean corpuscular volume (MCV)on 02-14-2022 MCV (RBC) [Entitic vol] 80.4 fL 81-99 [facility] [place] Work Phone: [phone] Hematocrit Auto (Bld) [Volum e fraction]on 02-14-2022 Hematocrit (Bld) [Volume fraction] 42.7 % 37-47 [facility] [place] Work Phone: Laboratory - Chemistry and C hemistry - challengeon 02-14-2022 CO2 [Moles/Vol] 27.0 mmol/L 21.0-32.0 [facility] [place] Work Phone: Free T4 [Mass/Vol] 1.24 ng/dL 0.76-1.46 [facility] Work Phone: Urea nitrogen/Creatinine [Mass ratio] 14.7 mg/mg 10-20 [facility] [place] Work Phone: Laboratory - Hematology and Cell countson 02-14-2022 Erythrocyte distribution width (RBC) [Entitic vol] 49.8 fL 35.1-43.9 [facility] [place] Work Phone: Erythrocyte distribution width (RBC) [Ratio] 17.2 % 11.6-14.6 [facility] [place] Work Phone: MCH (RBC) [Entitic mass] 24.9 pg 27.0-32.0 [facility] [place] Work Phone: MCHC Auto (RBC) [Mass/Vol]on 02-14-2022 MCHC (RBC) [Mass/Vol] 30.9 g/dL 32-36 [facility] [place] Work Phone: No Panel Informationon 02-14 Estimated GFR (MDRD) Amer 106 mL/min >60 [facility] [place] Work Phone: Comment on above: GFR Calc Estimated GFR (MDRD) Non-Af Amer 87 mL/min >60 [facility] [place] Work Phone: Comment on above: Non- GFR Calc Thyroid Stimulating Hormone (TSH) 2.75 uIU/mL 0.358-3.74 [facility] [place] Work Phone: Vitamin D 25-Hydroxy 48.1 ng/mL [facility] Work Phone: Comment on above: Vitamin D 25(OH) Sta tus Range Deficiency <20 ng/mL (50nmol/L) Insufficiency 20 - 30 ng/mL (50 - 75 nmol/L) Sufficiency 30 - 100 ng/mL (75 - 250 nmol/L) Toxicity >100 ng/mL (>250 nmol/L) Platelets bldon 02-14-2022 Platelets (Bld) [#/Vol] 492 10*3/uL 150-450 [facility] [place] Work Phone: Serum or plasma calcium joseph urement (mass/volume)on 02-14-2022 Calcium [Mass/Vol] 9.2 mg/dL 8.5-10.1 [facility] Work Phone: Serum or plasma creatinine m easurement (mass/volume)on 02-14-2022 Creatinine [Mass/Vol] 0.75 mg/dL 0.55-1.02 [facility] [place] Work Phone: Comment on above: The validity of the calculated GFR & GFRAA in patients over 70 years has not been determined. Clinical correlation is essential. Serum or plasma urea nitroge n measurement (mass/volume)on 02-14-2022 Urea nitrogen [Mass/Vol] 11 mg/dL 7-18 [facility] [place] Work Phone: Thin prep Papanicolaou smear with manual screeningon 02-14-2022 Thin prep Papanicolaou smear with manual screening 6 5-15 [facility] [place] Work Phone: Absolute lymphocyte counton 10-14-2021 Lymphocytes Auto (Unsp spec) [#/Vol] 1.82 10*3/uL 0.83-4.51 [facility] [place] Work Phone: Basophil percentageon 2021 Basophils/100 WBC (Bld) 0.5 % 0-1 [facility] [place] Work Phone: Bilirubin [Mass/Vol] 0.20 mg/dL 0.20-1.00 [facility] Work Phone: Comment on above: For patients on eltr ombopag therapy, use of Dimension [place] TBIL is not recommended. Chloride [Moles/Vol] 111 mmol/L 98-107 [facility] Work Phone: Eosinophils/100 WBC (Bld) 1.6 % 0-5 [facility] [place] Work Phone: Glucose [Mass/Vol] 91 mg/dL 74-106 [facility] Work Phone: Neutrophils (Bld) [#/Vol] 3.1 10*3/uL 2.0-7.7 [facility] [place] Work Phone: Neutrophils/100 WBC (Bld) 55.0 % 47-70 [facility] [place] Work Phone: Potassium [Moles/Vol] 3.6 mmol/L 3.5-5.1 [facility] [place] Work Phone: Protein [Mass/Vol] 7.3 g/dL 6.4-8.2 [facility] Work Phone: Sodium [Moles/Vol] 141 mmol/L 136-145 [facility] Work Phone: WBC (Bld) [#/Vol] 5.6 10*3/uL 4.4-11.0 [facility] Work Phone: [phone] Blood erythrocytes count (nu mber/volume)on 10-14-2021 RBC (Bld) [#/Vol] 3.99 10*6/uL 4.2-5.4 [facility] Work Phone: Blood hemoglobin measurement (mass/volume)on 10-14-2021 Hemoglobin (Bld) [Mass/Vol] 10.8 g/dL 12.0-15.0 [facility] [place] Work Phone: Blood lymphocytes/100 leukoc yteson 10-14-2021 Lymphocytes/100 WBC (Bld) 32.3 % 19-41 [facility] [place] Work Phone: Blood monocytes/100 leukocyt eson 10-14-2021 Monocytes/100 WBC (Bld) 9.9 % 0-10 [facility] [place] Work Phone: Blood platelet mean volumeon 10-14-2021 Platelet mean volume (Bld) [Entitic vol] 8.7 fL 6.2-12.0 [facility] [place] Work Phone: Determination of erythrocyte mean corpuscular volume (MCV)on 10-14-2021 MCV (RBC) [Entitic vol] 89.5 fL 81-99 [facility] [place] Work Phone: Hematocrit Auto (Bld) [Volum e fraction]on 10-14-2021 Hematocrit (Bld) [Volume fraction] 35.7 % 37-47 [facility] [place] Work Phone: Laboratory - Chemistry and C hemistry - challengeon 10-14-2021 ALP [Catalytic activity/Vol] 78 U/L 45-117 [facility] [place] Work Phone: ALT [Catalytic activity/Vol] 24 U/L 13-56 [facility] [place] Work Phone: CO2 [Moles/Vol] 24.0 mmol/L 21.0-32.0 [facility] [place] Work Phone: Globulin (S) [Mass/Vol] 3.9 g/dL 2.2-4.2 [facility] [place] Work Phone: Lipase [Catalytic activity/Vol] 179 U/L 73-393 [facility] [place] Work Phone: Urea nitrogen/Creatinine [Mass ratio] 8.3 mg/mg 10-20 [facility] [place] Work Phone: Laboratory - Hematology and Cell countson 10-14-2021 Erythrocyte distribution width (RBC) [Entitic vol] 51.5 fL 35.1-43.9 [facility] [place] Work Phone: Erythrocyte distribution width (RBC) [Ratio] 15.8 % 11.6-14.6 [facility] [place] Work Phone: Immature granulocytes/100 WBC (Bld) 0.700 % 0.0-0.9 [facility] [place] Work Phone: Comment on above: IG% - Immature Granu locytes (promyelocytes, myelocytes and metamyelocytes) > 1% indicates that a LEFT SHIFT is Present. MCH (RBC) [Entitic mass] 27.1 pg 27.0-32.0 [facility] [place] Work Phone: Nucleated RBC/100 WBC (Bld) [Ratio] 0 % 0-5 [facility] [place] Work Phone: MCHC Auto (RBC) [Mass/Vol]on 10-14-2021 MCHC (RBC) [Mass/Vol] 30.3 g/dL 32-36 [facility] [place] Work Phone: No Panel Informationon 10-14 Estimated Creatinine Clearance Calc 68.18 ml/min [facility] [place] Work Phone: Estimated GFR (MDRD) Amer 79 mL/min >60 [facility] [place] Work Phone: Comment on above: GFR Calc Estimated GFR (MDRD) Non-Af Amer 65 mL/min >60 [facility] [place] Work Phone: Comment on above: Non- GFR Calc Platelets bldon 10-14-2021 Platelets (Bld) [#/Vol] 511 10*3/uL 150-450 [facility] [place] Work Phone: Serum or plasma albumin joseph urement (mass/volume)on 10-14-2021 Albumin [Mass/Vol] 3.4 g/dL 3.2-5.0 [facility] Work Phone: Serum or plasma albumin/glob ulin mass ratioon 10-14-2021 Albumin/Globulin [Mass ratio] 0.9 {ratio} 0.9-2.4 [facility] [place] Work Phone: Serum or plasma calcium joseph urement (mass/volume)on 10-14-2021 Calcium [Mass/Vol] 8.7 mg/dL 8.5-10.1 [facility] Work Phone: Serum or plasma creatinine m easurement (mass/volume)on 10-14-2021 Creatinine [Mass/Vol] 0.96 mg/dL 0.55-1.02 [facility] [place] Work Phone: Comment on above: The validity of the calculated GFR & GFRAA in patients over 70 years has not been determined. Clinical correlation is essential. Serum or plasma urea nitroge n measurement (mass/volume)on 10-14-2021 Urea nitrogen [Mass/Vol] 8 mg/dL 7-18 [facility] [place] Work Phone: Thin prep Papanicolaou smear with manual screeningon 10-14-2021 Thin prep Papanicolaou smear with manual screening 20 U/L 15-37 [facility] [place] Work Phone: Thin prep Papanicolaou smear with manual screening 6 5-15 [facility] [place] Work Phone: Absolute lymphocyte counton 10-04-2021 Lymphocytes Auto (Unsp spec) [#/Vol] 3.67 10*3/uL 0.83-4.51 [facility] [place] Work Phone: Basophil percentageon 2021 Basophils/100 WBC (Bld) 0.6 % 0-1 [facility] [place] Work Phone: Chloride [Moles/Vol] 109 mmol/L 98-107 [facility] Work Phone: Eosinophils/100 WBC (Bld) 2.1 % 0-5 [facility] [place] Work Phone: Glucose [Mass/Vol] 103 mg/dL 74-106 [facility] Work Phone: Comment on above: Fasting Glucose resu lt from 100 to 125 mg/dL suggests IMPAIRED HOMEOSTASIS per A.D.A. criteria. Neutrophils (Bld) [#/Vol] 4.4 10*3/uL 2.0-7.7 [facility] [place] Work Phone: [phone] Neutrophils/100 WBC (Bld) 49.3 % 47-70 [facility] [place] Work Phone: Potassium [Moles/Vol] 4.0 mmol/L 3.5-5.1 [facility] [place] Work Phone: Sodium [Moles/Vol] 138 mmol/L 136-145 [facility] Work Phone: [phone] WBC (Bld) [#/Vol] 8.9 10*3/uL 4.4-11.0 [facility] Work Phone: [phone] Blood erythrocytes count (nu mber/volume)on 10-04-2021 RBC (Bld) [#/Vol] 3.87 10*6/uL 4.2-5.4 [facility] Work Phone: Blood hemoglobin measurement (mass/volume)on 10-04-2021 Hemoglobin (Bld) [Mass/Vol] 9.2 g/dL 12.0-15.0 [facility] [place] Work Phone: Blood lymphocytes/100 leukoc yteson 10-04-2021 Lymphocytes/100 WBC (Bld) 41.4 % 19-41 [facility] [place] Work Phone: Blood monocytes/100 leukocyt eson 10-04-2021 Monocytes/100 WBC (Bld) 6.0 % 0-10 [facility] [place] Work Phone: Blood platelet mean volumeon 10-04-2021 Platelet mean volume (Bld) [Entitic vol] 9.1 fL 6.2-12.0 [facility] [place] Work Phone: [phone] Determination of erythrocyte mean corpuscular volume (MCV)on 10-04-2021 MCV (RBC) [Entitic vol] 86.0 fL 81-99 [facility] [place] Work Phone: Hematocrit Auto (Bld) [Volum e fraction]on 10-04-2021 Hematocrit (Bld) [Volume fraction] 27.8 % 37-47 [facility] [place] Work Phone: Laboratory - Chemistry and C hemistry - challengeon 10-04-2021 CO2 [Moles/Vol] 24.0 mmol/L 21.0-32.0 [facility] [place] Work Phone: Urea nitrogen/Creatinine [Mass ratio] 33.9 mg/mg 10-20 [facility] [place] Work Phone: [phone] Laboratory - Hematology and Cell countson 10-04-2021 Erythrocyte distribution width (RBC) [Entitic vol] 47.6 fL 35.1-43.9 [facility] [place] Work Phone: Erythrocyte distribution width (RBC) [Ratio] 15.2 % 11.6-14.6 [facility] [place] Work Phone: Immature granulocytes/100 WBC (Bld) 0.600 % 0.0-0.9 [facility] [place] Work Phone: Comment on above: IG% - Immature Granu locytes (promyelocytes, myelocytes and metamyelocytes) > 1% indicates that a LEFT SHIFT is Present. MCH (RBC) [Entitic mass] 27.4 pg 27.0-32.0 [facility] [place] Work Phone: Nucleated RBC/100 WBC (Bld) [Ratio] 0 % 0-5 [facility] [place] Work Phone: MCHC Auto (RBC) [Mass/Vol]on 10-04-2021 MCHC (RBC) [Mass/Vol] 31.8 g/dL 32-36 [facility] [place] Work Phone: No Panel Informationon 10-04 Estimated Creatinine Clearance Calc 96.25 ml/min [facility] [place] Work Phone: Estimated GFR (MDRD) Amer 118 mL/min >60 [facility] [place] Work Phone: Comment on above: GFR Calc Estimated GFR (MDRD) Non-Af Amer 98 mL/min >60 [facility] [place] Work Phone: Comment on above: Non- GFR Calc Platelets bldon 10-04-2021 Platelets (Bld) [#/Vol] 437 10*3/uL 150-450 [facility] [place] Work Phone: Serum or plasma calcium joseph urement (mass/volume)on 10-04-2021 Calcium [Mass/Vol] 8.5 mg/dL 8.5-10.1 [facility] Work Phone: Serum or plasma creatinine m easurement (mass/volume)on 10-04-2021 Creatinine [Mass/Vol] 0.68 mg/dL 0.55-1.02 [facility] [place] Work Phone: Comment on above: The validity of the calculated GFR & GFRAA in patients over 70 years has not been determined. Clinical correlation is essential. Serum or plasma urea nitroge n measurement (mass/volume)on 10-04-2021 Urea nitrogen [Mass/Vol] 23 mg/dL 7-18 [facility] [place] Work Phone: Thin prep Papanicolaou smear with manual screeningon 10-04-2021 Thin prep Papanicolaou smear with manual screening 5 5-15 [facility] [place] Work Phone: Absolute lymphocyte counton 10-03-2021 Lymphocytes Auto (Unsp spec) [#/Vol] 3.05 10*3/uL 0.83-4.51 [facility] [place] Work Phone: Basophil percentageon 2021 Basophils/100 WBC (Bld) 0.4 % 0-1 [facility] [place] Work Phone: Bilirubin [Mass/Vol] 0.10 mg/dL 0.20-1.00 [facility] Work Phone: Comment on above: For patients on eltr ombopag therapy, use of Dimension [place] TBIL is not recommended. Chloride [Moles/Vol] 109 mmol/L 98-107 [facility] Work Phone: Eosinophils/100 WBC (Bld) 2.0 % 0-5 [facility] [place] Work Phone: Glucose [Mass/Vol] 104 mg/dL 74-106 [facility] Work Phone: Comment on above: Fasting Glucose resu lt from 100 to 125 mg/dL suggests IMPAIRED HOMEOSTASIS per A.D.A. criteria. Neutrophils (Bld) [#/Vol] 3.3 10*3/uL 2.0-7.7 [facility] [place] Work Phone: [phone] Neutrophils/100 WBC (Bld) 47.5 % 47-70 [facility] [place] Work Phone: Potassium [Moles/Vol] 4.0 mmol/L 3.5-5.1 [facility] [place] Work Phone: Protein [Mass/Vol] 7.1 g/dL 6.4-8.2 [email or web address] r [facility] Work Phone: Sodium [Moles/Vol] 138 mmol/L 136-145 [facility] Work Phone: WBC (Bld) [#/Vol] 6.9 10*3/uL 4.4-11.0 [email or web address] r [facility] Work Phone: Basophil percentage 0-5 SEEN /hpf 0-5 Wo lu [facility] Work Phone: Bilirubin Test strip Ql (U)o n 10-03-2021 Bilirubin Ql (U) Negative Negative [facility] [place] Work Phone: Blood erythrocytes count (nu mber/volume)on 10-03-2021 RBC (Bld) [#/Vol] 4.02 10*6/uL 4.2-5.[address] [facility] Work Phone: Blood hemoglobin measurement (mass/volume)on 10-03-2021 Hemoglobin (Bld) [Mass/Vol] 11.1 g/dL 12.0-15.0 [facility] [place] Work Phone: Blood lymphocytes/100 leukoc yteson 10-03-2021 Lymphocytes/100 WBC (Bld) 44.3 % 19-41 [facility] [place] Work Phone: Blood monocytes/100 leukocyt eson 10-03-2021 Monocytes/100 WBC (Bld) 5.2 % 0-10 [facility] [place] Work Phone: Blood platelet mean volumeon 10-03-2021 Platelet mean volume (Bld) [Entitic vol] 9.0 fL 6.2-12.0 [facility] [place] Work Phone: Determination of erythrocyte mean corpuscular volume (MCV)on 10-03-2021 MCV (RBC) [Entitic vol] 85.8 fL 81-99 [facility] [place] Work Phone: Direct bilirubinon 2 Bilirubin.direct [Mass/Vol] mg/dL 0.00-0.30 [facility] [place] Work Phone: Hematocrit Auto (Bld) [Volum e fraction]on 10-03-2021 Hematocrit (Bld) [Volume fraction] 34.5 % 37-47 [facility] [place] Work Phone: Ketones Test strip Ql (U)on 10-03-2021 Ketones Ql (U) 5 mg/dl Negative [facility] [place] Work Phone: Laboratory - Chemistry and C hemistry - challengeon 10-03-2021 ALP [Catalytic activity/Vol] 67 U/L 45-117 [facility] [place] Work Phone: ALT [Catalytic activity/Vol] 26 U/L 13-56 [facility] [place] Work Phone: CK [Catalytic activity/Vol] 74 U/L 26-192 [facility] [place] Work Phone: CO2 [Moles/Vol] 26.0 mmol/L 21.0-32.0 [facility] [place] Work Phone: Globulin (S) [Mass/Vol] 3.7 g/dL 2.2-4.2 [facility] [place] Work Phone: Lipase [Catalytic activity/Vol] 239 U/L 73-393 [facility] [place] Work Phone: Urea nitrogen/Creatinine [Mass ratio] 30.5 mg/mg 10-20 [facility] [place] Work Phone: Laboratory - Hematology and Cell countson 10-03-2021 Erythrocyte distribution width (RBC) [Entitic vol] 46.5 fL 35.1-43.9 [facility] [place] Work Phone: Erythrocyte distribution width (RBC) [Ratio] 14.7 % 11.6-14.6 [facility] [place] Work Phone: Immature granulocytes/100 WBC (Bld) 0.600 % 0.0-0.9 [facility] [place] Work Phone: Comment on above: IG% - Immature Granu locytes (promyelocytes, myelocytes and metamyelocytes) > 1% indicates that a LEFT SHIFT is Present. MCH (RBC) [Entitic mass] 27.6 pg 27.0-32.0 [facility] [place] Work Phone: Nucleated RBC/100 WBC (Bld) [Ratio] 0 % 0-5 [facility] [place] Work Phone: Lower GI hemoglobin IA Ql (S tl)on 10-03-2021 Stool Occult Blood (OPHELIA) Positive [facility] [place] Work Phone: MCHC Auto (RBC) [Mass/Vol]on 10-03-2021 MCHC (RBC) [Mass/Vol] 32.2 g/dL 32-36 [facility] [place] Work Phone: Mucus LM Ql (Urine sed)on Mucus Ql (Urine sed) 0 SEEN /hpf [facility] Work Phone: Nitrite Test strip Ql (U)on 10-03-2021 Nitrite Ql (U) Negative Negative [facility] [place] Work Phone: No Panel Informationon 10-03 Estimated Creatinine Clearance Calc 87.27 ml/min [facility] [place] Work Phone: Estimated GFR (MDRD) Amer 105 mL/min >60 [facility] [place] Work Phone: Comment on above: GFR Calc Estimated GFR (MDRD) Non-Af Amer 86 mL/min >60 [facility] [place] Work Phone: Comment on above: Non- GFR Calc Platelets bldon 10-03-2021 Platelets (Bld) [#/Vol] 436 10*3/uL 150-450 [facility] [place] Work Phone: Protein Test strip Ql (U)on 10-03-2021 Protein Ql (U) Negative Negative [facility] [place] Work Phone: Serum or plasma albumin joseph urement (mass/volume)on 10-03-2021 Albumin [Mass/Vol] 3.4 g/dL 3.2-5.0 [facility] Work Phone: Serum or plasma calcium joseph urement (mass/volume)on 10-03-2021 Calcium [Mass/Vol] 9.0 mg/dL 8.5-10.1 [facility] Work Phone: Serum or plasma creatinine m easurement (mass/volume)on 10-03-2021 Creatinine [Mass/Vol] 0.75 mg/dL 0.55-1.02 [facility] [place] Work Phone: Comment on above: The validity of the calculated GFR & GFRAA in patients over 70 years has not been determined. Clinical correlation is essential. Serum or plasma urea nitroge n measurement (mass/volume)on 10-03-2021 Urea nitrogen [Mass/Vol] 23 mg/dL 7-18 [facility] [place] Work Phone: Squamous epithelial cells de tection in urine sediment by light microscopyon 10-03-2021 Epithelial cells.squamous LM Ql (Urine sed) 0-5 SEEN /hpf 5-10 [facility] [place] Work Phone: Thin prep Papanicolaou smear with manual screeningon 10-03-2021 Thin prep Papanicolaou smear with manual screening 15 U/L 15-37 [facility] [place] Work Phone: Thin prep Papanicolaou smear with manual screening 3 5-15 [facility] [place] Work Phone: Urine blood detectionon - RBC Ql (U) 10 /ul Negative [facility] [place] Work Phone: RBC Ql (U) 0 SEEN /hpf 0-5 [facility] [place] Work Phone: Urine clarityon 10-03-2021 Clarity (U) Clear Clear [facility] [place] Work Phone: Urine color determinationon 10-03-2021 Color (U) Yellow Yellow [facility] [place] Work Phone: Urine glucose detectionon Glucose Ql (U) Normal mg/dl Normal [facility] [place] Work Phone: Urine leukocyte esterase det ection by dipstickon 10-03-2021 Leukocyte esterase Test strip Ql (U) Negative Negative [facility] [place] Work Phone: Urine pHon 10-03-2021 pH (U) 6.0 [pH] 5.0 - 8.0 [facility] [place] Work Phone: Urine sediment bacteria coun t by microscopy (number/high power field)on 10-03-2021 Bacteria LM.HPF (Urine sed) [#/Area] 0 /[HPF] None Seen [facility] [place] Work Phone: Urine specific gravity measu rementon 10-03-2021 Specific gravity (U) [Rel density] 1.020 1.002-1.030 [facility] [place] Work Phone: Urobilinogen Auto test strip Ql (U)on 10-03-2021 Urobilinogen Ql (U) Normal mg/dl Normal [facility] Work Phone: Laboratory - Microbiology an d Antimicrobial susceptibilityon 10-01-2021 SARS-CoV-2 (COVID-19) RNA KRUNAL+probe Ql (Unsp spec) Not detected [facility] [place] Work Phone: No Panel Informationon 10-01 Influenza Types A,B Rapid (Clinic) Not detected [facility] [place] Work Phone: CYTOLOGYon 11-18-2018 CYTOLOGY ADDITIONAL PROCEDURES PRESENT Specimen #: [id number] Submitting Physician: ADY PHAM SPECIMEN SUBMITTED A: CERVICAL, SCREENING, FLUID FINAL DIAGNOSIS A. CERVICAL, SCREENING, FLUID Satisfactory for interpretation. No endocervical component. Negative for intraepithelial lesion or malignancy. This specimen has been analyzed by the ThinPrep Imaging System, an automated imaging and review system, which assists the laboratory in evaluating cells on ThinPrep Pap tests. Following automated imaging, selected boyd from every slide are reviewed by a play reader. IRMA Mares(ASCP) (Electronic Signature) ADDITIONAL PROCEDURE(S) HUMAN PAPILLOMA VIRUS Date Ordered: 11/19/2018 Date Reported: 11/21/2018 Procedure Results and Interpretation Negative for HPV DNA high risk type 16 by PCR. Negative for HPV DNA high risk type 18 by PCR. Negative for HPV DNA high risk types: 31,33,35,39,45,51,52,56,58, 59,66,68 by PCR. This test was developed and its performance characteristics determined by [facility] Pathology and Laboratory Medicine [place] ([facility]). It has not been cleared or approved by the FDA. -[facility] is regulated under CLIA as qualified to perform high-complexity testing. This test is used for clinical purposes. It should not be regarded as investigational or for research. 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 CLIA Number: [id number] The Pap Smear is a screening test for cervical cancer. False negative results occur with all screening tests, emphasizing the need for rescreening at recommended intervals, and clinical correlation. Normal [facility] Comment on above: Performed By: #### C #### See report for performing lab information. Bacteria identified Anaer cx Nom (Unsp spec) Anaerobic microbial culture No anaerobic bacteria isolated. [facility] [place] Work Phone: Bacteria identified Cx Nom ( Wound) Wound Culture Meth. resistant Stap h. aureus [facility] [place] Work Phone: Wound Culture Presumptive C albicans [facility] [place] Work Phone: Gram stain for investigation of transfusion reaction Microscopic observation Gram stain Nom (Unsp spec) [facility] [place] Work Phone: Lower GI hemoglobin IA Ql (S tl) Stool Occult Blood (OPHELIA) Positive [facility] [place] Work Phone: Vital Signs Date Time Vital Sign Value Performing Clinician Facility 11-27-2024 04:15-0400 Diastolic blood pressure 69 mm[Hg] Negrita Nixon UTILITY ARBORIST-HUMAN RESOURCES ANALYST Work Phone: [facility] 11-27-2024 04:15-0400 Heart rate 69 /min Negritaarpit Nixon UTILITY ARBORIST-HUMAN RESOURCES ANALYST Work Phone: [facility] 11-27-2024 04:15-0400 Respiratory rate 18 /min Negrita Nixon UTILITY ARBORIST-HUMAN RESOURCES ANALYST Work Phone: [facility] 11-27-2024 04:15-0400 SaO2% (BldA) [Mass fraction] 99 % Negrita Nixon UTILITY ARBORIST-HUMAN RESOURCES ANALYST Work Phone: [facility] 11-27-2024 04:15-0400 Systolic blood pressure 117 mm[Hg] Negrita Nixon UTILITY ARBORIST-HUMAN RESOURCES ANALYST Work Phone: [facility] [facility] 11-27-2024 01:35-0400 Body height 173 cm Negrita Nixon UTILITY ARBORIST-HUMAN RESOURCES ANALYST Work Phone: [facility] 11-27-2024 01:35-0400 Body mass index (BMI) [Ratio] 40.92 kg/m2 Negrita Nixon UTILITY ARBORIST-HUMAN RESOURCES ANALYST Work Phone: [facility] 11-27-2024 01:35-0400 Body temperature 97.9 [degF] Negrita Tiffani UTILITY ARBORIST-HUMAN RESOURCES ANALYST Work Phone: [facility] 11-27-2024 01:35-0400 Body weight 122.47 kg Negrita Tiffani UTILITY ARBORIST-HUMAN RESOURCES ANALYST Work Phone: [facility] 05-27-2024 17:46-0500 Body mass index (BMI) [Ratio] 43.46 kg/m2 Josh Miranda APRN.HUMAN RESOURCES ANALYST Work Phone: [facility] 05-27-2024 17:46-0500 Body temperature 97.39 [degF] Josh Miranda APRN.HUMAN RESOURCES ANALYST Work Phone: [facility] 05-27-2024 17:46-0500 Body weight 124 kg Josh Miranda APRN.HUMAN RESOURCES ANALYST Work Phone: [facility] 05-27-2024 17:46-0500 Diastolic blood pressure 87 mm[Hg] Josh Miranda APRN.HUMAN RESOURCES ANALYST Work Phone: [facility] 05-27-2024 17:46-0500 Heart rate 71 /min Josh Miranda APRN.HUMAN RESOURCES ANALYST Work Phone: [facility] 05-27-2024 17:46-0500 Respiratory rate 24 /min Josh Miranda APRN.HUMAN RESOURCES ANALYST Work Phone: [facility] 05-27-2024 17:46-0500 SaO2% (BldA) [Mass fraction] 97 % Josh Miranda APRN.HUMAN RESOURCES ANALYST Work Phone: [facility] 05-27-2024 17:46-0500 Systolic blood pressure 132 mm[Hg] Josh Miranda APRN.HUMAN RESOURCES ANALYST Work Phone: [facility] 08-22-2023 15:54-0500 Body height 173 cm Noreen Montalvo MD Work Phone: [facility] 08-22-2023 15:54-0500 Body mass index (BMI) [Ratio] 40.92 kg/m2 Noreen Montalvo MD Work Phone: [facility] 08-22-2023 15:54-0500 Body temperature 98.01 [degF] Noreen Montalvo MD Work Phone: [facility] 08-22-2023 15:54-0500 Body weight 122.47 kg Noreen Montalvo MD Work Phone: [facility] 08-22-2023 15:54-0500 Diastolic blood pressure 86 mm[Hg] Noreen Montalvo MD Work Phone: [phone](704)[phone] [place] [address] 08-22-2023 15:54-0500 Heart rate 77 /min Noreen Montalvo MD Work Phone: 8(987)700-[address] [place] [address] 08-22-2023 15:54-0500 Respiratory rate 17 /min Noreen Montalvo MD Work Phone: 5(667)[phone] [place] [address] 08-22-2023 15:54-0500 SaO2% (BldA) [Mass fraction] 96 % Noreen Montalvo MD Work Phone: [facility] 08-22-2023 15:54-0500 Systolic blood pressure 140 mm[Hg] Noreen Montalvo MD Work Phone: [facility] 05-14-2023 12:34-0500 Body height 170.18 cm HEAD BUYER TO[employer]AC[employer]-Artis Nixon Work Phone: [facility] [place] 05-14-2023 12:34-0500 Body mass index (BMI) [Ratio] 37.7 kg/m2 HEAD BUYER [employer]AC[employer]-Artis Nixon Work Phone: [facility] [place] 05-14-2023 12:34-0500 Body temperature 98.2 [degF] HEAD BUYER [employer]-Artis Nixon Work Phone: [facility] [place] 05-14-2023 12:34-0500 Body weight 109.31 kg HEAD BUYER [employer]-Artis Nixon Work Phone: [facility] [place] 05-14-2023 12:34-0500 Diastolic blood pressure 89 mm[Hg] HEAD BUYER TOBAC[employer]-C Negrita Tiffani Work Phone: [facility] [place] 05-14-2023 12:34-0500 Heart rate 86 /min HEAD BUYER TOBAC[employer]-C Negrita Tiffani Work Phone: [facility] [place] 05-14-2023 12:34-0500 Respiratory rate 16 /min HEAD BUYER TOBAC[employer]-C Negrita Tiffani Work Phone: [facility] [place] 05-14-2023 12:34-0500 SaO2% (BldA) [Mass fraction] 95 % HEAD BUYER TOBAC[employer]-C Negrita Tiffani Work Phone: [facility] [place] 05-14-2023 12:34-0500 Systolic blood pressure 138 mm[Hg] HEAD BUYER TOBAC[employer]-C Negrita Tiffani Work Phone: [facility] [place] 03-31-2023 00:09-0400 Body height 172.72 cm HEAD BUYER TOBAC[employer]-C Negrita Tiffani Work Phone: [facility] [place] 03-31-2023 00:09-0400 Body temperature 96.4 [degF] HEAD BUYER TOBACCO-C Negrita Tiffani Work Phone: [facility] [place] 03-31-2023 00:09-0400 Diastolic blood pressure 94 mm[Hg] HEAD BUYER TOBACCO-C Negrita Tiffani Work Phone: [facility] [place] 03-31-2023 00:09-0400 Heart rate 79 /min HEAD BUYER TOBAC[employer]-C Negrita Tiffani Work Phone: [facility] [place] 03-31-2023 00:09-0400 Respiratory rate 16 /min HEAD BUYER TOBAC[employer]-C Negrita Tiffani Work Phone: [facility] [place] 03-31-2023 00:09-0400 SaO2% (BldA) [Mass fraction] 100 % HEAD BUYER TOBAC[employer]-C Negrita Tiffani Work Phone: [facility] [place] 03-31-2023 00:09-0400 Systolic blood pressure 152 mm[Hg] HEAD BUYER TOBACCO-C Negrita Tiffani Work Phone: [facility] [place] 03-28-2023 12:03-0400 Body mass index (BMI) [Ratio] 44.1 kg/m2 HEAD BUYER TOBAC[employer]-C Negrita Tiffani Work Phone: [facility] [place] 03-28-2023 12:03-0400 Body temperature 97.7 [degF] HEAD BUYER TOBACCO-C Negrita Tiffani Work Phone: [facility] [place] 03-28-2023 12:03-0400 Body weight 131.54 kg HEAD BUYER TOBACCO-C Negrita Tiffani Work Phone: [facility] [place] 03-28-2023 12:03-0400 Diastolic blood pressure 85 mm[Hg] HEAD BUYER TOBACCO-C Negrita Tiffani Work Phone: [facility] [place] 03-28-2023 12:03-0400 Heart rate 96 /min HEAD BUYER TOBACCO-C Negirta Tiffani Work Phone: [facility] [place] 03-28-2023 12:03-0400 Respiratory rate 14 /min HEAD BUYER TOBACCO-C Negrita Tiffani Work Phone: [facility] [place] 03-28-2023 12:03-0400 SaO2% (BldA) [Mass fraction] 94 % HEAD BUYER TOBACCO-C Negrita Tiffani Work Phone: [facility] [place] 03-28-2023 12:03-0400 Systolic blood pressure 124 mm[Hg] HEAD BUYER TOBACCO-C Negrita Tiffani Work Phone: [facility] [place] 01-20-2023 01:57-0400 Diastolic blood pressure 78 mm[Hg] [facility] 01-20-2023 01:57-0400 Heart rate 87 /min [facility] 01-20-2023 01:57-0400 Respiratory rate 18 /min [facility] 01-20-2023 01:57-0400 SaO2% (BldA) [Mass fraction] 99 % [facility] [place] 01-20-2023 01:57-0400 Systolic blood pressure 149 mm[Hg] [facility] 01-19-2023 22:52-0400 Body height 172.72 cm [facility] 01-19-2023 22:52-0400 Body mass index (BMI) [Ratio] 44 kg/m2 [facility] [place] 01-19-2023 22:52-0400 Body temperature 98 [degF] [facility] 01-19-2023 22:52-0400 Body weight 131.34 kg [facility] 08-20-2022 10:05-0500 Body temperature 97.8 [degF] Dr. Hong Frazier Work Phone: [facility] [place] 08-20-2022 10:05-0500 Diastolic blood pressure 82 mm[Hg] Dr. Hong Frazier Work Phone: [facility] [place] 08-20-2022 10:05-0500 Heart rate 93 /min Dr. Hong Frazier Work Phone: [facility] [place] 08-20-2022 10:05-0500 Respiratory rate 14 /min Dr. Hong Frazier Work Phone: [facility] [place] 08-20-2022 10:05-0500 SaO2% (BldA) [Mass fraction] 97 % Dr. Hong Frazier Work Phone: [facility] [place] 08-20-2022 10:05-0500 Systolic blood pressure 132 mm[Hg] Dr. Hong Frazier Work Phone: [facility] [place] 07-22-2022 11:40-0500 Body temperature 98 [degF] Dr. Hong Frazier Work Phone: [facility] [place] 07-22-2022 11:40-0500 Diastolic blood pressure 88 mm[Hg] Dr. Hong Frazier Work Phone: [facility] [place] 07-22-2022 11:40-0500 Heart rate 92 /min Dr. Hong Frazier Work Phone: [facility] [place] 07-22-2022 11:40-0500 Respiratory rate 16 /min Dr. Hong Frazier Work Phone: [facility] [place] 07-22-2022 11:40-0500 SaO2% (BldA) [Mass fraction] 97 % Dr. Hong Frazier Work Phone: [facility] [place] 07-22-2022 11:40-0500 Systolic blood pressure 140 mm[Hg] Dr. Hong Frazier Work Phone: [facility] [place] 06-19-2022 10:55-0500 Body height 172.[address] Hong Frazier Work Phone: [facility] [place] 06-19-2022 10:55-0500 Body mass index (BMI) [Ratio] 43.7 kg/m2 Dr. Hong Frazier Work Phone: [facility] [place] 06-19-2022 10:55-0500 Body weight 130.[address] Hong Frazier Work Phone: [facility] [place] 06-12-2022 13:04-0500 Body height 172.[address] Hong Frazier Work Phone: [facility] [place] Work Phone: 06-12-2022 13:04-0500 Body mass index (BMI) [Ratio] 45 kg/m2 Dr. Hong Frazier Work Phone: [facility] [place] 06-12-2022 13:04-0500 Body temperature 97.5 [degF] Dr. Hong Frazier Work Phone: [facility] [place] 06-12-2022 13:04-0500 Body weight 134.[address] Hong Frazier Work Phone: [facility] [place] 06-12-2022 13:04-0500 Diastolic blood pressure 73 mm[Hg] Dr. Hong Frazier Work Phone: [facility] [place] 06-12-2022 13:04-0500 Heart rate 76 /min Dr. Hong Frazier Work Phone: [facility] [place] 06-12-2022 13:04-0500 Respiratory rate 16 /min Dr. Hong Frazier Work Phone: [facility] [place] 06-12-2022 13:04-0500 SaO2% (BldA) [Mass fraction] 98 % Dr. Hong Frazier Work Phone: [facility] [place] 06-12-2022 13:04-0500 Systolic blood pressure 128 mm[Hg] Dr. Hong Frazier Work Phone: [facility] [place] 03-13-2022 09:01-0400 Body temperature 97.8 [degF] Dr. Hong Frazier Work Phone: [facility] [place] Work Phone: 03-13-2022 09:01-0400 Diastolic blood pressure 88 mm[Hg] Dr. Hong Frazier Work Phone: [facility] [place] Work Phone: 03-13-2022 09:01-0400 Heart rate 82 /min Dr. Hong Frazier Work Phone: [facility] [place] Work Phone: 03-13-2022 09:01-0400 Respiratory rate 18 /min Dr. Hong Frazier Work Phone: [facility] [place] Work Phone: 03-13-2022 09:01-0400 SaO2% (BldA) [Mass fraction] 98 % Dr. Hong Frazier Work Phone: [facility] [place] Work Phone: 03-13-2022 09:01-0400 Systolic blood pressure 133 mm[Hg] Dr. Hong Frazier Work Phone: [facility] [place] Work Phone: 02-19-2022 12:19-0400 Body temperature 97.7 [degF] Dr. Hong Frazier Work Phone: [facility] [place] Work Phone: 02-19-2022 12:19-0400 Diastolic blood pressure 66 mm[Hg] Dr. Hong Frazier Work Phone: [facility] [place] Work Phone: 02-19-2022 12:19-0400 Heart rate 67 /min Dr. Hong Frazier Work Phone: [facility] [place] Work Phone: 02-19-2022 12:19-0400 Respiratory rate 16 /min Dr. Hong Frazier Work Phone: [facility] [place] Work Phone: 02-19-2022 12:19-0400 SaO2% (BldA) [Mass fraction] 92 % Dr. Hong Frazier Work Phone: [facility] [place] Work Phone: 02-19-2022 12:19-0400 Systolic blood pressure 112 mm[Hg] Dr. Hong Frazier Work Phone: [facility] [place] Work Phone: 02-19-2022 07:23-0400 Body height 172.[address] Hong Frazier Work Phone: [facility] [place] Work Phone: 02-19-2022 07:23-0400 Body weight 129.[address] Hong Frazier Work Phone: [facility] [place] Work Phone: 02-18-2022 08:57-0400 Body mass index (BMI) [Ratio] 43.4 kg/m2 Dr. Hong Frazier Work Phone: [facility] [place] Work Phone: 01-31-2022 12:33-0400 Body temperature 97 [degF] Dr. Hong Frazier Work Phone: [facility] [place] Work Phone: 01-31-2022 12:33-0400 Diastolic blood pressure 84 mm[Hg] Dr. Hong Frazier Work Phone: [facility] [place] Work Phone: 01-31-2022 12:33-0400 Heart rate 104 /min Dr. Hong Frazier Work Phone: [facility] [place] Work Phone: 01-31-2022 12:33-0400 Systolic blood pressure 153 mm[Hg] Dr. Hong Frazier Work Phone: [facility] [place] Work Phone: 01-28-2022 10:27-0400 Body height 170.[address] Hong Frazier Work Phone: [facility] [place] Work Phone: 01-28-2022 10:27-0400 Body mass index (BMI) [Ratio] 44.9 kg/m2 Dr. Hong Frazier Work Phone: [facility] [place] Work Phone: 01-28-2022 10:27-0400 Body weight 129.[address] Hong Frazier Work Phone: [facility] [place] Work Phone: 01-28-2022 10:27-0400 Diastolic blood pressure 84 mm[Hg] Dr. Hong Frazier Work Phone: [facility] [place] Work Phone: 01-28-2022 10:27-0400 Heart rate 81 /min Dr. Hong Frazier Work Phone: [facility] [place] Work Phone: 01-28-2022 10:27-0400 Respiratory rate 18 /min Dr. Hong Frazier Work Phone: [facility] [place] Work Phone: 01-28-2022 10:27-0400 SaO2% (BldA) [Mass fraction] 96 % Dr. Hong Frazier Work Phone: [facility] [place] Work Phone: 01-28-2022 10:27-0400 Systolic blood pressure 128 mm[Hg] Dr. Hong Frazier Work Phone: [facility] [place] Work Phone: 01-13-2022 00:35-0400 Respiratory rate 18 /min Dr. Hong Frazier Work Phone: [facility] [place] Work Phone: 01-05-2022 00:13-0400 Respiratory rate 16 /min Dr. Hong Frazier Work Phone: [facility] [place] Work Phone: 01-04-2022 23:30-0400 Body height 172.[address] Hong Frazier Work Phone: [facility] [place] Work Phone: 01-04-2022 23:30-0400 Body mass index (BMI) [Ratio] 42.5 kg/m2 Dr. Hong Frazier Work Phone: [facility] [place] Work Phone: 01-04-2022 23:30-0400 Body temperature 96.3 [degF] Dr. Hong Frazier Work Phone: [facility] [place] Work Phone: 01-04-2022 23:30-0400 Body weight 126.[address] Hong Frazier Work Phone: [facility] [place] Work Phone: 01-04-2022 23:30-0400 Diastolic blood pressure 95 mm[Hg] Dr. Hong Frazier Work Phone: [facility] [place] Work Phone: 01-04-2022 23:30-0400 Heart rate 95 /min Dr. Hong Frazier Work Phone: [facility] [place] Work Phone: 01-04-2022 23:30-0400 Systolic blood pressure 158 mm[Hg] Dr. Hong Frazier Work Phone: [facility] [place] Work Phone: 12-27-2021 08:35-0400 Body temperature 97.1 [degF] Dr. Hong Frazier Work Phone: [facility] [place] Work Phone: 12-27-2021 08:35-0400 Diastolic blood pressure 85 mm[Hg] Dr. Hong Frazier Work Phone: [facility] [place] Work Phone: 12-27-2021 08:35-0400 Heart rate 89 /min Dr. Hong Frazier Work Phone: [facility] [place] Work Phone: 12-27-2021 08:35-0400 Respiratory rate 18 /min Dr. Hong Frazier Work Phone: [facility] [place] Work Phone: 12-27-2021 08:35-0400 Systolic blood pressure 144 mm[Hg] Dr. Hong Frazier Work Phone: [facility] [place] Work Phone: 12-20-2021 09:46-0400 Body temperature 97 [degF] Dr. Hong Frazier Work Phone: [facility] [place] Work Phone: 12-20-2021 09:46-0400 Diastolic blood pressure 87 mm[Hg] Dr. Hong Frazier Work Phone: [facility] [place] Work Phone: 12-20-2021 09:46-0400 Heart rate 81 /min Dr. Hong Frazier Work Phone: [facility] [place] Work Phone: 12-20-2021 09:46-0400 Respiratory rate 18 /min Dr. Hong Frazier Work Phone: [facility] [place] Work Phone: 12-20-2021 09:46-0400 Systolic blood pressure 139 mm[Hg] Dr. Hong Frazier Work Phone: [facility] [place] Work Phone: 12-06-2021 11:18-0400 Body temperature 97.8 [degF] Dr. Hong Frazier Work Phone: [facility] [place] Work Phone: 12-06-2021 11:18-0400 Diastolic blood pressure 77 mm[Hg] Dr. Hong Frazier Work Phone: [facility] [place] Work Phone: 12-06-2021 11:18-0400 Heart rate 80 /min Dr. Hong Frazier Work Phone: [facility] [place] Work Phone: 12-06-2021 11:18-0400 Respiratory rate 20 /min Dr. Hong Frazier Work Phone: [facility] [place] Work Phone: 12-06-2021 11:18-0400 Systolic blood pressure 129 mm[Hg] Dr. Hong Frazier Work Phone: [facility] [place] Work Phone: 12-01-2021 09:14-0400 Body temperature 97.88 [degF] VIRIDIANA REICHFIELD DO [facility] 12-01-2021 09:14-0400 Diastolic blood pressure 97 mm[Hg] VIRIDIANA REICHFIELD DO [facility] 12-01-2021 09:14-0400 Heart rate 105 /min VIRIDIANA REICHFIELD DO [facility] 12-01-2021 09:14-0400 Respiratory rate 20 /min VIRIDIANA REICHFIELD DO [facility] 12-01-2021 09:14-0400 Systolic blood pressure 139 mm[Hg] VIRIDIANA REICHFIELD DO [facility] 10-15-2021 00:54-0400 Heart rate 78 /min Dr. Hong Frazier Work Phone: [facility] [place] Work Phone: 10-15-2021 00:54-0400 Respiratory rate 18 /min Dr. Hong Frazier Work Phone: [facility] [place] Work Phone: 10-15-2021 00:54-0400 SaO2% (BldA) [Mass fraction] 96 % Dr. Hong Frazier Work Phone: [facility] [place] Work Phone: 10-14-2021 22:51-0400 Body height 170.[address] Hong Frazier Work Phone: [facility] [place] Work Phone: 10-14-2021 22:51-0400 Body mass index (BMI) [Ratio] 43 kg/m2 Dr. Hong Frazier Work Phone: [facility] [place] Work Phone: 10-14-2021 22:51-0400 Body temperature 96.9 [degF] Dr. Hong Frazier Work Phone: [facility] [place] Work Phone: 10-14-2021 22:51-0400 Body weight 124.[address] Hong Frazier Work Phone: [facility] [place] Work Phone: 10-14-2021 22:51-0400 Diastolic blood pressure 101 mm[Hg] Dr. Hong Frazier Work Phone: [facility] [place] Work Phone: 10-14-2021 22:51-0400 Systolic blood pressure 166 mm[Hg] Dr. Hong Frazier Work Phone: [facility] [place] Work Phone: 10-05-2021 11:25-0400 Body temperature 98.3 [degF] Dr. Hong Frazier Work Phone: [facility] [place] Work Phone: 10-05-2021 11:25-0400 Diastolic blood pressure 61 mm[Hg] Dr. Hong Frazier Work Phone: [facility] [place] Work Phone: 10-05-2021 11:25-0400 Heart rate 81 /min Dr. Hong Frazier Work Phone: [facility] [place] Work Phone: 10-05-2021 11:25-0400 Respiratory rate 16 /min Dr. Hong Frazier Work Phone: [facility] [place] Work Phone: 10-05-2021 11:25-0400 SaO2% (BldA) [Mass fraction] 97 % Dr. Hong Frazier Work Phone: [facility] [place] Work Phone: 10-05-2021 11:25-0400 Systolic blood pressure 106 mm[Hg] Dr. Hong Frazier Work Phone: [facility] [place] Work Phone: 10-04-2021 15:56-0400 Body height 170.[address] Hong Frazier Work Phone: [facility] [place] Work Phone: 10-04-2021 15:56-0400 Body mass index (BMI) [Ratio] 43.2 kg/m2 Dr. Hong Frazier Work Phone: [facility] [place] Work Phone: 10-04-2021 15:56-0400 Body weight 125.[address] Hong Frazier Work Phone: [facility] [place] Work Phone: 10-03-2021 23:18-0400 Body temperature 98.2 [degF] Dr. Hong Frazier Work Phone: [facility] [place] Work Phone: 10-03-2021 23:18-0400 Diastolic blood pressure 78 mm[Hg] Dr. Hong Frazier Work Phone: [facility] [place] Work Phone: 10-03-2021 23:18-0400 Heart rate 102 /min Dr. Hong Frazier Work Phone: [facility] [place] Work Phone: 10-03-2021 23:18-0400 Respiratory rate 16 /min Dr. Hong Frazier Work Phone: [facility] [place] Work Phone: 10-03-2021 23:18-0400 SaO2% (BldA) [Mass fraction] 98 % Dr. Hong Frazier Work Phone: [facility] [place] Work Phone: 10-03-2021 23:18-0400 Systolic blood pressure 120 mm[Hg] Dr. Hong Frazier Work Phone: [facility] [place] Work Phone: 10-03-2021 19:19-0400 Body height 170.[address] Hong Frazier Work Phone: [facility] [place] Work Phone: 10-03-2021 19:19-0400 Body mass index (BMI) [Ratio] 43.2 kg/m2 Dr. Hong Frazier Work Phone: [facility] [place] Work Phone: 10-03-2021 19:19-0400 Body weight 125.[address] Hong Frazier Work Phone: [facility] [place] Work Phone: 10-01-2021 10:43-0400 Body temperature 97.6 [degF] Dr. Hong Frazier Work Phone: [facility] [place] Work Phone: 10-01-2021 10:43-0400 Diastolic blood pressure 104 mm[Hg] Dr. Hong Frazier Work Phone: [facility] [place] Work Phone: 10-01-2021 10:43-0400 Heart rate 125 /min Dr. Hong Frazier Work Phone: [facility] [place] Work Phone: 10-01-2021 10:43-0400 Respiratory rate 18 /min Dr. Hong Frazier Work Phone: [facility] [place] Work Phone: 10-01-2021 10:43-0400 SaO2% (BldA) [Mass fraction] 99 % Dr. Hong Frazier Work Phone: [facility] [place] Work Phone: 10-01-2021 10:43-0400 Systolic blood pressure 160 mm[Hg] Dr. Hong Frazier Work Phone: [facility] [place] Work Phone: 10-01-2021 10:43-0400 Body temperature 97.6 [degF] Dr. Hong Frazier Work Phone: [facility] [place] Work Phone: 10-01-2021 10:43-0400 Diastolic blood pressure 104 mm[Hg] Dr. Hong Frazier Work Phone: [facility] [place] Work Phone: 10-01-2021 10:43-0400 Heart rate 125 /min Dr. Hong Frazier Work Phone: [facility] [place] Work Phone: 10-01-2021 10:43-0400 Respiratory rate 18 /min Dr. Hong Frazier Work Phone: [facility] [place] Work Phone: 10-01-2021 10:43-0400 SaO2% (BldA) [Mass fraction] 99 % Dr. Hong Frazier Work Phone: [facility] [place] Work Phone: 10-01-2021 10:43-0400 Systolic blood pressure 160 mm[Hg] Dr. Hong Frazier Work Phone: [facility] [place] Work Phone: 06-13-2021 02:48-0500 Body mass index (BMI) [Ratio] 41.9 kg/m2 Dr. Hong Frazier Work Phone: [facility] [place] Work Phone: 06-13-2021 02:48-0500 Body temperature 96.5 [degF] Dr. Hong Frazier Work Phone: [facility] [place] Work Phone: 06-13-2021 02:48-0500 Body weight 125.[address] Hong Frazier Work Phone: [facility] [place] Work Phone: 06-13-2021 02:48-0500 Diastolic blood pressure 86 mm[Hg] Dr. Hong Frazier Work Phone: [facility] [place] Work Phone: 06-13-2021 02:48-0500 Heart rate 79 /min Dr. Hong Frazier Work Phone: [facility] [place] Work Phone: 06-13-2021 02:48-0500 Respiratory rate 18 /min Dr. Hong Frazier Work Phone: [facility] [place] Work Phone: 06-13-2021 02:48-0500 SaO2% (BldA) [Mass fraction] 98 % Dr. Hong Frazier Work Phone: [facility] [place] Work Phone: 06-13-2021 02:48-0500 Systolic blood pressure 146 mm[Hg] Dr. Hong Frazier Work Phone: [facility] [place] Work Phone: Encounters Encounter Date Encounter Type Care Provider Facility Start: 12-13-2024 [facility] Facility:[facility] Start: 12-01-2024 [facility] Facility:[facility] Start: 11-27-2024 End: 11-27-2024 Emergency department patient visit NEGRITA NIXON [facility] Emergency Medicine Comment on above: Pyogenic granuloma ( Primary Dx) Start: 11-03-2024 End: 11-03-2024 ambulatory Desirae Richards Facility:[facility] Start: 10-27-2024 End: 10-27-2024 ambulatory Negrita Nixon Facility:[facility] Start: 05-27-2024 End: 05-27-2024 ambulatory [facility] Facility:[facility] Start: 05-27-2024 End: 05-27-2024 Patient encounter procedure Josh Miranda APRN.[facility] Work Phone: [facility] Comment on above: Bilateral impacted c erumen (Primary Dx); Acute otitis media, right; Sinus congestion; Acute cough Start: 04-14-2024 ambulatory [facility] Start: 03-30-2024 End: 03-31-2024 ambulatory [facility] Facility:[facility] [place] Start: 03-25-2024 ambulatory [facility] Start: 03-25-2024 End: 03-25-2024 ambulatory [facility] Facility:[facility] [place] Start: 01-14-2024 End: 01-14-2024 ambulatory [facility] Facility:[facility] Start: 12-31-2023 ambulatory [facility] Facility:[facility] Start: 08-22-2023 End: 08-22-2023 Emergency department patient visit Noreen Montalvo MD Work Phone: [facility] Emergency Medicine Comment on above: 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 (Primary Dx); Laceration of right ankle, initial encounter Start: 05-14-2023 End: 05-14-2023 Patient encounter procedure [employer] Negrita Nixon Work Phone: [facility] Work Phone: Start: 03-31-2023 End: 03-31-2023 Emergency department patient visit [employer]-Artis Nixon Work Phone: [facility] [place]-Emergency Department Work Phone: Start: 03-28-2023 End: 03-28-2023 Patient encounter procedure [employer]-C Negrita Nixon Work Phone: [facility] Work Phone: Start: 03-23-2023 Non-patient / Non-visit [employer] Kiera Nixon Work Phone: [facility] Start: 03-23-2023 End: 03-23-2023 ambulatory [employer]C Negrita Nixon Work Phone: [facility] [place] Work Phone: Start: 03-23-2023 End: 03-23-2023 Patient encounter procedure [employer] TOBAC[employer]-C Negrita Nixon Work Phone: [facility] [place]-Cardiovascula r Services Work Phone: Start: 02-06-2023 Registered Recurring [employer]-C Jaimee Nixon Work Phone: [facility] [place]-Physical Therapy Work Phone: Start: 01-19-2023 End: 01-20-2023 Emergency department patient visit [facility] [place]-Emergency Department Work Phone: Start: 11-04-2022 End: 11-04-[address] Hong Frazier Work Phone: [facility] [place] Work Phone: Start: 11-04-2022 End: 11-04-[address] Hong Frazier Work Phone: [facility] Start: 10-06-2022 End: 10-06-[address] Hong Frazier Work Phone: [facility] Start: 08-20-2022 End: 08-20-[address] [facility] Start: 07-22-2022 End: 07-22-[address] Hong Frazier Work Phone: [facility] [place] Start: 07-14-2022 End: 07-14-[address] Hong Frazier Work Phone: [facility] [place] Work Phone: Start: 07-14-2022 End: 07-14-[address] Hong Frazier Work Phone: [facility] [place]-Physical Therapy Start: 06-19-2022 End: 06-19-[address] Hong Frazier Work Phone: [facility] Orthopaedic Specia Start: 06-12-2022 Non-patient / Non-visit Dr. Jasvir Frazier Work Phone: [facility] Start: 06-12-2022 End: 06-12-2022 Emergency department patient visit Dr. Hong Frazier Work Phone: [facility] [place]-Emergency Department Start: 03-13-2022 End: 03-13-[address] Hong Frazier Work Phone: [facility] Vascular Surgery Start: 02-19-2022 Non-patient / Non-visit Dr. Jasvir Frazier Work Phone: [facility] Start: 02-19-2022 End: 02-19-2022 Admission to same day surgery center Dr. Hong Frazier Work Phone: [facility] [place]-Surgical Day Care Start: 02-19-2022 End: 02-19-[address] Hong Frazier Work Phone: [facility] [place] Work Phone: Start: 01-31-2022 End: 01-31-[address] Hong [facility] Start: 01-28-2022 End: 01-28-[address] Hong Frazier Work Phone: [facility] Vascular Surgery Start: 01-10-2022 End: 01-10-[address] [facility] Start: 01-04-2022 End: 01-05-2022 Emergency department patient visit Dr. Hong Frazier Work Phone: [facility] [place]-Emergency Department Start: 12-27-2021 End: 01-12-[address] Hong [facility] Start: 12-27-[address] Hong Frazier [facility] [place] Start: 12-20-[address] Hong Frazier [facility] Start: 12-10-2021 End: 12-12-[address] Hong Frazier [facility] Start: 12-01-2021 End: 12-01-2021 Emergency department patient visit VIRIDIANA HANEY [facility] Start: 10-14-2021 End: 10-15-2021 Emergency department patient visit Dr. Hong Frazier Work Phone: [facility] [place]-Emergency Department Start: 10-05-2021 Non-patient / Non-visit Dr. Jasvir Frazier Work Phone: [facility] Inpatient Physicians Start: 10-04-2021 Non-patient / Non-visit Dr. Jasvir Frazier Work Phone: [facility] Start: 10-04-2021 Non-patient / Non-visit Dr. Jasvir Frazier Work Phone: [facility] Inpatient Physicians Start: 10-03-2021 Non-patient / Non-visit Dr. Jasvir Frazier Work Phone: [facility] Inpatient Physicians Start: 10-03-2021 End: 10-05-2021 Evaluation and management of inpatient Dr. Hong Frazier Work Phone: [facility] [place]-Medical Surgical 3 Start: 10-01-2021 End: 10-01-[address] Hong Frazier Work Phone: [facility] [place] Start: 07-29-[address] Hong Frazier Work Phone: [facility] [place]-Physical Therapy Start: 06-27-2021 End: 06-27-[address] Hong Frazier Work Phone: [facility] [place]-Outpatient Breast Imaging Start: 06-13-2021 End: 06-13-2021 Emergency department patient visit Dr. Hong Frazier Work Phone: [facility] [place]-Emergency Department Start: 07-07-2017 Patient encounter status Aron jono Miranda APRN.CNP Work Phone: [facility] Procedures Date Procedure Procedure Detail Performing Clinician Start: 08-22-2023 ED LACERATION REPAIR Kayla Romo DO Work Phone: Start: 01-20-2023 CT cervical spine without contrast Start: 06-12-2022 Plain x-ray of pelvis and lower extremity Dr. Hong Frazier Work Phone: Start: 10-04-2021 End: 10-04-[address] Hong Frazier Work Phone: Start: 10-04-[address] Hong hagan Work Phone: Start: 10-03-2021 Measurement of occult blood in stool specimen using immunoassay Dr. Hong Frazier Work Phone: Start: 06-27-[address] Hong Frazier Work Phone: Start: 07-14-2017 Lipid 1996 panel - Serum or Plasma Aron Miranda WANG.HUMAN RESOURCES ANALYST Work Phone: Start: 10-21-2016 Colonoscopy Josh Jonh PIÑA.HUMAN RESOURCES ANALYST Work Phone: Start: 2015 Laparoscopic cholecystectomy VIRIDIANA RODRIGUEZ DO Start: 11-13-2006 section VIRIDIANA HANEY DO Anaerobic microbial culture Dr. Hong Frazier Work Phone: Colonoscopy VIRIDIANA RAMIREZ D DO Comment on above: approx [phone], [facility], dr. mancia Investigation of tra nsfusion reaction Dr. Hong Frazier Work Phone: Measurement of occul t blood in stool specimen using immunoassay Dr. Hong Frazier Work Phone: Microbial culture, routine D kerri Frazier Work Phone: Viral antigen assay Dr. Javier Frazier Work Phone: Plan of Treatment Date Care Activity Detail Author Start: 07-07-2027 DTaP/Tdap/Td Vaccine s (2 - Td or Tdap) DTaP/Tdap/Td Vaccines (2 - Td or Tdap) [facility] Start: 07-07-2027 Urine microalbumin profile DTaP,Tdap,Td Vaccine (2 - Td or Tdap) [facility] Start: 10-21-2026 Screening for malign ant neoplasm of colon [facility] Start: 02-13-2025 Influenza vaccination Influenz a Vaccine (Season Ended) [facility] Start: 02-14-2024 Covid-19 Vaccine ( season) Covid-19 Vaccine ( season) [facility] Start: 02-14-2024 Influenza vaccination Influenza Vacc ine (#1) [facility] Start: 02-13-2023 COVID-19 Vaccine ( season) COVID-19 Vaccine ( season) [facility] Start: 02-13-2023 Influenza vaccination Influenza Vacc ine (#1) [facility] Start: 07-14-2022 Lipid panel Lipid Screening [facility] Start: 06-23-2022 Patient referral [facility] Work Phone: Start: 06-19-2022 Patient referral [facility] Work Phone: Start: 02-19-2022 Anes venous/lymphati c nos ther ivntl rad nos ANES THER INTERVEN RAD VEIN [facility] [place] Work Phone: Start: 02-19-2022 Venography extremity bilateral rs&i VEIN X-RAY ARMS/LEGS [facility] [place] Work Phone: Start: 02-19-2022 Bedrest [facility] [place] Work Phone: Start: 02-19-2022 Notification of physician [facility] [place] Work Phone: Start: 02-19-2022 Patient discharge [facility] Work Phone: Start: 02-19-2022 Provision of activit y privileges [facility] [place] Work Phone: Start: 02-19-2022 Scheduling [facility] [place] Work Phone: Start: 02-19-2022 Taking patient vital signs [facility] [place] Work Phone: Start: 02-19-2022 Vascular disease ris k assessment [facility] [place] Work Phone: Start: 02-19-2022 [facility] [place] Work Phone: Start: 02-19-2022 Implantation to cardiovascular system Insertion, Vascular Port (Left) [facility] [place] Work Phone: Start: 12-27-2021 Application rigid to margo contact leg cast APPLY RIGID LEG CAST [facility] [place] Work Phone: Start: 10-05-2021 Patient discharge [facility] Work Phone: Start: 10-04-2021 Following clinical pathway protocol [facility] [place] Work Phone: Start: 10-04-2021 Ambulation without limitation [facility] [place] Work Phone: Start: 10-04-2021 Application of intermittent pneumatic compression device [facility] [place] Work Phone: Start: 10-04-2021 Assessment of risk o f venous thromboembolism [facility] [place] Work Phone: Start: 10-04-2021 Insertion of cathete r into peripheral vein [facility] [place] Work Phone: Start: 10-04-2021 Providing care accor ding to standard [facility] [place] Work Phone: Start: 10-04-2021 Referral to gastroenterology service [facility] [place] Work Phone: Start: 10-04-2021 [facility] [place] Work Phone: Start: 10-03-2021 Admission procedure [facility] Work Phone: Start: 08-12-2021 Pneumococcal vaccination Pneum ococcal Vaccine (1 of 1 - PCV) [facility] Start: 08-12-2021 Shingrix Vaccine (1 of 2) Gregg grix Vaccine (1 of 2) [facility] Start: 08-12-2021 Zoster Vaccines (1 of 2) Zoster Vacc jalil (1 of 2) [facility] Start: 07-14-2020 Diabetes Screening Diabetes Screenin g [facility] Start: 10-22-2019 Screening for malign ant neoplasm of colon [facility] Start: 01-12-2018 Screening for malign ant neoplasm of cervix Cervical Cancer Screening [facility] Start: 08-12-2016 Screening for malign ant neoplasm of colon [facility] Start: 05-11-2016 Screening for malign ant neoplasm of breast Mammogram Screening [facility] Start: 2011 Screening for malign ant neoplasm of breast Mammogram [facility] Start: 08-12-1992 Screening for malign ant neoplasm of cervix [facility] Start: 08-12-1989 Annual PCP Team Power Plant Technician rylie Disease Visit Annual PCP Team Chronic Disease Visit [facility] Start: 08-12-1989 Anxiety Screening Anxiety Screening [facility] Start: 08-12-1989 Depression Screening Depression Scre ening [facility] Start: 08-12-1989 Diabetes mellitus screening Diabetes Screening [facility] Start: 08-12-1989 Hepatitis C screening Hepatitis C Sc reening [facility] Start: 08-12-1989 HIV screening [facility] Screening [facility] Start: 08-12-1972 MMR Vaccines (1 of 1 - Standard series) MMR Vaccines (1 of 1 - Standard series) [facility] Start: 1971 HIV screening HIV Screening [facility] Start: 1971 Lipid panel Lipid Panel [facility] Start: 1971 Screening for malign ant neoplasm of colon [facility] Start: 1971 Yearly Adult Physical Yearly Adult P hysical [facility] Doppler ultrasonogra phy of aorta [facility] [place] Work Phone: End: 11-27-2024 Hepatitis B virus surface Ag [Presence] in Serum or Plasma by Immunoassay [facility] Work Phone: Comment on above: Once (Lab) for 1 Occ urrences starting 11/27/2024 until 11/27/2024 End: 11-27-2024 Hepatitis C virus Ab [Presence] in Serum [facility] Work Phone: Comment on above: STAT (Lab) for 1 Occ urrences starting 11/27/2024 until 11/27/2024 End: 11-27-2024 HIV 1+2 Ab+HIV1 p24 Ag [Presence] in Serum or Plasma by Immunoassay [facility] Service Area Work Phone: Comment on above: Once (Lab) for 1 Occ urrences starting 11/27/2024 until 11/27/2024 Laceration Repair Laceration Rep air Procedures Routine Laceration of right ankle, initial encounter 08/22/2023 3:38 PM EST [facility] Service Area Work Phone: Patient Education [facility] [place] Work Phone: Patient referral [facility] Work Phone: Removal impacted cer umen instrumentation unilat REMOVAL OF IMPACTED CERUMEN - INSTRUMENTATION Procedures Routine Bilateral impacted cerumen Ordered: 05/27/2024 [facility] Work Phone: Comment on above: Ordered: 05/27/2024 Immunizations Immunization Date Immunization Notes Care Provider Fa cili 08-22-2023 diphtheria, tetanus toxoids and acellular pertussis vaccine, unspecified formulation Noreen Montalvo MD Work Phone: [facility] Work Phone: 02-15-2021 Covid (Jase & Jase) Dr. Hong Frazier Work Phone: [facility] [place] 02-09-2020 hepatitis B vaccine, adult dosage Dr. Hong Frazier Work Phone: [facility] [place] 02-09-2020 hepatitis B vaccine, unspecified formulation Dr. Hong Frazier Work Phone: [facility] [place] Work Phone: 08-31-2019 hepatitis B vaccine, adult dosage Dr. Hong Frazier Work Phone: [facility] [place] 08-31-2019 hepatitis B vaccine, unspecified formulation Dr. Hong Frazier Work Phone: [facility] [place] Work Phone: 07-31-2019 hepatitis B vaccine, adult dosage Dr. Hong Frazier Work Phone: [facility] [place] 07-31-2019 hepatitis B vaccine, unspecified formulation Dr. Hong Frazier Work Phone: [facility] [place] Work Phone: 07-07-2017 tetanus toxoid, reduced diphtheria toxoid, and acellular pertussis vaccine, adsorbed Josh Miranda APRN.HUMAN RESOURCES ANALYST Work Phone: [facility] 07-07-2017 influenza virus vaccine, unspecified formulation Josh Miranda APRN.HUMAN RESOURCES ANALYST Work Phone: [facility] 03-15-[address] Hong Frazier Work Phone: [facility] [place] 03-15-2007 influenza virus vaccine, unspecified formulation Noreen Montalvo MD Work Phone: [facility] Work Phone: Payers Date Payer Category Payer Self-pay [id number] 2023 Managed Care (Private) [employer] [id number] 2023 Unknown [id number] 2023 Unknown [id number] 2020 Unknown [id number] 1971 Unknown [id number] Private Health Insurance [facility] [id number] Unknown [id number] Unknown [id number] Unknown 0 [id number] Unknown [id number] Unknown [id number] Unknown [id number] Unknown [id number] Unknown [id number] Unknown [id number] Unknown [id number] Unknown [id number] Unknown [id number] Unknown [id number] Unknown [id number] Social History Date Type Detail Facility [facility] Work Phone: Start: 10-03-2021 End: 05-14-2023 Tobacco smoking status NHIS Unknown if ever smoked [facility] [place] Start: 11-02-2020 None [facility] Start: 05-03-2013 With Family [facility] [place] Start: 11-02-2020 Cigarettes [facility] [place] Start: 1970 Sex Assigned At Female [facility] Work Phone: Start: 05-27-2024 Tobacco smoking status Ex-smoker (fi nding) [facility] Start: 1970 Sex Assigned At Not on file [facility] Work Phone: Start: 05-20-2020 End: 05-27-2024 Gender identity Not on file [facility] [facility] Work Phone: Start: 09-18-1997 End: 09-18-2012 History of tobacco use Current smoker [facility] Start: 09-18-1997 End: 09-18-2012 History of tobacco use Cigarette Smoker [facility] Start: 05-20-2020 End: 05-27-2024 Cigarettes smoked current (pack per day) - Reported 0.5 [facility] Start: 05-27-2024 Tobacco use and exposure Smokeless tobacco non-user [facility] Start: 05-27-2024 Alcoholic beverage intake Current non-drinker of alcohol (finding) [facility] National Score (1-10 0), lower number is lower risk Not on file [facility] Medical Equipment Procedure Code Equipment Code Equipment Origin al Text Equipment Identifier Dates ([id number]) Bare-metal tracheal/bronchial/v ascular stent ()[id number] FDA Start: 02-19-2022 Goals Date Patient Goal Desired Activity /State Functional Status Date Assessment Result Facility 11-27-2024 Fowler - suicide severity rating scale screener - recent [C-SSRS] [facility] Work Phone: 12-01-2021 Functional Status ID band on, Call device within reach, Bed in low position, Wheels locked, Upper/Half-Length side-rails up, Phone within reach, personal items within reach, Assistive devices within reach, Toileting device within reach, Bedside Cart Locked, Visitor at bedside, Safety level maintained [facility] 10-05-2021 Functional status Bedside Commode [facility] Work Phone: Mental Status Date Assessment Result Facility 02-19-2022 Cognitive function Level Of Cons ciousness Restless [facility] Work Phone: 12-01-2021 Mental Status Oriented x [facility] 10-05-2021 Cognitive function Voice/Name [facility] Work Phone: Clinical Notes 12-01-2021 to 11-27-2024 Discharge InstructionsTanisha Nur RN - 11/27/2024 1:32 AM Renuka Nur RN - 11/27/2024 1:32 AM Jeannette Sullivan MA - 05/27/2024 6:17 PM Josh Mathew APRN.CNP - 05/27/2024 6:08 PM EST Note Date & Type Note Facility 11-27-2024 Hospital Discharge instructions Gage Echavarria PA-C - 11/27/2024 2:35 AM EDT You have been seen at a [facility] facility. It was found that you have a pyogenic granuloma. You had electrocautery used to stop the bleeding from your wound. Please keep your dressing in place for the next 24 to 48 hours. Please follow-up with your primary care provider in the next 1 to 2 days for further evaluation and routine follow-up. Please return to the emergency room if having any worsening symptoms. Please follow-up with any specialists if discussed during your emergency room stay. documented in this encounter [facility] Work Phone: 11-27-2024 Emergency department Triage note Patient was brought in by ambulance from [facility]. Patient reports that she hit her leg on a chair and a previous scab from previous injury was uncovered. Medics at [facility] were unable to stop bleeding. Tourniquet placed by medics. Pt reports she takes baby Asprin but no other blood thinners. [facility] Work Phone: 11-27-2024 Emergency department Note Patient was brought in by ambulance from [facility]. Patient reports that she hit her leg on a chair and a previous scab from previous injury was uncovered. Medics at [facility] were unable to stop bleeding. Tourniquet placed by medics. Pt reports she takes baby Asprin but no other blood thinners. documented in this encounter [facility] Work Phone: 05-27-2024 Note HNO ID: [id number] Author: JEANNETTE LOCKHART MA Service: ? Author Type: Production Honing Machine Operator Type: Progress Notes Filed: 05/27/2024 18:20 Note Text: Ambulatory Ear Lavage Pre-treatment: Warm water Treatment: Both ears Equipment and Irrigation solution and Volume used: Single use syringe with single use irrigation tip Water Return flow appearance: Brown Yellow Patient tolerated procedure: yes Tympanic membrane assessment: Tympanic membrane assessed by LIP pre and post procedure Jeannette Lockhart MA [facility] 05-27-2024 History of Present illness Narrative Ambulatory Ear Lavage Pre-treatment: Warm water Treatment: Both ears Equipment and Irrigation solution and Volume used: Single use syringe with single use irrigation tip Water Return flow appearance: Brown Yellow Patient tolerated procedure: yes Tympanic membrane assessment: Tympanic membrane assessed by LIP pre and post procedure Jeannette Lockhart MA Subjective With complaints of sinus congestion cough sinus pressure. Patient denies any shortness of breath or fatigue. Patient says her ears hurt bilaterally. Patient denies any other symptoms. The history is provided by the patient. No russian language instructor was used. Cough Review of Systems Constitutional: Negative. Respiratory: Positive for cough. Skin: Negative. Objective Physical Exam Constitutional: Appearance: Normal appearance. HENT: Right Ear: There is impacted cerumen. Left Ear: There is impacted cerumen. Cardiovascular: Rate and Rhythm: Normal rate and regular rhythm. Heart sounds: Normal heart sounds. Pulmonary: Effort: Pulmonary effort is normal. Breath sounds: Normal breath sounds. Neurological: Mental Status: She is alert. PAST MEDICAL HISTORY Diagnosis Date Dermatophytosis of foot 12/24/2009 Ex-smoker 07/07/2017 Started at age 23 up to 1/2 PPD and quit around 2010 Hypothyroidism, acquired 07/07/2017 Other and unspecified noninfectious gastroenteritis and colitis(558.9) 11/12/2010 PAST SURGICAL HISTORY Procedure Laterality Date DELIVERY ONLY , low cervical CHOLECYSTECTOMY HX 2015 umbilical hernia repaied at same time COLONOSCOPY 10/21/2016 COLONOSCOPY FLX DX W/COLLJ SPEC WHEN PFRMD 05/26/2013 Colonoscopy COLONOSCOPY W/BIOPSY SINGLE/MULTIPLE 11/12/10 Colitis - desc/sigmoid - Mild ALLERGIES Patient has no known allergies. MEDICATIONS topiramate (TOPAMAX) 100 mg tablet Take 100 mg by mouth as needed (mirgrane). sertraline (ZOLOFT) 100 mg tablet Take 100 mg by mouth once daily. aspirin, enteric coated (ASPIRIN, ENTERIC COATED) 81 mg EC tablet Take 81 mg by mouth once daily. spironolactone (ALDACTONE) 50 mg tablet VITAMIN D2 1,250 mcg (50,000 unit) capsule Take 1 capsule by mouth one time a week. levothyroxine (SYNTHROID) 100 mcg tablet Take 1 tablet by mouth once daily. FAMILY HISTORY Problem Relation Age of Onset Seizures Mother none for many years, on medication Cancer Father CLL, lung ca (diagnosed age late 50's) Diabetes Paternal Grandmother age unknown Cancer Paternal Grandfather lung Seizures Sister tonic-clonic, since age 6 months Thyroid Maternal Grandmother type unknown Thyroid Maternal Aunt type unknown Thyroid Sister type unknown Social History Tobacco Use Smoking status: Former Current packs/day: 0.00 Average packs/day: 0.5 packs/day for 15.0 years (7.5 ttl pk-yrs) Types: Cigarettes Start date: 09/18/1997 Quit date: 09/18/2012 Years since quittin.6 Smokeless tobacco: Never Substance Use Topics Alcohol use: No Drug use: No ASSESSMENT/PLAN: 1. Bilateral impacted cerumen - ICD9: 380.4, ICD10: H61.23 (primary diagnosis) - REMOVAL OF IMPACTED CERUMEN - INSTRUMENTATION Impaction completed by PCP. Was successful. MA flushed bilateral ears. TMs are both visualized left is within normal limits right is erythematous and slightly bulging. 2. Acute otitis media, right - ICD9: 382.9, ICD10: H66.91 - AZITHROMYCIN 250 MG TABLET 3. Sinus congestion - ICD9: 478.19, ICD10: R09.81 - BUDESONIDE 32 MCG/ACTUATION NASAL SPRAY 4. Acute cough - ICD9: 786.2, ICD10: R05.1 - DEXTROMETHORPHAN-GUAIFENESIN 5 MG-100 MG/5 ML ORAL LIQUID Patient about proper use of medication and supportive therapies. Red flag symptoms were gone over. Patient is agreeable to care plan. Josh Miranda APRN.HUMAN RESOURCES ANALYST documented in this encounter [facility] 05-27-2024 Note HNO ID: [id number] Author: JOSH MIRANDA APRN.MARCELL Service: ? Author Type: Nurse Practitioner Type: Progress Notes Filed: 05/27/2024 18:20 Note Text: Subjective With complaints of sinus congestion cough sinus pressure. Patient denies any shortness of breath or fatigue. Patient says her ears hurt bilaterally. Patient denies any other symptoms. The history is provided by the patient. No russian language instructor was used. Cough Review of Systems Constitutional: Negative. Respiratory: Positive for cough. Skin: Negative. Objective Physical Exam Constitutional: Appearance: Normal appearance. HENT: Right Ear: There is impacted cerumen. Left Ear: There is impacted cerumen. Cardiovascular: Rate and Rhythm: Normal rate and regular rhythm. Heart sounds: Normal heart sounds. Pulmonary: Effort: Pulmonary effort is normal. Breath sounds: Normal breath sounds. Neurological: Mental Status: She is alert. PAST MEDICAL HISTORY Diagnosis Date Dermatophytosis of foot 12/24/2009 Ex-smoker 07/07/2017 Started at age 23 up to 1/2 PPD and quit around 2010 Hypothyroidism, acquired 07/07/2017 Other and unspecified noninfectious gastroenteritis and colitis(558.9) 11/12/2010 PAST SURGICAL HISTORY Procedure Laterality Date DELIVERY ONLY , low cervical CHOLECYSTECTOMY HX 2015 umbilical hernia repaied at same time COLONOSCOPY 10/21/2016 COLONOSCOPY FLX DX W/COLLJ SPEC WHEN PFRMD 05/26/2013 Colonoscopy COLONOSCOPY W/BIOPSY SINGLE/MULTIPLE 11/12/10 Colitis - desc/sigmoid - Mild ALLERGIES Patient has no known allergies. MEDICATIONS topiramate (TOPAMAX) 100 mg tablet Take 100 mg by mouth as needed (mirgrane). sertraline (ZOLOFT) 100 mg tablet Take 100 mg by mouth once daily. aspirin, enteric coated (ASPIRIN, ENTERIC COATED) 81 mg EC tablet Take 81 mg by mouth once daily. spironolactone (ALDACTONE) 50 mg tablet VITAMIN D2 1,250 mcg (50,000 unit) capsule Take 1 capsule by mouth one time a week. levothyroxine (SYNTHROID) 100 mcg tablet Take 1 tablet by mouth once daily. FAMILY HISTORY Problem Relation Age of Onset Seizures Mother none for many years, on medication Cancer Father CLL, lung ca (diagnosed age late 50's) Diabetes Paternal Grandmother age unknown Cancer Paternal Grandfather lung Seizures Sister tonic-clonic, since age 6 months Thyroid Maternal Grandmother type unknown Thyroid Maternal Aunt type unknown Thyroid Sister type unknown Social History Tobacco Use Smoking status: Former Current packs/day: 0.00 Average packs/day: 0.5 packs/day for 15.0 years (7.5 ttl pk-yrs) Types: Cigarettes Start date: 09/18/1997 Quit date: 09/18/2012 Years since quittin.6 Smokeless tobacco: Never Substance Use Topics Alcohol use: No Drug use: No ASSESSMENT/PLAN: 1. Bilateral impacted cerumen - ICD9: 380.4, ICD10: H61.23 (primary diagnosis) - REMOVAL OF IMPACTED CERUMEN - INSTRUMENTATION Impaction completed by PCP. Was successful. MA flushed bilateral ears. TMs are both visualized left is within normal limits right is erythematous and slightly bulging. 2. Acute otitis media, right - ICD9: 382.9, ICD10: H66.91 - AZITHROMYCIN 250 MG TABLET 3. Sinus congestion - ICD9: 478.19, ICD10: R09.81 - BUDESONIDE 32 MCG/ACTUATION NASAL SPRAY 4. Acute cough - ICD9: 786.2, ICD10: R05.1 - DEXTROMETHORPHAN-GUAIFENESIN 5 MG-100 MG/5 ML ORAL LIQUID Patient about proper use of medication and supportive therapies. Red flag symptoms were gone over. Patient is agreeable to care plan. Josh Miranda APRN.[facility] 08-22-2023 Hospital Discharge instructions Kayla Romo DO - 08/22/2023 5:55 PM EST Please make sure that you follow-up with the primary care doctor to remove the suture 5 to 7 days. You should return to the ER for any worsening or persistent symptoms including bleeding despite putting pressure on the wound. Please make sure that you follow-up with your primary care doctor regarding your varicose veins as well. The following attachments cannot be sent through Care Everywhere.How to Put On and Take Off Compression Stockings (Montenegrin)Laceration Repair (Montenegrin)documented in this encounter [facility] Work Phone: 08-22-2023 Emergency department Note PT REPORTS TO ED BY EMS FROM [facility] WITH C/O RIGHT ANKLE LAC FROM UNKNOWN INJURY, +BLOOD THINNERS, DENIES PAIN documented in this encounter [facility] Work Phone: 08-22-2023 Emergency department Triage note PT REPORTS TO ED BY EMS FROM [facility] WITH C/O RIGHT ANKLE LAC FROM UNKNOWN INJURY, +BLOOD THINNERS, DENIES PAIN [facility] Work Phone: 08-01-2022 Discharge summary Note Date/Time August 01, 2022 12:22pm [facility] Physical Therapy [facility] [address] [place] [address] [address] [place] [address] / REHABILITATION SERVICES DISCHARGE SUMMARY MR#: [id number] Acct: [id number] Name: ROSEMARY KWAN Rep #: [id number] : 1970 51 From: Alondra Allen Referring Dr.: Dr. Hong Hodgson MD Status: REG R Insurance: [facility] [employer]ANCE It has been my pleasure to treat ROSEMARY KWAN referred by Dr. Hong Hodgson MD, with the diagnosis of Strain of inguinal muscle, OA L hip for a total of 4 visit(s). Discharge Date: 08/01/22 Please see the following information for a summary of their discharge status. Subjective: Patient reports she is compliant with her HEP. States her hip hasn'tfelt like it's going to lock up. Feeling very stiff today. L hip pain Pain Intensity (Out of 10): 1 Objective/Function: Added Nustep today for warmup and mobility as pt stated she was more stiff than normal today. Able to progress exercises to standing with good tolerance. Pt demonstrated LE weakness L>R added BTB above knees with STS for tactile cues to help correct valgus collapse with better tech demonstrated. Appropriate fatigue noted at EOS. Goal 1:: I HEP Goal 2:: Be able to walk with a normal gait pattern with normal stride length Goal 3:: Increase L LE strength (at time of the eval: LE MMT: R hip flex 7.9# and L hip flex 4.1#. R knee ext 18.4# and L knee ext 17.1#. R knee flex 9.6# and L knee flex 6.9#). Goal 4:: Decrease L hip pain to 1/10 with ADL's Goal 5:: Be able to get in her car and up on the mat table and get into bed without having to use hand to get L leg up Plan: 2-3X/ week for 6 weeks for L hip PROM, AAROM, AROM, stretching, strengthening, gait training, functional activities with HEP. May use heat and ice as needed. HEP: LTR, LAQ, QS, Heel slides, stand up tall Discharge Comments: DC PT for 3 no shows in a row If there are questions or concerns regarding this patient's physical therapy, please feel free to call me at [phone]. Thank you for the referral of thispatient. Sincerely, GLORIA Otto Balance/Gait/Functional tests - Balance/Special Test Scores Lower Extremity Functional Score: 48 <Electronically signed by Alondra Rodriguez MPT> 08/01/22 1222 CC: Dr. Hong Frazier MD; Dr. Hong Hodgson MD ~ Signed [facility] Work Phone: 1(468) 471-309006-19-2022 Hospital Discharge instructions Patient Education 12/01/2021 09:17:19 Wound Care Wound Care Taking proper care of your wound will help it heal. Your healthcare provider may show you how to clean and dress the wound. He or she will also explain how to tell if the wound is healing normally. If you are unsure of how to take care of the wound, be sure to clarify what dressing to use and how often you should change the bandages. Here are the basic steps. A wound that's not healing normally may be dark in color or have white streaks. Wash your hands Tips for washing your hands include: Use liquid soap and lather for 2 minutes. Scrub between your fingers and under your nails. Rinse with warm water, keeping your fingers pointing down. Use a paper towel to dry your hands and to turn off the faucet. Remove the used dressing Here are suggestions for removing the dressing: If dressing changes cause you pain, be sure to take your pain medicine as prescribed by your healthcare provider 30 minutes before dressing changes. Set up your supplies. Put on disposable gloves if you re dressing a wound for someone else or your wound is infected. Loosen the tape by pulling gently toward the wound. Gently take off the old dressing. If the dressing is stuck to the wound, moisten it with saline (ifavailable) or clean water. If you have a drain or tube in the wound, be careful not to pull on it. Remove the dressing 1 layer at a time and put it in a plastic bag. Seal the bag and put it in the trash. Remove your gloves. Inspect and dress the wound Check the wound carefully: Each time you change the dressing, check the wound carefully to be sure it s healing normally by making sure your wound appears to be pink and moist, and is free of infection. Wash your hands again. Put on a new pair of gloves. Clean and dress the wound as directed by your healthcare provider or nurse. Don't put anything in the wound that is not prescribed or directed by your healthcare provider. If you have a drain or tube, be careful not to pull on it. Make sure to secure the drain or tube as well. Put all unused supplies in a clean plastic bag. Seal the bag and store it in a clean, dry area between dressing changes. Be sure to wash your hands again. Call your healthcare provider Call your healthcare provider if you see any of the following signs of a problem: Bleeding that soaks the dressing [place] fluid weeping from the wound Increased drainage or drainage that is yellow, yellow-green, or foul-smelling Increased swelling or pain, or redness or swelling in the skin around the wound A change in the color of the wound, or if streaks develop in a direction away from the wound The area between any stitches opens up An increase in the size of the wound A fever of 100.4 F (38 C) or higher, or as directed by your healthcare provider Chills, increased fatigue, or a loss of appetite [id number] [employer]. [address] [place] [address]. All rights reserved. This information is not intended as a substitute for professional medical care. Always follow yourhealthcare professional's instructions. Follow Up Care 12/01/2021 09:07:33 With:[facility] Address: When:2-4 days With:Go to emergency room if symptoms worsen Address:Unknown When:2-4 days With:HONG FRAZIER MD Address: [address] [place] [phone] When:2-4 days [facility] Evaluation + Plan note No data available for this section [facility] evaluation note* Diagnosis Onset Date Resolution Status Acute sinusitis acute Acute GI bleeding acute Anemia acute [facility] Work Phone: Evaluation note* Diagnosis Onset Date Resolution Status Acute sinusitis acute Anemia acute Acute GI bleeding resolved [facility] Work Phone: evaluation note* Diagnosis Onset Date Resolution Status Acute sinusitis acute Anemia acute Acute GI bleeding resolved Cellulitis acute Hypothyroidism acute Lymphedema associated with obesity acute Morbid obesity acute Venous ulcer of left lower e xtremity with varicose veins acute [facility] Work Phone: Evaluation note* Diagnosis Onset Date Resolution Status Acute sinusitis acute Anemia acute Acute GI bleeding resolved Cellulitis acute Hypothyroidism acute Lymphedema associated with obesity acute Morbid obesity acute Venous ulcer of left lower e xtremity with varicose veins acute Cellulitis acute Hypothyroidism acute Lymphedema associated with obesity acute Morbid obesity acute Venous ulcer of left lower e xtremity with varicose veins acute [facility] Work Phone: Evaluation note* Diagnosis Onset Date Resolution Status Anemia acute Acute GI bleeding resolved Cellulitis acute Hypothyroidism acute Lymphedema associated with obesity acute Morbid obesity acute Venous ulcer of left lower e xtremity with varicose veins chronic Cellulitis acute Hypothyroidism acute Lymphedema associated with obesity acute Morbid obesity acute Venous ulcer of left lower e xtremity with varicose veins chronic Venous ulcer of left lower e xtremity with varicose veins chronic [facility] Work Phone: Evaluation note* Diagnosis Onset Date Resolution Status Cellulitis acute Hypothyroidism acute Lymphedema associated with obesity acute Morbid obesity acute Venous ulcer of left lower e xtremity with varicose veins chronic Cellulitis acute Hypothyroidism acute Lymphedema associated with obesity acute Morbid obesity acute Venous ulcer of left lower e xtremity with varicose veins chronic Venous ulcer of left lower e xtremity with varicose veins chronic Cellulitis acute Hypothyroidism acute Lymphedema associated with obesity acute Morbid obesity acute Venous ulcer of left lower e xtremity with varicose veins chronic [facility] Work Phone: Evaluation note* Diagnosis Onset Date Resolution Status May-Thurner syndrome acute Venous ulcer of left lower e xtremity with varicose veins chronic [facility] Work Phone: Evaluation note* Diagnosis Onset Date Resolution Status Osteoarthritis of left hip a cute Acute bronchitis acute Contact with or suspected ex posure to other viral communicable disease acute [facility] Work Phone: Evaluation note* Diagnosis Onset Date Resolution Status Acute bronchitis acute Contact with or suspected ex posure to other viral communicable disease acute Biceps tendinitis of right shoulder acute [facility] Work Phone: Evaluation noteNo assessment information available [facility] Work Phone: Evaluation note* Diagnosis Onset Date Resolution Status Acute bacterial sinusitis ac [place] Left otitis media acute [facility] Work Phone: Evaluation note* Diagnosis Varicose veins of right lower extremity with other complications- Primary Laceration of right ankle, initial encounter documented in this encounter [facility] Work Phone: Evaluation note* Diagnosis Onset Date Resolution Status Acute bacterial sinusitis ac [place] [facility] Work Phone: Evaluation note* Diagnosis Bilateral impacted cerumen- Primary Impacted cerumen Acute otitis media, right Unspecified otitis media Sinus congestion Other diseases of nasal cavity and sinuses Acute cough [facility] Pyogenic granuloma- Primary Pyogenic granuloma of skin and subcutaneous tissue documented in this encounter [facility] Work Phone: Progress note No data available for this section [facility] Summary Purpose Family History No Family History Records Found Relationship Condition Age at Onset Recorded Date/T edson sister Arthritis Unknown Malignant neoplasm Unknown father Malignant neoplasm Unknown Advance Directives No Advanced Directives Records Found Advance Directive Response Recorded Date/ Time Advance Directives No April 2:35am Living Will No October 03, 2021 8:13pm Power of Office Receptionist No October 03 8:13pm Advance Directive Response Recorded Date/ Time Advance Directives No April 2:35am Living Will No October 04, 2021 12:16am Power of Office Receptionist No October 04 12:16am Advance Directive Response Recorded Date/ Time Advance Directives No April 2:35am Living Will No October 14, 2021 10 :54pm Power of Office Receptionist No October 14, 2021 10:54pm Advance Directive Response Recorded Date/ Time Advance Directives No April 2:35am Living Will No January 04, 2022 11:39pm Power of Office Receptionist No January 04 11:39pm Advance Directive Response Recorded Date/ Time Advance Directives No February 7:23am Living Will No February 19 7:23am Power of Office Receptionist No February 19, 2022 7:23am Advance Directive Response Recorded Date/ Time Advance Directives No February 6:23am Living Will No June 12, 2 022 1:09pm Power of Office Receptionist No June 12, 2022 1:09pm Advance Directive Response Recorded Date/ Time Advance Directives No February 7:23am Living Will No June 12 2 022 2:09pm Power of Office Receptionist No June 12, 2022 2:09pm Advance Directive Response Recorded Date/ Time Advance Directives No February 7:23am Living Will No January 19, 2023 11:02pm Power of Office Receptionist No January 19 11:02pm Advance Directive Response Recorded Date/ Time Advance Directives No February 7:23am Living Will No March 31 12:13am Power of Office Receptionist No March 31, 2023 12:13am Chief Complaint and Reason for Visit Chief Complaint left lower leg pain SCREENING NECK PAIN/ RX HERE SISNUS CONGESTION/COVID TEST/SYMPTOMATIC GI BLEED GI BLEED Reason for Visit Acute sinusitis Acute GI bleeding Anemia Chief Complaint left lower leg pain SCREENING NECK PAIN/ RX HERE SISNUS CONGESTION/COVID TEST/SYMPTOMATIC GI BLEED GI BLEED GI BLEED GI BLEED Reason for Visit Acute sinusitis Acute GI bleeding Anemia Chief Complaint SCREENING NECK PAIN/ RX HERE SISNUS CONGESTION/COVID TEST/SYMPTOMATIC GI BLEED GI BLEED GI BLEED GI BLEED ABDOMINAL PAIN Reason for Visit Acute sinusitis Anemia Acute GI bleeding Chief Complaint SISNUS CONGESTION/CO VID TEST/SYMPTOMATIC GI BLEED GI BLEED GI BLEED GI BLEED ABDOMINAL PAIN wound Reason for Visit Acute sinusitis Anemia Acute GI bleeding Cellulitis Hypothyroidism Lymphedema associated with obesity Morbid obesity Venous ulcer of left lower extremity with varicose veins Chief Complaint SISNUS CONGESTION/CO VID TEST/SYMPTOMATIC GI BLEED GI BLEED GI BLEED GI BLEED ABDOMINAL PAIN wound wound Reason for Visit Acute sinusitis Anemia Acute GI bleeding Cellulitis Hypothyroidism Lymphedema associated with obesity Morbid obesity Venous ulcer of left lower extremity with varicose veins Cellulitis Hypothyroidism Lymphedema associated with obesity Morbid obesity Venous ulcer of left lower extremity with varicose veins Chief Complaint SISNUS CONGESTION/CO VID TEST/SYMPTOMATIC GI BLEED GI BLEED GI BLEED GI BLEED ABDOMINAL PAIN wound wound RASH Reason for Visit Acute sinusitis Anemia Acute GI bleeding Cellulitis Hypothyroidism Lymphedema associated with obesity Morbid obesity Venous ulcer of left lower extremity with varicose veins Cellulitis Hypothyroidism Lymphedema associated with obesity Morbid obesity Venous ulcer of left lower extremity with varicose veins Chief Complaint SISNUS CONGESTION/CO VID TEST/SYMPTOMATIC GI BLEED GI BLEED GI BLEED GI BLEED ABDOMINAL PAIN wound wound RASH VENOUS ULCER LT GREGG, PAD, LYMPHEDEMA Reason for Visit Acute sinusitis Anemia Acute GI bleeding Cellulitis Hypothyroidism Lymphedema associated with obesity Morbid obesity Venous ulcer of left lower extremity with varicose veins Cellulitis Hypothyroidism Lymphedema associated with obesity Morbid obesity Venous ulcer of left lower extremity with varicose veins Chief Complaint GI BLEED GI BLEED GI BLEED GI BLEED ABDOMINAL PAIN wound wound RASH VENOUS ULCER LT GREGG, PAD, LYMPHEDEMA VENOUS ULCER wound Reason for Visit Anemia Acute GI bleeding Cellulitis Hypothyroidism Lymphedema associated with obesity Morbid obesity Venous ulcer of left lower extremity with varicose veins Cellulitis Hypothyroidism Lymphedema associated with obesity Morbid obesity Venous ulcer of left lower extremity with varicose veins Venous ulcer of left lower extremity with varicose veins Chief Complaint wound wound RASH VENOUS ULCER LT GREGG, PAD, LYMPHEDEMA VENOUS ULCER wound LLE VARICOSE VEINS, CHR ULCER *GEN ANESTH*ADD LABS LLE VARICOSE VEINS, CHR ULCER *GEN ANESTH*ADD LABS Reason for Visit Cellulitis Hypothyroidism Lymphedema associated with obesity Morbid obesity Venous ulcer of left lower extremity with varicose veins Cellulitis Hypothyroidism Lymphedema associated with obesity Morbid obesity Venous ulcer of left lower extremity with varicose veins Venous ulcer of left lower extremity with varicose veins Cellulitis Hypothyroidism Lymphedema associated with obesity Morbid obesity Venous ulcer of left lower extremity with varicose veins Chief Complaint LLE VARICOSE VEINS, CHR ULCER *GEN ANESTH*ADD LABS LLE VARICOSE VEINS, CHR ULCER *GEN ANESTH*ADD LABS 2-4 wk fu GROIN PAIN Reason for Visit May-Thurner syndrome Venous ulcer of left lower extremity with varicose veins Chief Complaint GROIN PAIN Hospital FU OSTEOARTHRITIS LEFT HIP / RX HERE SORE THROAT/ALVARADO/NECK PAIN/COUGH/CONGESTION Reason for Visit Osteoarthritis of le ft hip Acute bronchitis Contact with or suspected exposure to other viral communicable disease Chief Complaint OSTEOARTHRITIS LEFT HIP / RX HERE SORE THROAT/ALVARADO/NECK PAIN/COUGH/CONGESTION R SHOULDER/ARM/AFTER SLEEPING Reason for Visit Acute bronchitis Contact with or suspected exposure to other viral communicable disease Biceps tendinitis of right shoulder Chief Complaint BACK, ARM PAIN Chief Complaint BACK, ARM PAIN NEURALGIA NEURITIS THORACIC SPINE PAIN / RX HERE VENOUS ULCER OF LEFT LOWER EXTREMITY/ IVC Chief Complaint BACK, ARM PAIN NEURALGIA NEURITIS THORACIC SPINE PAIN / RX HERE VENOUS ULCER OF LEFT LOWER EXTREMITY/ IVC LEFT EAR DISCOMFORT/SINUS PRESSURE ear ache Reason for Visit Acute bacterial sinu sitis Left otitis media Chief Complaint SORE THROAT, SINUS P RESSURE Reason for Visit Acute bacterial sinu sitis Additional Source Comments INFORMATION SOURCE (unrecogn ized section and content) DATE CREATED AUTHOR 11/24/2018 [facility] DATE CREATED AUTHOR AUTHOR'S ORGANIZ ATION 05/30/2024 [facility] DATE CREATED AUTHOR AUTHOR'S ORGANIZ ATION 12/05/2024 [facility] DATE CREATED AUTHOR AUTHOR'S ORGANIZ ATION 12/15/2024 [facility] Goals (unrecognized section and content) Goals may be documented in a n alternate sectionGoals may be documented in an alternate sectionGoals may be documented in an alternate section No data available for this sectionGoals may be documented in an alternate sectionGoals may be documented in an alternate sectionGoals may be documented in an alternate sectionGoals may be documented in an alternate sectionGoals may be documented in an alternate sectionGoals may be documented in an alternate sectionGoals may be documented in an alternate sectionGoals may be documented in an alternate section Care Team (unrecognized sect ion and content) Team Status: Active Member Role Status Dates Dr. Hong Frazier MD Family Provider Active Dr. Hong Frazier MD Primary Care Provider Active Team Status: Active Member Role Status Dates Dr. Hong Frazier MD Primary Care Provider Active Dr. Edd Salmon MD Attending Provider Active Dr. Hellen Thomas DO Referring Provider Active Team Status: Inactive Member Role Status Dates Dr. Hong Frazier MD Primary Care Provider, Referring Provider Active Hong Hodgson MD Attending Provider Active Team Status: Inactive Member Role Status Dates Dr. Hong Frazier MD Primary Care Provider, Referring Provider Active Javier ANTONIO, PA Attending Provider Active Team Status: Inactive Member Role Status Dates Dr. Hong Frazier MD Primary Care Provider Active Dr. Hellen Thomsa DO Attending Provider, Emergency P kecia Active Team Status: Inactive Member Role Status Dates Dr. Hong Frazier MD Primary Care Provider Active Hong Hodgson MD Attending Provider, Referring Prov ider Active Team Status: Active Member Role Status Dates Dr. Hong Frazier MD Family Provider Active Negrita Nixon NP-Artis Primary Care Provider Active Team Status: Inactive Member Role Status Dates Dr. Hong Frazier MD Primary Care Provider, Referring Provider Active Dylan Wright PA, PA Attending Provider Active Team Status: Inactive Member Role Status Dates Negrita Nixon NP-C Primary Care Provide r, Attending Provider, Referring Provider Active Team Status: Inactive Member Role Status Dates ADY Fox Primary Care Provider Active Dr. Wilmar Good DO Emergency Provider Active Team Status: Active Member Role Status Dates ADY Fox Primary Care Provider Active Dr. Edd Salmon MD Attending Provider Active Team Status: Inactive Member Role Status Dates Dr. Edd Salmon MD Attending Provider, Referring Pro vider Active Negrita Nixon , HEAD [employer]ER [employer]C Primary Care Provider Active Team Status: Inactive Member Role Status Dates Negrita Nixon , HEAD BU[employer]ER [employer]C Primary Care Provider Active Dr. Wilmar Good , DO Attending Provider, Emergency Pr ovider Active Team Status: Active Member Role Status Dates Negritaarpit Nixon , HEAD BU[employer]C Primary Care Provide r, Attending Provider, Referring Provider Active Team Status: Inactive Member Role Status Dates Negrita Nixon , HEAD BU[employer]ER [employer]C Primary Care Provider, Referring P rovider Active Rola Montalvo PA, PA Attending Provider Active Team Status: Inactive Member Role Status Dates Negrita Nixon , HEAD BU[employer]ER [employer]-C Primary Care Provider Active Dr. 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 Start Date End Date Negrita Nixon NP [address] [place] [id number] PCP - General Family Medicine 05/27/24 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 Start Date End Date Negrita Nixon APRN-HUMAN RESOURCES ANALYST [address] [id number] PCP - General Family Medicine 08/22/23 Reason for Visit (unrecogniz ed section and content) Reason Comments Laceration Reason Comments Cough Headache(bad), bilat ear pressure, body aches, SOB,, nasal congestion, runny nose, chills, R eye pain, x 4 days Reason Comments Laceration Scheduled Active and Recently Administ ered Medications (unrecognized section and content) Medication Order 08/20/2023 08/21/2023 08/22/2023 acetaminophen (Tylenol) tablet 650 mg (COMPLETED) 650 mg, oral, Once, On 08/22/23 at 1810, For 1 dose, If ordered PRN for pain, nurse is permitted to administer this medication for higher pain scores based on patient preference? Yes 1810 (Given - Provid er: Aide Oliver RN) bacitracin ointment 1 Application (COMPLETED) 1 Application, Topical, Once, On 08/22/23 at 1800, For 1 dose, Apply to: ankle 1800 (Given - Provid er: Aide Oliver RN) diphth,pertus(acell),tetanus (BoostRIX) 2.5-8-5 Lf-mcg-Lf/0.5mL vaccine 0.5 mL 0.5 mL, intramuscular, During hospitalization, Starting on 08/22/23 at 1702, For 1 dose, Tdap. Not to be confused with look-alike/sound-alike product DTaP. ondansetron ODT (Zofran-ODT) disintegrating tablet 4 mg (COMPLETED) 4 mg, oral, Once, On 08/22/23 at 1705, For 1 dose 1705 (Given - Provid er: Aide Oliver RN) No Frequency Medication Order 08/20/2023 08/21/2023 08/22/2023 lidocaine-epinephrine (Xylocaine W/EPI) injection - Omnicell Override Pull (COMPLETED) Starting on 08/22/23 at 1651, For 1 dose, Created by cabinet override 1655 (Given - Provid er: Aide Oliver RN) Scheduled Medication Order 11/25/2024 11/26/2024 11/27/2024 lidocaine-epinephrine (Xylocaine W/EPI) 1 %-1:100,000 injection 20 mL (COMPLETED) 20 mL, infiltration, Once, On 11/27/24 at 0150, For 1 dose 0210 (Given - Provid er: Tanisha Nur RN - Comment: At bedside for provider) Source Comments (unrecognize d section and content) In the event this informatio n is protected by the Federal Confidentiality of Alcohol and Drug Abuse Patient Records regulations: The Federal rules restrict any use of the information to criminally investigate or prosecute any alcohol or drug abuse patient.[facility] FOR RECORDS PERTAINING TO PATIENTS WHO ARE OR HAVE BEEN ENROLLED IN A CHEMICAL DEPENDENCY/SUBSTANCEABUSE PROGRAM, SOME INFORMATION MAY BE OMITTED. This clinical summary was aggregated from multiple sources. Caution should be exercised in using it in the provision of clinical care. This summary normalizes information from multiple sources, and as a consequence, information in this document may materially change the coding, format and clinical context of patient data. In addition, data may be omitted in some cases. CLINICAL DECISIONS SHOULD BE BASED ON THE PRIMARY CLINICAL RECORDS. [facility] [employer] [facility]. provides no warranty or guarantee of the accuracy or completeness of information in this document.
[2024-12-24 00:01] LABS: AST(SGOT) 14 U/L (<=31); Alanine Aminotransfer ALT/SGPT 12 U/L (<=34); Albumin, Serum 4.2 g/dL (3.5-5.0); Alkaline Phosphatase 92 U/L (35-104); Anion Gap 11 (5-15); BUN 17 mg/dL (4-19); BUN/Creat Ratio 21.1 RATIO (10-20); Calcium,Total 9.6 mg/dL (7.6-11.0); Carbon Dioxide 21.6 mmol/L (21.0-32.0); Chloride 108 mmol/L (98-108); Estimated Creatinine Clearance 112.92 ml/min (50-250); Globulin 2.8 g/dL (2.2-4.2); Glucose 106 mg/dL (70-99); Potassium 3.8 mmol/L (3.3-5.1)
[2024-12-24] MEDS: 0.9% Normal Saline (1000mL) 1,000 ML 999 ML IV (00:14)
[2024-12-24 00:36] VITALS: BP 138/70; PULSE 74; RESP 19; TEMP 36.1; O2SAT 99
== END 2024-12-24 00:37 | disposition home or self-care (01) ==
PROVIDERS: Emergency Provider Emergency Medicine; PCP Nurse Practitioner Family; Visit Provider Emergency Medicine
DX: L03.115 Cellulitis of right lower limb (principal); F60.4 Histrionic personality disorder; I89.0 Lymphedema, not elsewhere classified; I87.2 Venous insufficiency (chronic) (peripheral); I83.93 Asymptomatic varicose veins of bilateral lower extremities; E03.9 Hypothyroidism, unspecified; E55.9 Vitamin D deficiency, unspecified; F17.210 Nicotine dependence, cigarettes, uncomplicated; F32.A Depression, unspecified; Z79.82 Long term (current) use of aspirin; Z79.890 Hormone replacement therapy; Z79.899 Other long term (current) drug therapy
CPT/HCPCS: 73590; 80053; 85025; 96365; 99282; A4216

== ENCOUNTER → 2025-02-21 | Outpatient (CLI) | payer OTHER, SELFPAY ==
[2025-02-21 13:11] LABS: Hematocrit 44.1 % (37-47); Hemoglobin 13.7 g/dL (12.0-15.0); Immature Granulocytes Count 0.020 X10^3/uL (0.0-0.0); Mean Corp Hgb Conc 31.1 g/dL (32-36); Mean Corpuscular Volume 86.5 fL (81-99); Mean Platelet Vol. 9.4 fl (6.2-12.0); NRBC Flagged by Analyzer 0 % (0-5); Platelet Count 414 K/mm3 (150-450); RBC Distribution Width CV 15.8 % (11.6-14.6); RBC Distribution Width SD 49.7 fl (35.1-43.9); Red Blood Count 5.10 M/mm3 (4.2-5.4); White Blood Count 6.8 K/mm3 (4.4-11.0)
[2025-02-21 13:52] LABS: AST(SGOT) 13 U/L (<=31); Alanine Aminotransfer ALT/SGPT 13 U/L (<=34); Albumin, Serum 3.8 g/dL (3.5-5.0); Alkaline Phosphatase 78 U/L (35-104); Anion Gap 10 (5-15); BUN 13 mg/dL (4-19); BUN/Creat Ratio 15.4 RATIO (10-20); Calcium,Total 9.5 mg/dL (7.6-11.0); Carbon Dioxide 20.9 mmol/L (21.0-32.0); Chloride 112 mmol/L (98-108); Cholesterol 154 mg/dL (<=200); Globulin 2.7 g/dL (2.2-4.2); Glucose 92 mg/dL (70-99); Low Density Lipoprotein Calc. 84 mg/dL; Potassium 4.0 mmol/L (3.3-5.1); Triglycerides 86 mg/dL; Very Low Density Lipoprotein 17 mg/dL (5-40); cholesterol:hdl ratio screen 2.92
[2025-02-21 16:27] LABS: Vitamin D,25 Hydroxy 54.3 ng/mL (30-100)
== END | disposition home or self-care (01) ==
LOC: BFHLAB 10:06
PROVIDERS: PCP Nurse Practitioner Family; Visit Provider Nurse Practitioner Family
DX: Z00.01 Encounter for general adult medical examination with abnormal findings (principal); E03.9 Hypothyroidism, unspecified; E55.9 Vitamin D deficiency, unspecified
CPT/HCPCS: 36415; 80053; 80061; 82306; 84439; 84443; 85025

== ENCOUNTER → 2025-03-31 | Outpatient (CLI) | payer OTHER, SELFPAY ==
--- NOTE | 2025-03-31 09:06 | AAVD_ITS ---
Reason For Study Reason For Study: HX LT CIV STENT Inferior Vena Cava Proximal inferior vena cava measures 1.14 x 2.18 cm. in the cross-sectional axis. Proximal inferior vena cava measures 1.07 cm. in the longitudinal axis. Mid inferior vena cava measures 1.65 x 1.89 cm. in the cross-sectional axis. Mid inferior vena cava measures 1.71 cm. in the longitudinal axis. Distal inferior vena cava measures 1.47 x 1.62 cm. in the cross-sectional axis. Distal inferior vena cava measures 1.52 cm. in the longitudinal axis. The inferior vena cava has spontaneous, phasic flow throughout. Left Common Iliac Vein Left common iliac vein measures 1.25 x 1.29 cm. in the cross-sectional axis. Left common iliac vein measures 1.25 cm. in the longitudinal axis. The left common iliac vein has spontaneous, phasic flow throughout. Right Common Iliac Vein Right common iliac vein measures 1.44 x 1.78 cm. in the cross-sectional axis. Right common iliac vein measures 1.49 cm. in the longitudinal axis. The right common iliac vein has spontaneous, phasic flow throughout. Procedure Aorta IVC Iliac vasculature or bypass grafts [id number]. The exam was diagnostic. Exam performed in department. VL/Abd Aortic/IVC Duplex scan Interpretation Summary Inferior vena cava and right iliac vein patent with normal venous flow pattern. Left iliac vein stent patent with normal venous flow pattern. Ordering Physician: Brielle Snow Referring Physician: Diamond oMore Performed By: Kishan John, RVT
== END | disposition home or self-care (01) ==
LOC: CVS 09:05
PROVIDERS: PCP Nurse Practitioner Family; Referring Provider Physician Assistant; Visit Provider Physician Assistant
DX: Z48.812 Encounter for surgical aftercare following surgery on the circulatory system (principal)
CPT/HCPCS: 93978

== ENCOUNTER 2025-04-13 07:08 | Day surgery (SDC) | payer OTHER, SELFPAY ==
[2025-04-13] VITALS (7 sets, daily range): BP systolic 96–114; BP diastolic 67–75; PULSE 67–85; RESP 12–18; TEMP 36.3–36.6; O2SAT 94–98; BMI 41.1
--- OUTSIDE RECORDS SUMMARY | 2025-04-13 07:12 | XMS RPT_ITS | CCD ---
Author Organization [facility] Care Team Providers Care Head Chef Name Role Phone Dr. Hong Frazier Primary [...] Referring Provider MD Hong Hodgson Attending Provider Og ANTONIO, PA Javier Attending Provider Dr. Hong Frazier Primary Care Provider Dr. Hong Frazier Referring Provider Og ANTONIO, PACO Herrera Attending Provider Adriana ANTONIO, PA Dylan Moreno Attending Provider Tiffani, SHOT BLAST EQUIPMENT OPERATOR-C Negrita Primary Care Provider Dr. Edd Salmon Attending Provider Tiffani, SHOT BLAST EQUIPMENT OPERATOR-C Negrita Referring Provider Selvin ANTONIO, PACO Moreno Attending Provider Hong Frazier MD Unavailable Tiffani ROADABILITY MACHINE OPERATOR-BULL GANG WORKER, Negrita Primary Care Provider Tiffani, SHOT BLAST EQUIPMENT OPERATOR-C Negrita Primary Care Provider Tiffani, SHOT BLAST EQUIPMENT OPERATOR-C Negrita Referring Provider Og ANTONIO, PA Javier Attending Provider Tiffani SHOT BLAST EQUIPMENT OPERATOR, Negrita Primary Care Provider TIFFANI, NEGRITA Primary Care Unavailable Tiffani ROADABILITY MACHINE OPERATOR-BULL GANG WORKER, Negrita Primary Care Provider TIFFANI, NEGRITA Primary Care Unavailable Tiffani, Negrita Primary Care Unavailable Tiffani, Negrita Attending Unavailable Tiffani, Negrita Primary Care Unavailable Nicolás, Jarod Attending Unavailable Tiffani, Negrita Referring Unavailable Tiffani, Negrita Primary Care Unavailable Tiffani, Negrita Attending Unavailable Tiffani, Negrita Referring Unavailable Tiffani, Negrita Primary Care Unavailable Tiffani, Negrita Attending Unavailable Tiffani, Negrita Primary Care Unavailable Maurilio Jacome Attending Unavailable Desirae Richards Attending Unavailable [facility] Primary Care Unavailable [facility] Referring Unavailable Renae Hutchison Attending Unavailable [facility] Primary Care Unavailable [facility] Primary Care Unavailable Edd Salmon Attending Unavailable [facility] Referring Unavailable Brielle Snow Attending Unavailable [facility] Primary Care Unavailable Brielle Snow Attending Unavailable Gwendolyn, Brielle Referring Unavailable [facility] Primary Care Unavailable Medications Current Medications Medication Drug Class(es) [...] End: 03-31-2023 Azithromycin Discontinued 0 PO .COMPLEX 6 July 22, 2022 1:00am March 31, 2023 [...] 20 mg/ml oral solution (1 source) Uncompetitive D-dqawho-J-aspartat e Receptor Antagonist, Sigma-1 Agonist Start: 05-27-2024 [...] iron) tablet Active 325 MG PO DAILY October 05, 2021 12:00am Ibuprofen (1 source) [...] 1 TABLET PO EVERY 6 HOURS NEEDED 03 17February 18, 2020 February 21, 2020 12:02am Start: 2015 take 1 tablet by la th every four hours as needed for pain Harmony 325- 5 mg oral tablet Dose = [...] MUCOUS MEM THREE TIMES A DAY 100 7 October 06, 2021 11:00pm October 13, 2021 [...] 1000 MG PO 4 TIMES DAILY NEEDED 56 January 20, 2023 1:54am April 14, 2023 [...] 2013 1:00am May 05, 2013 1:28pm nystatin 543406 unt/ml oral suspension (14 sources) Polyene Antifungal [...] hours Ondansetron Active 4 MG PO Q8H October 15, 2021 12:00am predniSONE 20 mg oral tablet (20 [...] primary osteoarthritis, left hip] 06-19-2022 Chronic Other aftercare (1 source) Encounter for surgical aftercare following surgery on the circulatory system; Translations: [Encounter for surgical aftercare following surgery on the circulatory system] Onset: Episodic Other circulatory disease (16 sources) Telangiectasia of [...] Translations: [Compression of vein] 03-13-2022 Episodic Other diseases of veins and lymphatics (1 source) Compression of vein; Translations: [Compression of vein] Episodic Other ear and sense organ disorders [...] excess calories] Onset: 8 07-07-2017 Chronic Other skin disorders (16 sources) Skin lesion; Translations: [Disorder of the skin and subcutaneous tissue, unspecified] 06-28-2020 Episodic Other skin disorders (3 sources) Pyogenic granuloma; Translations: [Pyogenic granuloma] Onset: 5 11-27-2024 Episodic Other skin disorders (1 source) Pyogenic granuloma; Translations: [Pyogenic granuloma] Onset: 5 Episodic Other upper respiratory disease (1 source) Congestion of nasal sinus; Translations: [Nasal congestion] 05-27-2024 Episodic Other upper respiratory infections (20 sources) Acute sinusitis; Translations: [Acute sinusitis, unspecified] Episodic Otitis media and related conditions (6 sources) Dysfunction of eustachian tube; Translations: [Unspecified Eustachian tube disorder, unspecified ear] 03-31-2023 Episodic 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; 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 Spondylosis; intervertebral disc disorders; other back problems [...] pre-employment examination] Onset: 07-07-2017 06-28-2020 Episodic Other screening for suspected conditions (not mental disorders or infectious disease) (1 source) Encounter for other screening for malignant neoplasm of breast; Translations: [Encounter for other screening for malignant neoplasm of breast] Onset: 11-23-2024 Episodic Screening and history of mental health and substance abuse codes (1 source) Ex-smoker; Translations: [Personal history of nicotine dependence] Onset: 07-07-2017 07-07-2017 Episodic Skin and subcutaneous tissue infections (20 sources) Cellulitis; Translations: [Cellulitis, unspecified] Onset: 12-29-2024 Episodic Unclassified (11 sources) multiple skuin lesions 01-03-2022 Results Test Name Value Interpretation Reference Range Facility Abd Aortic/IVC Duplex scanon 03-31-2025 Abd Aortic/IVC Duplex scan [facility] [address] [place] [address] Abd Aortic/IVC Duplex scan 03/31/25 0915 MR#: [id number] Acct: [id number] Name: ROSEMARY WKAN Rep #: [id number] : 1970 54 From: Edd Salmon MD Attending Dr: PACO Flowers Status: REG CLI Ordering Dr: Brielle Snow Date: 03/31/25 Location: [facility] Sex: F C Admitted: Reason For Study Reason For Study: HX LT CIV STENT Inferior Vena Cava Proximal inferior vena cava measures 1.14 x 2.18 cm. in the cross-sectional axis. Proximal inferior vena cava measures 1.07 cm. in the longitudinal axis. Mid inferior vena cava measures 1.65 x 1.89 cm. in the cross- sectional axis. Mid inferior vena cava measures 1.71 cm. in the longitudinal axis. Distal inferior vena cava measures 1.47 x 1.62 cm. in the cross-sectional axis. Distal inferior vena cava measures 1.52 cm. in the longitudinal axis. The inferior vena cava has spontaneous, phasic flow throughout. Left Common Iliac Vein Left common iliac vein measures 1.25 x 1.29 cm. in the cross-sectional axis. Left common iliac vein measures 1.25 cm. in the longitudinal axis. The left common iliac vein has spontaneous, phasic flow throughout. Right Common Iliac Vein Right common iliac vein measures 1.44 x 1.78 cm. in the cross-sectional axis. Right common iliac vein measures 1.49 cm. in the longitudinal axis. The right common iliac vein has spontaneous, phasic flow throughout. Procedure Aorta IVC Iliac vasculature or bypass grafts 73909. The exam was diagnostic. Exam performed in department. VL/Abd Aortic/IVC Duplex scan Interpretation Summary Inferior vena cava and right iliac vein patent with normal venous flow pattern. Left iliac vein stent patent with normal venous flow pattern. Ordering Physician: Brielle Snow Referring Physician: Negrita Nixon Performed By: Kishan John RVT 04/03/25 1050 Date Edd Salmon MD CC: SHOT BLAST EQUIPMENT OPERATOR-C Negrita Nixon; PACO Flowers Date Dictated: 03/31/25914 Date Transcribed: 04/03/251049 Glass Belt Sander: Signed Normal [facility] CBC W/Diff, Automatedon 09-0 -2024 Absolute Lymph 1.97 X10 3/uL Normal 0.83-4.51 [facility] Comment on above: Performed By: #### L 506.0400, L506.1001, L100.0100, L501.9520, L500.4100, L500.4050 #### [facility] Laboratory [address] [place], [address] Absolute Neut 4.2 X10 3/uL Normal 2.0-7.7 [facility] Comment on above: Performed By: #### L 506.0400, L506.1001, L100.0100, L501.9520, L500.4100, L500.4050 #### [facility] [address] [place], [address] Basophils/100 WBC (Bld) 0.6 % Normal 0-1 [facility] Comment on above: Performed By: #### L 506.0400, L506.1001, L100.0100, L501.9520, L500.4100, L500.4050 #### [facility] [address] [place], [address] Eosinophils/100 WBC (Bld) 2.8 % Normal 0-5 [facility] Comment on above: Performed By: #### L 506.0400, L506.1001, L100.0100, L501.9520, L500.4100, L500.4050 #### [facility] [address] [place], [address] Erythrocyte distribution width (RBC) [Ratio] 15.8 % High 11.6-14.6 [facility] Comment on above: Performed By: #### L 506.0400, L506.1001, L100.0100, L501.9520, L500.4100, L500.4050 #### [facility] Laboratory [address] [place], [address] Hematocrit (Bld) [Volume fraction] 44.1 % Normal 37-47 [facility] Comment on above: Performed By: #### L 506.0400, L506.1001, L100.0100, L501.9520, L500.4100, L500.4050 #### [facility] Laboratory [address] [place], [address] Hemoglobin (Bld) [Mass/Vol] 13.7 g/dL Normal 12.0-15.0 [facility] Comment on above: Performed By: #### L 506.0400, L506.1001, L100.0100, L501.9520, L500.4100, L500.4050 #### [facility] [address] [place], [address] IG% 0.300 Normal 0.0-0.9 [facility] Comment on above: Result Comment: IG% - Immature Granulocytes (promyelocytes, myelocytes and metamyelocytes) > 1% indicates that a LEFT SHIFT is Present. Performed By: #### L 506.0400, L506.1001, L100.0100, L501.9520, L500.4100, L500.4050 #### [facility] [address] [place], [address] Lymphocytes/100 WBC (Bld) 28.8 % Normal 19-41 [facility] Comment on above: Performed By: #### L 506.0400, L506.1001, L100.0100, L501.9520, L500.4100, L500.4050 #### [facility] [address] [place], [address] MCH (RBC) [Entitic mass] 26.9 pg Low 27.0-32.0 [facility] Comment on above: Performed By: #### L 506.0400, L506.1001, L100.0100, L501.9520, L500.4100, L500.4050 #### [facility] [address] [place], [address] MCHC (RBC) [Mass/Vol] 31.1 g/dL Low 32-36 [facility] Comment on above: Performed By: #### L 506.0400, L506.1001, L100.0100, L501.9520, L500.4100, L500.4050 #### [facility] [address] [place], [address] MCV (RBC) [Entitic vol] 86.5 fL Normal 81-99 [facility] Comment on above: Performed By: #### L 506.0400, L506.1001, L100.0100, L501.9520, L500.4100, L500.4050 #### [facility] [address] [place], [address] Monocytes/100 WBC (Bld) 6.1 % Normal 0-10 [facility] Comment on above: Performed By: #### L 506.0400, L506.1001, L100.0100, L501.9520, L500.4100, L500.4050 #### [facility] [address] [place], [address] Neutrophils/100 WBC (Bld) 61.4 % Normal 47-70 [facility] Comment on above: Performed By: #### L 506.0400, L506.1001, L100.0100, L501.9520, L500.4100, L500.4050 #### [facility] [address] [place], [address] Nucleated RBC (Bld) [#/Vol] 0 10*3/uL Normal 0-5 [facility] Comment on above: Performed By: #### L 506.0400, L506.1001, L100.0100, L501.9520, L500.4100, L500.4050 #### [facility] [address] [place], [address] Platelet mean volume (Bld) [Entitic vol] 9.4 fL Normal 6.2-12.0 [facility] Comment on above: Performed By: #### L 506.0400, L506.1001, L100.0100, L501.9520, L500.4100, L500.4050 #### [facility] [address] [place], [address] Platelets (Bld) [#/Vol] 414 10*3/uL Normal 150-450 [facility] Comment on above: Performed By: #### L 506.0400, L506.1001, L100.0100, L501.9520, L500.4100, L500.4050 #### [facility] [address] [place], [address] RBC (Bld) [#/Vol] 5.10 10*6/uL Normal 4.2-5.4 [facility] Comment on above: Performed By: #### L 506.0400, L506.1001, L100.0100, L501.9520, L500.4100, L500.4050 #### [facility] [address] [place], [address] RDW SD 49.7 fl High 35.1-43.9 [facility] Comment on above: Performed By: #### L 506.0400, L506.1001, L100.0100, L501.9520, L500.4100, L500.4050 #### [facility] [address] [place], [address] WBC (Bld) [#/Vol] 6.8 10*3/uL Normal 4.4-11.0 [facility] Comment on above: Performed By: #### L 506.0400, L506.1001, L100.0100, L501.9520, L500.4100, L500.4050 #### [facility] [address] [place], [address] [facility] 02-21-2025 Albumin [Mass/Vol] 3.8 g/dL Normal 3.5-5.0 [facility] Comment on above: Performed By: #### L 506.0400, L506.1001, L100.0100, L501.9520, L500.4100, L500.4050 #### [facility] [address] [place], [address] Albumin/Globulin [Mass ratio] 1.4 {ratio} Normal 0.9-2.4 [facility] Comment on above: Performed By: #### L 506.0400, L506.1001, L100.0100, L501.9520, L500.4100, L500.4050 #### [facility] [address] [place], [address] ALK PHOS 78 U/L Normal 35-104 [facility] Comment on above: Performed By: #### L 506.0400, L506.1001, L100.0100, L501.9520, L500.4100, L500.4050 #### [facility] [address] [place], [address] ALT [Catalytic activity/Vol] 13 U/L Normal <=34 [facility] Comment on above: Performed By: #### L 506.0400, L506.1001, L100.0100, L501.9520, L500.4100, L500.4050 #### [facility] [address] [place], [address] AST [Catalytic activity/Vol] 13 U/L Normal <=31 [facility] Comment on above: Performed By: #### L 506.0400, L506.1001, L100.0100, L501.9520, L500.4100, L500.4050 #### [facility] [address] [place], [address] Bilirubin [Mass/Vol] 0.17 mg/dL Normal 0.00-1.30 [facility] Comment on above: Performed By: #### L 506.0400, L506.1001, L100.0100, L501.9520, L500.4100, L500.4050 #### [facility] [address] [place], [address] BUN/CRE 15.4 RATIO Normal 10-20 [facility] Comment on above: Performed By: #### L 506.0400, L506.1001, L100.0100, L501.9520, L500.4100, L500.4050 #### [facility] [address] [place], [address] Calcium [Mass/Vol] 9.5 mg/dL Normal 7.6-11.0 [facility] Comment on above: Performed By: #### L 506.0400, L506.1001, L100.0100, L501.9520, L500.4100, L500.4050 #### [facility] [address] [place], [address] Chloride [Moles/Vol] 112 mmol/L High 98-108 [facility] Comment on above: Performed By: #### L 506.0400, L506.1001, L100.0100, L501.9520, L500.4100, L500.4050 #### [facility] [address] [place], [address] CO2 [Moles/Vol] 20.9 mmol/L Low 21.0-32.0 [facility] Comment on above: Performed By: #### L 506.0400, L506.1001, L100.0100, L501.9520, L500.4100, L500.4050 #### [facility] [address] [place], [address] Creatinine [Mass/Vol] 0.83 mg/dL Normal 0.70-1.20 [facility] Comment on above: Performed By: #### L 506.0400, L506.1001, L100.0100, L501.9520, L500.4100, L500.4050 #### [facility] [address] [place], [address] GAP 10 Normal 5-15 [facility] Comment on above: Performed By: #### L 506.0400, L506.1001, L100.0100, L501.9520, L500.4100, L500.4050 #### [facility] [address] [place], [address] GFR/1.73 sq M.predicted among non-blacks MDRD (S/P/Bld) [Vol rate/Area] 84 mL/min/{1.73_m2} Normal >60 [facility] Comment on above: Result Comment: mL/m in/1.73m2 CKD-EPI Creatinine Equation (2020) Performed By: #### L 506.0400, L506.1001, L100.0100, L501.9520, L500.4100, L500.4050 #### [facility] [address] [place], [address] Globulin (S) [Mass/Vol] 2.7 g/dL Normal 2.2-4.2 [facility] Comment on above: Performed By: #### L 506.0400, L506.1001, L100.0100, L501.9520, L500.4100, L500.4050 #### [facility] [address] [place], [address] Glucose [Mass/Vol] 92 mg/dL Normal 70-99 [facility] Comment on above: Performed By: #### L 506.0400, L506.1001, L100.0100, L501.9520, L500.4100, L500.4050 #### [facility] [address] [place], [address] Potassium [Moles/Vol] 4.0 mmol/L Normal 3.3-5.1 [facility] Comment on above: Performed By: #### L 506.0400, L506.1001, L100.0100, L501.9520, L500.4100, L500.4050 #### [facility] [address] [place], [address] Sodium [Moles/Vol] 143 mmol/L Normal 133-145 [facility] Comment on above: Performed By: #### L 506.0400, L506.1001, L100.0100, L501.9520, L500.4100, L500.4050 #### [facility] [address] [place], [address] T PROT 6.5 g/dL Normal 5.9-8.4 [facility] Comment on above: Performed By: #### L 506.0400, L506.1001, L100.0100, L501.9520, L500.4100, L500.4050 #### [facility] [address] [place], [address] Urea nitrogen [Mass/Vol] 13 mg/dL Normal 4-19 [facility] Comment on above: Performed By: #### L 506.0400, L506.1001, L100.0100, L501.9520, L500.4100, L500.4050 #### [facility] [address] [place], [address] Lipid Profileon 02-21-2025 CHOL:HDL 2.92 Normal [facility] Comment on above: Performed By: #### L 506.0400, L506.1001, L100.0100, L501.9520, L500.4100, L500.4050 #### [facility] [address] [place], [address] Cholesterol [Mass/Vol] 154 mg/dL Normal <=200 [facility] Comment on above: Result Comment: Chol esterol level, Desirable <200 mg/dL Borderline high cholesterol 200-239 mg/dL High cholesterol >=240 mg/dL Recommendations of the NCEP Adult Treatment Panel for the following risk-cutoff thresholds for the [place] population. Performed By: #### L 506.0400, L506.1001, L100.0100, L501.9520, L500.4100, L500.4050 #### [facility] [address] [place], [address] Cholesterol in HDL [Mass/Vol] 53 mg/dL Normal [facility] Comment on above: Result Comment: Silvina onal Cholesterol Education Program (NCEP) guidelines: <40 mg/dL: Low HDL-cholesterol (major risk factor for CHD) >= 60 mg/dL: High HDL-cholesterol (negative risk factor for CHD) HDL-cholesterol is affected by a number of factors, e.g. smoking, exercise, hormones, sex and age. Performed By: #### L 506.0400, L506.1001, L100.0100, L501.9520, L500.4100, L500.4050 #### [facility] [address] [place], [address] Cholesterol in LDL [Mass/Vol] 84 mg/dL Normal [facility] Comment on above: Result Comment: Bord fyyond=748-709 mg/dL Higher Acce=766 mg/dL or greater Friedwald Equation for LDL-C Performed By: #### L 506.0400, L506.1001, L100.0100, L501.9520, L500.4100, L500.4050 #### [facility] [address] [place], [address] Cholesterol in VLDL [Mass/Vol] 17 mg/dL Normal 5-40 [facility] Comment on above: Performed By: #### L 506.0400, L506.1001, L100.0100, L501.9520, L500.4100, L500.4050 #### [facility] [address] [place], [address] Triglyceride [Mass/Vol] 86 mg/dL Normal [facility] Comment on above: Result Comment: The drugs N-Acetylcysteine and Metamizole may falsely depress this assay. Normal range: <150 mg/dL Borderline High: 150-199 mg/dL High: 200-499 mg/dL Very High: >500 mg/dL Performed By: #### L 506.0400, L506.1001, L100.0100, L501.9520, L500.4100, L500.4050 #### [facility] [address] [place], [address] T4 Free Directon 02-21-2025 T4 FREE DIRECT 1.10 ng/dL Normal 0.76-1.46 [facility] Comment on above: Performed By: #### L 506.0400, L506.1001, L100.0100, L501.9520, L500.4100, L500.4050 ####[facility] [id number] [place], [address] Thyroid Stim Hormone (TSH)on 02-21-2025 TSH 1.960 uIU/mL Normal 0.300-4.200 [facility] Comment on above: Performed By: #### L 506.0400, L506.1001, L100.0100, L501.9520, L500.4100, L500.4050 #### [facility] [address] [place], [address] Vitamin D,25 Hydroxyon 02-21 Vitamin D 25-OH 54.3 ng/mL Normal 30-100 [facility] Comment on above: Result Comment: Sahara min D Status Deficiency: <20 ng/mL (50nmol/L) Insufficiency: 20-30 ng/mL (50-75 nmol/L) Sufficiency: 30-100 ng/mL (75-250 nmol/L) Toxicity: >100 ng/mL (>250 nmol/L) Performed By: #### L 506.0400, L506.1001, L100.0100, L501.9520, L500.4100, L500.4050 ####[facility] [id number] [place], [address] Comprehensive Metabolic Prof ilon 12-24-2024 Albumin [Mass/Vol] 4.2 g/dL Normal 3.5-5.0 [facility] Comment on above: Performed By: #### L 100.0100, L500.4050 #### [facility] [address] [place], [address] Albumin/Globulin [Mass ratio] 1.5 {ratio} Normal 0.9-2.4 [facility] Comment on above: Performed By: #### L 100.0100, L500.4050 #### [facility] [address] [place], [address] ALK PHOS 92 U/L Normal 35-104 [facility] Comment on above: Performed By: #### L 100.0100, L500.4050 #### [facility] [address] [place], [address] ALT [Catalytic activity/Vol] 12 U/L Normal <=34 [facility] Comment on above: Performed By: #### L 100.0100, L500.4050 #### [facility] [address] [place], [address] AST [Catalytic activity/Vol] 14 U/L Normal <=31 [facility] Comment on above: Performed By: #### L 100.0100, L500.4050 #### [facility] [address] [place], [address] Bilirubin [Mass/Vol] 0.18 mg/dL Normal 0.00-1.30 [facility] Comment on above: Performed By: #### L 100.0100, L500.4050 #### [facility] [address] [place], [address] BUN/CRE 21.1 RATIO High 10-20 [facility] Comment on above: Performed By: #### L 100.0100, L500.4050 #### [facility] [address] [place], [address] Calcium [Mass/Vol] 9.6 mg/dL Normal 7.6-11.0 [facility] Comment on above: Performed By: #### L 100.0100, L500.4050 #### [facility] [address] [place], [address] Chloride [Moles/Vol] 108 mmol/L Normal 98-108 [facility] Comment on above: Performed By: #### L 100.0100, L500.4050 #### [facility] [address] [place], [address] CO2 [Moles/Vol] 21.6 mmol/L Normal 21.0-32.0 [facility] Comment on above: Performed By: #### L 100.0100, L500.4050 #### [facility] [address] [place], [address] Creatinine [Mass/Vol] 0.79 mg/dL Normal 0.70-1.20 [facility] Comment on above: Performed By: #### L 100.0100, L500.4050 #### [facility] [address] [place], [address] ECRCL 112.92 ml/min Normal 50-250 [facility] Comment on above: Performed By: #### L 100.0100, L500.4050 #### [facility] [address] [place], [address] GAP 11 Normal 5-15 [facility] Comment on above: Performed By: #### L 100.0100, L500.4050 #### [facility] [address] [place], [address] GFR/1.73 sq M.predicted among non-blacks MDRD (S/P/Bld) [Vol rate/Area] 90 mL/min/{1.73_m2} Normal >60 [facility] Comment on above: Result Comment: mL/m in/1.73m2 CKD-EPI Creatinine Equation (2020) Performed By: #### L 100.0100, L500.4050 #### [facility] [address] [place], [address] Globulin (S) [Mass/Vol] 2.8 g/dL Normal 2.2-4.2 [facility] Comment on above: Performed By: #### L 100.0100, L500.4050 #### [facility] [address] [place], [address] Glucose [Mass/Vol] 106 mg/dL High 70-99 [facility] Comment on above: Performed By: #### L 100.0100, L500.4050 #### [facility] [address] [place], [address] Potassium [Moles/Vol] 3.8 mmol/L Normal 3.3-5.1 [facility] Comment on above: Performed By: #### L 100.0100, L500.4050 #### [facility] [address] [place], [address] Sodium [Moles/Vol] 140 mmol/L Normal 133-145 [facility] Comment on above: Performed By: #### L 100.0100, L500.4050 #### [facility] [address] [place], [address] T PROT 7.0 g/dL Normal 5.9-8.4 [facility] Comment on above: Performed By: #### L 100.0100, L500.4050 #### [facility] [address] [place], [address] Urea nitrogen [Mass/Vol] 17 mg/dL Normal 4-19 [facility] Comment on above: Performed By: #### L 100.0100, L500.4050 #### [facility] [address] [place], [address] CBC W/Diff, Automatedon 07- Absolute Lymph 2.41 X10 3/uL Normal 0.83-4.51 [facility] Comment on above: Performed By: #### L 100.0100, L500.4050 #### [facility] [address] [place], [address] Absolute Neut 5.0 X10 3/uL Normal 2.0-7.7 [facility] Comment on above: Performed By: #### L 100.0100, L500.4050 #### [facility] [address] [place], [address] Basophils/100 WBC (Bld) 0.7 % Normal 0-1 [facility] Comment on above: Performed By: #### L 100.0100, L500.4050 #### [facility] [address] [place], [address] Eosinophils/100 WBC (Bld) 2.7 % Normal 0-5 [facility] Comment on above: Performed By: #### L 100.0100, L500.4050 #### [facility] [address] [place], [address] Erythrocyte distribution width (RBC) [Ratio] 15.1 % High 11.6-14.6 [facility] Comment on above: Performed By: #### L 100.0100, L500.4050 #### [facility] [address] [place], [address] Hematocrit (Bld) [Volume fraction] 40.2 % Normal 37-47 [facility] Comment on above: Performed By: #### L 100.0100, L500.4050 #### [facility] [address] [place], [address] Hemoglobin (Bld) [Mass/Vol] 12.6 g/dL Normal 12.0-15.0 [facility] Comment on above: Performed By: #### L 100.0100, L500.4050 #### [facility] [address] [place], [address] IG% 0.400 Normal 0.0-0.9 [facility] Comment on above: Result Comment: IG% - Immature Granulocytes (promyelocytes, myelocytes and metamyelocytes) > 1% indicates that a LEFT SHIFT is Present. Performed By: #### L 100.0100, L500.4050 #### [facility] [address] [place], [address] Lymphocytes/100 WBC (Bld) 29.1 % Normal 19-41 [facility] Comment on above: Performed By: #### L 100.0100, L500.4050 #### [facility] [address] [place], [address] MCH (RBC) [Entitic mass] 27.0 pg Normal 27.0-32.0 [facility] Comment on above: Performed By: #### L 100.0100, L500.4050 #### [facility] [address] [place], [address] MCHC (RBC) [Mass/Vol] 31.3 g/dL Low 32-36 [facility] Comment on above: Performed By: #### L 100.0100, L500.4050 #### [facility] [address] [place], [address] MCV (RBC) [Entitic vol] 86.1 fL Normal 81-99 [facility] Comment on above: Performed By: #### L 100.0100, L500.4050 #### [facility] [address] [place], [address] Monocytes/100 WBC (Bld) 6.4 % Normal 0-10 [facility] Comment on above: Performed By: #### L 100.0100, L500.4050 #### [facility] [address] [place], [address] Neutrophils/100 WBC (Bld) 60.7 % Normal 47-70 [facility] Comment on above: Performed By: #### L 100.0100, L500.4050 #### [facility] [address] [place], [address] Nucleated RBC (Bld) [#/Vol] 0 10*3/uL Normal 0-5 [facility] Comment on above: Performed By: #### L 100.0100, L500.4050 #### [facility] [address] [place], [address] Platelet mean volume (Bld) [Entitic vol] 9.2 fL Normal 6.2-12.0 [facility] Comment on above: Performed By: #### L 100.0100, L500.4050 #### [facility] [address] [place], [address] Platelets (Bld) [#/Vol] 386 10*3/uL Normal 150-450 [facility] Comment on above: Performed By: #### L 100.0100, L500.4050 #### [facility] [address] [place], [address] RBC (Bld) [#/Vol] 4.67 10*6/uL Normal 4.2-5.4 [facility] Comment on above: Performed By: #### L 100.0100, L500.4050 #### [facility] [address] [place], [address] RDW SD 47.7 fl High 35.1-43.9 [facility] Comment on above: Performed By: #### L 100.0100, L500.4050 #### [facility] [address] [place], [address] WBC (Bld) [#/Vol] 8.3 10*3/uL Normal 4.4-11.0 [facility] Comment on above: Performed By: #### L 100.0100, L500.4050 #### [facility] [address] [place], [address] Emergency Department Summary on 12-23-2024 Emergency Department Summary [facility] Medical Records Department [address] [place] [address] Emergency Department Summary 12/23/24 MR#: [id number] Acct: [id number] Name: ROSEMARY KWAN Rep #: [id number] : 1970 54 From: Maurilio Jacome DO PCP: ADY Fox Status:REG ER Location: ED HPI History of Present Illness Chief Complaint: Cellulitis Narrative Narrative: Patient is a 54-year-old female with past medical history of histrionic personality disorder, hypothyroidism, depression, vitamin D deficiency, BMI 43 who presented to the emergency department with concern for cellulitis of the right leg. She states that she has a chronic wound to the right lower extremity that she states that has been healing well. She states that yesterday she noted that she felt the back of her leg and had some discomfort and redness. States that she called her doctor and they called a prescription but does not recall what the antibiotic was. She states that she was unable to pick this up secondary to her working. She states that she was concerned about the cellulitis therefore she came here for further evaluation management. Patient states that she has not been on any antibiotics to this point for this. She states that this all started yesterday. [facility] Medical History Acute pharyngitis Biceps tendinitis of right shoulder Osteoarthritis of left hip Post-menopausal Wears glasses Hyperactive gag reflex Leg cramps History of pain when walking Duodenal ulcer hemorrhage Varicose veins of both lower extremities Vitamin D deficiency Dyspnea Edema Colitis Tobacco dependence syndrome Depression Bleeding acute gastric ulcer Smoker Hypothyroidism Skin lesions multiple skuin lesions 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, 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 Home Medications ???Medication ???Instructions ???Recorded ???Last Taken ???Type ergocalciferol (vitamin D2) 1,250 1,250 mcg PO QWEEK SUPPLEMENT 11/01 Unknown History mcg (50,000 unit) capsule spironolactone 50 mg tablet 50 mg PO DAILY DIURETIC 02/18/20 U nknown History aspirin 81 mg tablet,delayed 81 mg PO DAILY #90 tabs 02/19/22 U nknown Rx release levothyroxine 100 mcg tablet mcg PO 10/27/24 Unknown History sertraline 100 mg tablet 100 mg PO QDAY 10/27/24 Unknown Hi story sertraline 50 mg tablet 50 mg PO QDAY 10/27/24 Unknown His tory topiramate 100 mg tablet 100 mg PO QHS 10/27/24 Unknown His tory trazodone 50 mg tablet 25 mg (1/2 x 50 mg) PO QHS PRN Unknown Rx sleep #15 tabs Allergy/AdvReac Type Severity Reaction Status Date / Time No Known Allergies Allergy Verified 12/23/24 22:52 Family History Sister Arthritis Cancer Father Cancer liver cancer Surgical History History of esophagogastroduodenoscopy (EGD) History of hernia repair History of Social History housing: house Smoking Status: Current every day smoker tobacco type: cigarettes alcohol intake: never substance use type: does not use ROS ROS ED ROS Narrative Constitutional: Denies any fevers, chills Neurological: Denies numbness, wheeze, tingling Musculoskeletal: Complains of right lower leg pain as noted above Skin: Complains of cellulitis to the right leg as noted above EXAM Physical Exam Narrative Exam Narrative: General: Patient was lying in bed rest comfortably do not appear to be in acute distress Head: Atraumatic, normocephalic Eyes: PERRL bilaterally, EOMI blood, no conjunctival injection noted Neck: Soft, supple, trachea midline Cardiovascular: Regular in rhythm Respiratory: Clear to auscultation bilaterally Extremities: +4/5 strength noted in the bilateral upper and lower extremities, patient has chronic lymphedema to the lower extremities she states Neurological: Patient following commands that she was at [facility] year is 2024 Skin: Warm, dry, patient does have erythema noted to the anterior concepcion and lateral leg as well to the posterior aspect. No petechia no purpura no sloughing of the skin noted Const Vital Signs: 12/23/24 22:49 Temperature 98.2 F Temperature Source Oral Pulse Rate 78 Respiratory Rate 16 Blood Pressure 147/96 H Blood Pressure Mean 113 Pulse Ox 100 Oxygen Delivery Method Room Air MDM MDM MDM Narrative Medical decision making narrative: Patient is a 54-year-old female who presented to the emergency department with a chief complaint of concern for cellulitis to the right lower extremity. On the differential diagnose includes but not limited to cellulitis, erysipelas, osteomyelitis. Once workup is obt (more content not included)... Normal [facility] Tibia Fibula 2 Viewson 12-23 Tibia Fibula 2 Views [facility] [address] [place] [address] Tibia Fibula 2 Views MR#: [id number] Acct: [id number] Name: ROSEMARY KWAN Rep #: [id number] : 1970 F 54 From: Avila Mckeon MD PCP: ADY Fox Status: REG ER Study: Tibia Fibula 2 Views Date of Exam: 12/23/24 Exam# [id number] Ordering Dr: Maurilio Jacome DO PROCEDURE: TIBIA FIBULA 2 VIEWS 12/23/2024 REASON FOR EXAM: CHRONIC WOUND LATERAL LEG TECHNIQUE: Frontal and lateral view radiographs of the right tibia and fibula COMPARISON: Right tib-fib radiographs 05/06/2018 FINDINGS: No acute fracture or dislocation. Alignment is anatomic. Visualized joint spaces are preserved. No osseous erosion/destruction or periosteal reaction. Marked generalized soft tissue swelling/edema of the right lower extremity. No subcutaneous emphysema or radiopaque foreign body appreciated. RAD/Tibia Fibula 2 Views IMPRESSION: No acute or aggressive osseous abnormality. No evidence for osteomyelitis. Marked generalized lower extremity soft tissue swelling/edema. Reading Location: [id number] CC: ADY Nixon; Dr. Maurilio Jacome DO Glass [place] Sander: Signed Normal [facility] HIV 1+2 Ab+HIV1 p24 Agon HIV 1+2 Ab+HIV1 p24 Ag IA Ql Non-Reactive Normal Nonreactive [facility] Comment on above: Order Comment: HIV A g/Ab screen is performed using the Siemens Atellica HIV Ag/Ab Combo assay which detects the presence of HIV p24 antigen as well as antibodies to HIV-1 (Group M and O) and HIV-2. No laboratory evidence of HIV infection. If acute HIV infection is suspected, consider testing for HIV RNA by PCR (viral load). Performed By: #### 5 6888-1 #### DARREN Deras ([id number]) [facility] ([facility]) [address] [place] [address] Hepatitis B virus surface Ag on 11-27-2024 HBV surface Ag IA Ql Non-Reactive Normal Nonreactive [facility] Comment on above: Result Comment: Biot in interference may cause falsely decreased results. Patients taking a Biotin dose of up to 5 mg/day should refrain from taking Biotin for 24 hours before sample collection. Providers may contact their local laboratory for further information. Performed By: #### 5 196-1 #### DARREN Deras ([id number]) [facility] ([facility]) [address] [place], [place] [id number] Hepatitis C virus Abon 11-27 HCV Ab Ql (S) Non-Reactive Normal Nonreactive [facility] Comment on above: Result Comment: Resu lts from patients taking biotin supplements or receiving high-dose biotin therapy should be interpreted with caution due to possible interference with this test. Providers may contact their local laboratory for further information. Performed By: #### 1 6128-1 #### DARREN Deras ([id number]) [facility] ([facility]) [address] [place], [place] [id number] MR/BMS.BPon 11-03-2024 MR/BMS.BP [address], [address] [place] [address] OFFICE VISIT Date of Service: 11/03/24 MR#: [id number] Acct: [id number] Name: ROSEMARY KWAN Rep #: [id number] : 1970 [facility] Age/Sex: 54/F Location: [facility] Status: Signed Intake Vital Signs 05/14/23 12:34 11/03/24 10:00 Height 5 ft 7 in 5 ft 7 in BP Intake Visit Reasons: Establish Care Allergies No Known Allergies Allergy (Verified 10/27/24 14:24) [facility] Medical History (Updated 10/28/24 @ 07:26 by [...] participated in a diagnostic assessment to begin therapy. She receives psychiatric services at [facility] from Renae Hutchison CNP. Rosemary is [...] that she has struggled with going to [employer] and blowing hundreds while keeping this hidden [...] AVH. Family of origin - Born in [place] and moved to [facility] when she was a young child. Living Status - Resides with her mother. Her daughter (17) stays in the home half the week. AoD history -Began smoking cigarettes as an adult. Smokes half a pack a day to calm nerves. Consumes alcohol with a friend on rare occasions. Denies use of cannabis, stimulants, and opioids. Education - Graduate of [employer] and [employer]. Reports school was difficult. States she was on an IEP and bullied by other students, which impacted her academically. 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 Legal issues -Charged with shoplifting and sentenced to 30 days in shelter resulting in lose of custody of daughter when daughter was 4. Reports forgery charge (more content not included)... Normal [facility] MR/BMS.BPon 10-27-2024 MR/BMS.BP [facility] ry [address], [address] [place] [id number] OFFICE VISIT Date of Service: 10/27/24 MR#: [id number] Acct: [id number] Name: ROSEMARY KWAN Rep #: [id number] : 1970 Provider: ADY ayala Age/Sex: 54/F Location: [facility] Status: Signed Intake Vital Signs 05/14/23 12:34 [...] Medical History (Updated 10/28/24 @ 07:26 by ADY Izaguirre) Acute pharyngitis Biceps tendinitis of right shoulder [...] Denies plan or intent. Memory: Short and correction memory intact. Denies feeling forgetful. Does not [...] and derrell (more content not included)... Normal [facility] 05-27-2024 [facility] Office Visit (UCWSTR ) ROSEMARY KWAN ([id number]) 1970 F Date Time Provider Department 05/27/24 5:45 PM [facility] During your visit today, we recorded the following information about you: Temperature Pulse Respiration Blood pressure 97.4 degrees 71/minute 24/minute 132/87 Weight 124 kg Josh Miranda APRN.[employer] 05/27/2024 6:20 PM Signed Subjective With complaints of sinus congestion cough sinus pressure. Patient denies any shortness of breath or fatigue. Patient says her ears hurt bilaterally. Patient denies any other symptoms. The history is provided by the patient. No portfolio director was used. Cough Review of Systems Constitutional: [...] Patient is agreeable to care plan. Josh iMranda APRN.Jeannette Nolan MA 05/27/2024 6:20 PM Signed Ambulatory Ear [...] Order(s): REMOVAL OF IMPACTED CERUMEN - INSTRUMENTATION [53642NDV] Order #: [id number] azithromycin (ZITHROMAX) 250 mg tabletTake 2 tablets by mouth once daily for 1 day, THEN 1 (more content not included)... Normal [facility] Absolute lymphocyte countOrd ered By: Negrita Nixon on 11-04-2022 Lymphocytes Auto (Unsp spec) [#/Vol] 2.75 10*3/uL 0.83-4.51 [facility] Basophil percentageOrdered B y: Negrita Nixon on 11-04-2022 Basophils/100 WBC (Bld) 0.7 % 0-1 [facility] Bilirubin [Mass/Vol] 0.20 mg/dL 0.20-1.00 [facility] Comment on above: For patients on eltr ombopag therapy, use of Dimension [place] TBIL is not recommended. Chloride [Moles/Vol] 107 mmol/L 98-107 [facility] Cholesterol [Mass/Vol] 168 mg/dL <200 [facility] Comment on above: <200 mg/dL Desirable 200-240 mg/dL Borderline >240 mg/dL High Risk Eosinophils/100 WBC (Bld) 2.7 % 0-5 [facility] Glucose [Mass/Vol] 110 mg/dL 74-106 [facility] Comment on above: Fasting Glucose resu lt from 100 to 125 mg/dL suggests IMPAIRED HOMEOSTASIS per A.D.A. criteria. Neutrophils (Bld) [#/Vol] 4.0 10*3/uL 2.0-7.7 [facility] Neutrophils/100 WBC (Bld) 53.4 % 47-70 [facility] Potassium [Moles/Vol] 4.5 mmol/L 3.5-5.1 [facility] Protein [Mass/Vol] 7.4 g/dL 6.4-8.2 [facility] Sodium [Moles/Vol] 139 mmol/L 136-145 [facility] Triglyceride [Mass/Vol] 177 mg/dL <199 [facility] Comment on above: The drugs N-Acetylcy steine and Metamizole may falsely depress this assay.Serum Triglycerides Reference Interval Normal <150 mg/dL Borderline high 150 - 199 mg/dL High 200 - 499 mg/dL Very High > or = 500 mg/dL WBC (Bld) [#/Vol] 7.5 10*3/uL 4.4-11.0 [facility] Blood erythrocytes count (nu mber/volume)Ordered By: Negrita Nixon on 11-04-2022 RBC (Bld) [#/Vol] 5.35 10*6/uL 4.2-5.4 [facility] Blood hemoglobin measurement (mass/volume)Ordered By: Negrita Nixon on 11-04-2022 Hemoglobin (Bld) [Mass/Vol] 14.2 g/dL 12.0-15.0 [facility] Blood lymphocytes/100 leukoc ytesOrdered By: Negrita Nixon on 11-04-2022 Lymphocytes/100 WBC (Bld) 36.8 % 19-41 [facility] Blood monocytes/100 leukocyt esOrdered By: Negrita Nixon on 11-04-2022 Monocytes/100 WBC (Bld) 5.9 % 0-10 [facility] Blood platelet mean volumeOr dered By: Negrita Nixon on 11-04-2022 Platelet mean volume (Bld) [Entitic vol] 9.1 fL 6.2-12.0 [facility] Determination of erythrocyte mean corpuscular volume (MCV)Ordered By: Clover Tiffani on 11-04-2022 MCV (RBC) [Entitic vol] 83.7 fL 81-99 [facility] Hematocrit Auto (Bld) [Volum e fraction]Ordered By: [facility] on 11-04-2022 Hematocrit (Bld) [Volume fraction] 44.8 % 37-47 [facility] Laboratory - Chemistry and C hemistry - challengeOrdered By: [facility] on 11-04-2022 ALP [Catalytic activity/Vol] 85 U/L 45-117 [facility] ALT [Catalytic activity/Vol] 33 U/L 13-56 [facility] CO2 [Moles/Vol] 27.0 mmol/L 21.0-32.0 [facility] Free T4 [Mass/Vol] 1.11 ng/dL 0.76-1.46 [facility] Globulin (S) [Mass/Vol] 4.0 g/dL 2.2-4.2 [facility] Urea nitrogen/Creatinine [Mass ratio] 19.0 mg/mg 10-20 [facility] Laboratory - Hematology and Cell countsOrdered By: [facility] on 11-04-2022 Erythrocyte distribution width (RBC) [Entitic vol] 50.3 fL 35.1-43.9 [facility] Erythrocyte distribution width (RBC) [Ratio] 16.6 % 11.6-14.6 [facility] Immature granulocytes/100 WBC (Bld) 0.500 % 0.0-0.9 [facility] Comment on above: IG% - Immature Granu locytes (promyelocytes, myelocytes and metamyelocytes) > 1% indicates that a LEFT SHIFT is Present. MCH (RBC) [Entitic mass] 26.5 pg 27.0-32.0 [facility] Nucleated RBC/100 WBC (Bld) [Ratio] 0 % 0-5 [facility] MCHC Auto (RBC) [Mass/Vol]Or dered By: Negrita Nixon on 11-04-2022 MCHC (RBC) [Mass/Vol] 31.7 g/dL 32-36 [facility] No Panel InformationOrdered By: Negrita Nixon on 11-04-2022 Estimated GFR (MDRD) Amer 92 mL/min >60 [facility] Comment on above: GFR Calc Estimated GFR (MDRD) Non-Af Amer 76 mL/min >60 [facility] Comment on above: Non- GFR Calc Thyroid Stimulating Hormone (TSH) 2.08 uIU/mL 0.358-3.74 [facility] Vitamin D 25-Hydroxy 52.6 ng/mL [facility] Comment on above: Vitamin D 25(OH) Sta tus Range Deficiency <20 ng/mL (50nmol/L) Insufficiency 20 - 30 ng/mL (50 - 75 nmol/L) Sufficiency 30 - 100 ng/mL (75 - 250 nmol/L) Toxicity >100 ng/mL (>250 nmol/L) Platelets bldOrdered By: Wayne Nixon on 11-04-2022 Platelets (Bld) [#/Vol] 439 10*3/uL 150-450 [facility] Serum or plasma albumin joseph urement (mass/volume)Ordered By: Negrita Nixon on 11-04-2022 Albumin [Mass/Vol] 3.4 g/dL 3.2-5.0 [facility] Serum or plasma albumin/glob ulin mass ratioOrdered By: Negrita Nixon on 11-04-2022 Albumin/Globulin [Mass ratio] 0.8 {ratio} 0.9-2.4 [facility] Serum or plasma calcium joseph urement (mass/volume)Ordered By: Negrita Nixon on 11-04-2022 Calcium [Mass/Vol] 9.0 mg/dL 8.5-10.1 [facility] Serum or plasma cholesterol in HDL measurement (mass/volume)Ordered By: Negrita Nixon on 11-04-2022 Cholesterol in HDL [Mass/Vol] 54 mg/dL >40 [facility] Comment on above: The drugs N-Acetylcy steine and Metamizole may falsely depress this assay. Reference Range HDL <40 mg/dL Low HDL Cholesterol HDL >or= 60 mg/dL High HDL Cholesterol Serum or plasma cholesterol in VLDL measurement (mass/volume)Ordered By: Negrita Nioxn on 11-04-2022 Cholesterol in VLDL [Mass/Vol] 35 mg/dL 5-40 [facility] Serum or plasma creatinine m easurement (mass/volume)Ordered By: Negrita Nixon on 11-04-2022 Creatinine [Mass/Vol] 0.84 mg/dL 0.55-1.02 [facility] Comment on above: The validity of the calculated GFR & GFRAA in patients over 70 years has not been determined. Clinical correlation is essential. Serum or plasma low density lipoprotein (LDL) cholesterol measurement (mass/volume)Ordered By: Negritaarpit Nixon on 11-04-2022 Cholesterol in LDL [Mass/Vol] 79 mg/dL 0-130 [facility] Serum or plasma urea nitroge n measurement (mass/volume)Ordered By: Negrita Nixon on 11-04-2022 Urea nitrogen [Mass/Vol] 16 mg/dL 7-18 [facility] Thin prep Papanicolaou smear with manual screeningOrdered By: Negritaarpit Nixon on 11-04-2022 Thin prep Papanicolaou smear with manual screening 19 U/L 15-37 [facility] Thin prep Papanicolaou smear with manual screening 5 5-15 [facility] Absolute lymphocyte countOrd ered By: Negrita Nixon on 10-06-2022 Lymphocytes Auto (Unsp spec) [#/Vol] 1.90 10*3/uL 0.83-4.51 [facility] Basophil percentageOrdered B y: Negrita Nixon on 10-06-2022 Basophils/100 WBC (Bld) 0.8 % 0-1 [facility] Eosinophils/100 WBC (Bld) 2.8 % 0-5 [facility] Neutrophils (Bld) [#/Vol] 3.5 10*3/uL 2.0-7.7 [facility] Neutrophils/100 WBC (Bld) 58.5 % 47-70 [facility] WBC (Bld) [#/Vol] 6.0 10*3/uL 4.4-11.0 [facility] Blood erythrocytes count (nu mber/volume)Ordered By: Negrita Nixon on 10-06-2022 RBC (Bld) [#/Vol] 5.49 10*6/uL 4.2-5.4 [facility] Blood hemoglobin measurement (mass/volume)Ordered By: Negritaarpit Nixon on 10-06-2022 Hemoglobin (Bld) [Mass/Vol] 14.2 g/dL 12.0-15.0 [facility] Blood lymphocytes/100 leukoc ytesOrdered By: Clover Tiffani on 10-06-2022 Lymphocytes/100 WBC (Bld) 31.6 % 19-41 [facility] Blood monocytes/100 leukocyt esOrdered By: Clover Tiffani on 10-06-2022 Monocytes/100 WBC (Bld) 6.0 % 0-10 [facility] Blood platelet mean volumeOr dered By: Clover Tiffani on 10-06-2022 Platelet mean volume (Bld) [Entitic vol] 9.2 fL 6.2-12.0 [facility] Determination of erythrocyte mean corpuscular volume (MCV)Ordered By: Negritaarpit Nixon on 10-06-2022 MCV (RBC) [Entitic vol] 85.2 fL 81-99 [facility] Erythrocyte sedimentation ra teOrdered By: [facility] on 10-[facility]-2022 ESR (Bld) [Velocity] 24 mm/h 0-30 [facility] Hematocrit Auto (Bld) [Volum e fraction]Ordered By: [facility] on 10-06-2022 Hematocrit (Bld) [Volume fraction] 46.8 % 37-47 [facility] Laboratory - Hematology and Cell countsOrdered By: Clover Tiffani on 10-06-2022 Erythrocyte distribution width (RBC) [Entitic vol] 51.3 fL 35.1-43.9 [facility] Erythrocyte distribution width (RBC) [Ratio] 16.4 % 11.6-14.6 [facility] Immature granulocytes/100 WBC (Bld) 0.300 % 0.0-0.9 [facility] Comment on above: IG% - Immature Granu locytes (promyelocytes, myelocytes and metamyelocytes) > 1% indicates that a LEFT SHIFT is Present. MCH (RBC) [Entitic mass] 25.9 pg 27.0-32.0 [facility] Nucleated RBC/100 WBC (Bld) [Ratio] 0 % 0-5 [facility] MCHC Auto (RBC) [Mass/Vol]Or dered By: Negrita Nixon on 10-06-2022 MCHC (RBC) [Mass/Vol] 30.3 g/dL 32-36 [facility] Platelets bldOrdered By: Wayne Nixon on 10-06-2022 Platelets (Bld) [#/Vol] 412 10*3/uL 150-450 [facility] Serum cyclic citrullinated p eptide IgG antibody assay (units/volume)Ordered By: Negrita Nixon on 10-06-2022 Cyclic citrullinated peptide IgG Qn 4 units 0-19 [facility] Comment on above: Negative <20 Weak po sitive 20 - 39 Moderate positive 40 - 59 Strong positive >59Performed at: [facility] [id number] Director: Antonio Combs PhD, Phone: [phone] Serum or plasma C reactive p rotein measurement (mass/volume)Ordered By: Negrita Nixon on 10-06-2022 CRP [Mass/Vol] 7.34 mg/L 0.0-3.0 [facility] Comment on above: C-Reactive Protein ( CRP) provides useful information for thediagnosis, therapy and monitoring of inflammatory processesand associated diseases. For the evaluation of Relative Riskfor Cardiovascular Disease, a High Sensitivity CRP (HSCRP)should be ordered. Serum rheumatoid factor dete ctionOrdered By: Negrita Nixon on 10-06-2022 Rheumatoid factor Ql (S) < 10.0 IU/mL <15 [facility] No Panel Informationon 07-22 POC SARS CoV-2 Antigen Negative [facility] Basophil percentageOrdered B y: Dr. Thomas on 06-12-2022 Chloride [Moles/Vol] 108 mmol/L 98-107 [facility] Glucose [Mass/Vol] 100 mg/dL 74-106 [facility] Comment on above: Fasting Glucose resu lt from 100 to 125 mg/dL suggests IMPAIRED HOMEOSTASIS per A.D.A. criteria. Potassium [Moles/Vol] 3.7 mmol/L 3.5-5.1 [facility] Sodium [Moles/Vol] 141 mmol/L 136-145 [facility] WBC (Bld) [#/Vol] 6.7 10*3/uL 4.4-11.0 [facility] [place] erythrocytes count (nu mber/volume)Ordered By: Dr. Thomas on 06-12-2022 RBC (Bld) [#/Vol] 5.07 10*6/uL 4.2-5.4 [facility] Blood hemoglobin measurement (mass/volume)Ordered By: Dr. Thomas on 06-12-2022 Hemoglobin (Bld) [Mass/Vol] 13.5 g/dL 12.0-15.0 [facility] Blood platelet mean volumeOr dered By: Dr. Thomas on 06-12-2022 Platelet mean volume (Bld) [Entitic vol] 8.6 fL 6.2-12.0 [facility] Determination of erythrocyte mean corpuscular volume (MCV)Ordered By: Dr. Thomas on 06-12-2022 MCV (RBC) [Entitic vol] 84.0 fL 81-99 [facility] Hematocrit Auto (Bld) [Volum e fraction]Ordered By: Dr. Thomas on 06-12-2022 Hematocrit (Bld) [Volume fraction] 42.6 % 37-47 [facility] INR in Blood by Coagulation assayOrdered By: Dr. Thomas on 06-12-2022 INR Coag (Bld) [Relative time] 1.0 {INR} [facility] Laboratory - Chemistry and C hemistry - challengeOrdered By: Dr. Thomas on 06-12-2022 CK [Catalytic activity/Vol] 112 U/L 26-192 [facility] CO2 [Moles/Vol] 32.0 mmol/L 21.0-32.0 [facility] Magnesium [Mass/Vol] 2.3 mg/dL 1.6-2.6 [facility] Urea nitrogen/Creatinine [Mass ratio] 20.3 mg/mg 10-20 [facility] Laboratory - CoagulationOrde red By: Dr. Thomas on 06-12-2022 aPTT Coag (Bld) [Time] 31.2 s 24.1-36.2 [facility] PT Coag (PPP) [Time] 12.3 s 11.7-14.9 [facility] Laboratory - Hematology and Cell countsOrdered By: Dr. Thomas on 06-12-2022 Erythrocyte distribution width (RBC) [Entitic vol] 45.0 fL 35.1-43.9 [facility] Erythrocyte distribution width (RBC) [Ratio] 14.7 % 11.6-14.6 [facility] MCH (RBC) [Entitic mass] 26.6 pg 27.0-32.0 [facility] MCHC Auto (RBC) [Mass/Vol]Or dered By: Dr. Thomas on 06-12-2022 MCHC (RBC) [Mass/Vol] 31.7 g/dL 32-36 [facility] No Panel InformationOrdered By: Dr. Thomas on 06-12-2022 Estimated Creatinine Clearance Calc 85.94 ml/min [facility] Estimated GFR (MDRD) Amer 99 mL/min >60 [facility] Comment on above: GFR Calc Estimated GFR (MDRD) Non-Af Amer 82 mL/min >60 [facility] Comment on above: Non- GFR Calc Platelets bldOrdered By: Dr. Thomas on 06-12-2022 Platelets (Bld) [#/Vol] 436 10*3/uL 150-450 [facility] Serum or plasma calcium joseph urement (mass/volume)Ordered By: Dr. Thomas on 06-12-2022 Calcium [Mass/Vol] 8.9 mg/dL 8.5-10.1 [facility] Serum or plasma creatinine m easurement (mass/volume)Ordered By: Dr. Thomas on 06-12-2022 Creatinine [Mass/Vol] 0.79 mg/dL 0.55-1.02 [facility] Comment on above: The validity of the calculated GFR & GFRAA in patients over 70 years has not been determined. Clinical correlation is essential. Serum or plasma urea nitroge n measurement (mass/volume)Ordered By: Dr. Thomas on 06-12-2022 Urea nitrogen [Mass/Vol] 16 mg/dL 7-18 [facility] Thin prep Papanicolaou smear with manual screeningOrdered By: Dr. Thomas on 06-12-2022 Thin prep Papanicolaou smear with manual screening 1 5-15 [facility] Basophil percentageon 2021 Chloride [Moles/Vol] 107 mmol/L 98-107 [facility] Work Phone: Glucose [Mass/Vol] 78 mg/dL 74-106 [facility] Work Phone: Potassium [Moles/Vol] 4.3 mmol/L 3.5-5.1 [facility] Work Phone: Sodium [Moles/Vol] 140 mmol/L 136-145 [facility] Work Phone: WBC (Bld) [#/Vol] 7.1 10*3/uL 4.4-11.0 [facility] Work Phone: Blood erythrocytes count (nu mber/volume)on 02-14-2022 RBC (Bld) [#/Vol] 5.31 10*6/uL 4.2-5.4 [facility] Work Phone: Blood hemoglobin measurement (mass/volume)on 02-14-2022 Hemoglobin (Bld) [Mass/Vol] 13.2 g/dL 12.0-15.0 [facility] Work Phone: Blood platelet mean volumeon 02-14-2022 Platelet mean volume (Bld) [Entitic vol] 9.2 fL 6.2-12.0 [facility] Work Phone: Determination of erythrocyte mean corpuscular volume (MCV)on 02-14-2022 MCV (RBC) [Entitic vol] 80.4 fL 81-99 [facility] Work Phone: Hematocrit Auto (Bld) [Volum e fraction]on 02-14-2022 Hematocrit (Bld) [Volume fraction] 42.7 % 37-47 [facility] Work Phone: Laboratory - Chemistry and C hemistry - challengeon 02-14-2022 CO2 [Moles/Vol] 27.0 mmol/L 21.0-32.0 [facility] Work Phone: Free T4 [Mass/Vol] 1.24 ng/dL 0.76-1.46 [facility] Work Phone: Urea nitrogen/Creatinine [Mass ratio] 14.7 mg/mg 10-20 [facility] Work Phone: Laboratory - Hematology and Cell countson 02-14-2022 Erythrocyte distribution width (RBC) [Entitic vol] 49.8 fL 35.1-43.9 [facility] Work Phone: Erythrocyte distribution width (RBC) [Ratio] 17.2 % 11.6-14.6 [facility] Work Phone: MCH (RBC) [Entitic mass] 24.9 pg 27.0-32.0 [facility] Work Phone: MCHC Auto (RBC) [Mass/Vol]on 02-14-2022 MCHC (RBC) [Mass/Vol] 30.9 g/dL 32-36 [facility] Work Phone: No Panel Informationon 02-14 Estimated GFR (MDRD) Amer 106 mL/min >60 [facility] Work Phone: Comment on above: GFR Calc Estimated GFR (MDRD) Non-Af Amer 87 mL/min >60 [facility] Work Phone: Comment on above: Non- GFR Calc Thyroid Stimulating Hormone (TSH) 2.75 uIU/mL 0.358-3.74 [facility] Work Phone: Vitamin D 25-Hydroxy 48.1 ng/mL [facility] Work Phone: Comment on above: Vitamin D 25(OH) Sta tus Range Deficiency <20 ng/mL (50nmol/L) Insufficiency 20 - 30 ng/mL (50 - 75 nmol/L) Sufficiency 30 - 100 ng/mL (75 - 250 nmol/L) Toxicity >100 ng/mL (>250 nmol/L) Platelets bldon 02-14-2022 Platelets (Bld) [#/Vol] 492 10*3/uL 150-450 [facility] Work Phone: Serum or plasma calcium joseph urement (mass/volume)on 02-14-2022 Calcium [Mass/Vol] 9.2 mg/dL 8.5-10.1 [facility] Work Phone: Serum or plasma creatinine m easurement (mass/volume)on 02-14-2022 Creatinine [Mass/Vol] 0.75 mg/dL 0.55-1.02 [facility] Work Phone: Comment on above: The validity of the calculated GFR & GFRAA in patients over 70 years has not been determined. Clinical correlation is essential. Serum or plasma urea nitroge n measurement (mass/volume)on 02-14-2022 Urea nitrogen [Mass/Vol] 11 mg/dL 7-18 [facility] Work Phone: Thin prep Papanicolaou smear with manual screeningon 02-14-2022 Thin prep Papanicolaou smear with manual screening 6 5-15 [facility] Work Phone: Absolute lymphocyte counton 10-14-2021 Lymphocytes Auto (Unsp spec) [#/Vol] 1.82 10*3/uL 0.83-4.51 [facility] Work Phone: Basophil percentageon 2021 Basophils/100 WBC (Bld) 0.5 % 0-1 [facility] Work Phone: Bilirubin [Mass/Vol] 0.20 mg/dL 0.20-1.00 [facility] Work Phone: Comment on above: For patients on eltr ombopag therapy, use of Dimension [place] TBIL is not recommended. Chloride [Moles/Vol] 111 mmol/L 98-107 [facility] Work Phone: Eosinophils/100 WBC (Bld) 1.6 % 0-5 [facility] Work Phone: Glucose [Mass/Vol] 91 mg/dL 74-106 [facility] Work Phone: [phone] Neutrophils (Bld) [#/Vol] 3.1 10*3/uL 2.0-7.7 [facility] Work Phone: Neutrophils/100 WBC (Bld) 55.0 % 47-70 [facility] Work Phone: Potassium [Moles/Vol] 3.6 mmol/L 3.5-5.1 [facility] Work Phone: Protein [Mass/Vol] 7.3 g/dL 6.4-8.2 [facility] Work Phone: Sodium [Moles/Vol] 141 mmol/L 136-145 [facility] Work Phone: WBC (Bld) [#/Vol] 5.6 10*3/uL 4.4-11.0 [facility] Work Phone: Blood erythrocytes count (nu mber/volume)on 10-14-2021 RBC (Bld) [#/Vol] 3.99 10*6/uL [facility].2-5.[facility] Blood hemoglobin measurement (mass/volume)on 10-14-2021 Hemoglobin (Bld) [Mass/Vol] 10.8 g/dL 12.0-15.0 [facility] Work Phone: Blood lymphocytes/100 leukoc yteson 10-14-2021 Lymphocytes/100 WBC (Bld) 32.3 % 19-41 [facility] Work Phone: Blood monocytes/100 leukocyt eson 10-14-2021 Monocytes/100 WBC (Bld) 9.9 % 0-10 [facility] Work Phone: Blood platelet mean volumeon 10-14-2021 Platelet mean volume (Bld) [Entitic vol] 8.7 fL 6.2-12.0 [facility] Work Phone: Determination of erythrocyte mean corpuscular volume (MCV)on 10-14-2021 MCV (RBC) [Entitic vol] 89.5 fL 81-99 [facility] Work Phone: Hematocrit Auto (Bld) [Volum e fraction]on 10-14-2021 Hematocrit (Bld) [Volume fraction] 35.7 % 37-47 [facility] Work Phone: [phone] Laboratory - Chemistry and C hemistry - challengeon 10-14-2021 ALP [Catalytic activity/Vol] 78 U/L 45-117 [facility] Work Phone: ALT [Catalytic activity/Vol] 24 U/L 13-56 [facility] Work Phone: CO2 [Moles/Vol] 24.0 mmol/L 21.0-32.0 [facility] Work Phone: Globulin (S) [Mass/Vol] 3.9 g/dL 2.2-4.2 [facility] Work Phone: Lipase [Catalytic activity/Vol] 179 U/L 73-393 [facility] Work Phone: Urea nitrogen/Creatinine [Mass ratio] 8.3 mg/mg 10-20 [facility] Work Phone: Laboratory - Hematology and Cell countson 10-14-2021 Erythrocyte distribution width (RBC) [Entitic vol] 51.5 fL 35.1-43.9 [facility] Work Phone: Erythrocyte distribution width (RBC) [Ratio] 15.8 % 11.6-14.6 [facility] Work Phone: Immature granulocytes/100 WBC (Bld) 0.700 % 0.0-0.9 [facility] Work Phone: Comment on above: IG% - Immature Granu locytes (promyelocytes, myelocytes and metamyelocytes) > 1% indicates that a LEFT SHIFT is Present. MCH (RBC) [Entitic mass] 27.1 pg 27.0-32.0 [facility] Work Phone: Nucleated RBC/100 WBC (Bld) [Ratio] 0 % 0-5 [facility] Work Phone: MCHC Auto (RBC) [Mass/Vol]on 10-14-2021 MCHC (RBC) [Mass/Vol] 30.3 g/dL 32-36 [facility] Work Phone: No Panel Informationon 10-14 Estimated Creatinine Clearance Calc 68.18 ml/min [facility] Work Phone: Estimated GFR (MDRD) Amer 79 mL/min >60 [facility] Work Phone: Comment on above: GFR Calc Estimated GFR (MDRD) Non-Af Amer 65 mL/min >60 [facility] Work Phone: Comment on above: Non- GFR Calc Platelets bldon 10-14-2021 Platelets (Bld) [#/Vol] 511 10*3/uL 150-450 [facility] Work Phone: Serum or plasma albumin joseph urement (mass/volume)on 10-14-2021 Albumin [Mass/Vol] 3.4 g/dL 3.2-5.0 [facility] Work Phone: Serum or plasma albumin/glob ulin mass ratioon 10-14-2021 Albumin/Globulin [Mass ratio] 0.9 {ratio} 0.9-2.4 [facility] Work Phone: Serum or plasma calcium joseph urement (mass/volume)on 10-14-2021 Calcium [Mass/Vol] 8.7 mg/dL 8.5-10.1 [facility] Work Phone: Serum or plasma creatinine m easurement (mass/volume)on 10-14-2021 Creatinine [Mass/Vol] 0.96 mg/dL 0.55-1.02 [facility] Work Phone: Comment on above: The validity of the calculated GFR & GFRAA in patients over 70 years has not been determined. Clinical correlation is essential. Serum or plasma urea nitroge n measurement (mass/volume)on 10-14-2021 Urea nitrogen [Mass/Vol] 8 mg/dL 7-18 [facility] Work Phone: Thin prep Papanicolaou smear with manual screeningon 10-14-2021 Thin prep Papanicolaou smear with manual screening 20 U/L 15-37 [facility] Work Phone: Thin prep Papanicolaou smear with manual screening 6 5-15 [facility] Work Phone: Absolute lymphocyte counton 10-04-2021 Lymphocytes Auto (Unsp spec) [#/Vol] 3.67 10*3/uL 0.83-4.51 [facility] Work Phone: Basophil percentageon 2021 Basophils/100 WBC (Bld) 0.6 % 0-1 [facility] Work Phone: Chloride [Moles/Vol] 109 mmol/L 98-107 [facility] Work Phone: Eosinophils/100 WBC (Bld) 2.1 % 0-5 [facility] Work Phone: [phone] Glucose [Mass/Vol] 103 mg/dL 74-106 [facility] Work Phone: Comment on above: Fasting Glucose resu lt from 100 to 125 mg/dL suggests IMPAIRED HOMEOSTASIS per A.D.A. criteria. Neutrophils (Bld) [#/Vol] 4.4 10*3/uL 2.0-7.7 [facility] Work Phone: [phone] Neutrophils/100 WBC (Bld) 49.3 % 47-70 [facility] Work Phone: Potassium [Moles/Vol] 4.0 mmol/L 3.5-5.1 [facility] Work Phone: Sodium [Moles/Vol] 138 mmol/L 136-145 [facility] Work Phone: [phone] WBC (Bld) [#/Vol] 8.9 10*3/uL 4.4-11.0 [facility] Work Phone: [phone] Blood erythrocytes count (nu mber/volume)on 10-04-2021 RBC (Bld) [#/Vol] 3.87 10*6/uL 4.2-5.4 [facility] Work Phone: Blood hemoglobin measurement (mass/volume)on 10-04-2021 Hemoglobin (Bld) [Mass/Vol] 9.2 g/dL 12.0-15.0 [facility] Work Phone: Blood lymphocytes/100 leukoc yteson 10-04-2021 Lymphocytes/100 WBC (Bld) 41.4 % 19-41 [facility] Work Phone: Blood monocytes/100 leukocyt eson 10-04-2021 Monocytes/100 WBC (Bld) 6.0 % 0-10 [facility] Work Phone: Blood platelet mean volumeon 10-04-2021 Platelet mean volume (Bld) [Entitic vol] 9.1 fL 6.2-12.0 [facility] Work Phone: Determination of erythrocyte mean corpuscular volume (MCV)on 10-04-2021 MCV (RBC) [Entitic vol] 86.0 fL 81-99 [facility] Work Phone: Hematocrit Auto (Bld) [Volum e fraction]on 10-04-2021 Hematocrit (Bld) [Volume fraction] 27.8 % 37-47 [facility] Work Phone: Laboratory - Chemistry and C hemistry - challengeon 10-04-2021 CO2 [Moles/Vol] 24.0 mmol/L 21.0-32.0 [facility] Work Phone: Urea nitrogen/Creatinine [Mass ratio] 33.9 mg/mg 10-20 [facility] Work Phone: Laboratory - Hematology and Cell countson 10-04-2021 Erythrocyte distribution width (RBC) [Entitic vol] 47.6 fL 35.1-43.9 [facility] Work Phone: Erythrocyte distribution width (RBC) [Ratio] 15.2 % 11.6-14.6 [facility] Work Phone: Immature granulocytes/100 WBC (Bld) 0.600 % 0.0-0.9 [facility] Work Phone: Comment on above: IG% - Immature Granu locytes (promyelocytes, myelocytes and metamyelocytes) > 1% indicates that a LEFT SHIFT is Present. MCH (RBC) [Entitic mass] 27.4 pg 27.0-32.0 [facility] Work Phone: Nucleated RBC/100 WBC (Bld) [Ratio] 0 % 0-5 [facility] Work Phone: MCHC Auto (RBC) [Mass/Vol]on 10-04-2021 MCHC (RBC) [Mass/Vol] 31.8 g/dL 32-36 [facility] Work Phone: No Panel Informationon 10-04 Estimated Creatinine Clearance Calc 96.25 ml/min [facility] Work Phone: Estimated GFR (MDRD) Amer 118 mL/min >60 [facility] Work Phone: Comment on above: GFR Calc Estimated GFR (MDRD) Non-Af Amer 98 mL/min >60 [facility] Work Phone: Comment on above: Non- GFR Calc Platelets bldon 10-04-2021 Platelets (Bld) [#/Vol] 437 10*3/uL 150-450 [facility] Work Phone: Serum or plasma calcium joseph urement (mass/volume)on 10-04-2021 Calcium [Mass/Vol] 8.5 mg/dL 8.5-10.1 [facility] Work Phone: Serum or plasma creatinine m easurement (mass/volume)on 10-04-2021 Creatinine [Mass/Vol] 0.68 mg/dL 0.55-1.02 [facility] Work Phone: Comment on above: The validity of the calculated GFR & GFRAA in patients over 70 years has not been determined. Clinical correlation is essential. Serum or plasma urea nitroge n measurement (mass/volume)on 10-04-2021 Urea nitrogen [Mass/Vol] 23 mg/dL 7-18 [facility] Work Phone: Thin prep Papanicolaou smear with manual screeningon 10-04-2021 Thin prep Papanicolaou smear with manual screening 5 5-15 [facility] Work Phone: Absolute lymphocyte counton 10-03-2021 Lymphocytes Auto (Unsp spec) [#/Vol] 3.05 10*3/uL 0.83-4.51 [facility] Work Phone: Basophil percentageon 2021 Basophils/100 WBC (Bld) 0.4 % 0-1 [facility] Work Phone: Bilirubin [Mass/Vol] 0.10 mg/dL 0.20-1.00 [facility] Work Phone: Comment on above: For patients on eltr ombopag therapy, use of Dimension [place] TBIL is not recommended. Chloride [Moles/Vol] 109 mmol/L 98-107 [facility] Work Phone: Eosinophils/100 WBC (Bld) 2.0 % 0-5 [facility] Work Phone: [phone] Glucose [Mass/Vol] 104 mg/dL 74-106 [facility] Work Phone: Comment on above: Fasting Glucose resu lt from 100 to 125 mg/dL suggests IMPAIRED HOMEOSTASIS per A.D.A. criteria. Neutrophils (Bld) [#/Vol] 3.3 10*3/uL 2.0-7.7 [facility] Work Phone: Neutrophils/100 WBC (Bld) 47.5 % 47-70 [facility] Work Phone: Potassium [Moles/Vol] 4.0 mmol/L 3.5-5.1 [facility] Work Phone: Protein [Mass/Vol] 7.1 g/dL 6.4-8.2 [facility] Work Phone: Sodium [Moles/Vol] 138 mmol/L 136-145 [facility] Work Phone: [phone] WBC (Bld) [#/Vol] 6.9 10*3/uL 4.4-11.0 [facility] Work Phone: Basophil percentage 0-5 SEEN /hpf 0-5 [facility] Work Phone: [phone] Bilirubin Test strip Ql (U)o n 10-03-2021 Bilirubin Ql (U) Negative Negative [facility] Work Phone: Blood erythrocytes count (nu mber/volume)on 10-03-2021 RBC (Bld) [#/Vol] 4.02 10*6/uL 4.2-5.4 [facility] Work Phone: Blood hemoglobin measurement (mass/volume)on 10-03-2021 Hemoglobin (Bld) [Mass/Vol] 11.1 g/dL 12.0-15.0 [facility] Work Phone: Blood lymphocytes/100 leukoc yteson 10-03-2021 Lymphocytes/100 WBC (Bld) 44.3 % 19-41 [facility] Work Phone: Blood monocytes/100 leukocyt eson 10-03-2021 Monocytes/100 WBC (Bld) 5.2 % 0-10 [facility] Work Phone: Blood platelet mean volumeon 10-03-2021 Platelet mean volume (Bld) [Entitic vol] 9.0 fL 6.2-12.0 [facility] Work Phone: Determination of erythrocyte mean corpuscular volume (MCV)on 10-03-2021 MCV (RBC) [Entitic vol] 85.8 fL 81-99 [facility] Work Phone: Direct bilirubinon 2 Bilirubin.direct [Mass/Vol] mg/dL 0.00-0.30 [facility] Work Phone: Hematocrit Auto (Bld) [Volum e fraction]on 10-03-2021 Hematocrit (Bld) [Volume fraction] 34.5 % 37-47 [facility] Work Phone: Ketones Test strip Ql (U)on 10-03-2021 Ketones Ql (U) 5 mg/dl Negative [facility] Work Phone: Laboratory - Chemistry and C hemistry - challengeon 10-03-2021 ALP [Catalytic activity/Vol] 67 U/L 45-117 [facility] Work Phone: ALT [Catalytic activity/Vol] 26 U/L 13-56 [facility] Work Phone: [phone] CK [Catalytic activity/Vol] 74 U/L 26-192 [facility] Work Phone: CO2 [Moles/Vol] 26.0 mmol/L 21.0-32.0 [facility] Work Phone: Globulin (S) [Mass/Vol] 3.7 g/dL 2.2-4.2 [facility] Work Phone: Lipase [Catalytic activity/Vol] 239 U/L 73-393 [facility] Work Phone: Urea nitrogen/Creatinine [Mass ratio] 30.5 mg/mg 10-20 [facility] Work Phone: Laboratory - Hematology and Cell countson 10-03-2021 Erythrocyte distribution width (RBC) [Entitic vol] 46.5 fL 35.1-43.9 [facility] Work Phone: Erythrocyte distribution width (RBC) [Ratio] 14.7 % 11.6-14.6 [facility] Work Phone: Immature granulocytes/100 WBC (Bld) 0.600 % 0.0-0.9 [facility] Work Phone: Comment on above: IG% - Immature Granu locytes (promyelocytes, myelocytes and metamyelocytes) > 1% indicates that a LEFT SHIFT is Present. MCH (RBC) [Entitic mass] 27.6 pg 27.0-32.0 [facility] Work Phone: Nucleated RBC/100 WBC (Bld) [Ratio] 0 % 0-5 [facility] Work Phone: Lower GI hemoglobin IA Ql (S tl)on 10-03-2021 Stool Occult Blood (OPHELIA) Positive [facility] Work Phone: MCHC Auto (RBC) [Mass/Vol]on 10-03-2021 MCHC (RBC) [Mass/Vol] 32.2 g/dL 32-36 [facility] Work Phone: Mucus LM Ql (Urine sed)on Mucus Ql (Urine sed) 0 SEEN /hpf [facility] Work Phone: Nitrite Test strip Ql (U)on 10-03-2021 Nitrite Ql (U) Negative Negative [facility] Work Phone: No Panel Informationon 10-03 Estimated Creatinine Clearance Calc 87.27 ml/min [facility] Work Phone: Estimated GFR (MDRD) Amer 105 mL/min >60 [facility] Work Phone: Comment on above: GFR Calc Estimated GFR (MDRD) Non-Af Amer 86 mL/min >60 [facility] Work Phone: Comment on above: Non- GFR Calc Platelets bldon 10-03-2021 Platelets (Bld) [#/Vol] 436 10*3/uL 150-450 [facility] Work Phone: Protein Test strip Ql (U)on 10-03-2021 Protein Ql (U) Negative Negative [facility] Work Phone: Serum or plasma albumin joseph urement (mass/volume)on 10-03-2021 Albumin [Mass/Vol] 3.4 g/dL 3.2-5.0 [facility] Work Phone: Serum or plasma calcium joseph urement (mass/volume)on 10-03-2021 Calcium [Mass/Vol] 9.0 mg/dL 8.5-10.1 [facility] Work Phone: Serum or plasma creatinine m easurement (mass/volume)on 10-03-2021 Creatinine [Mass/Vol] 0.75 mg/dL 0.55-1.02 [facility] Work Phone: Comment on above: The validity of the calculated GFR & GFRAA in patients over 70 years has not been determined. Clinical correlation is essential. Serum or plasma urea nitroge n measurement (mass/volume)on 10-03-2021 Urea nitrogen [Mass/Vol] 23 mg/dL 7-18 [facility] Work Phone: Squamous epithelial cells de tection in urine sediment by light microscopyon 10-03-2021 Epithelial cells.squamous LM Ql (Urine sed) 0-5 SEEN /hpf 5-10 [facility] Work Phone: Thin prep Papanicolaou smear with manual screeningon 10-03-2021 Thin prep Papanicolaou smear with manual screening 15 U/L 15-37 [facility] Work Phone: Thin prep Papanicolaou smear with manual screening 3 5-15 [facility] Work Phone: Urine blood detectionon - RBC Ql (U) 10 /ul Negative [facility] Work Phone: RBC Ql (U) 0 SEEN /hpf 0-5 [facility] Work Phone: Urine clarityon 10-03-2021 Clarity (U) Clear Clear [facility] Work Phone: Urine color determinationon 10-03-2021 Color (U) Yellow Yellow [facility] Work Phone: Urine glucose detectionon Glucose Ql (U) Normal mg/dl Normal [facility] Work Phone: Urine leukocyte esterase det ection by dipstickon 10-03-2021 Leukocyte esterase Test strip Ql (U) Negative Negative [facility] Work Phone: Urine pHon 10-03-2021 pH (U) 6.0 [pH] 5.0 - 8.0 [facility] Work Phone: Urine sediment bacteria coun t by microscopy (number/high power field)on 10-03-2021 Bacteria LM.HPF (Urine sed) [#/Area] 0 /[HPF] None Seen [facility] Work Phone: Urine specific gravity measu rementon 10-03-2021 Specific gravity (U) [Rel density] 1.020 1.002-1.030 [facility] Work Phone: Urobilinogen Auto test strip Ql (U)on 10-03-2021 Urobilinogen Ql (U) Normal mg/dl Normal [facility] Work Phone: Laboratory - Microbiology an d Antimicrobial susceptibilityon 10-01-2021 SARS-CoV-2 (COVID-19) RNA KRUNAL+probe Ql (Unsp spec) Not detected [facility] Work Phone: No Panel Informationon 10-01 Influenza Types A,B Rapid (Clinic) Not detected [facility] Work Phone: CYTOLOGYon 11-18-2018 CYTOLOGY ADDITIONAL PROCEDURES PRESENT Specimen #: [id number] Submitting Physician: ADY PHAM SPECIMEN SUBMITTED A: [...] from every slide are reviewed by a machine puller. IRMA Mares(ASCP) (Electronic Signature) ADDITIONAL PROCEDURE(S) HUMAN PAPILLOMA VIRUS Date Ordered: 11/19/2018 Date Reported: 11/21/2018 Procedure Results and Interpretation Negative for HPV DNA high risk type 16 by PCR. Negative for HPV DNA high risk type 18 by PCR. Negative for HPV DNA high risk types: 31,33,35,39,45,51,52,56,58, 59,66,68 by PCR. This test was developed and its performance characteristics determined by [facility] [place] ([facility] It has not been cleared or approved by the FDA. [facility] is regulated under CLIA as qualified to perform high-complexity testing. This test is used for clinical purposes. It should not be regarded as investigational or for research. 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 CLIA Number: [id number] The Pap Smear is a screening test for cervical cancer. False negative results occur with all screening tests, emphasizing the need for rescreening at recommended intervals, and clinical correlation. Normal [facility] Reference Lab Comment on above: Performed By: #### C #### See report for performing lab information. Bacteria identified Anaer cx Nom (Unsp spec) Anaerobic microbial culture No anaerobic bacteria isolated. [facility] Work Phone: Bacteria identified Cx Nom ( Wound) Wound Culture Meth. resistant Stap h. aureus [facility] Work Phone: Wound Culture Presumptive C albicans [facility] Work Phone: Gram stain for investigation of transfusion reaction Microscopic observation Gram stain Nom (Unsp spec) [facility] Work Phone: Lower GI hemoglobin IA Ql (S tl) Stool Occult Blood (OPHELIA) Positive [facility] Work Phone: Vital Signs Date Time Vital Sign Value Performing Clinician Facility 11-27-2024 04:15-0400 Diastolic blood pressure 69 mm[Hg] Negrita Nixon ROADABILITY MACHINE OPERATOR-BULL GANG WORKER Work Phone: [facility] 11-27-2024 04:15-0400 Heart rate 69 /min Negrita Nixon ROADABILITY MACHINE OPERATOR-BULL GANG WORKER Work Phone: [facility] 11-27-2024 04:15-0400 Respiratory rate 18 /min Negrita Nixon ROADABILITY MACHINE OPERATOR-BULL GANG WORKER Work Phone: [facility] 11-27-2024 04:15-0400 SaO2% (BldA) [Mass fraction] 99 % Negrita Nixon ROADABILITY MACHINE OPERATOR-BULL GANG WORKER Work Phone: [facility] 11-27-2024 04:15-0400 Systolic blood pressure 117 mm[Hg] Negrita Nixon ROADABILITY MACHINE OPERATOR-BULL GANG WORKER Work Phone: [facility] 11-27-2024 01:35-0400 Body height 173 cm Negrita Nixon ROADABILITY MACHINE OPERATOR-BULL GANG WORKER Work Phone: [facility] 11-27-2024 01:35-0400 Body mass index (BMI) [Ratio] 40.92 kg/m2 Negrita Nixon ROADABILITY MACHINE OPERATOR-BULL GANG WORKER Work Phone: [facility] 11-27-2024 01:35-0400 Body temperature 97.9 [degF] Negrita Nixon ROADABILITY MACHINE OPERATOR-BULL GANG WORKER Work Phone: [facility] 11-27-2024 01:35-0400 Body weight 122.47 kg Negrita Nixon ROADABILITY MACHINE OPERATOR-BULL GANG WORKER Work Phone: [facility] 05-27-2024 17:46-0500 Body mass index (BMI) [Ratio] 43.46 kg/m2 Josh Miranda APRN.BULL GANG WORKER Work Phone: [facility] 05-27-2024 17:46-0500 Body temperature 97.39 [degF] Josh Miranda APRN.BULL GANG WORKER Work Phone: [facility] 05-27-2024 17:46-0500 Body weight 124 kg Josh Miranda APRN.BULL GANG WORKER Work Phone: [facility] 05-27-2024 17:46-0500 Diastolic blood pressure 87 mm[Hg] Josh Miranda APRN.BULL GANG WORKER Work Phone: [facility] 05-27-2024 17:46-0500 Heart rate 71 /min Josh Miranda APRN.BULL GANG WORKER Work Phone: [facility] 05-27-2024 17:46-0500 Respiratory rate 24 /min Josh Miranda APRN.BULL GANG WORKER Work Phone: [facility] 05-27-2024 17:46-0500 SaO2% (BldA) [Mass fraction] 97 % Josh Miranda APRN.BULL GANG WORKER Work Phone: [facility] 05-27-2024 17:46-0500 Systolic blood pressure 132 mm[Hg] Josh Miranda APRN.BULL GANG WORKER Work Phone: [facility] 08-22-2023 15:54-0500 Body height 173 cm Noreen Montalvo MD Work Phone: [facility] 08-22-2023 15:54-0500 Body mass index (BMI) [Ratio] 40.92 kg/m2 Noreen Montalvo MD Work Phone: [facility] 08-22-2023 15:54-0500 Body temperature 98.01 [degF] Noreen Montalvo MD Work Phone: [facility] 08-22-2023 15:54-0500 Body weight 122.47 kg Noreen Montalvo MD Work Phone: [facility] 08-22-2023 15:54-0500 Diastolic blood pressure 86 mm[Hg] Noreen Montalvo MD Work Phone: [facility] 08-22-2023 15:54-0500 Heart rate 77 /min Noreen Montalvo MD Work Phone: [facility] 08-22-2023 15:54-0500 Respiratory rate 17 /min Noreen Montalvo MD Work Phone: [facility] 08-22-2023 15:54-0500 SaO2% (BldA) [Mass fraction] 96 % Noreen Montalvo MD Work Phone: [facility] 08-22-2023 15:54-0500 Systolic blood pressure 140 mm[Hg] Noreen Montalvo MD Work Phone: [facility] 05-14-2023 12:34-0500 Body height 170.18 cm SHOT BLAST EQUIPMENT OPERATOR-C Negrita Tiffani Work Phone: [facility] 05-14-2023 12:34-0500 Body mass index (BMI) [Ratio] 37.7 kg/m2 SHOT BLAST EQUIPMENT OPERATOR-C Negrita Tiffani Work Phone: [facility] 05-14-2023 12:34-0500 Body temperature 98.2 [degF] SHOT BLAST EQUIPMENT OPERATOR-C Negrita Tiffani Work Phone: [facility] 05-14-2023 12:34-0500 Body weight 109.31 kg SHOT BLAST EQUIPMENT OPERATOR-C Negrita Tiffani Work Phone: [facility] 05-14-2023 12:34-0500 Diastolic blood pressure 89 mm[Hg] SHOT BLAST EQUIPMENT OPERATOR-C Negrita Tiffani Work Phone: [facility] 05-14-2023 12:34-0500 Heart rate 86 /min SHOT BLAST EQUIPMENT OPERATOR-C Negrita Tiffani Work Phone: [facility] 05-14-2023 12:34-0500 Respiratory rate 16 /min SHOT BLAST EQUIPMENT OPERATOR-C Negrita Tiffani Work Phone: [facility] 05-14-2023 12:34-0500 SaO2% (BldA) [Mass fraction] 95 % SHOT BLAST EQUIPMENT OPERATOR-C Negrita Tiffani Work Phone: [facility] 05-14-2023 12:34-0500 Systolic blood pressure 138 mm[Hg] SHOT BLAST EQUIPMENT OPERATOR-C Negrita Tiffani Work Phone: [facility] 03-31-2023 00:09-0400 Body height 172.72 cm SHOT BLAST EQUIPMENT OPERATOR-C Negrita Tiffani Work Phone: [facility] 03-31-2023 00:09-0400 Body temperature 96.4 [degF] SHOT BLAST EQUIPMENT OPERATOR-C Negrita Tiffani Work Phone: [facility] 03-31-2023 00:09-0400 Diastolic blood pressure 94 mm[Hg] SHOT BLAST EQUIPMENT OPERATOR-C Negrita Tiffani Work Phone: [facility] 03-31-2023 00:09-0400 Heart rate 79 /min SHOT BLAST EQUIPMENT OPERATOR-C Negrita Tiffani Work Phone: [facility] 03-31-2023 00:09-0400 Respiratory rate 16 /min SHOT BLAST EQUIPMENT OPERATOR-C Negrita Tiffani Work Phone: [facility] 03-31-2023 00:09-0400 SaO2% (BldA) [Mass fraction] 100 % SHOT BLAST EQUIPMENT OPERATOR-C Negrita Tiffani Work Phone: [facility] 03-31-2023 00:09-0400 Systolic blood pressure 152 mm[Hg] SHOT BLAST EQUIPMENT OPERATOR-C Negrita Tiffani Work Phone: [facility] 03-28-2023 12:03-0400 Body mass index (BMI) [Ratio] 44.1 kg/m2 SHOT BLAST EQUIPMENT OPERATOR-C Negrita Tiffani Work Phone: [facility] 03-28-2023 12:03-0400 Body temperature 97.7 [degF] SHOT BLAST EQUIPMENT OPERATOR-C Negrita Tiffani Work Phone: [facility] 03-28-2023 12:03-0400 Body weight 131.54 kg SHOT BLAST EQUIPMENT OPERATOR-C Negrita Tiffani Work Phone: [facility] 03-28-2023 12:03-0400 Diastolic blood pressure 85 mm[Hg] SHOT BLAST EQUIPMENT OPERATOR-C Negrita Tiffani Work Phone: [facility] 03-28-2023 12:03-0400 Heart rate 96 /min SHOT BLAST EQUIPMENT OPERATOR-C Negrita Tiffani Work Phone: [facility] 03-28-2023 12:03-0400 Respiratory rate 14 /min SHOT BLAST EQUIPMENT OPERATOR-C Negrita Tiffani Work Phone: [facility] 03-28-2023 12:03-0400 SaO2% (BldA) [Mass fraction] 94 % SHOT BLAST EQUIPMENT OPERATOR-C Negrita Tiffani Work Phone: [facility] 03-28-2023 12:03-0400 Systolic blood pressure 124 mm[Hg] SHOT BLAST EQUIPMENT OPERATOR-C Negrita Tiffani Work Phone: [facility] 01-20-2023 01:57-0400 Diastolic blood pressure 78 mm[Hg] [facility] 01-20-2023 01:57-0400 Heart rate 87 /min [facility] 01-20-2023 01:57-0400 Respiratory rate 18 /min [facility] 01-20-2023 01:57-0400 SaO2% (BldA) [Mass fraction] 99 % [facility] 01-20-2023 01:57-0400 Systolic blood pressure 149 mm[Hg] [facility] 01-19-2023 22:52-0400 Body height 172.72 cm [facility] 01-19-2023 22:52-0400 Body mass index (BMI) [Ratio] 44 kg/m2 [facility] 01-19-2023 22:52-0400 Body temperature 98 [degF] [facility] 01-19-2023 22:52-0400 Body weight 131.34 kg [facility] 08-20-2022 10:05-0500 Body temperature 97.8 [degF] Dr. Hong Frazier Work Phone: [facility] 08-20-2022 10:05-0500 Diastolic blood pressure 82 mm[Hg] Dr. Hong Frazier Work Phone: [facility] 08-20-2022 10:05-0500 Heart rate 93 /min Dr. Hong Frazier Work Phone: [facility] 08-20-2022 10:05-0500 Respiratory rate 14 /min Dr. Hong Frazier Work Phone: [facility] 08-20-2022 10:05-0500 SaO2% (BldA) [Mass fraction] 97 % Dr. Hong Frazier Work Phone: [facility] 08-20-2022 10:05-0500 Systolic blood pressure 132 mm[Hg] Dr. Hong Frazier Work Phone: [facility] 07-22-2022 11:40-0500 Body temperature 98 [degF] Dr. Hong Frazier Work Phone: [facility] 07-22-2022 11:40-0500 Diastolic blood pressure 88 mm[Hg] Dr. Hong Frazier Work Phone: [facility] 07-22-2022 11:40-0500 Heart rate 92 /min Dr. Hong Frazier Work Phone: [facility] 07-22-2022 11:40-0500 Respiratory rate 16 /min Dr. Hong Frazier Work Phone: [facility] 07-22-2022 11:40-0500 SaO2% (BldA) [Mass fraction] 97 % Dr. Hong Frazier Work Phone: [facility] 07-22-2022 11:40-0500 Systolic blood pressure 140 mm[Hg] Dr. Hong Frazier Work Phone: [facility] 06-19-2022 10:55-0500 Body height 172.[address] Hong Frazier Work Phone: [facility] 06-19-2022 10:55-0500 Body mass index (BMI) [Ratio] 43.7 kg/m2 Dr. Hong Frazier Work Phone: [facility] 06-19-2022 10:55-0500 Body weight 130.[address] Hong Frazier Work Phone: [facility] 06-12-2022 13:04-0500 Body height 172.[address] Hong Frazier Work Phone: [facility] Work Phone: 06-12-2022 13:04-0500 Body mass index (BMI) [Ratio] 45 kg/m2 Dr. Hong Frazier Work Phone: [facility] [facility] 06-12-2022 13:04-0500 Body temperature 97.5 [degF] Dr. Hong Frazier Work Phone: [facility] 06-12-2022 13:04-0500 Body weight 134.[address] Hong Frazier Work Phone: [facility] 06-12-2022 13:04-0500 Diastolic blood pressure 73 mm[Hg] Dr. Hong Frazier Work Phone: [facility] 06-12-2022 13:04-0500 Heart rate 76 /min Dr. Hong Frazier Work Phone: [facility] 06-12-2022 13:04-0500 Respiratory rate 16 /min Dr. Hong Frazier Work Phone: [facility] 06-12-2022 13:04-0500 SaO2% (BldA) [Mass fraction] 98 % Dr. Hong Frazier Work Phone: [facility] 06-12-2022 13:04-0500 Systolic blood pressure 128 mm[Hg] Dr. Hong Frazier Work Phone: [facility] 03-13-2022 09:01-0400 Body temperature 97.8 [degF] Dr. Hong Frazier Work Phone: [facility] Work Phone: 03-13-2022 09:01-0400 Diastolic blood pressure 88 mm[Hg] Dr. Hong Frazier Work Phone: [facility] Work Phone: 03-13-2022 09:01-0400 Heart rate 82 /min Dr. Hong Frazier Work Phone: [facility] Work Phone: 03-13-2022 09:01-0400 Respiratory rate 18 /min Dr. Hong Frazier Work Phone: [facility] Work Phone: 03-13-2022 09:01-0400 SaO2% (BldA) [Mass fraction] 98 % Dr. Hong Frazier Work Phone: [facility] Work Phone: 03-13-2022 09:01-0400 Systolic blood pressure 133 mm[Hg] Dr. Hong Frazier Work Phone: [facility] Work Phone: 02-19-2022 12:19-0400 Body temperature 97.7 [degF] Dr. Hong Frazier Work Phone: [facility] Work Phone: 02-19-2022 12:19-0400 Diastolic blood pressure 66 mm[Hg] Dr. Hong Frazier Work Phone: [facility] Work Phone: 02-19-2022 12:19-0400 Heart rate 67 /min Dr. Hong Frazier Work Phone: [facility] Work Phone: 02-19-2022 12:19-0400 Respiratory rate 16 /min Dr. Hong Frazier Work Phone: [facility] Work Phone: 02-19-2022 12:19-0400 SaO2% (BldA) [Mass fraction] 92 % Dr. Hong Frazier Work Phone: [facility] Work Phone: 02-19-2022 12:19-0400 Systolic blood pressure 112 mm[Hg] Dr. Hong Frazier Work Phone: [facility] Work Phone: 02-19-2022 07:23-0400 Body height 172.[address] Hong Frazier Work Phone: [facility] Work Phone: 02-19-2022 07:23-0400 Body weight 129.[address] Hong Frazier Work Phone: [facility] Work Phone: 02-18-2022 08:57-0400 Body mass index (BMI) [Ratio] 43.4 kg/m2 Dr. Hong Frazier Work Phone: [facility] Work Phone: 01-31-2022 12:33-0400 Body temperature 97 [degF] Dr. Hong Frazier Work Phone: [facility] Work Phone: 01-31-2022 12:33-0400 Diastolic blood pressure 84 mm[Hg] Dr. Hong Frazier Work Phone: [facility] Work Phone: 01-31-2022 12:33-0400 Heart rate 104 /min Dr. Hong Frazier Work Phone: [facility] Work Phone: 01-31-2022 12:33-0400 Systolic blood pressure 153 mm[Hg] Dr. Hong Frazier Work Phone: [facility] Work Phone: 01-28-2022 10:27-0400 Body height 170.[address] Hong Frazier Work Phone: [facility] Work Phone: 01-28-2022 10:27-0400 Body mass index (BMI) [Ratio] 44.9 kg/m2 Dr. Hong Frazier Work Phone: [facility] Work Phone: 01-28-2022 10:27-0400 Body weight 129.[address] Hong Frazier Work Phone: [facility] Work Phone: 01-28-2022 10:27-0400 Diastolic blood pressure 84 mm[Hg] Dr. Hong Frazier Work Phone: [facility] Work Phone: 01-28-2022 10:27-0400 Heart rate 81 /min Dr. Hong Frazier Work Phone: [facility] Work Phone: 01-28-2022 10:27-0400 Respiratory rate 18 /min Dr. Hong Frazier Work Phone: [facility] Work Phone: 01-28-2022 10:27-0400 SaO2% (BldA) [Mass fraction] 96 % Dr. Hong Frazier Work Phone: [facility] Work Phone: 01-28-2022 10:27-0400 Systolic blood pressure 128 mm[Hg] Dr. Hong Frazier Work Phone: [facility] Work Phone: 01-13-2022 00:35-0400 Respiratory rate 18 /min Dr. Hong Frazier Work Phone: [facility] Work Phone: 01-05-2022 00:13-0400 Respiratory rate 16 /min Dr. Hong Frazier Work Phone: [facility] Work Phone: 01-04-2022 23:30-0400 Body height 172.[address] Hong Frazier Work Phone: [facility] Work Phone: 01-04-2022 23:30-0400 Body mass index (BMI) [Ratio] 42.5 kg/m2 Dr. Hong Frazier Work Phone: [facility] Work Phone: 01-04-2022 23:30-0400 Body temperature 96.3 [degF] Dr. Hong Frazier Work Phone: [facility] Work Phone: 01-04-2022 23:30-0400 Body weight 126.[address] Hong Frazier Work Phone: [facility] Work Phone: 01-04-2022 23:30-0400 Diastolic blood pressure 95 mm[Hg] Dr. Hong Frazier Work Phone: [facility] Work Phone: 01-04-2022 23:30-0400 Heart rate 95 /min Dr. Hong Frazier Work Phone: [facility] Work Phone: 01-04-2022 23:30-0400 Systolic blood pressure 158 mm[Hg] Dr. Hong Frazier Work Phone: [facility] Work Phone: 12-27-2021 08:35-0400 Body temperature 97.1 [degF] Dr. Hong Frazier Work Phone: [facility] Work Phone: 12-27-2021 08:35-0400 Diastolic blood pressure 85 mm[Hg] Dr. Hong Frazier Work Phone: [facility] Work Phone: 12-27-2021 08:35-0400 Heart rate 89 /min Dr. Hong Frazier Work Phone: [facility] Work Phone: 12-27-2021 08:35-0400 Respiratory rate 18 /min Dr. Hong Frazier Work Phone: [facility] Work Phone: 12-27-2021 08:35-0400 Systolic blood pressure 144 mm[Hg] Dr. Hong Frazier Work Phone: [facility] Work Phone: 12-20-2021 09:46-0400 Body temperature 97 [degF] Dr. Hong Frazier Work Phone: [facility] Work Phone: 12-20-2021 09:46-0400 Diastolic blood pressure 87 mm[Hg] Dr. Hong Frazier Work Phone: [facility] Work Phone: 12-20-2021 09:46-0400 Heart rate 81 /min Dr. Hong Frazier Work Phone: [facility] Work Phone: 12-20-2021 09:46-0400 Respiratory rate 18 /min Dr. Hong Frazier Work Phone: [facility] Work Phone: 12-20-2021 09:46-0400 Systolic blood pressure 139 mm[Hg] Dr. Hong Frazier Work Phone: [facility] Work Phone: 12-06-2021 11:18-0400 Body temperature 97.8 [degF] Dr. Hong Frazier Work Phone: [facility] Work Phone: 12-06-2021 11:18-0400 Diastolic blood pressure 77 mm[Hg] Dr. Hong Frazier Work Phone: [facility] Work Phone: 12-06-2021 11:18-0400 Heart rate 80 /min Dr. Hong Frazier Work Phone: [facility] Work Phone: 12-06-2021 11:18-0400 Respiratory rate 20 /min Dr. Hong Frazier Work Phone: [facility] Work Phone: 12-06-2021 11:18-0400 Systolic blood pressure 129 mm[Hg] Dr. Hong Frazier Work Phone: [facility] Work Phone: 12-01-2021 09:14-0400 Body temperature 97.88 [degF] VIRIDIANA REICHFIELD DO [facility] 12-01-2021 09:14-0400 Diastolic blood pressure 97 mm[Hg] VIRIDIANA REICHFIELD DO [facility] 12-01-2021 09:14-0400 Heart rate 105 /[facility] 12-01-2021 09:14-0400 Respiratory rate 20 /min VIRIDIANA REICHFIELD DO [facility] 12-01-2021 09:14-0400 Systolic blood pressure 139 mm[Hg] VIRIDIANA REICHFIELD DO [facility] 10-15-2021 00:54-0400 Heart rate 78 /min Dr. Hong Frazier Work Phone: [facility] Work Phone: 10-15-2021 00:54-0400 Respiratory rate 18 /min Dr. Hong Frazier Work Phone: [facility] Work Phone: 10-15-2021 00:54-0400 SaO2% (BldA) [Mass fraction] 96 % Dr. Hong Frazier Work Phone: [facility] Work Phone: 10-14-2021 22:51-0400 Body height 170.[address] Hong Frazier Work Phone: [facility] Work Phone: 10-14-2021 22:51-0400 Body mass index (BMI) [Ratio] 43 kg/m2 Dr. Hong Frazier Work Phone: [facility] Work Phone: 10-14-2021 22:51-0400 Body temperature 96.9 [degF] Dr. Hong Frazier Work Phone: [facility] Work Phone: 10-14-2021 22:51-0400 Body weight 124.[address] Hong Frazier Work Phone: [facility] Work Phone: 10-14-2021 22:51-0400 Diastolic blood pressure 101 mm[Hg] Dr. Hong Frazier Work Phone: [facility] Work Phone: 10-14-2021 22:51-0400 Systolic blood pressure 166 mm[Hg] Dr. Hong Frazier Work Phone: [facility] Work Phone: 10-05-2021 11:25-0400 Body temperature 98.3 [degF] Dr. Hong Frazier Work Phone: [facility] Work Phone: 10-05-2021 11:25-0400 Diastolic blood pressure 61 mm[Hg] Dr. Hong Frazier Work Phone: [facility] Work Phone: 10-05-2021 11:25-0400 Heart rate 81 /min Dr. Hong Frazier Work Phone: [facility] Work Phone: 10-05-2021 11:25-0400 Respiratory rate 16 /min Dr. Hong Frazier Work Phone: [facility] Work Phone: 10-05-2021 11:25-0400 SaO2% (BldA) [Mass fraction] 97 % Dr. Hong Frazier Work Phone: [facility] Work Phone: 10-05-2021 11:25-0400 Systolic blood pressure 106 mm[Hg] Dr. Hong Frazier Work Phone: [facility] Work Phone: 10-04-2021 15:56-0400 Body height 170.[address] Hong Frazier Work Phone: [facility] Work Phone: 10-04-2021 15:56-0400 Body mass index (BMI) [Ratio] 43.2 kg/m2 Dr. Hong Frazier Work Phone: [facility] Work Phone: 10-04-2021 15:56-0400 Body weight 125.[address] Hong Frazier Work Phone: [facility] Work Phone: 10-03-2021 23:18-0400 Body temperature 98.2 [degF] Dr. Hong Frazier Work Phone: [facility] Work Phone: 10-03-2021 23:18-0400 Diastolic blood pressure 78 mm[Hg] Dr. Hong Frazier Work Phone: [facility] Work Phone: 10-03-2021 23:18-0400 Heart rate 102 /min Dr. Hong Frazier Work Phone: [facility] Work Phone: 10-03-2021 23:18-0400 Respiratory rate 16 /min Dr. Hong Frazier Work Phone: [facility] Work Phone: 10-03-2021 23:18-0400 SaO2% (BldA) [Mass fraction] 98 % Dr. Hong Frazier Work Phone: [facility] Work Phone: 10-03-2021 23:18-0400 Systolic blood pressure 120 mm[Hg] Dr. Hong Frazier Work Phone: [facility] Work Phone: 10-03-2021 19:19-0400 Body height 170.[address] Hong Frazier Work Phone: [facility] Work Phone: 10-03-2021 19:19-0400 Body mass index (BMI) [Ratio] 43.2 kg/m2 Dr. Hong Frazier Work Phone: [facility] Work Phone: 10-03-2021 19:19-0400 Body weight 125.[address] Hong Frazier Work Phone: [facility] Work Phone: 10-01-2021 10:43-0400 Body temperature 97.6 [degF] Dr. Hong Frazier Work Phone: [facility] Work Phone: 10-01-2021 10:43-0400 Diastolic blood pressure 104 mm[Hg] Dr. Hong Frazier Work Phone: [facility] Work Phone: 10-01-2021 10:43-0400 Heart rate 125 /min Dr. Hong Frazier Work Phone: [facility] Work Phone: 10-01-2021 10:43-0400 Respiratory rate 18 /min Dr. Hong Frazier Work Phone: [facility] Work Phone: 10-01-2021 10:43-0400 SaO2% (BldA) [Mass fraction] 99 % Dr. Hong Frazier Work Phone: [facility] Work Phone: 10-01-2021 10:43-0400 Systolic blood pressure 160 mm[Hg] Dr. Hong Frazier Work Phone: [facility] Work Phone: 10-01-2021 10:43-0400 Body temperature 97.6 [degF] Dr. Hong Frazier Work Phone: [facility] Work Phone: 10-01-2021 10:43-0400 Diastolic blood pressure 104 mm[Hg] Dr. Hong Frazier Work Phone: [facility] Work Phone: 10-01-2021 10:43-0400 Heart rate 125 /min Dr. Hong Frazier Work Phone: [facility] Work Phone: 10-01-2021 10:43-0400 Respiratory rate 18 /min Dr. Hong Frazier Work Phone: [facility] Work Phone: 10-01-2021 10:43-0400 SaO2% (BldA) [Mass fraction] 99 % Dr. Hong Frazier Work Phone: [facility] Work Phone: 10-01-2021 10:43-0400 Systolic blood pressure 160 mm[Hg] Dr. Hong Frazier Work Phone: [facility] Work Phone: 06-13-2021 02:48-0500 Body mass index (BMI) [Ratio] 41.9 kg/m2 Dr. Hong Frazier Work Phone: [facility] Work Phone: 06-13-2021 02:48-0500 Body temperature 96.5 [degF] Dr. Hong Frazier Work Phone: [facility] Work Phone: 06-13-2021 02:48-0500 Body weight 125.[address] Hong Frazier Work Phone: [facility] Work Phone: 06-13-2021 02:48-0500 Diastolic blood pressure 86 mm[Hg] Dr. Hong Frazier Work Phone: [facility] Work Phone: 06-13-2021 02:48-0500 Heart rate 79 /min Dr. Hong Frazier Work Phone: [facility] Work Phone: 06-13-2021 02:48-0500 Respiratory rate 18 /min Dr. Hong Frazier Work Phone: [facility] Work Phone: 06-13-2021 02:48-0500 SaO2% (BldA) [Mass fraction] 98 % Dr. Hong Frazier Work Phone: [facility] Work Phone: 06-13-2021 02:48-0500 Systolic blood pressure 146 mm[Hg] Dr. Hong Frazier Work Phone: [facility] Work Phone: Encounters Encounter Date Encounter Type Care Provider Facility Start: 04-13-2025 ambulatory [facility] Facility:[facility] Start: 03-31-2025 ambulatory [facility] Start: 03-31-2025 End: 03-31-2025 ambulatory [facility] Facility:[facility] Start: 03-01-2025 Encounter for genera l adult medical examination with abnormal findings [facility] Start: 02-21-2025 End: 02-21-2025 ambulatory [facility] Facility:[facility] Start: 12-23-2024 End: 12-24-2024 Emergency department patient visit [facility] Facility:[facility] Start: 12-13-2024 ambulatory [facility] Facility:[facility] Start: 12-01-2024 ambulatory [facility] Facility:[facility] Start: 11-27-2024 End: 11-27-2024 Emergency department patient visit NEGRITA NIXON [facility] Comment on above: Pyogenic granuloma ( Primary Dx) Start: 11-03-2024 End: 11-03-2024 ambulatory Desirae Richards Facility:[facility] Start: 10-27-2024 End: 10-27-2024 ambulatory Negrita Nixon [place] Start: 05-27-2024 End: 05-27-2024 ambulatory [facility] Facility:[facility] Start: 05-27-2024 End: 05-27-2024 Patient encounter procedure Josh Miranda APRN.[employer] Work Phone: [facility] Comment on above: Bilateral impacted c erumen (Primary Dx); Acute otitis media, right; Sinus congestion; Acute cough Start: 04-14-2024 ambulatory Negritaarpit Nixon Facility:[facility] Start: 08-22-2023 End: 08-22-2023 Emergency department patient visit Noreen Montalvo MD Work Phone: [facility] Comment on above: 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Emer[facility] Work Phone: Start: 03-28-2023 End: 03-28-2023 Patient encounter procedure SHOT BLAST EQUIPMENT OPERATOR-C Negrita Nixon Work Phone: [facility] Work Phone: Start: 03-23-2023 Non-patient / Non-visit SHOT BLAST EQUIPMENT OPERATOR-C Kiera Nixon Work Phone: [facility] Start: 03-23-2023 End: 03-23-2023 ambulatory SHOT BLAST EQUIPMENT OPERATOR-C Negrita Nixon Work Phone: [facility] Work Phone: Start: 03-23-2023 End: 03-23-2023 Patient encounter procedure SHOT BLAST EQUIPMENT OPERATOR-Artis Negrita Nixon Work Phone: [facility]Cardiovascula r Services Work Phone: Start: 02-06-2023 Registered Recurring SHOT BLAST EQUIPMENT OPERATOR-Artis Jaimee Nixon Work Phone: [facility]-Physical Therapy Work Phone: Start: 01-19-2023 End: 01-20-2023 Emergency department patient visit [facility] Work Phone: Start: 11-04-2022 End: 11-04-[address] Hong Frazier Work Phone: [facility] Work Phone: Start: 11-04-2022 End: 11-04-[address] Hong Frazier Work Phone: [facility] Start: 10-06-2022 End: 10-06-[address] Hong Frazier Work Phone: [facility] Start: 08-20-2022 End: 08-20-[address] Hong Frazier Work Phone: [facility] Start: 07-22-2022 End: 07-22-[address] Hong Frazier Work Phone: [facility] Start: 07-14-2022 End: 07-14-[address] Hong Frazier Work Phone: [facility] Work Phone: Start: 07-14-2022 End: 07-14-[address] Hong Frazier Work Phone: [facility]-Physical Therapy Start: 06-19-2022 End: 06-19-[address] Hong Frazier Work Phone: [facility] Start: 06-12-2022 Non-patient / Non-visit Dr. Jasvir Frazier Work Phone: [facility] Start: 06-12-2022 End: 06-12-2022 Emergency department patient visit Dr. Hong Frazier Work Phone: [facility]-Emergency Department Start: 03-13-2022 End: 03-13-[address] Hong Frazier Work Phone: [facility] Start: 02-19-2022 Non-patient / Non-visit Dr. Jasvir Frazier Work Phone: [facility] Start: 02-19-2022 End: 02-19-2022 Admission to same day surgery center Dr. Hong Frazier Work Phone: [facility]Surgical Day Care Start: 02-19-2022 End: 02-19-[address] Hong Frazier Work Phone: [facility] Work Phone: Start: 01-31-2022 End: 01-31-[address] Hong Frazier Work Phone: [facility]Wound Healing Center Start: 01-28-2022 End: 01-28-[address] Hong Frazier Work Phone: [facility] Surgery Start: 01-10-2022 End: 01-10-[address] Hong Frazier Work Phone: [facility]-Cardiovascula r Services Start: 01-04-2022 End: 01-05-2022 Emergency department patient visit Dr. Hong Frazier Work Phone: [facility]-Emergency Department Start: 12-27-2021 End: 01-12-[address] [facility] Start: 12-27-[address] [facility] Start: 12-20-[address] [facility] Start: 12-10-2021 End: 12-12-[address] [facility] Start: 12-01-2021 End: 12-01-2021 Emergency department patient visit VIRIDIANA HANEY [facility] Start: 10-14-2021 End: 10-15-2021 Emergency department patient visit Dr. Hong Frazier Work Phone: [facility]-Emergency Department Start: 10-05-2021 Non-patient / Non-visit Dr. Jasvir Frazier Work Phone: [facility] Inpatient Physicians Start: 10-04-2021 Non-patient / Non-visit Dr. Jasvir Frazier Work Phone: [facility] Start: 10-04-2021 Non-patient / Non-visit Dr. Jasvir Frazier Work Phone: [facility] Start: 10-03-2021 Non-patient / Non-visit Dr. Jasvir Frazier Work Phone: [facility] Start: 10-03-2021 End: 10-05-2021 Evaluation and management of inpatient Dr. Hong Frazier [facility] Start: 10-01-2021 End: 10-01-[address] Hong Frazier Work Phone: [facility] Start: 07-29-[address] Hong Frazier Work Phone: [facility]-Physical Therapy Start: 06-27-2021 End: 06-27-[address] Hong Frazier Work Phone: [facility]-Outpatient Breast Imaging Start: 06-13-2021 End: 06-13-2021 Emergency department patient visit Dr. Hong Frazier Work Phone: [facility]-Emergency Department Start: 07-07-2017 Patient encounter status Aron Miranda APRN.[employer] Work Phone: [facility] Procedures Date Procedure Procedure Detail Performing Clinician [...] panel - Serum or Plasma Aron Miranda APRN.[employer] Work Phone: Start: 10-21-2016 Colonoscopy Josh Miranda APRN.[employer] WORK[employer] Work Phone: Start: 2015 Laparoscopic cholecystectomy VIRIDIANA OCONNELL [facility] DO Start: 11-13-[address] [facility] DO Anaerobic microbial culture Dr. Hong Frazier Work Phone: Colonoscopy VIRIDIANA REJEFFFIEL D DO Comment on above: approx [id number], [facility], dr. mancia Investigation of tra nsfusion [...] DTaP/Tdap/Td Vaccines (2 - Td or Tdap) [facility] Start: 07-07-2027 Urine microalbumin profile DTaP,Tdap,Td Vaccine (2 - Td or Tdap) [facility] Start: 10-21-2026 Screening for malign ant neoplasm of colon [facility] Start: 02-13-2025 Influenza vaccination Influenz a Vaccine (Season Ended) [facility] Start: 02-14-2024 Covid-19 Vaccine ( season) Covid-19 Vaccine ( season) [facility] Start: 02-14-2024 Influenza vaccination Influenza Vacc ine (#1) [facility] Start: 02-13-2023 COVID-19 Vaccine ( season) COVID-19 Vaccine ( season) [facility] Start: 02-13-2023 Influenza vaccination Influenza Vacc ine (#1) [facility] Start: 07-14-2022 Lipid panel Lipid Screening [facility] Start: 06-23-2022 Patient referral [facility] Work Phone: Start: 06-19-2022 Patient referral [facility] Work Phone: Start: 02-19-2022 Anes venous/lymphati c nos ther ivntl rad nos ANES THER INTERVEN RAD VEIN [facility] Work Phone: Start: 02-19-2022 Venography extremity bilateral rs&i VEIN X-RAY ARMS/LEGS [facility] Work Phone: Start: 02-19-2022 Bedrest [facility] Work Phone: Start: 02-19-2022 Notification of physician [facility] Work Phone: Start: 02-19-2022 Patient discharge [facility] Work Phone: Start: 02-19-2022 Provision of activit y privileges [facility] Work Phone: Start: 02-19-2022 Scheduling [facility] Work Phone: Start: 02-19-2022 Taking patient vital signs [facility] Work Phone: Start: 02-19-2022 Vascular disease ris k assessment [facility] Work Phone: Start: 02-19-2022 [facility] Work Phone: Start: 02-19-2022 Implantation to cardiovascular system Insertion, Vascular Port (Left) [facility] Work Phone: Start: 12-27-2021 Application rigid to margo contact leg cast APPLY RIGID LEG CAST [facility] Work Phone: Start: 10-05-2021 Patient discharge [facility] Work Phone: Start: 10-04-2021 Following clinical pathway protocol [facility] Work Phone: Start: 10-04-2021 Ambulation without limitation [facility] Work Phone: Start: 10-04-2021 Application of intermittent pneumatic compression device [facility] Work Phone: Start: 10-04-2021 Assessment of risk o f venous thromboembolism [facility] Work Phone: Start: 10-04-2021 Insertion of cathete r into peripheral vein [facility] Work Phone: Start: 10-04-2021 Providing care accor ding to standard [facility] Work Phone: Start: 10-04-2021 Referral to gastroenterology service [facility] Work Phone: Start: 10-04-2021 [facility] Work Phone: Start: 10-03-2021 Admission procedure [facility] Work Phone: Start: 08-12-2021 Pneumococcal vaccination Pneum ococcal Vaccine (1 of 1 - PCV) [facility] Start: 08-12-2021 Shingrix Vaccine (1 of 2) Concepcion grix Vaccine (1 of 2) [facility] Start: 08-12-2021 Zoster Vaccines (1 of 2) Zoster Vacc jalil (1 of 2) [facility] Start: 07-14-2020 Diabetes Screening Diabetes Screenin g [facility] Start: 10-22-2019 Screening for malign ant neoplasm of colon [facility] Start: 01-12-2018 Screening for malign ant neoplasm of cervix Cervical Cancer Screening [facility] Start: 08-12-2016 Screening for malign ant neoplasm of colon [facility] Start: 05-11-2016 Screening for malign ant neoplasm of breast Mammogram Screening [facility] Start: 2011 Screening for malign ant neoplasm of breast Mammogram [facility] Start: 08-12-1992 Screening for malign ant neoplasm of cervix [facility] Start: 08-12-1989 Annual PCP Team Machinist Apprentice rylie Disease Visit Annual PCP Team Chronic Disease Visit [facility] Start: 08-12-1989 Anxiety Screening Anxiety Screening [facility] Start: 08-12-1989 Depression Screening Depression Scre ening [facility] Start: 08-12-1989 Diabetes mellitus screening Diabetes Screening [facility] Start: 08-12-1989 Hepatitis C screening Hepatitis C Sc reening [facility] Start: 08-12-1989 HIV screening HIV Screening [facility] Start: 08-12-1972 MMR Vaccines (1 of 1 - Standard series) MMR Vaccines (1 of 1 - Standard series) [facility] Start: 1971 HIV screening HIV Screening [facility] Start: 1971 Lipid panel Lipid Panel [facility] Start: 1971 Screening for malign ant neoplasm of colon [facility] Start: 1971 Yearly Adult Physical Yearly Adult P hysical [facility] Doppler ultrasonogra phy of aorta [facility] Work Phone: End: 11-27-2024 Hepatitis B virus surface Ag [Presence] in Serum or Plasma by Immunoassay [facility] Work Phone: Comment on above: Once (Lab) for 1 Occ urrences starting 11/27/2024 until 11/27/2024 End: 11-27-2024 Hepatitis C virus Ab [Presence] in Serum [facility] Work Phone: Comment on above: STAT (Lab) for 1 [facility] urrences starting 11/27/2024 until 11/27/2024 End: 11-27-2024 HIV 1+2 Ab+HIV1 p24 Ag [Presence] in Serum or Plasma by Immunoassay [facility] Service Area Work Phone: Comment on above: Once (Lab) for 1 [facility] urrences starting 11/27/2024 until 11/27/2024 Laceration Repair Laceration Rep air Procedures Routine Laceration of right ankle, initial encounter 08/22/2023 3:38 PM EST [facility] Service Area Work Phone: Patient Education [facility] Work Phone: Patient referral [facility] Work Phone: Removal impacted cer umen instrumentation unilat REMOVAL OF IMPACTED CERUMEN - INSTRUMENTATION Procedures Routine Bilateral impacted cerumen Ordered: 05/27/2024 [facility] Work Phone: Comment on above: Ordered: 05/27/2024 Immunizations Immunization Date Immunization Notes Care Provider Bertha harris 08-22-2023 diphtheria, tetanus toxoids and acellular pertussis vaccine, unspecified formulation Noreen Montalvo MD Work Phone: [facility] Work Phone: 02-15-2021 Covid (HereOrThere) Dr. Hong Frazier Work Phone: [facility] 02-09-2020 hepatitis B vaccine, adult dosage Dr. Hong Frazier Work Phone: [facility] 02-09-2020 hepatitis B vaccine, unspecified formulation Dr. Hong Frazier Work Phone: [facility] Work Phone: 08-31-2019 hepatitis B vaccine, adult dosage Dr. Hong Frazier Work Phone: [facility] 08-31-2019 hepatitis B vaccine, unspecified formulation Dr. Hong Frazier Work Phone: [facility] Work Phone: 07-31-2019 hepatitis B vaccine, adult dosage Dr. Hong Frazier Work Phone: [facility] 07-31-2019 hepatitis B vaccine, unspecified formulation Dr. Hong Frazier Work Phone: [facility] Work Phone: 07-07-2017 tetanus toxoid, reduced diphtheria toxoid, and acellular pertussis vaccine, adsorbed Josh Miranda APRN.BULL GANG WORKER Work Phone: [facility] 07-07-2017 influenza virus vaccine, unspecified formulation Josh Miranda APRN.[employer] WORK[employer] Work Phone: [facility] 03-15-[address] Hong Frazier Work Phone: [facility] 03-15-2007 influenza virus vaccine, unspecified formulation Noreen Montalvo MD Work Phone: [facility] Work Phone: Payers Date Payer Category Payer Self-pay [id number] 2023 Managed Care (Private) [employer] [id number] 2023 Unknown [id number] 2023 Unknown [id number] 2020 Unknown [id number] 1971 Unknown [id number] Private Health Insurance [facility] [id number] Unknown [id number] Unknown [id number] Unknown 0 [id number] Unknown [id number] Unknown [id number] Unknown [id number] Unknown [id number] Unknown [id number] Unknown [id number] Unknown [id number] Unknown [id number] Unknown [id number] Unknown [id number] Social History Date Type Detail Facility [facility] Work Phone: Start: 10-03-2021 End: 05-14-2023 Tobacco smoking status INIS Unknown if ever smoked [facility] Start: 11-02-2020 None [facility] Start: 05-03-2013 With Family [facility] Start: 11-02-2020 Cigarettes [facility] Start: 1970 Sex Assigned At Female [facility] Work Phone: Start: 05-27-2024 Tobacco smoking status Ex-smoker (fi nding) [facility] Start: 1970 Sex Assigned At Not on file [facility] Work Phone: Start: 05-20-2020 End: 05-27-2024 Gender identity Not on file [facility] Work Phone: Start: 09-18-1997 End: 09-18-2012 History of tobacco use Current smoker [facility] Start: 09-18-1997 End: 09-18-2012 History of tobacco use Cigarette Smoker [facility] Start: 05-20-2020 End: 05-27-2024 Cigarettes smoked current (pack per day) - Reported 0.5 [facility] Start: 05-27-2024 Tobacco use and exposure Smokeless tobacco non-user [facility] Start: 05-27-2024 Alcoholic beverage intake Current non-drinker of alcohol (finding) [facility] National Score (1-10 0), lower number is lower risk Not on file [facility] Medical Equipment Procedure Code Equipment Code Equipment Origin al Text Equipment Identifier Dates ([id number]) Bare-metal tracheal/bronchial/v ascular stent ()[id number] [facility] Start: 02-19-2022 Goals Date Patient Goal Desired Activity /State Functional Status Date Assessment Result Facility 11-27-2024 [place] - suicide severity rating scale screener - recent [C-SSRS] [facility] Work Phone: 12-01-2021 Functional Status ID band on, Call device within reach, Bed in low position, Wheels locked, Upper/Half-Length side-rails up, Phone within reach, personal items within reach, Assistive devices within reach, Toileting device within reach, Bedside Cart Locked, Visitor at bedside, Safety level maintained [facility] 10-05-2021 Functional status Bedside Commode [facility] Work Phone: Mental Status Date Assessment Result Facility 02-19-2022 Cognitive function Level Of Cons ciousness Restless [facility] Work Phone: 12-01-2021 [facility] Status [facility] 10-05-2021 Cognitive function Voice/Name [facility] Work Phone: Clinical Notes 12-01-2021 to 11-27-2024 Discharge InstructionsTanisha Nur RN - 11/27/2024 1:32 AM Renuka Nur RN - 11/27/2024 1:32 AM Jeannette Sullivan MA - 05/27/2024 6:17 PM Josh Mathew APRN.CNP - 05/27/2024 6:08 PM EST Note Date & Type Note Facility 11-27-2024 Hospital Discharge instructions Gage Echavarria PA-C - 11/27/2024 2:35 AM EDT You have been seen at a [facility] facility. It was found that you have [...] emergency room stay. documented in this encounter [facility] Work Phone: 11-27-2024 Emergency department Triage note Patient was brought in by ambulance from [facility]. Patient reports that she hit her leg on a chair and a previous scab from previous injury was uncovered. Medics at [facility] were unable to stop bleeding. Tourniquet placed by medics. Pt reports she takes baby Asprin but no other blood thinners. [facility] Work Phone: 11-27-2024 Emergency department Note Patient was brought in by ambulance from [facility]. Patient reports that she hit her leg on a chair and a previous scab from previous injury was uncovered. Medics at [facility] were unable to stop bleeding. Tourniquet placed by medics. Pt reports she takes baby Asprin but no other blood thinners. documented in this encounter [facility] Work Phone: 05-27-2024 Note HNO ID: [id number] Author: JEANNETTE LOCKHART MA Service: ? Author Type: Coyote Hunter Type: Progress Notes Filed: 05/27/2024 18:20 Note Text: Ambulatory Ear Lavage Pre-treatment: Warm water Treatment: Both ears Equipment and Irrigation solution and Volume used: Single use syringe with single use irrigation tip Water Return flow appearance: Brown Yellow Patient tolerated procedure: yes Tympanic membrane assessment: Tympanic membrane assessed by LIP pre and post procedure Jeannette Lockhart MA [facility] 05-27-2024 History of Present illness Narrative Ambulatory [...] history is provided by the patient. No portfolio director was used. Cough Review of Systems Constitutional: [...] is agreeable to care plan. Josh Miranda APRN.MARCELL documented in this encounter [facility] 05-27-2024 Note HNO ID: [id number] Author: JOSH MIRANDA APRN.MARCELL Service: ? Author Type: Nurse Practitioner Type: Progress Notes Filed: 05/27/2024 18:20 Note Text: Subjective With complaints of sinus congestion cough sinus pressure. Patient denies any shortness of breath or fatigue. Patient says her ears hurt bilaterally. Patient denies any other symptoms. The history is provided by the patient. No portfolio director was used. Cough Review of Systems Constitutional: [...] to care plan. Josh Miranda APRN.[facility] 08-22-2023 Hospital Discharge instructions Kayla Romo DO [...] Put On and Take Off Compression Stockings (Swedish)Laceration Repair (Swedish)documented in this encounter [facility] Work Phone: 08-22-2023 Emergency department Note PT REPORTS TO ED BY EMS FROM [facility] WITH C/O RIGHT ANKLE LAC FROM UNKNOWN INJURY, +BLOOD THINNERS, DENIES PAIN documented in this encounter [facility] Work Phone: 08-22-2023 Emergency department Triage note PT REPORTS TO ED BY EMS FROM [facility] WITH C/O RIGHT ANKLE LAC FROM UNKNOWN INJURY, +BLOOD THINNERS, DENIES PAIN [facility] Work Phone: 08-01-2022 Discharge summary Note Date/Time August 01, 2022 12:22pm [facility] Physical Therapy [facility] [address] [place] [address] / REHABILITATION SERVICES DISCHARGE SUMMARY MR#: [id number] Acct: [id number] Name: ROSEMARY KWAN Rep #: [id number] : 1970 51 From: Alondra Allen Referring Dr.: Dr. Hong Hodgson MD Status: REG RCR Insurance: [facility] [employer]URANCE It has been my [...] please feel free to call me at [phone]. Thank you for the referral of thispatient. Sincerely, GLORIA Otto Balance/Gait/Functional tests - Balance/Special Test Scores Lower Extremity Functional Score: 48 <Electronically signed by Alondra Rodriguez MPT> 08/01/22 1222 CC: Dr. Hong Frazier MD; Dr. Hong Hodgson MD ~ Signed [facility] Work Phone: 1(862) 733-896506-19-2022 Hospital Discharge instructions Patient Education 12/01/2021 09:17:19 [...] a problem: Bleeding that soaks the dressing [place] fluid weeping from the wound Increased drainage [...] increased fatigue, or a loss of appetite [phone] [employer]. [address] [place] [address], [place] [address]. All rights reserved. This information is not intended as a substitute for professional medical care. Always follow yourhealthcare professional's instructions. Follow Up Care 12/01/2021 09:07:33 With:[facility] Address: When:2-4 days With:Go to emergency room if symptoms worsen Address:Unknown When:2-4 days With:HONG FRAZIER MD Address: [address] [place] [address] [place], [place] [phone]- [phone] When:2-4 days [facility] evaluation + Plan note No data available for this section [facility] Evaluation note* Diagnosis Onset Date Resolution Status Acute sinusitis acute Acute GI bleeding acute Anemia acute [facility] Work Phone: Evaluation note* Diagnosis Onset Date Resolution Status Acute sinusitis acute Anemia acute Acute GI bleeding resolved [facility] Work Phone: Evaluation note* Diagnosis Onset Date Resolution Status Acute sinusitis acute Anemia acute Acute GI bleeding resolved Cellulitis acute Hypothyroidism acute Lymphedema associated with obesity acute Morbid obesity acute Venous ulcer of left lower e xtremity with varicose veins acute [facility] Work Phone: evaluation note* Diagnosis Onset Date [...] lower e xtremity with varicose veins acute [facility] Work Phone: Evaluation note* Diagnosis Onset Date [...] lower e xtremity with varicose veins chronic [facility] Work Phone: Evaluation note* Diagnosis Onset Date [...] lower e xtremity with varicose veins chronic [facility] Work Phone: Evaluation note* Diagnosis Onset Date Resolution Status May-Thurner syndrome acute Venous ulcer of left lower e xtremity with varicose veins chronic [facility] Work Phone: Evaluation note* Diagnosis Onset Date Resolution Status Osteoarthritis of left hip a cute Acute bronchitis acute Contact with or suspected ex posure to other viral communicable disease acute [facility] Work Phone: Evaluation note* Diagnosis Onset Date Resolution Status Acute bronchitis acute Contact with or suspected ex posure to other viral communicable disease acute Biceps tendinitis of right shoulder acute [facility] Work Phone: Evaluation noteNo assessment information available [facility] Work Phone: Evaluation note* Diagnosis Onset Date Resolution Status Acute bacterial sinusitis ac [place] Left otitis media acute [facility] Work Phone: Evaluation note* Diagnosis Varicose veins of right lower extremity with other complications- Primary Laceration of right ankle, initial encounter documented in this encounter [facility] Work Phone: Evaluation note* Diagnosis Onset Date Resolution Status Acute bacterial sinusitis ac [place] [facility] Work Phone: Evaluation note* Diagnosis Bilateral impacted cerumen- Primary Impacted cerumen Acute otitis media, right Unspecified otitis media Sinus congestion Other diseases of nasal cavity and sinuses Acute cough [facility] Diagnosis Pyogenic granuloma- Primary Pyogenic granuloma of skin and subcutaneous tissue documented in this encounter [facility] Work Phone: Progress note No data available for this section [facility] Summary Purpose Family History No Family History Records Found Relationship Condition Age at Onset Recorded Date/T edson sister Arthritis Unknown Malignant neoplasm Unknown father Malignant neoplasm Unknown Advance Directives No Advanced Directives Records Found Advance Directive Response Recorded Date/ Time Advance Directives No April 2:35am Living Will No October 03, 2021 8:13pm Power of Stitch Bonding Machine Drawer In No October 03 8:13pm Advance Directive Response Recorded Date/ Time Advance Directives No April 2:35am Living Will No October 04, 2021 12:16am Power of Stitch Bonding Machine Drawer In No October 04 12:16am Advance Directive Response Recorded Date/ Time Advance Directives No April 2:35am Living Will No October 14, 2021 10 :54pm Power of Stitch Bonding Machine Drawer In No October 14, 2021 10:54pm Advance Directive Response Recorded Date/ Time Advance Directives No April 2:35am Living Will No January 04, 2022 11:39pm Power of Stitch Bonding Machine Drawer In No January 04 11:39pm Advance Directive Response Recorded Date/ Time Advance Directives No February 7:23am Living Will No February 19, 2 022 7:23am Power of Stitch Bonding Machine Drawer In No February 19, 2022 7:23am Advance Directive Response Recorded Date/ Time Advance Directives No February 6:23am Living Will No June 12, 2 022 1:09pm Power of Stitch Bonding Machine Drawer In No June 12, 2022 1:09pm Advance Directive Response Recorded Date/ Time Advance Directives No February 7:23am Living Will No June 12, 2 022 2:09pm Power of Stitch Bonding Machine Drawer In No June 12, 2022 2:09pm Advance Directive Response Recorded Date/ Time Advance Directives No February 7:23am Living Will No January 19, 2023 11:02pm Power of Stitch Bonding Machine Drawer In No January 19 11:02pm Advance Directive Response Recorded Date/ Time Advance Directives No February 7:23am Living Will No March 31 12:13am Power of Stitch Bonding Machine Drawer In No March 31, 2023 12:13am Chief Complaint [...] PAIN wound wound RASH VENOUS ULCER LT CONCEPCION, PAD, LYMPHEDEMA Reason for Visit Acute sinusitis Anemia Acute GI bleeding Cellulitis Hypothyroidism Lymphedema associated with obesity Morbid obesity Venous ulcer of left lower extremity with varicose veins Cellulitis Hypothyroidism Lymphedema associated with obesity Morbid obesity Venous ulcer of left lower extremity with varicose veins Chief Complaint GI BLEED GI BLEED GI BLEED GI BLEED ABDOMINAL PAIN wound wound RASH VENOUS ULCER LT CONCEPCION, PAD, LYMPHEDEMA VENOUS ULCER wound Reason for Visit Anemia Acute GI bleeding Cellulitis Hypothyroidism Lymphedema associated with obesity Morbid obesity Venous ulcer of left lower extremity with varicose veins Cellulitis Hypothyroidism Lymphedema associated with obesity Morbid obesity Venous ulcer of left lower extremity with varicose veins Venous ulcer of left lower extremity with varicose veins Chief Complaint wound wound RASH VENOUS ULCER LT CONCEPCION, PAD, LYMPHEDEMA VENOUS ULCER wound LLE VARICOSE [...] section and content) DATE CREATED AUTHOR 11/24/2018 [facility] [facility] DATE CREATED AUTHOR AUTHOR'S ORGANIZ ATION 05/30/2024 [facility] DATE CREATED AUTHOR AUTHOR'S ORGANIZ ATION 12/05/2024 [facility] DATE CREATED AUTHOR AUTHOR'S ORGANIZ ATION 04/11/2025 [facility] Goals (unrecognized section and content) Goals [...] MD Primary Care Provider Active Dr. Hellen Thomas DO Attending Provider, Emergency P rovider Active Team Status: Inactive Member Role Status Dates Dr. Hong Frazier MD Primary Care Provider Active Hong Hodgson MD Attending Provider, Referring Prov ider Active Team Status: Active Member Role Status Dates Dr. Hong Frazier MD Family Provider Active Negrita Nixon , SHOT BLAST EQUIPMENT OPERATOR-C Primary Care Provider Active Team Status: Inactive Member Role Status Dates Dr. Hong Frazier MD Primary Care Provider, Referring Provider Active Dylan Wright PA, PA Attending Provider Active Team Status: Inactive Member Role Status Dates Negrita Nixon , SHOT BLAST EQUIPMENT OPERATOR-C Primary Care Provide r, Attending Provider, Referring Provider Active Team Status: Inactive Member Role Status Dates Negrita Nixon SHOT BLAST EQUIPMENT OPERATOR-C Primary Care Provider Active Dr. Wilmar Good DO Emergency Provider Active Team Status: Active Member Role Status Dates Negrita Nixon SHOT BLAST EQUIPMENT OPERATOR-C Primary Care Provider Active Dr. Edd Salmon MD Attending Provider Active Team Status: Inactive Member Role Status Dates Dr. Edd Salmon MD Attending Provider, Referring Pro vider Active Negrita Tiffani , SHOT BLAST EQUIPMENT OPERATOR-C Primary Care Provider Active Team Status: Inactive Member Role Status Dates Negrita Nxion SHOT BLAST EQUIPMENT OPERATOR-C Primary Care Provider Active Dr. Wilmar Good DO Attending Provider, Emergency Pr ovider Active Team Status: Active Member Role Status Dates Negrita Nixon , SHOT BLAST EQUIPMENT OPERATOR-C Primary Care Provide r, Attending Provider, Referring Provider Active Team Status: Inactive Member Role Status Dates Negrita Nixon SHOT BLAST EQUIPMENT OPERATOR-C Primary Care Provider, Referring P rovider Active Rola Montalvo PA, PA Attending Provider Active Team Status: Inactive Member Role Status Dates Negrita Tiffani , SHOT BLAST EQUIPMENT OPERATOR-C Primary Care Provider Active Dr. Marisol Quintero , DO Emergency Provider Active Head Chef Relationship Specialty Start Date End Date Hong Frazier MD [address] [place] [address] [phone] PCP - Andrey ACO PCP 06/15/21 Negrita Nixon ROADABILITY MACHINE OPERATOR-BULL GANG WORKER [address] [id number] PCP - General Family Medicine 08/22/23 Team Status: Inactive Member Role Status Dates Negrita Nixon SHOT BLAST EQUIPMENT OPERATOR-C Primary Care Provider, Referring Samir mcdonnell Active Javier ANTONIO, PA Attending Provider Active Head Chef Relationship Specialty Start Date End Date Negrita Nixon NP [address] [place] [id number] PCP - General Family Medicine 05/27/24 Head Chef Relationship Specialty Start Date End Date Negrita Nixon, WANG-BULL GANG WORKER [address] [phone] PCP - General Family Medicine 08/22/23 Reason [...] or prosecute any alcohol or drug abuse patient.[facility] FOR RECORDS PERTAINING TO PATIENTS WHO ARE [...] BE BASED ON THE PRIMARY CLINICAL RECORDS. [facility] [employer] [facility]. provides no warranty or guarantee of the accuracy or completeness of information in this document.
[2025-04-13] MEDS: Lactated Ringers 1,000 ML 15 ML IV (07:37)
--- NOTE | 2025-04-13 08:30 | COLBX_PTH ---
PATIENT: CHRISTOPHER KWAN LOC: EN U#:[id number] AGE/SX: 54/F ROOM: RE04/13/[address]: Dr. Jarod Monzon DO : 1970 BED: DIS: 04/13/2025 SPEC #: [id number] RECD: 04/13/25 11:16 STATUS: LEELEE REMichael #: [id number] TEJAS: 04/13/25 08:[address]: Jarod Monzon DEPT: SURGICAL PATHOLOGY RECD BY: Jim Cardenas ENTERED: 04/13/25 12:30 SP TYPE: COLON BX OTHR DR: Diamond Moore, INDUSTRIAL ROBOTICS MECHANIC-C Tissues: A - Cecum, NOS B - Sigmoid colon biopsy Procedures: Surgery Specimen Level IV HEADER OPERATION: Colonoscopy, polypectomy, hemostasis PRE-OP DIAGNOSIS: Encounter for screening colonoscopy TISSUE SUBMITTED: A- Cecum polyp, B- Sigmoid polyp biopsy MICROSCOPIC DIAGNOSIS A. Cecum, polyp, biopsy: - Tubulovillous adenoma, multiple fragments. B. Sigmoid colon, polyp, biopsy: - Tubular adenoma. MICROSCOPIC DESCRIPTION Slides are reviewed. GROSS DESCRIPTION A. Received in fixative is one container labeled with the patient's name and designated Cecum polyp. The specimen consists of multiple irregular fragments of mack tissue that in aggregate measure 2.1 x 0.8 x 0.3 cm. The specimen is totally submitted in one cassette. B. Received in fixative is one container labeled with the patient's name and designated Sigmoid polyp biopsy. The specimen consists of one irregular fragment of mack tissue that measures 0.5 cm. The specimen is totally submitted in one cassette. ND 04/13/2025 CPT:47307z6
--- NOTE | 2025-04-13 08:47 | PCM.PRE.AN2 ---
ASA Classification* ASA Classification ASA Classification: 3 Assessment & Plan Anesthesia* Anesthesia Assessment Anesthesia Assessment: Discussed sedation and/or anesthesia options, risks, benefits, and alternatives with patient/parents/legal guardian/POA. Questions invited. The patient/parents/legal guardian/POA seems to understand and agrees to proceed with anesthesia plan. Reviewed the physical assessment, medical history, allergy history and patient home medications list prior to surgery/procedure/anesthetic and documented any changes. Performed airway and anesthesia risk assessments. Anesthesia Type Anesthesia Type: MAC History Source History Obtained from:: Patient and Chart Anesthesia Focused Assessment* Temperature: 97.8 F Pulse Rate: 85 Blood Pressure: 114/75 Respiratory Rate: 17 Pulse Ox: 98 Oxygen Delivery Method: Room Air Airway Assessment Mouth opens: >3 cm Mallampati Score: IV Teeth Condition: Missing (Patient has multiple missing teeth. Rest are tight.) Neck Range of motion (ROM): Limited ROM (Severe Restriction) Labs Anesthesia Preop lab: CBC WBC, (4.4-11.0) 6.8 K/mm3 02/21/25, 10:07 RBC, (4.2-5.4) 5.10 M/mm3 02/21/25, 10:07 Hgb, (12.0-15.0) 13.7 g/dL 02/21/25, 10:07 Hct, (37-47) 44.1 % 02/21/25, 10:07 Plt Count, (150-450) 414 K/mm3 02/21/25, 10:07 CHEMISTRY Potassium, (3.3-5.1) 4.0 mmol/L 02/21/25, 10:07 Sodium, (133-145) 143 mmol/L 02/21/25, 10:07 Magnesium, (1.6-2.6) 2.3 mg/dL 06/12/22, 14:00 BUN, (4-19) 13 mg/dL 02/21/25, 10:07 Creatinine, (0.70-1.20) 0.83 mg/dL 02/21/25, 10:07 Glucose, (70-99) 92 mg/dL 02/21/25, 10:07 TSH, (0.300-4.200) 1.960 uIU/mL 02/21/25, 10:07 COAG PT, (11.7-14.9) 12.3 SECONDS 06/12/22, 14:00 Urine Test Negative Negative 05/03/13, 07:55 Pre-Assessment Diagnosis/Proposed Procedure Planned Operative Procedure(s): CSCOPE OA Anesthesia History Anesthesia History - lard mixer: Anesthesia History - lard mixer Hx Hospitalization No 04/11/25 14:58 Any Problems With Anesthesia Yes: NAUSEA 04/11/25 14:58 Cholinesterase deficiency No 04/11/25 14:58 You/Your Family Experience No 04/11/25 14:58 fever (hyperthermia) with Relationship Recent Exposure to Contagious No 04/13/25 07:24 Disease Does patient have nerve No 04/11/25 14:58 stimulator Patient instructed to have device shut off --Does patient have Pacemaker No 04/13/25 07:24 or ICD? When Was Last Pacemaker Check QUESTION #4 FULL TEXT: You/Your Family Experience fever (hyperthermia) with Anesthesia Last Oral Intake Last Oral intake: Last Oral Intake NPO since 230 Meds taken in AM with sips of No 04/13/25 07:24 water? Meds patient instructed to take am of surgery Any additional information?: Yes NPO since: 02:30 (Patient finished her prep at 2:30 AM.) Meds taken in AM with sips of water?: No PONV PONV - lard mixer: PONV - lard mixer Female Yes 04/11/25 14:58 HX of Motion Sickness No 04/11/25 14:58 HX of N/V After Surgery No 04/11/25 14:58 Non-Smoker No 04/11/25 14:58 Duration of Surgery greater No 04/11/25 14:58 than 60 minutes Number of Risk Factors 1 04/11/25 14:58 PONV Score Low Risk 04/11/25 14:58 Height & Weight Height & Weight: Anesthesia: Height & Weight Height 5 ft 7 in 04/13/25 07:24 Weight: 119 kg 04/13/25 07:24 Body Mass Index (BMI) 41.1 04/13/25 07:24 Respiratory Assessment Respiratory Assessment - lard mixer: Respiratory Tract Infection Hx - lard mixer Hx Respiratory Tract Infection No 04/11/25 14:58 STOP Sleep Apnea STOP Sleep Apnea - lard mixer: STOP Sleep Apnea - lard mixer Hx Hypertension No 04/11/25 14:58 Hx Sleep Apnea No 04/11/25 14:58 CPAP No 02/18/22 10:03 BIPAP No 02/18/22 10:03 Do you snore loudly (louder No 04/11/25 14:58 than talking or can be heard Do you often feel tired/ No 04/11/25 14:58 fatigued/ sleepy during daytime? Has anyone observed you stop No 04/11/25 14:58 breathing during sleep? STOP Results Negative 04/11/25 14:58 QUESTION #5 FULL TEXT : Do you snore loudly (louder than talking or can be heard through closed doors)? 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 Specify any problems Hx of Preganancy in last 3 No 04/11/25 14:58 Months Nurse Filling Out Transfusion DSCHRIBER 04/11/25 14:58 & Questions: Date: 04/11/25 04/11/25 14:58 Time: 15:02 04/11/25 14:58 Patient unable to answer at this time (ie. confused, unrespo /Reproduction History /Reproductive History - lard mixer: /Reproductive Hx- lard mixer Hx Now No 04/11/25 14:58 Gestational Age (in weeks): EDC: Hx Hx Para Hx Section SAB No 04/11/25 14:58 Active Medications Active Medications: Current Medications Generic Name Dose Route Start Last Admin Trade Name Freq PRN Reason Stop Dose Admin Lactated Ringer's 1,000 mls @ 15 mls/hr 04/13/25 07:15 04/13/25 07:37 IV 15 mls/hr .Q48H DIDIER Administration PFSH Medical History Anxiety History of echocardiogram Hx of venous disease History of GI bleed Acute pharyngitis Biceps tendinitis of right shoulder Osteoarthritis of left hip Post-menopausal Wears glasses Hyperactive gag reflex Leg cramps History of pain when walking Varicose veins of both lower extremities Vitamin D deficiency Edema Colitis Tobacco dependence syndrome Depression Smoker Hypothyroidism Skin lesions 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, 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 Home Medications ?Medication ?Instructions ?Recorded ?Last Taken ?Type ergocalciferol (vitamin D2) 1,250 1,250 mcg PO SA SUPPLEMENT 02/18/20 04/12/25 History mcg (50,000 unit) capsule spironolactone 50 mg tablet 50 mg PO DAILY DIURETIC 02/18/20 04/12/25 History aspirin 81 mg tablet,delayed 81 mg PO DAILY #90 tabs 02/19/22 04/09/25 Rx release levothyroxine 100 mcg tablet 100 mcg PO SUMOWETHFR 10/27/24 04/12/25 History topiramate 100 mg tablet 100 mg PO QHS 10/27/24 04/12/25 History levothyroxine 100 mcg capsule 200 mcg PO THSA 04/11/25 Unknown History trazodone 50 mg tablet 50 mg PO QHS sleep 04/11/25 04/12/25 History venlafaxine 75 mg capsule,extended 75 mg PO DAILY 04/11/25 04/12/25 History release 24 hr Allergy/AdvReac Type Severity Reaction Status Date / Time No Known Allergies Allergy Verified 04/13/25 07:24 Family History Sister Arthritis Cancer Father Cancer liver cancer Surgical History Hx of colonoscopy Hx laparoscopic cholecystectomy History of esophagogastroduodenoscopy (EGD) History of hernia repair History of Social History housing: house Smoking Status: Current every day smoker tobacco type: cigarettes alcohol intake: never substance use type: does not use Review of Systems (Anesthesia) ROS Narrative System reviewed and no additional complaints, except as documented.
--- NOTE | 2025-04-13 09:02 | PCM.HP.STD ---
HPI - General General Date of Admission: 04/13/25 Date of Service: 04/13/25 Chief Complaint: Screening colonoscopy HPI Narrative CHRISTOPHER KWAN, is a 54 F who presents [today for screening colonoscopy. She is not having abdominal pain. She is here for screening colonoscopy. She has not had a colonoscopy in the past. 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 Home Medications ?Medication ?Instructions ?Recorded ?Last Taken ?Type ergocalciferol (vitamin D2) 1,250 1,250 mcg PO SA SUPPLEMENT 02/18/20 04/12/25 History mcg (50,000 unit) capsule spironolactone 50 mg tablet 50 mg PO DAILY DIURETIC 02/18/20 04/12/25 History aspirin 81 mg tablet,delayed 81 mg PO DAILY #90 tabs 02/19/22 04/09/25 Rx release levothyroxine 100 mcg tablet 100 mcg PO SUMOWETHFR 10/27/24 04/12/25 History topiramate 100 mg tablet 100 mg PO QHS 10/27/24 04/12/25 History levothyroxine 100 mcg capsule 200 mcg PO THSA 04/11/25 Unknown History trazodone 50 mg tablet 50 mg PO QHS sleep 04/11/25 04/12/25 History venlafaxine 75 mg capsule,extended 75 mg PO DAILY 04/11/25 04/12/25 History release 24 hr Allergy/AdvReac Type Severity Reaction Status Date / Time No Known Allergies Allergy Verified 04/13/25 07:24 Family History Sister Arthritis Cancer Father Cancer liver cancer Surgical History Hx of colonoscopy Hx laparoscopic cholecystectomy History of esophagogastroduodenoscopy (EGD) History of hernia repair History of Social History housing: house Smoking Status: Current every day smoker (Patient smoked today.) tobacco type: cigarettes alcohol intake: never substance use type: does not use ROS Constitutional Constitutional: Denies fatigue, fever(s), poor appetite, weight gain or weight loss Gastrointestinal Gastrointestinal: Denies belching, bloating, change in bowel habits, change in stool character, chewing difficulty, coffee ground emesis, constipation, cramping, diarrhea, dyspepsia, dysphagia, early satiety, excessive flatus, fecal incontinence, heartburn, hematemesis, hematochezia, hemorrhoids, loose stools, melena, nausea, odynophagia, rectal bleeding, tenesmus, vomiting or weight changes Vital Signs Vital Signs Vital Signs: 04/13/25 07:24 04/13/25 07:24 04/13/25 08:53 Temperature 97.8 F 97.8 F Temperature Source Temporal Pulse Rate 85 85 Respiratory Rate 17 17 Respiratory Pattern Normal Blood Pressure 114/75 114/75 Blood Pressure Mean 88 Blood Pressure Source Monitor Blood Pressure Position Semi-Fowlers Blood Pressure Location Right Forearm Pulse Ox 98 98 Oxygen Delivery Method Room Air Room Air Weight Weight: 262 lb 5.601 oz Body Mass Index (BMI) 41.1 Physical Exam Const alert, oriented x3, no apparent distress and healthy appearing General Appearance: cooperative GI normal to inspection, nondistended, normoactive bowel sounds, soft to palpation, non-tender and non-distended Percussion: normal to percussion Rectal Exam: deferred Assessment & Plan Assessment/Plan (1) Encounter for screening colonoscopy: PLAN: She was explained alternatives, risk and benefits include not withstanding bleeding, infection, sepsis, perforation, need for surgery . She have an ASA of 3.
--- NOTE | 2025-04-13 09:57 | OP.COLON_ITS ---
Patient Name: Rosemary Shields Procedure Date: 04/13/2025 9:10 AM Date of : 1970 Age: 54 Procedure: Colonoscopy Indications: High risk colon cancer surveillance: Personal history of colonic polyps Providers: Jarod Monzon DO Referring MD: Carlie Fox Medicines: Monitored Anesthesia Care Patient Profile: This is a 54 year old female. Refer to note in patient chart for documentation of history and physical. Last Colonoscopy: 5 years ago. Complications: No immediate complications. Procedure: Pre-Anesthesia Assessment: - Prior to the procedure, a History and Physical was performed, and patient medications and allergies were reviewed. The patient is competent. The risks and benefits of the procedure and the sedation options and risks were discussed with the patient. All questions were answered and informed consent was obtained. Patient identification and proposed procedure were verified by the physician in the pre-procedure area. Mental Status Examination: alert and oriented. Airway Examination: normal oropharyngeal airway and neck mobility. Respiratory Examination: clear to auscultation. CV Examination: normal. Prophylactic Antibiotics: The patient does not require prophylactic antibiotics. Prior Anticoagulants: The patient has taken no anticoagulant or antiplatelet agents. ASA Grade Assessment: II - A patient with mild systemic disease. After reviewing the risks and benefits, the patient was deemed in satisfactory condition to undergo the procedure. The anesthesia plan was to use monitored anesthesia care (MAC). Immediately prior to administration of medications, the patient was re-assessed for adequacy to receive sedatives. The heart rate, respiratory rate, oxygen saturations, blood pressure, adequacy of pulmonary ventilation, and response to care were monitored throughout the procedure. The physical status of the patient was re-assessed after the procedure. After I obtained informed consent, the scope was passed under direct vision. Throughout the procedure, the patient's blood pressure, pulse, and oxygen saturations were monitored continuously. The Colonoscope was introduced through the anus and advanced to the cecum, identified by appendiceal orifice and ileocecal valve. The colonoscopy was performed without difficulty. The patient tolerated the procedure well. The quality of the bowel preparation was adequate. The ileocecal valve, appendiceal orifice, and rectum were photographed. Scope In: 9:24:56 AM Scope Withdrawal Time 0 hours 14 minutes 23 seconds Scope Out: 9:48:44 AM Total Procedure Duration Time 0 hours 23 minutes 48 seconds Findings: The perianal and digital rectal examinations were normal. A 10 mm polyp was found in the cecum. The polyp was sessile. The polyp was removed with a hot snare. Resection and retrieval were complete. To prevent bleeding after the polypectomy, one hemostatic clip was successfully placed. 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 There was no bleeding at the end of the procedure. Two sessile polyps were found in the sigmoid colon and cecum. The polyps were 6 mm in size. These polyps were removed with a jumbo cold forceps. Resection and retrieval were complete. The exam was otherwise without abnormality on direct and retroflexion views. Impression: - One 10 mm polyp in the cecum, removed with a hot snare. Resected and retrieved. Clip was placed. 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 - Two 6 mm polyps in the sigmoid colon and in the cecum, removed with a jumbo cold forceps. Resected and retrieved. - The examination was otherwise normal on direct and retroflexion views. Recommendation: - Discharge patient to home. - Resume previous diet. - Continue present medications. - Await pathology results. - Repeat colonoscopy in 5 years for surveillance. Procedure Code(s): --- Professional --- 70258, Colonoscopy, flexible; with removal of tumor(s), polyp(s), or other lesion(s) by snare technique 86518, 59, Colonoscopy, flexible; with biopsy, single or multiple CPT copyright 2021 [employer]. All rights reserved. The codes documented in this report are preliminary and upon hammer setter review may be revised to meet current compliance requirements. Jarod Monzon DO 04/13/2025 9:57:33 AM This report has been signed electronically. Number of Addenda: 0 Note Initiated On: 04/13/2025 9:10 AM
--- NOTE | 2025-04-13 09:58 | OP.PROVAT_ITS ---
04/13/2025 Carlie Fox Re : Colonoscopy procedure for Rosemary Shields Dear Oscar This procedure was performed on March. My impressions and recommendations are as follows: Impressions : - One 10 mm polyp in the cecum, removed with a hot snare. Resected and retrieved. Clip was placed. 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 - Two 6 mm polyps in the sigmoid colon and in the cecum, removed with a jumbo cold forceps. Resected and retrieved. - The examination was otherwise normal on direct and retroflexion views. Recommendations : - Discharge patient to home. - Resume previous diet. - Continue present medications. - Await pathology results. - Repeat colonoscopy in 5 years for surveillance. My findings are described in the full procedure note, which is enclosed. If I can be of further assistance, please feel free to contact me at . Sincerely, Jarod Monzon, 04/13/2025 9:57:33 AM This report has been signed electronically.
--- NOTE | 2025-04-13 10:02 | PCM.POST.ANE ---
Anesthesia: Postop Eval I Current Vital Signs Temperature: 97.3 F Pulse Rate: 68 Blood Pressure: 96/73 Respiratory Rate: 18 Pulse Ox: 95 Oxygen Delivery Method: Room Air Assessment Airway patent: Yes Spontaneous unlabored respirations: Yes Mental status: Awake nausea: No Vomiting: No Anesthesia Complication: No Fluid Hydration Crystalloid volume administer (ml): 500 Total IV fluid infused: 500 Progress Note Anesthesia document: Postop Eval 1 completed: Yes
--- NOTE | 2025-04-13 11:40 | PCM.POSTANE2 ---
Anesthesia Postop Eval I Sum Postop Eval Completion status Anesthesia document: Postop Eval 1 completed: Yes Anesthesia Postop Eval I Summary Anesthesia Postop Eval I Summary: Anesthesia Postop Eval I: Assessment Summary Airway patent Yes 04/13/25 10:02 [email or web address] Spontaneous unlabored Yes 04/13/25 10:02 [email or web address] respirations Mental status Awake 04/13/25 10:02 [email or web address] nausea No 04/13/25 10:02 [email or web address] Vomiting No 04/13/25 10:02 [email or web address] Anesthesia Postop Eval I: Fluid Summary Crystalloid volume administer 500 04/13/25 10:02 [email or web address] (ml) Colloids volume administered ( ml) Blood Product volume administered (ml) Total IV fluid infused 500 04/13/25 10:02 [email or web address] Anesthesia Postop Eval I: Summary Notes Anesthesia Complication No 04/13/25 10:02 [email or web address] Anesthesia Complication Comment: Post-operative progress note Anesthesia: Postop Eval II Evaluation Mental status: Awake and Calm Pain Level: 0 nausea: No Vomiting: No Complications Anesthesia Complication: No
== END 2025-04-13 10:38 | disposition home or self-care (01) ==
LOC: EN 07:09 → AC 07:10
PROVIDERS: PCP Nurse Practitioner Family; Referring Provider Nurse Practitioner Family; Visit Provider Internal Medicine Gastroenterology
PROC: 0DJD8ZZ Inspection of Lower Intestinal Tract, Via Natural or Artificial Opening Endoscopic (ICD-10-PCS; CPT 45378; principal; 2025-04-13 08:25)
DX: Z12.11 Encounter for screening for malignant neoplasm of colon (principal); K63.5 Polyp of colon; Z79.890 Hormone replacement therapy; E03.9 Hypothyroidism, unspecified; F32.A Depression, unspecified; Z79.899 Other long term (current) drug therapy; Z90.49 Acquired absence of other specified parts of digestive tract; F17.210 Nicotine dependence, cigarettes, uncomplicated; D12.0 Benign neoplasm of cecum
CPT/HCPCS: 45380; 45385; 88305; J2405

== ENCOUNTER 2025-06-09 23:11 | Emergency (ER) | payer OTHER, SELFPAY ==
[2025-06-09 23:12] VITALS: BP 176/99; PULSE 79; RESP 20; TEMP 36.2; O2SAT 100; BMI 42.7
--- NOTE | 2025-06-09 23:40 | RAD_ITS ---
PROCEDURE: RIGHT KNEE 3 VIEWS 06/10/2025 REASON FOR EXAM: FALL TECHNIQUE: Procedure Code: RADPAT Modality: DX Procedure: RIGHT KNEE 3 VIEWS COMPARISON: December 23, 2024 FINDINGS: Comparison there are varicose veins at the pretibial region. There are a few phleboliths in the subcutaneous fat. There is no evidence of a fracture, subluxation, erosive change, joint space narrowing, hypertrophic change, nor knee joint effusion. RAD/Knee 3 Views IMPRESSION: Impression no evidence of an acute process. Reading Location: [id number]
--- NOTE | 2025-06-09 23:40 | RAD_ITS ---
PROCEDURE: ANKLE MIN 3 VIEWS 06/09/2025 REASON FOR EXAM: FALL TECHNIQUE: Procedure Code: RADANK Modality: DX Procedure: ANKLE MIN 3 VIEWS Laterality: Left COMPARISON: None FINDINGS: No evidence of acute displaced fracture or dislocation seen. Ankle joint is intact. No sclerotic or lytic bone lesion noted. Small dorsal talar beak is seen. A plantar calcaneal spur seen. Diffuse soft tissue edema of the distal leg is seen relatively sparing the ankle, recommend clinical correlation. RAD/Ankle min 3 Views IMPRESSION: No acute abnormality seen. Plantar calcaneal spur. Diffuse soft tissue edema of the distal leg is seen relatively sparing the ankl e, recommend clinical correlation. Reading Location: [facility]
--- NOTE | 2025-06-09 23:40 | RAD_ITS ---
PROCEDURE: TIBIA FIBULA 2 VIEWS 06/09/2025 REASON FOR EXAM: FALL TECHNIQUE: Procedure Code: RADTF Modality: DX Procedure: TIBIA FIBULA 2 VIEWS COMPARISON: 12/23/2024. FINDINGS: Soft tissue edema and swelling. Normal visualized tibia. Normal visualized fibula. Calcaneal spur formation. RAD/Tibia & Fibula 2 Views IMPRESSION: Soft tissue edema and swelling. Reading [facility]
--- NOTE | 2025-06-09 23:52 | EDS_ITS ---
HPI History of Present Illness Chief Complaint: Lower Extremity Injury Narrative Narrative: Patient was seen and examined after presenting to ED for evaluation after she slipped in the shower 2 days ago injuring her right lower leg and her left ankle no head injury no loss of consciousness no other prodromal symptoms prior to the fall. 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 Home Medications ?Medication ?Instructions ?Recorded ?Last Taken ?Type ergocalciferol (vitamin D2) 1,250 1,250 mcg PO SA SUPP LEMENT 02/18/20 04/12/25 History mcg (50,000 unit) capsule spironolactone 50 mg tablet 50 mg PO DAILY DIURETIC 04/12/25 History aspirin 81 mg tablet,delayed 81 mg PO DAILY #90 tabs 0 02/19/22 04/09/25 Rx release levothyroxine 100 mcg tablet 100 mcg PO SUMOWETHFR 04/12/25 History topiramate 100 mg tablet 100 mg PO QHS 10/27/2404/12 History levothyroxine 100 mcg capsule 200 mcg PO THSA 04/11/25 Unknown History trazodone 50 mg tablet 50 mg PO QHS sleep 04/11/25 04/12/25 History venlafaxine 75 mg capsule,extended 75 mg PO DAILY 03/1604/12/25 History release 24 hr Allergy/AdvReac Type Severity Reaction Status Date / Time No Known Allergies Allergy Verified 06/09/25 23:13 Family History Sister Arthritis Cancer Father Cancer liver cancer Surgical History Hx of colonoscopy Hx laparoscopic cholecystectomy History of esophagogastroduodenoscopy (EGD) History of hernia repair History of Social History housing: house Smoking Status: Current every day smoker tobacco type: cigarettes alcohol intake: never substance use type: does not use ROS ROS ED ROS Narrative Pertinent Positives: Right lower leg pain including the knee as well as left ankle pain following a slip and fall in the shower Pertinent Negatives: Head injury loss of consciousness trouble breathing numbness tingling The remainder of review of systems negative unless otherwise stated in the HPI above. Systems reviewed including constitutional, psychiatric, cardiovascular, respiratory, integument, HENT, gastrointestinal. EXAM Physical Exam Narrative Exam Narrative: Patient is afebrile hemodynamically stable does not appear toxic or in distress she is normocephalic atraumatic she has intact MSPs of her extremities compartments are soft she has tenderness overlying her right knee as well as her right concepcion and her left ankle otherwise no open wounds or lesions nothing that appears infectious she is oxygenating well on room air Const Vital Signs: 06/09/25 23:12 Temperature 97.2 F L Temperature Source Temporal Pulse Rate 79 Respiratory Rate 20 H Blood Pressure 176/99 H Blood Pressure Mean 124 Pulse Ox 100 Oxygen Delivery Method Room Air MDM MDM MDM Narrative Medical decision making narrative: Nursing notes, triage notes, available previous documentation, and vital signs were reviewed. Any discrepancies noted were addressed. Differential Diagnoses: Low suspicion for any sort of dislocation low suspicion for fracture not compartment syndrome Imaging Reviewed: Personally reviewed and interpreted by me: Left ankle x-ray I do not see any obvious fracture or dislocation My review of the right knee x-ray is the same I do not see anything obviously fractured or dislocated My review of the right tibia and fibula x-ray I do not see any sort of obvious abnormality and of note patient did not have any fibular head involvement. Previous Documentation Reviewed: None available or applicable at this time. ED Course: Patient presenting with injury as described above we will go ahead and get plain films of the right knee concepcion and left ankle. 06/10/2025 at 0036: Plain film so far unremarkable. Patient likely has contusio ns to her extremities she can follow-up with her primary care and take supportive measures return precautions and follow-up recommendations provided she is stable for discharge. This note was made utilizing voice recognition software. All attempts were made to correct spelling or other errors prior to note completion. However, due to the fast-paced nature of emergency medicine, some errors may still be present. Radiography Diagnostic Testing: Clinical Impression(s) from Imaging Studies Ankle X-Ray 06/09/25 23:40 IMPRESSION: No acute abnormality seen. Plantar calcaneal spur. Diffuse soft tissue edema of the distal leg is seen relatively sparing the ankle , recommend clinical correlation. Reading Location: [place] [id number] Knee X-Ray 06/09/25 23:40 IMPRESSION: Impression no evidence of an acute process. Reading Location: [id number] Discharge Plan Triage Chief Complaint: Lower Extremity Injury ED Provider: Jaswinder Mena Dx/Rx/DC Orders Clinical Impression: Contusion of lower leg, right, Contusion of right knee, Contusion of left a nkle, initial encounter Instructions: ED Contusion, Lower Extremity Prescriptions: No Action levothyroxine 100 mcg tablet 100 mcg PO SUMOWETHFR topiramate 100 mg tablet 100 mg PO QHS ergocalciferol (vitamin D2) 1,250 MCG capsule 1,250 mcg PO SA Rx Instructions: TAKES EVERY THURSDAY spironolactone 50 MG tablet 50 mg PO DAILY aspirin 81 mg tablet,delayed release (DR/EC) 81 mg PO DAILY Qty: 90 0RF levothyroxine 100 mcg capsule 200 mcg PO THSA venlafaxine 75 mg capsule,extended release 24hr 75 mg PO DAILY trazodone 50 mg tablet 50 mg PO QHS Primary Care Provider: Diamond Moore Referrals: Diamond Moore, [facility] [Primary Care Provider, Family Practice] Activity Restrictions/Additional Instructions: You likely have a bone bruise biggest thing is to take Tylenol ibuprofen and ice follow-up with your doctor Print Language: Greenlandic Disposition Disposition: Home, Self Care
--- OUTSIDE RECORDS SUMMARY | 2025-06-09 23:52 | XMS RPT_ITS | CCD ---
Author Organization [facility] Care Team Providers Care Senior Sharepoint Architect Name Role Phone Dr. Hong Frazier Primary [...] ANTONIO, PA Dylan Moreno Attending Provider Tiffani, TAI CHI INSTRUCTOR-C Negrita Primary Care Provider Dr. Edd Salmon Attending Provider Tiffani, TAI CHI INSTRUCTOR-C Negrita Referring Provider Selvin ANTONIO, PACO Moreno Attending Provider Hong Frazier MD Unavailable Tiffani ADJUNCT SPANISH INSTRUCTOR-SENIOR PHP WEB DEVELOPER, Negrita Primary Care Provider Tiffani, TAI CHI INSTRUCTOR-C Negrita Primary Care Provider Tiffani, TAI CHI INSTRUCTOR-C Negrita Referring Provider Og ANTONIO, PA Javier Attending Provider Tiffani TAI CHI INSTRUCTOR, Negrita Primary Care Provider TIFFANI, NEGRITA Primary Care Unavailable Tiffani ADJUNCT SPANISH INSTRUCTOR-SENIOR PHP WEB DEVELOPER, Negrita Primary Care Provider TIFFANI, NEGRITA Primary Care Unavailable Tiffani, Negrita Referring Unavailable Renae Hutchison Attending Unavailable Tiffani, Negrita Primary Care Unavailable Tiffani, Negrita Primary Care Unavailable Deisrae Richards Attending Unavailable Tiffani, Negrita Primary Care Unavailable Brielle Snow Referring Unavailable Brielle Snow Attending Unavailable Tiffani, Negrita Primary Care Unavailable Jarod Monzon Attending Unavailable Friend, Jarod Consulting Unavailable Tiffani, Negrita Referring Unavailable Tiffani, Negrita Primary Care Unavailable Maurilio Jacome Attending Unavailable Tiffani, Negrita Primary Care Unavailable Tiffani, Negrita Referring Unavailable Tiffani, Negrita Attending Unavailable Tiffani, Negrita Primary Care Unavailable Tiffani, Negrita Attending Unavailable Tiffani, Negrita Primary Care Unavailable Tiffani, Negrita Attending Unavailable Tiffani, Negrita Primary Care Unavailable Tiffani, Negrita Referring Unavailable Friend, Jarod Attending Unavailable Edd Salmon Attending Unavailable Tiffani, Negrita Primary Care Unavailable Brielle Snow Referring Unavailable Medications Current Medications Medication Drug [...] 20 mg/ml oral solution (1 source) Uncompetitive P-ilyukj-K-aspartat e Receptor Antagonist, Sigma-1 Agonist Start: 05-27-2024 [...] Start: 02-18-2022 Levothyroxine Active 100 MCG PO [facility] February 18, 2022 12:00am Start: 01-04-2022 End: [...] every four hours as needed for pain [place] 325- 5 mg oral tablet Dose = [...] MG PO 4 TIMES DAILY NEEDED 56 7 January 20, 2023 1:54am April 14, 2023 [...] 2013 1:00am May 05, 2013 1:28pm nystatin 817256 unt/ml oral suspension (14 sources) Polyene Antifungal [...] Prednisone Discontinued 10 M G PO DAILY May 02, 2013 1:00am May 05, 2013 [...] conditions (not mental disorders or infectious disease) (3 sources) Encounter for screening for malignant neoplasm of colon; Translations: [Encounter for other screening for malignant [...] for pre-employment examination] Onset: 07-07-2017 06-28-2020 Episodic Screening and history of mental health and substance abuse codes (1 source) Ex-smoker; Translations: [Personal history of nicotine dependence] Onset: 07-07-2017 07-07-2017 Episodic Skin and subcutaneous tissue infections (20 sources) Cellulitis; Translations: [Cellulitis, unspecified] Onset: 12-29-2024 Episodic Unclassified (11 sources) multiple skuin lesions 01-03-2022 Results Test Name Value Interpretation Reference Range Facility Colonoscopy Reporton 025 Colonoscopy Report [facility] Medical Records Department [address] [place] [address] Colonoscopy Report MR#: [id number] Acct: [id number] Name: ROSEMARY SHIELDS Rep #: [id number] : 1970 54 From: Jarod Monzon DO PCP: ADY Fox Status:REG [facility] Patient Name: Rosemary Shields Procedure Date: 04/13/2025 9:10 AM Date of : 1970 Age: 54 Procedure: Colonoscopy Indications: High risk colon cancer surveillance: Personal history of colonic polyps Providers: Jarod Monzon DO Referring MD: Ady Fox Medicines: Monitored Anesthesia Care Patient Profile: This is a 54 year old female. Refer to note in patient chart for documentation of history and physical. Last Colonoscopy: 5 years ago. Complications: No immediate complications. Procedure: Pre-Anesthesia Assessment: - Prior to the procedure, a History and Physical was performed, and patient medications and allergies were reviewed. The patient is competent. The risks and benefits of the procedure and the sedation options and risks were discussed with the patient. All questions were answered and informed consent was obtained. Patient identification and proposed procedure were verified by the physician in the pre-procedure area. Mental Status Examination: alert and oriented. Airway Examination: normal oropharyngeal airway and neck mobility. Respiratory Examination: clear to auscultation. CV Examination: normal. Prophylactic Antibiotics: The patient does not require prophylactic antibiotics. Prior Anticoagulants: The patient has taken no anticoagulant or antiplatelet agents. ASA Grade Assessment: II - A patient with mild systemic disease. After reviewing the risks and benefits, the patient was deemed in satisfactory condition to undergo the procedure. The anesthesia plan was to use monitored anesthesia care (MAC). Immediately prior to administration of medications, the patient was re-assessed for adequacy to receive sedatives. The heart rate, respiratory rate, oxygen saturations, blood pressure, adequacy of pulmonary ventilation, and response to care were monitored throughout the procedure. The physical status of the patient was re-assessed after the procedure. After I obtained informed consent, the scope was passed under direct vision. Throughout the procedure, the patient's blood pressure, pulse, and oxygen saturations were monitored continuously. The Colonoscope was introduced through the anus and advanced to the cecum, identified by appendiceal orifice and ileocecal valve. The colonoscopy was performed without difficulty. The patient tolerated the procedure well. The quality of the bowel preparation was adequate. The ileocecal valve, appendiceal orifice, and rectum were photographed. Scope In: 9:24:56 AM Scope Withdrawal Time 0 hours 14 minutes 23 seconds Scope Out: 9:48:44 AM Total Procedure Duration Time 0 hours 23 minutes 48 seconds Findings: The perianal and digital rectal examinations were normal. A 10 mm polyp was found in the cecum. The polyp was sessile. The polyp was removed with a hot snare. Resection and retrieval were complete. To prevent bleeding after the polypectomy, one hemostatic clip was successfully placed. Clip crab fisher: Phylogy. There was no bleeding at the end of the procedure. Two sessile polyps were found in the sigmoid colon and cecum. The polyps were 6 mm in size. These polyps were removed with a jumbo cold forceps. Resection and retrieval were complete. The exam was otherwise without abnormality on direct and retroflexion views. Impression: - One 10 mm polyp in the cecum, removed with a hot snare. Resected and retrieved. Clip was placed. Clip crab fisher: Phylogy. - Two 6 mm polyps in the sigmoid colon and in the cecum, removed with a jumbo cold forceps. Resected and retrieved. - The examination was otherwise normal on direct and retroflexion views. Recommendation: - Discharge patient to home. - Resume previous diet. - Continue present medications. - Await pathology results. - Repeat colonoscopy in 5 years for surveillance. Procedure Code(s): --- Professional --- 79559, Colonoscopy, flexible; with removal of tumor(s), polyp(s), or other lesion(s) by snare technique 42140, 59, Colonoscopy, flexible; with biopsy, single or multiple CPT copyright 2021 [employer]. All rights reserved. The codes documented in this report are preliminary and upon physical director review may be revised to meet current compliance requirements. Jarod Monzon DO 04/13/2025 9:57:33 AM This report has been signed electronically. Number of Addenda: 0 Note Initiated On: 04/13/2025 9:10 AM 04/13/25 0957 Date Jarod Monzon DO Cosigner Signature: Date (more content not included)... [facility] Medical Records Department [address] [place] [address] Provation Physician Letter MR#: [id number] Acct: [id number] Name: ROSEMARY SHIELDS Rep #: [id number] : 1970 54 From: Jarod Monzon DO PCP: ADY Fox Status:REG [facility] 04/13/2025 Ady Fox Re : Colonoscopy procedure for Rosemary Shields Dear Tiffani This procedure was performed on March. My impressions and recommendations are as follows: Impressions : - One 10 mm polyp in the cecum, removed with a hot snare. Resected and retrieved. Clip was placed. Clip crab fisher: Phylogy. - Two 6 mm polyps in the sigmoid colon and in the cecum, removed with a jumbo cold forceps. Resected and retrieved. - The examination was otherwise normal on direct and retroflexion views. Recommendations : - Discharge patient to home. - Resume previous diet. - Continue present medications. - Await pathology results. - Repeat colonoscopy in 5 years for surveillance. My findings are described in the full procedure note, which is enclosed. If I can be of further assistance, please feel free to contact me at . Sincerely, Jarod Monzon DO 04/13/2025 9:57:33 AM This report has been signed electronically. 04/13/25956 Date Jarod Hussein Signature: Date (if indicated) CC: TAI CHI INSTRUCTOR-C Negrita Nixon; Jarod Monzon DO Date Dictated: 04/13/25909 Date Transcribed: Mat Maker: REAGAN Signed [facility] MR/POSTOP.[facility] 04-13-2025 MR/POSTOP.[facility] Medical Records Department [address] [place] [address] Anesthesia Postop Eval I 04/13/25 1002 MR#: [id number] Acct: [id number] Name: ROSEMARY SHIELDS Rep #: [id number] : 1970 54 From: Travis Jacome PCP: ADY Fox Status:REG SD[facility] Y Race: C Location: [place] [address] Anesthesia: Postop Eval I Current Vital Signs Temperature: 97.3 F Pulse Rate: 68 Blood Pressure: 96/73 Respiratory Rate: 18 Pulse Ox: 95 Oxygen Delivery Method: Room Air Assessment Airway patent: Yes Spontaneous unlabored respirations: Yes Mental status: Awake nausea: No Vomiting: No Anesthesia Complication: No Fluid Hydration Crystalloid volume administer (ml): 500 Total IV fluid infused: 500 Progress Note Anesthesia document: Postop Eval 1 completed: Yes 04/13/25 1002 Date Travis Bowen Signature: Date CC: Signed Normal [facility] MR/[id number] 04-13-2025 MR/POSTOPAN2 [facility] Medical Records Department [address] [place] [address] Anesthesia Postop Eval II 04/13/25 1140 MR#: [id number] Acct: [id number] Name: ROSEMARY SHIELDS Rep #: [id number] : 1970 54 From: Terrence Roe MD PCP: ADY Fox Status:[facility] Y Race: C Location: [place] Anesthesia Postop Eval I Sum Postop Eval Completion status Anesthesia document: Postop Eval 1 completed: Yes Anesthesia Postop Eval I Summary Anesthesia Postop Eval I Summary: Anesthesia Postop Eval I: Assessment Summary Airway patent Yes 04/13/25 10:02 [email or web address] Spontaneous unlabored Yes 04/13/25 10:02 [email or web address] respirations Mental status Awake 04/13/25 10:02 [email or web address] nausea No 04/13/25 10:02 [email or web address] Vomiting No 04/13/25 10:02 [email or web address] Anesthesia Postop Eval I: Fluid Summary Crystalloid volume administer 500 04/13/25 10:02 [email or web address] (ml) Colloids volume administered ( ml) Blood Product volume administered (ml) Total IV fluid infused 500 04/13/25 10:02 [email or web address] Anesthesia Postop Eval I: Summary Notes Anesthesia Complication No 04/13/25 10:02 [email or web address] Anesthesia Complication Comment: Post-operative progress note Anesthesia: Postop Eval II Evaluation Mental status: Awake and Calm Pain Level: 0 nausea: No Vomiting: No Complications Anesthesia Complication: No 04/13/25 1142 Date Terrence Roe MD Cosigner Signature: Date CC: Signed Normal [facility] Abd Aortic/IVC Duplex scanon 03-31-2025 Abd Aortic/IVC Duplex scan [facility] [place] [address] Abd Aortic/IVC Duplex scan 03/31/25 0915 MR#: [id number] Acct: [id number] Name: ROSEMARY SIHELDS Rep #: [id number] : 1970 54 From: Edd Salmon MD [...] Aorta IVC Iliac vasculature or bypass grafts 20948. The exam was diagnostic. Exam performed in department. VL/Abd Aortic/IVC Duplex scan Interpretation Summary Inferior vena cava and right iliac vein patent with normal venous flow pattern. Left iliac vein stent patent with normal venous flow pattern. Ordering Physician: Brielle Snow Referring Physician: Negrita Nixon Performed By: Kishan John, LEANN 04/03/251049 Date Edd Salmon MD CC: TAI CHI INSTRUCTOR-C Negrita Nixon; PACO Flowers Date Dictated: 03/31/25914 Date Transcribed: 04/03/251049 Mat Maker: Signed Normal [facility] CBC W/Diff, Automatedon 09-0 Absolute Lymph 1.97 X10 3/uL Normal 0.83-4.51 [facility] Comment on above: Performed By: #### L 506.0400, L506.1001, L100.0100, L501.9520, L500.4100, L500.4050 #### [facility] [address] [place], [address] Absolute Neut 4.2 X10 3/uL Normal 2.0-7.7 [facility] Comment on above: Performed By: #### L 506.0400, L506.1001, L100.0100, L501.9520, L500.4100, L500.4050 #### [facility] [address] [place], [address] Basophils/100 WBC (Bld) 0.6 % Normal 0-1 [facility] Comment on above: Performed By: #### L 506.0400, L506.1001, L100.0100, L501.9520, L500.4100, L500.4050 #### [facility] [address] [place], [address] Eosinophils/100 WBC (Bld) 2.8 % Normal 0-5 [facility] Comment on above: Performed By: #### L 506.0400, L506.1001, L100.0100, L501.9520, L500.4100, L500.4050 #### [facility] [address] [place], [address] Erythrocyte distribution width (RBC) [Ratio] 15.8 % High 11.6-14.6 [facility] Comment on above: Performed By: #### L 506.0400, L506.1001, L100.0100, L501.9520, L500.4100, L500.4050 #### [facility] [address] [place], [address] Hematocrit (Bld) [Volume fraction] 44.1 % Normal 37-47 [facility] Comment on above: Performed By: #### L 506.0400, L506.1001, L100.0100, L501.9520, L500.4100, L500.4050 #### [facility] [address] [place], [address] Hemoglobin (Bld) [Mass/Vol] 13.7 g/dL Normal 12.0-15.0 [facility] Comment on above: Performed By: #### L 506.0400, L506.1001, L100.0100, L501.9520, L500.4100, L500.4050 #### [facility] [address] [place], [address] IG% 0.300 Normal 0.0-0.9 [facility] Comment on above: Result Comment: IG% - Immature Granulocytes (promyelocytes, myelocytes and metamyelocytes) > 1% indicates that a LEFT SHIFT is Present. Performed By: #### L 506.0400, L506.1001, L100.0100, L501.9520, L500.4100, L500.4050 #### [facility] [address] [place] [place], [address] Lymphocytes/100 WBC (Bld) 28.8 % Normal 19-41 [facility] Comment on above: Performed By: #### L 506.0400, L506.1001, L100.0100, L501.9520, L500.4100, L500.4050 #### [facility] [address] [place], [address] MCH (RBC) [Entitic mass] 26.9 pg Low 27.0-32.0 [facility] Comment on above: Performed By: #### L 506.0400, L506.1001, L100.0100, L501.9520, L500.4100, L500.4050 #### [facility] [address] [place], [address] MCHC (RBC) [Mass/Vol] 31.1 g/dL Low 32-36 [facility] Comment on above: Performed By: #### L 506.0400, L506.1001, L100.0100, L501.9520, L500.4100, L500.4050 #### [facility] [address] [place], [address] MCV (RBC) [Entitic vol] 86.5 fL Normal 81-99 [facility] Comment on above: Performed By: #### L 506.0400, L506.1001, L100.0100, L501.9520, L500.4100, L500.4050 #### [facility] [address] [place], [address] Monocytes/100 WBC (Bld) 6.1 % Normal 0-10 [facility] Comment on above: Performed By: #### L 506.0400, L506.1001, L100.0100, L501.9520, L500.4100, L500.4050 #### [facility] [address] [place], [address] Neutrophils/100 WBC (Bld) 61.4 % Normal 47-70 [facility] Comment on above: Performed By: #### L 506.0400, L506.1001, L100.0100, L501.9520, L500.4100, L500.4050 #### [facility] [address] [place], [address] Nucleated RBC (Bld) [#/Vol] 0 10*3/uL Normal 0-5 [facility] Comment on above: Performed By: #### L 506.0400, L506.1001, L100.0100, L501.9520, L500.4100, L500.4050 #### [facility] [address] [place], [address] Platelet mean volume (Bld) [Entitic vol] 9.4 fL Normal 6.2-12.0 [facility] Comment on above: Performed By: #### L 506.0400, L506.1001, L100.0100, L501.9520, L500.4100, L500.4050 #### [facility] [address] [place], [address] Platelets (Bld) [#/Vol] 414 10*3/uL Normal 150-450 [facility] Comment on above: Performed By: #### L 506.0400, L506.1001, L100.0100, L501.9520, L500.4100, L500.4050 #### [facility] [address] [place], [address] RBC (Bld) [#/Vol] 5.10 10*6/uL Normal 4.2-5.4 [facility] Comment on above: Performed By: #### L 506.0400, L506.1001, L100.0100, L501.9520, L500.4100, L500.4050 #### [facility] [address] [place], [address] RDW SD 49.7 fl High 35.1-43.9 [facility] Comment on above: Performed By: #### L 506.0400, L506.1001, L100.0100, L501.9520, L500.4100, L500.4050 #### [facility] [address] [place], [address] WBC (Bld) [#/Vol] 6.8 10*3/uL Normal 4.4-11.0 [facility] Comment on above: Performed By: #### L 506.0400, L506.1001, L100.0100, L501.9520, L500.4100, L500.4050 #### [facility] [address] [place], [address] Comprehensive Metabolic Prof [facility] 02-21-2025 Albumin [Mass/Vol] 3.8 g/dL Normal 3.5-5.0 [facility] Comment on above: Performed By: #### L 506.0400, L506.1001, L100.0100, L501.9520, L500.4100, L500.4050 #### [facility] [address] [place], [address] Albumin/Globulin [Mass ratio] 1.4 {ratio} Normal 0.9-2.4 [facility] Comment on above: Performed By: #### L 506.0400, L506.1001, L100.0100, L501.9520, L500.4100, L500.4050 #### [facility] [address] [place], [address] ALK PHOS 78 U/L Normal 35-104 [facility] Comment on above: Performed By: #### L 506.0400, L506.1001, L100.0100, L501.9520, L500.4100, L500.4050 #### [facility] [address] [place], [address] ALT [Catalytic activity/Vol] 13 U/L Normal <=34 [facility] Comment on above: Performed By: #### L 506.0400, L506.1001, L100.0100, L501.9520, L500.4100, L500.4050 #### [facility] [address] [place], [address] AST [Catalytic activity/Vol] 13 U/L Normal <=31 [facility] Comment on above: Performed By: #### L 506.0400, L506.1001, L100.0100, L501.9520, L500.4100, L500.4050 #### [facility] [address] [place], [address] Bilirubin [Mass/Vol] 0.17 mg/dL Normal 0.00-1.30 [facility] Comment on above: Performed By: #### L 506.0400, L506.1001, L100.0100, L501.9520, L500.4100, L500.4050 #### [facility] [address] [place], [address] BUN/CRE 15.4 RATIO Normal 10-20 [facility] Comment on above: Performed By: #### L 506.0400, L506.1001, L100.0100, L501.9520, L500.4100, L500.4050 #### [facility] [address] [place], [address] Calcium [Mass/Vol] 9.5 mg/dL Normal 7.6-11.0 [facility] Comment on above: Performed By: #### L 506.0400, L506.1001, L100.0100, L501.9520, L500.4100, L500.4050 #### [facility] [address] [place], [address] Chloride [Moles/Vol] 112 mmol/L High 98-108 [facility] Comment on above: Performed By: #### L 506.0400, L506.1001, L100.0100, L501.9520, L500.4100, L500.4050 #### [facility] [address] [place], [address] CO2 [Moles/Vol] 20.9 mmol/L Low 21.0-32.0 [facility] Comment on above: Performed By: #### L 506.0400, L506.1001, L100.0100, L501.9520, L500.4100, L500.4050 #### [facility] [address] [place], [address] Creatinine [Mass/Vol] 0.83 mg/dL Normal 0.70-1.20 [facility] Comment on above: Performed By: #### L 506.0400, L506.1001, L100.0100, L501.9520, L500.4100, L500.4050 #### [facility] [address] [place], [address] GAP 10 Normal 5-15 [facility] Comment on above: Performed By: #### L 506.0400, L506.1001, L100.0100, L501.9520, L500.4100, L500.4050 #### [facility] [address] [place], [address] GFR/1.73 sq M.predicted among non-blacks MDRD (S/P/Bld) [Vol rate/Area] 84 mL/min/{1.73_m2} Normal >60 [facility] Comment on above: Result Comment: mL/m in/1.73m2 CKD-EPI Creatinine Equation (2020) Performed By: #### L 506.0400, L506.1001, L100.0100, L501.9520, L500.4100, L500.4050 #### [facility] [address] [place], [address] Globulin (S) [Mass/Vol] 2.7 g/dL Normal 2.2-4.2 [facility] Comment on above: Performed By: #### L 506.0400, L506.1001, L100.0100, L501.9520, L500.4100, L500.4050 #### [facility] [address] [place], [address] Glucose [Mass/Vol] 92 mg/dL Normal 70-99 [facility] Comment on above: Performed By: #### L 506.0400, L506.1001, L100.0100, L501.9520, L500.4100, L500.4050 #### [facility] [address] [place], [address] Potassium [Moles/Vol] 4.0 mmol/L Normal 3.3-5.1 [facility] Comment on above: Performed By: #### L 506.0400, L506.1001, L100.0100, L501.9520, L500.4100, L500.4050 #### [facility] [address] [place], [address] Sodium [Moles/Vol] 143 mmol/L Normal 133-145 [facility] Comment on above: Performed By: #### L 506.0400, L506.1001, L100.0100, L501.9520, L500.4100, L500.4050 #### [facility] [address] [place], [address] T PROT 6.5 g/dL Normal 5.9-8.4 [facility] Comment on above: Performed By: #### L 506.0400, L506.1001, L100.0100, L501.9520, L500.4100, L500.4050 #### [facility] [address] [place], [address] Urea nitrogen [Mass/Vol] 13 mg/dL Normal 4-19 [facility] Comment on above: Performed By: #### L 506.0400, L506.1001, L100.0100, L501.9520, L500.4100, L500.4050 #### [facility] [address] [place], [address] Lipid Profileon 02-21-2025 CHOL:HDL 2.92 Normal [facility] Comment on above: Performed By: #### L 506.0400, L506.1001, L100.0100, L501.9520, L500.4100, L500.4050 #### [facility] [address] [place], [address] Cholesterol [Mass/Vol] 154 mg/dL Normal <=200 [facility] Comment on above: Result Comment: Chol esterol level, Desirable <200 mg/dL Borderline high cholesterol 200-239 mg/dL High cholesterol >=240 mg/dL Recommendations of the NCEP Adult Treatment Panel for the following risk-cutoff thresholds for the [place] population. Performed By: #### L 506.0400, L506.1001, L100.0100, L501.9520, L500.4100, L500.4050 #### [facility] [address] [place], [address] Cholesterol in HDL [Mass/Vol] 53 mg/dL Normal [facility] Comment on above: Result Comment: Silvina onal Cholesterol Education Program (NCEP) guidelines: <40 mg/dL: Low HDL-cholesterol (major risk factor for CHD) >= 60 mg/dL: High HDL-cholesterol (negative risk factor for CHD) HDL-cholesterol is affected by a number of factors, e.g. smoking, exercise, hormones, sex and age. Performed By: #### L 506.0400, L506.1001, L100.0100, L501.9520, L500.4100, L500.4050 #### [facility] [address] [place], [address] Cholesterol in LDL [Mass/Vol] 84 mg/dL Normal [facility] Comment on above: Result Comment: Bord sttsmz=472-504 mg/dL Higher Hxmj=488 mg/dL or greater Friedwald Equation for LDL-C Performed By: #### L 506.0400, L506.1001, L100.0100, L501.9520, L500.4100, L500.4050 #### [facility] [address] [place], [address] Cholesterol in VLDL [Mass/Vol] 17 mg/dL Normal 5-40 [facility] Comment on above: Performed By: #### L 506.0400, L506.1001, L100.0100, L501.9520, L500.4100, L500.4050 #### [facility] [address] [place], [address] Triglyceride [Mass/Vol] 86 mg/dL Normal [facility] Comment on above: Result Comment: The drugs N-Acetylcysteine and Metamizole may falsely depress this assay. Normal range: <150 mg/dL Borderline High: 150-199 mg/dL High: 200-499 mg/dL Very High: >500 mg/dL Performed By: #### L 506.0400, L506.1001, L100.0100, L501.9520, L500.4100, L500.4050 #### [facility] [address] [place], [address] T4 Free Directon 02-21-2025 T4 FREE DIRECT 1.10 ng/dL Normal 0.76-1.46 [facility] Comment on above: Performed By: #### L 506.0400, L506.1001, L100.0100, L501.9520, L500.4100, L500.4050 #### [facility] [address] [place], [address] Thyroid Stim Hormone (TSH)on 02-21-2025 TSH 1.960 uIU/mL Normal 0.300-4.200 [facility] Comment on above: Performed By: #### L 506.0400, L506.1001, L100.0100, L501.9520, L500.4100, L500.4050 #### [facility] [address] [place], [address] Vitamin D,25 Hydroxyon 02-21 Vitamin D 25-OH 54.3 ng/mL Normal 30-100 [facility] Comment on above: Result Comment: Sahara min D Status Deficiency: <20 ng/mL (50nmol/L) Insufficiency: 20-30 ng/mL (50-75 nmol/L) Sufficiency: 30-100 ng/mL (75-250 nmol/L) Toxicity: >100 ng/mL (>250 nmol/L) Performed By: #### L 506.0400, L506.1001, L100.0100, L501.9520, L500.4100, L500.4050 ####[facility] [address] [place], [address] Comprehensive Metabolic Prof ilon 12-24-2024 Albumin [Mass/Vol] 4.2 g/dL Normal 3.5-5.0 [facility] Comment on above: Performed By: #### L 100.0100, L500.4050 #### [facility] [address] [place], [address] Albumin/Globulin [Mass ratio] 1.5 {ratio} Normal 0.9-2.4 [facility] Comment on above: Performed By: #### L 100.0100, L500.4050 #### [facility] [address] [place], [address] ALK PHOS 92 U/L Normal 35-104 [facility] Comment on above: Performed By: #### L 100.0100, L500.4050 #### [facility] [address] [place], [address] ALT [Catalytic activity/Vol] 12 U/L Normal <=34 [facility] Comment on above: Performed By: #### L 100.0100, L500.4050 #### [facility] [address] [place], [address] AST [Catalytic activity/Vol] 14 U/L Normal <=31 [facility] Comment on above: Performed By: #### L 100.0100, L500.4050 #### [facility] [address] [place], [address] Bilirubin [Mass/Vol] 0.18 mg/dL Normal 0.00-1.30 [facility] Comment on above: Performed By: #### L 100.0100, L500.4050 #### [facility] [address] [place], [address] BUN/CRE 21.1 RATIO High 10-20 [facility] Comment on above: Performed By: #### L 100.0100, L500.4050 #### [facility] [address] [place], [address] Calcium [Mass/Vol] 9.6 mg/dL Normal 7.6-11.0 [facility] Comment on above: Performed By: #### L 100.0100, L500.4050 #### [facility] [address] [place], [address] Chloride [Moles/Vol] 108 mmol/L Normal 98-108 [facility] Comment on above: Performed By: #### L 100.0100, L500.4050 #### [facility] [address] [place], [address] CO2 [Moles/Vol] 21.6 mmol/L Normal 21.0-32.0 [facility] Comment on above: Performed By: #### L 100.0100, L500.4050 #### [facility] [address] [place], [address] Creatinine [Mass/Vol] 0.79 mg/dL Normal 0.70-1.20 [facility] Comment on above: Performed By: #### L 100.0100, L500.4050 #### [facility] [address] [place], [address] ECRCL 112.92 ml/min Normal 50-250 [facility] Comment on above: Performed By: #### L 100.0100, L500.4050 #### [facility] [address] [place], [address] GAP 11 Normal 5-15 [facility] Comment on above: Performed By: #### L 100.0100, L500.4050 #### [facility] [address] [place], [address] GFR/1.73 sq M.predicted among non-blacks MDRD (S/P/Bld) [Vol rate/Area] 90 mL/min/{1.73_m2} Normal >60 [facility] Comment on above: Result Comment: mL/m in/1.73m2 CKD-EPI Creatinine Equation (2020) Performed By: #### L 100.0100, L500.4050 #### [facility] [address] [place], [address] Globulin (S) [Mass/Vol] 2.8 g/dL Normal 2.2-4.2 [facility] Comment on above: Performed By: #### L 100.0100, L500.4050 #### [facility] [address] [place], [address] Glucose [Mass/Vol] 106 mg/dL High 70-99 [facility] Comment on above: Performed By: #### L 100.0100, L500.4050 #### [facility] [address] [place], [address] Potassium [Moles/Vol] 3.8 mmol/L Normal 3.3-5.1 [facility] Comment on above: Performed By: #### L 100.0100, L500.4050 #### [facility] [address] [place], [address] Sodium [Moles/Vol] 140 mmol/L Normal 133-145 [facility] Comment on above: Performed By: #### L 100.0100, L500.4050 #### [facility] [address] [place], [address] T PROT 7.0 g/dL Normal 5.9-8.4 [facility] Comment on above: Performed By: #### L 100.0100, L500.4050 #### [facility] [address] [place], [address] Urea nitrogen [Mass/Vol] 17 mg/dL Normal 4-19 [facility] Comment on above: Performed By: #### L 100.0100, L500.4050 #### [facility] [address] [place], [address] CBC W/Diff, Automatedon 12-13 Absolute Lymph 2.41 X10 3/uL Normal 0.83-4.51 [facility] Comment on above: Performed By: #### L 100.0100, L500.4050 #### [facility] [address] [place], [address] Absolute Neut 5.0 X10 3/uL Normal 2.0-7.7 [facility] Comment on above: Performed By: #### L 100.0100, L500.4050 #### [facility] [address] [place], [address] Basophils/100 WBC (Bld) 0.7 % Normal 0-1 [facility] Comment on above: Performed By: #### L 100.0100, L500.4050 #### [facility] [address] [place], [address] Eosinophils/100 WBC (Bld) 2.7 % Normal 0-5 [facility] Comment on above: Performed By: #### L 100.0100, L500.4050 #### [facility] [address] [place], [address] Erythrocyte distribution width (RBC) [Ratio] 15.1 % High 11.6-14.6 [facility] Comment on above: Performed By: #### L 100.0100, L500.4050 #### [facility] [address] [place], [address] Hematocrit (Bld) [Volume fraction] 40.2 % Normal 37-47 [facility] Comment on above: Performed By: #### L 100.0100, L500.4050 #### [facility] [address] [place], [address] Hemoglobin (Bld) [Mass/Vol] 12.6 g/dL Normal 12.0-15.0 [facility] Comment on above: Performed By: #### L 100.0100, L500.4050 #### [facility] [address] [place], [address] IG% 0.400 Normal 0.0-0.9 [facility] Comment on above: Result Comment: IG% - Immature Granulocytes (promyelocytes, myelocytes and metamyelocytes) > 1% indicates that a LEFT SHIFT is Present. Performed By: #### L 100.0100, L500.4050 #### [facility] [address] [place], [address] Lymphocytes/100 WBC (Bld) 29.1 % Normal 19-41 [facility] Comment on above: Performed By: #### L 100.0100, L500.4050 #### [facility] [address] [place], [address] MCH (RBC) [Entitic mass] 27.0 pg Normal 27.0-32.0 [facility] Comment on above: Performed By: #### L 100.0100, L500.4050 #### [facility] [address] [place], [address] MCHC (RBC) [Mass/Vol] 31.3 g/dL Low 32-36 [facility] Comment on above: Performed By: #### L 100.0100, L500.4050 #### [facility] [address] [place], [address] MCV (RBC) [Entitic vol] 86.1 fL Normal 81-99 [facility] Comment on above: Performed By: #### L 100.0100, L500.4050 #### [facility] [address] [place], [address] Monocytes/100 WBC (Bld) 6.4 % Normal 0-10 [facility] Comment on above: Performed By: #### L 100.0100, L500.4050 #### [facility] [address] [place], [address] Neutrophils/100 WBC (Bld) 60.7 % Normal 47-70 [facility] Comment on above: Performed By: #### L 100.0100, L500.4050 #### [facility] [address] [place], [address] Nucleated RBC (Bld) [#/Vol] 0 10*3/uL Normal 0-5 [facility] Comment on above: Performed By: #### L 100.0100, L500.4050 #### [facility] [address] [place], [address] Platelet mean volume (Bld) [Entitic vol] 9.2 fL Normal 6.2-12.0 [facility] Comment on above: Performed By: #### L 100.0100, L500.4050 #### [facility] [address] [place], [address] Platelets (Bld) [#/Vol] 386 10*3/uL Normal 150-450 [facility] Comment on above: Performed By: #### L 100.0100, L500.4050 #### [facility] [address] [place], [address] RBC (Bld) [#/Vol] 4.67 10*6/uL Normal 4.2-5.4 [facility] Comment on above: Performed By: #### L 100.0100, L500.4050 #### [facility] [address] [place], [address] RDW SD 47.7 fl High 35.1-43.9 [facility] Comment on above: Performed By: #### L 100.0100, L500.4050 #### [facility] [address] [place], [address] WBC (Bld) [#/Vol] 8.3 10*3/uL Normal 4.4-11.0 [facility] Comment on above: Performed By: #### L 100.0100, L500.4050 #### [facility] [address] [place], [address] Emergency Department Summary on 12-23-2024 Emergency Department Summary [facility] Medical Records Department [address] [place] [address] Emergency Department Summary 12/23/24 MR#: [id number] Acct: [id number] Name: ROSEMARY SHIELDS Rep #: [id number] : 1970 54 From: Maurilio Jacome DO [...] She states that this all started yesterday. [facility] Medical History Acute pharyngitis Biceps tendinitis of [...] 100 mg tablet 100 mg PO QHS 05/15/25 Unknown His tory trazodone 50 mg tablet [...] Patient following commands that she was at [facility] year is 2024 Skin: Warm, dry, [...] obt (more content not included)... Normal [facility] Tibia Fibula 2 Viewson 12-23 Tibia Fibula 2 Views [facility] Imaging Services [address], [place] [address] Tibia Fibula 2 Views MR#: [id number] Acct: [id number] Name: ROSEMARY SHIELDS Rep #: [id number] : 1970 F 54 From: Avila Mckeon MD PCP: ADY Fox Status: REG ER Study: Tibia Fibula 2 Views Date of Exam: 12/23/24 Exam# [id number] Ordering Dr: Maurilio Jacome DO PROCEDURE: TIBIA [...] lower extremity soft tissue swelling/edema. Reading Location: [facility] [place] CC: TAI CHI INSTRUCTOR-C Negrita Nixon; Dr. Maurilio Jacome DO Mat Maker: Signed Normal [facility] HIV 1+2 Ab+HIV1 p24 Agon HIV 1+2 Ab+HIV1 p24 Ag IA Ql Non-Reactive Normal Nonreactive [facility] Comment on above: Order Comment: HIV A g/Ab screen is performed using the Siemens [employer] HIV Ag/Ab Combo assay which detects the presence of HIV p24 antigen as well as antibodies to HIV-1 (Group M and O) and HIV-2. No laboratory evidence of HIV infection. If acute HIV infection is suspected, consider testing for HIV RNA by PCR (viral load). Performed By: #### 5 6888-1 #### DARREN Deras ([id number]) [facility] ([facility]) [id number] [place] [address] Hepatitis B virus surface Ag on 11-27-2024 HBV surface Ag IA Ql Non-Reactive Normal Nonreactive [facility] Comment on above: Result Comment: Biot in interference may cause falsely decreased results. Patients taking a Biotin dose of up to 5 mg/day should refrain from taking Biotin for 24 hours before sample collection. Providers may contact their local laboratory for further information. Performed By: #### 5 196-1 #### DARREN Deras ([id number]) [facility] ([facility]) [address] [place] [address] Hepatitis C virus Abon 11-27 HCV Ab Ql (S) Non-Reactive Normal Nonreactive [facility] Comment on above: Result Comment: Resu lts from patients taking biotin supplements or receiving high-dose biotin therapy should be interpreted with caution due to possible interference with this test. Providers may contact their local laboratory for further information. Performed By: #### 1 6128-1 #### DARREN Deras ([id number]) [facility] ([facility]) [address] [place] [address] MR/BMS.on 11-03-2024 MR/BMS. [address], [place] [address] OFFICE VISIT Date of Service: 11/03/24 MR#: [id number] Acct: [id number] Name: ROSEMARY SHIELDS Rep #: [id number] : 1970 [facility] Age/Sex: 54/F [place] [facility] Status: Signed Intake Vital Signs 05/14/23 12:34 11/03/24 10:00 Height 5 ft 7 in 5 ft 7 in BP Intake Visit Reasons: Establish Care Allergies No Known Allergies Allergy (Verified 10/27/24 14:24) [facility] Medical History (Updated 10/28/24 @ 07:26 by [...] Illness History provided by: patient HPI: Rosemary Shields is a 54 year-old female who participated in a diagnostic assessment to begin therapy. She receives psychiatric services at [facility] from Renae Hutchison CNP. Rosemary is [...] AVH. Family of origin - Born in [place] and moved to [place] [place] when she was a young child. Living Status - Resides with her mother. Her daughter (17) stays in the home half the week. AoD history -Began smoking cigarettes as an adult. Smokes half a pack a day to calm nerves. Consumes alcohol with a friend on rare occasions. Denies use of cannabis, stimulants, and opioids. Education - Graduate of [employer] and [employer]. Reports school was difficult. States she was on an IEP and bullied by other students, which impacted her academically. 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 Legal issues -Charged with shoplifting and sentenced to 30 days in custodial resulting in lose of custody of daughter when daughter was 4. Reports forgery charge (more content not included)... Normal [facility] MR/BMS.BPon 10-27-2024 MR/BMS.BP [facility] ry [address], [address] [place] [address] OFFICE VISIT Date of Service: 10/27/24 MR#: [id number] Acct: [id number] Name: ROSEMARY SHIELDS Rep #: [id number] : 1970 Provider: ADY ayala Age/Sex: 54/F [place] [facility] Status: Signed Intake Vital Signs 05/14/23 12:34 [...] by: patient Chief complaint: Insomnia/Depression/Anxiety HPI: Rosemary Shields is a 54 year old female patient [...] Denies plan or intent. Memory: Short and detention memory intact. Denies feeling forgetful. Does not [...] and derrell (more content not included)... Normal [facility] CNOVon 05-27-2024 CNOV Office Visit (UCWSTR ) ROSEMARY SHIELDS ([id number]) 1970 F Date Time Provider Department 05/27/24 5:45 PM JOSH MIRANDA [facility] During your visit today, we recorded the following information about you: Temperature Pulse Respiration Blood pressure 97.4 degrees 71/minute 24/minute 132/87 Weight 124 kg Josh Miranda APRN.SENIOR PHP WEB DEVELOPER 05/27/2024 6:20 PM Signed Subjective With complaints of sinus congestion cough sinus pressure. Patient denies any shortness of breath or fatigue. Patient says her ears hurt bilaterally. Patient denies any other symptoms. The history is provided by the patient. No language arts teacher was used. Cough Review of Systems Constitutional: [...] is agreeable to care plan. Josh Miranda APRN.Jeannette Nolan MA 05/27/2024 6:20 PM Signed [...] Known Allergies) Date Reviewed: 05/27/2024 Reviewed by: Ntai Worthington LPN - Fully Assessed Reason for Visit: Cough [28] Cmt: Headache(bad), bilat ear pressure, body aches, SOB,, nasal congestion, runny nose, chills, R eye pain, x 4 days Primary Visit Diagnosis:Bilateral impacted cerumen [H61.23] Other Visit Diagnoses:Acute otitis media, right [H66.91] Sinus congestion [R09.81] Acute cough [R05.1] Order(s): REMOVAL OF IMPACTED CERUMEN - INSTRUMENTATION [78864CWE] Order #: [id number] azithromycin (ZITHROMAX) 250 mg tabletTake 2 tablets by mouth once daily for 1 day, THEN 1 (more content not included)... Normal [facility] Absolute lymphocyte countOrd ered By: Negrita Nixon on 11-04-2022 Lymphocytes Auto (Unsp spec) [#/Vol] 2.75 10*3/uL 0.83-4.51 [facility] Basophil percentageOrdered B y: Negrita Nixon on 11-04-2022 Basophils/100 WBC (Bld) 0.7 % 0-1 [facility] Bilirubin [Mass/Vol] 0.20 mg/dL 0.20-1.00 [facility] Comment on above: For patients on eltr ombopag therapy, use of Dimension [place] TBIL is not recommended. Chloride [Moles/Vol] 107 mmol/L 98-107 [facility] Cholesterol [Mass/Vol] 168 mg/dL <200 [facility] Comment on above: <200 mg/dL Desirable 200-240 mg/dL Borderline >240 mg/dL High Risk Eosinophils/100 WBC (Bld) 2.7 % 0-5 [facility] Glucose [Mass/Vol] 110 mg/dL 74-106 [facility] Comment on above: Fasting Glucose resu lt from 100 to 125 mg/dL suggests IMPAIRED HOMEOSTASIS per A.D.A. criteria. Neutrophils (Bld) [#/Vol] 4.0 10*3/uL 2.0-7.7 [facility] Neutrophils/100 WBC (Bld) 53.4 % 47-70 [facility] Potassium [Moles/Vol] 4.5 mmol/L 3.5-5.1 [facility] Protein [Mass/Vol] 7.4 g/dL 6.4-8.2 [facility] Sodium [Moles/Vol] 139 mmol/L 136-145 [facility] Triglyceride [Mass/Vol] 177 mg/dL <199 [facility] Comment on above: The drugs N-Acetylcy steine and Metamizole may falsely depress this assay.Serum Triglycerides Reference Interval Normal <150 mg/dL Borderline high 150 - 199 mg/dL High 200 - 499 mg/dL Very High > or = 500 mg/dL WBC (Bld) [#/Vol] 7.5 10*3/uL 4.4-11.0 [facility] Blood erythrocytes count (nu mber/volume)Ordered By: Negrita Nixon on 11-04-2022 RBC (Bld) [#/Vol] 5.35 10*6/uL 4.2-5.4 [facility] Blood hemoglobin measurement (mass/volume)Ordered By: Negrita Nixon on 11-04-2022 Hemoglobin (Bld) [Mass/Vol] 14.2 g/dL 12.0-15.0 [facility] Blood lymphocytes/100 leukoc ytesOrdered By: Negrita Nixon on 11-04-2022 Lymphocytes/100 WBC (Bld) 36.8 % 19-41 [facility] Blood monocytes/100 leukocyt esOrdered By: Negrita Nixon on 11-04-2022 Monocytes/100 WBC (Bld) 5.9 % 0-10 [facility] Blood platelet mean volumeOr dered By: Negrita Nixon on 11-04-2022 Platelet mean volume (Bld) [Entitic vol] 9.1 fL 6.2-12.0 [facility] Determination of erythrocyte mean corpuscular volume (MCV)Ordered By: Negrita Nixon on 11-04-2022 MCV (RBC) [Entitic vol] 83.7 fL 81-99 [facility] Hematocrit Auto (Bld) [Volum e fraction]Ordered By: Negrita Nixon on 11-04-2022 Hematocrit (Bld) [Volume fraction] 44.8 % 37-47 [facility] - Chemistry and C hemistry - challengeOrdered By: Negrita Nixon on 11-04-2022 ALP [Catalytic activity/Vol] 85 U/L 45-117 [facility] ALT [Catalytic activity/Vol] 33 U/L 13-56 [facility] CO2 [Moles/Vol] 27.0 mmol/L 21.0-32.0 [facility] Free T4 [Mass/Vol] 1.11 ng/dL 0.76-1.46 [facility] Globulin (S) [Mass/Vol] 4.0 g/dL 2.2-4.2 [facility] Urea nitrogen/Creatinine [Mass ratio] 19.0 mg/mg 10-20 [facility] - Hematology and Cell countsOrdered By: Negrita Nixon on 11-04-2022 Erythrocyte distribution width (RBC) [Entitic vol] 50.3 fL 35.1-43.9 [facility] Erythrocyte distribution width (RBC) [Ratio] 16.6 % 11.6-14.6 [facility] Immature granulocytes/100 WBC (Bld) 0.500 % 0.0-0.9 [facility] Comment on above: IG% - Immature Granu locytes (promyelocytes, myelocytes and metamyelocytes) > 1% indicates that a LEFT SHIFT is Present. MCH (RBC) [Entitic mass] 26.5 pg 27.0-32.0 [facility] Nucleated RBC/100 WBC (Bld) [Ratio] 0 % 0-5 [facility] MCHC Auto (RBC) [Mass/Vol]Or dered By: Negrita Nixon on 11-04-2022 MCHC (RBC) [Mass/Vol] 31.7 g/dL 32-36 [facility] No Panel InformationOrdered By: Negrita Nixon on 11-04-2022 Estimated GFR (MDRD) Amer 92 mL/min >60 [facility] Comment on above: GFR Calc Estimated GFR (MDRD) Non-Af Amer 76 mL/min >60 [facility] Comment on above: Non- GFR Calc Thyroid Stimulating Hormone (TSH) 2.08 uIU/mL 0.358-3.74 [facility] Vitamin D 25-Hydroxy 52.6 ng/mL [facility] Comment on above: Vitamin D 25(OH) Sta tus Range Deficiency <20 ng/mL (50nmol/L) Insufficiency 20 - 30 ng/mL (50 - 75 nmol/L) Sufficiency 30 - 100 ng/mL (75 - 250 nmol/L) Toxicity >100 ng/mL (>250 nmol/L) Platelets bldOrdered By: Wayne Nixon on 11-04-2022 Platelets (Bld) [#/Vol] 439 10*3/uL 150-450 [facility] Serum or plasma albumin joseph urement (mass/volume)Ordered By: Negrita Nixon on 11-04-2022 Albumin [Mass/Vol] 3.4 g/dL 3.2-5.0 [facility] Serum or plasma albumin/glob ulin mass ratioOrdered By: Negrita Nixon on 11-04-2022 Albumin/Globulin [Mass ratio] 0.8 {ratio} 0.9-2.4 [facility] Serum or plasma calcium joseph urement (mass/volume)Ordered By: Negrita Nixon on 11-04-2022 Calcium [Mass/Vol] 9.0 mg/dL 8.5-10.1 [facility] Serum or plasma cholesterol in HDL measurement (mass/volume)Ordered By: Negrita Nixon on 11-04-2022 Cholesterol in HDL [Mass/Vol] 54 mg/dL >40 [facility] Comment on above: The drugs N-Acetylcy steine and Metamizole may falsely depress this assay. Reference Range HDL <40 mg/dL Low HDL Cholesterol HDL >or= 60 mg/dL High HDL Cholesterol Serum or plasma cholesterol in VLDL measurement (mass/volume)Ordered By: Negrita Nixon on 11-04-2022 Cholesterol in VLDL [Mass/Vol] 35 mg/dL 5-40 [facility] Serum or plasma creatinine m easurement (mass/volume)Ordered By: Negrita Nixon on 11-04-2022 Creatinine [Mass/Vol] 0.84 mg/dL 0.55-1.02 [facility] Comment on above: The validity of the calculated GFR & GFRAA in patients over 70 years has not been determined. Clinical correlation is essential. Serum or plasma low density lipoprotein (LDL) cholesterol measurement (mass/volume)Ordered By: Negrita Nixon on 11-04-2022 Cholesterol in LDL [Mass/Vol] 79 mg/dL 0-130 [facility] Serum or plasma urea nitroge n measurement (mass/volume)Ordered By: Negrita Nixon on 11-04-2022 Urea nitrogen [Mass/Vol] 16 mg/dL 7-18 [facility] Thin prep Papanicolaou smear with manual screeningOrdered By: Otway Tiffani on 11-04-2022 Thin prep Papanicolaou smear with manual screening 19 U/L 15-37 [facility] Thin prep Papanicolaou smear with manual screening 5 5-15 [facility] Absolute lymphocyte countOrd ered By: Negrita Nixon on 10-06-2022 Lymphocytes Auto (Unsp spec) [#/Vol] 1.90 10*3/uL 0.83-4.51 [facility] Basophil percentageOrdered B y: Negrita Nixon on 10-06-2022 Basophils/100 WBC (Bld) 0.8 % 0-1 [facility] Eosinophils/100 WBC (Bld) 2.8 % 0-5 [facility] Neutrophils (Bld) [#/Vol] 3.5 10*3/uL 2.0-7.7 [facility] Neutrophils/100 WBC (Bld) 58.5 % 47-70 [facility] WBC (Bld) [#/Vol] 6.0 10*3/uL 4.4-11.0 [facility] Blood erythrocytes count (nu mber/volume)Ordered By: Negrita Nixon on 10-06-2022 RBC (Bld) [#/Vol] 5.49 10*6/uL 4.2-5.4 [facility] Blood hemoglobin measurement (mass/volume)Ordered By: Negrita Nixon on 10-06-2022 Hemoglobin (Bld) [Mass/Vol] 14.2 g/dL 12.0-15.0 [facility] Blood lymphocytes/100 leukoc ytesOrdered By: Negrita Nixon on 10-06-2022 Lymphocytes/100 WBC (Bld) 31.6 % 19-41 [facility] Blood monocytes/100 leukocyt esOrdered By: Negrita Nixon on 10-06-2022 Monocytes/100 WBC (Bld) 6.0 % 0-10 [facility] Blood platelet mean volumeOr dered By: Negrita Nixon on 10-06-2022 Platelet mean volume (Bld) [Entitic vol] 9.2 fL 6.2-12.0 [facility] Determination of erythrocyte mean corpuscular volume (MCV)Ordered By: Negrita Nixon on 10-06-2022 MCV (RBC) [Entitic vol] 85.2 fL 81-99 [facility] Erythrocyte sedimentation ra teOrdered By: Negrita Nixon on 10-06-2022 ESR (Bld) [Velocity] 24 mm/h 0-30 [facility] Hematocrit Auto (Bld) [Volum e fraction]Ordered By: Negrita Nixon on 10-06-2022 Hematocrit (Bld) [Volume fraction] 46.8 % 37-47 [facility] Laboratory - Hematology and Cell countsOrdered By: Negrita Nixon on 10-06-2022 Erythrocyte distribution width (RBC) [Entitic vol] 51.3 fL 35.1-43.9 [facility] Erythrocyte distribution width (RBC) [Ratio] 16.4 % 11.6-14.6 [facility] Immature granulocytes/100 WBC (Bld) 0.300 % 0.0-0.9 [facility] Comment on above: IG% - Immature Granu locytes (promyelocytes, myelocytes and metamyelocytes) > 1% indicates that a LEFT SHIFT is Present. MCH (RBC) [Entitic mass] 25.9 pg 27.0-32.0 [facility] Nucleated RBC/100 WBC (Bld) [Ratio] 0 % 0-5 [facility] MCHC Auto (RBC) [Mass/Vol]Or dered By: Negrita Nixon on 10-06-2022 MCHC (RBC) [Mass/Vol] 30.3 g/dL 32-36 [facility] Platelets bldOrdered By: Wayne Nixon on 10-06-2022 Platelets (Bld) [#/Vol] 412 10*3/uL 150-450 [facility] Serum cyclic citrullinated p eptide IgG antibody assay (units/volume)Ordered By: Negrita Nixon on 10-06-2022 Cyclic citrullinated peptide IgG Qn 4 units 0-19 [facility] Comment on above: Negative <20 Weak po sitive 20 - 39 Moderate positive 40 - 59 Strong positive >59Performed at: [facility] [id number] Director: Antonio Combs PhD, Phone: [phone] Serum or plasma C reactive p rotein measurement (mass/volume)Ordered By: Negrita Nixon on 10-06-2022 CRP [Mass/Vol] 7.34 mg/L 0.0-3.0 [facility] Comment on above: C-Reactive Protein ( CRP) provides useful information for thediagnosis, therapy and monitoring of inflammatory processesand associated diseases. For the evaluation of Relative Riskfor Cardiovascular Disease, a High Sensitivity CRP (HSCRP)should be ordered. Serum rheumatoid factor dete ctionOrdered By: Negrita Nixon on 10-06-2022 Rheumatoid factor Ql (S) < 10.0 IU/mL <15 [facility] No Panel Informationon 07-22 POC SARS CoV-2 Antigen Negative [facility] Basophil percentageOrdered B y: Dr. Thomas on 06-12-2022 Chloride [Moles/Vol] 108 mmol/L 98-107 [facility] Glucose [Mass/Vol] 100 mg/dL 74-106 [facility] Comment on above: Fasting Glucose resu lt from 100 to 125 mg/dL suggests IMPAIRED HOMEOSTASIS per A.D.A. criteria. Potassium [Moles/Vol] 3.7 mmol/L 3.5-5.1 [facility] Sodium [Moles/Vol] 141 mmol/L 136-145 [facility] WBC (Bld) [#/Vol] 6.7 10*3/uL 4.4-11.0 [facility] Blood erythrocytes count (nu mber/volume)Ordered By: Dr. Thomas on 06-12-2022 RBC (Bld) [#/Vol] 5.07 10*6/uL 4.2-5.4 [facility] Blood hemoglobin measurement (mass/volume)Ordered By: Dr. Thomas on 06-12-2022 Hemoglobin (Bld) [Mass/Vol] 13.5 g/dL 12.0-15.0 [facility] Blood platelet mean volumeOr dered By: Dr. Thomas on 06-12-2022 Platelet mean volume (Bld) [Entitic vol] 8.6 fL 6.2-12.0 [facility] Determination of erythrocyte mean corpuscular volume (MCV)Ordered By: Dr. Thomas on 06-12-2022 MCV (RBC) [Entitic vol] 84.0 fL 81-99 [facility] Hematocrit Auto (Bld) [Volum e fraction]Ordered By: Dr. Thomas on 06-12-2022 Hematocrit (Bld) [Volume fraction] 42.6 % 37-47 [facility] INR in Blood by Coagulation assayOrdered By: Dr. Thomas on 06-12-2022 INR Coag (Bld) [Relative time] 1.0 {INR} [facility] Laboratory - Chemistry and C hemistry - challengeOrdered By: Dr. Thomas on 06-12-2022 CK [Catalytic activity/Vol] 112 U/L 26-192 [facility] CO2 [Moles/Vol] 32.0 mmol/L 21.0-32.0 [facility] Magnesium [Mass/Vol] 2.3 mg/dL 1.6-2.6 [facility] Urea nitrogen/Creatinine [Mass ratio] 20.3 mg/mg 10-20 [facility] Laboratory - CoagulationOrde red By: Dr. Thomas on 06-12-2022 aPTT Coag (Bld) [Time] 31.2 s 24.1-36.2 [facility] PT Coag (PPP) [Time] 12.3 s 11.7-14.9 [facility] Laboratory - Hematology and Cell countsOrdered By: Dr. Thomas on 06-12-2022 Erythrocyte distribution width (RBC) [Entitic vol] 45.0 fL 35.1-43.9 [facility] Erythrocyte distribution width (RBC) [Ratio] 14.7 % 11.6-14.6 [facility] MCH (RBC) [Entitic mass] 26.6 pg 27.0-32.0 [facility] MCHC Auto (RBC) [Mass/Vol]Or dered By: Dr. Thomas on 06-12-2022 MCHC (RBC) [Mass/Vol] 31.7 g/dL 32-36 [facility] No Panel InformationOrdered By: Dr. Thomas on 06-12-2022 Estimated Creatinine Clearance Calc 85.94 ml/min [facility] Estimated GFR (MDRD) Amer 99 mL/min >60 [facility] Comment on above: GFR Calc Estimated GFR (MDRD) Non-Af Amer 82 mL/min >60 [facility] Comment on above: Non- GFR Calc Platelets bldOrdered By: Dr. Thomas on 06-12-2022 Platelets (Bld) [#/Vol] 436 10*3/uL 150-450 [facility] Serum or plasma calcium joseph urement (mass/volume)Ordered By: Dr. Thomas on 06-12-2022 Calcium [Mass/Vol] 8.9 mg/dL 8.5-10.1 [facility] Serum or plasma creatinine m easurement (mass/volume)Ordered By: Dr. Thomas on 06-12-2022 Creatinine [Mass/Vol] 0.79 mg/dL 0.55-1.02 [facility] Comment on above: The validity of the calculated GFR & GFRAA in patients over 70 years has not been determined. Clinical correlation is essential. Serum or plasma urea nitroge n measurement (mass/volume)Ordered By: Dr. Thomas on 06-12-2022 Urea nitrogen [Mass/Vol] 16 mg/dL 7-18 [facility] Thin prep Papanicolaou smear with manual screeningOrdered By: Dr. Thomas on 06-12-2022 Thin prep Papanicolaou smear with manual screening 1 5-15 [facility] Basophil percentageon 2021 Chloride [Moles/Vol] 107 mmol/L 98-107 [facility] Work Phone: Glucose [Mass/Vol] 78 mg/dL 74-106 [facility] Work Phone: Potassium [Moles/Vol] 4.3 mmol/L 3.5-5.1 [facility] Work Phone: Sodium [Moles/Vol] 140 mmol/L 136-145 [facility] Work Phone: WBC (Bld) [#/Vol] 7.1 10*3/uL 4.4-11.0 [facility] Work Phone: Blood erythrocytes count (nu mber/volume)on 02-14-2022 RBC (Bld) [#/Vol] 5.31 10*6/uL 4.2-5.4 [facility] Work Phone: Blood hemoglobin measurement (mass/volume)on 02-14-2022 Hemoglobin (Bld) [Mass/Vol] 13.2 g/dL 12.0-15.0 [facility] Work Phone: Blood platelet mean volumeon 02-14-2022 Platelet mean volume (Bld) [Entitic vol] 9.2 fL 6.2-12.0 [facility] Work Phone: Determination of erythrocyte mean corpuscular volume (MCV)on 02-14-2022 MCV (RBC) [Entitic vol] 80.4 fL 81-99 [facility] Work Phone: Hematocrit Auto (Bld) [Volum e fraction]on 02-14-2022 Hematocrit (Bld) [Volume fraction] 42.7 % 37-47 [facility] Work Phone: Laboratory - Chemistry and C hemistry - challengeon 02-14-2022 CO2 [Moles/Vol] 27.0 mmol/L 21.0-32.0 [facility] Work Phone: Free T4 [Mass/Vol] 1.24 ng/dL 0.76-1.46 [facility] Work Phone: Urea nitrogen/Creatinine [Mass ratio] 14.7 mg/mg 10-20 [facility] Work Phone: Laboratory - Hematology and Cell countson 02-14-2022 Erythrocyte distribution width (RBC) [Entitic vol] 49.8 fL 35.1-43.9 [facility] Work Phone: Erythrocyte distribution width (RBC) [Ratio] 17.2 % 11.6-14.6 [facility] Work Phone: MCH (RBC) [Entitic mass] 24.9 pg 27.0-32.0 [facility] Work Phone: MCHC Auto (RBC) [Mass/Vol]on 02-14-2022 MCHC (RBC) [Mass/Vol] 30.9 g/dL 32-36 [facility] Work Phone: No Panel Informationon 02-14 Estimated GFR (MDRD) Amer 106 mL/min >60 [facility] Work Phone: Comment on above: GFR Calc Estimated GFR (MDRD) Non-Af Amer 87 mL/min >60 [facility] Work Phone: Comment on above: Non- GFR Calc Thyroid Stimulating Hormone (TSH) 2.75 uIU/mL 0.358-3.74 [facility] Work Phone: Vitamin D 25-Hydroxy 48.1 ng/mL [facility] Work Phone: Comment on above: Vitamin D 25(OH) Sta tus Range Deficiency <20 ng/mL (50nmol/L) Insufficiency 20 - 30 ng/mL (50 - 75 nmol/L) Sufficiency 30 - 100 ng/mL (75 - 250 nmol/L) Toxicity >100 ng/mL (>250 nmol/L) Platelets bldon 02-14-2022 Platelets (Bld) [#/Vol] 492 10*3/uL 150-450 [facility] Work Phone: Serum or plasma calcium joseph urement (mass/volume)on 02-14-2022 Calcium [Mass/Vol] 9.2 mg/dL 8.5-10.1 [facility] Work Phone: Serum or plasma creatinine m easurement (mass/volume)on 02-14-2022 Creatinine [Mass/Vol] 0.75 mg/dL 0.55-1.02 [facility] Work Phone: Comment on above: The validity of the calculated GFR & GFRAA in patients over 70 years has not been determined. Clinical correlation is essential. Serum or plasma urea nitroge n measurement (mass/volume)on 02-14-2022 Urea nitrogen [Mass/Vol] 11 mg/dL 7-18 [facility] Work Phone: Thin prep Papanicolaou smear with manual screeningon 02-14-2022 Thin prep Papanicolaou smear with manual screening 6 5-15 [facility] Work Phone: Absolute lymphocyte counton 10-14-2021 Lymphocytes Auto (Unsp spec) [#/Vol] 1.82 10*3/uL 0.83-4.51 [facility] Work Phone: Basophil percentageon 2021 Basophils/100 WBC (Bld) 0.5 % 0-1 [facility] Work Phone: [phone] Bilirubin [Mass/Vol] 0.20 mg/dL 0.20-1.00 [facility] Work Phone: Comment on above: For patients on eltr ombopag therapy, use of Dimension [place] TBIL is not recommended. Chloride [Moles/Vol] 111 mmol/L 98-107 [facility] Work Phone: Eosinophils/100 WBC (Bld) 1.6 % 0-5 [facility] Work Phone: [phone] Glucose [Mass/Vol] 91 mg/dL 74-106 [facility] Work Phone: Neutrophils (Bld) [#/Vol] 3.1 10*3/uL 2.0-7.7 [facility] Work Phone: [phone] Neutrophils/100 WBC (Bld) 55.0 % 47-70 [facility] Work Phone: Potassium [Moles/Vol] 3.6 mmol/L 3.5-5.1 [facility] Work Phone: Protein [Mass/Vol] 7.3 g/dL 6.4-8.2 [facility] Work Phone: Sodium [Moles/Vol] 141 mmol/L 136-145 [facility] Work Phone: WBC (Bld) [#/Vol] 5.6 10*3/uL 4.4-11.0 [facility] Work Phone: Blood erythrocytes count (nu mber/volume)on 10-14-2021 RBC (Bld) [#/Vol] 3.99 10*6/uL 4.2-5.4 [facility] Work Phone: Blood hemoglobin measurement (mass/volume)on 10-14-2021 Hemoglobin (Bld) [Mass/Vol] 10.8 g/dL 12.0-15.0 [facility] Work Phone: Blood lymphocytes/100 leukoc yteson 10-14-2021 Lymphocytes/100 WBC (Bld) 32.3 % 19-41 [facility] Work Phone: Blood monocytes/100 leukocyt eson 10-14-2021 Monocytes/100 WBC (Bld) 9.9 % 0-10 [facility] Work Phone: Blood platelet mean volumeon 10-14-2021 Platelet mean volume (Bld) [Entitic vol] 8.7 fL 6.2-12.0 [facility] Work Phone: Determination of erythrocyte mean corpuscular volume (MCV)on 10-14-2021 MCV (RBC) [Entitic vol] 89.5 fL 81-99 [facility] Work Phone: Hematocrit Auto (Bld) [Volum e fraction]on 10-14-2021 Hematocrit (Bld) [Volume fraction] 35.7 % 37-47 [facility] Work Phone: Laboratory - Chemistry and C hemistry - challengeon 10-14-2021 ALP [Catalytic activity/Vol] 78 U/L 45-117 [facility] Work Phone: ALT [Catalytic activity/Vol] 24 U/L 13-56 [facility] Work Phone: CO2 [Moles/Vol] 24.0 mmol/L 21.0-32.0 [facility] Work Phone: Globulin (S) [Mass/Vol] 3.9 g/dL 2.2-4.2 [facility] Work Phone: Lipase [Catalytic activity/Vol] 179 U/L 73-393 [facility] Work Phone: Urea nitrogen/Creatinine [Mass ratio] 8.3 mg/mg 10-20 [facility] Work Phone: Laboratory - Hematology and Cell countson 10-14-2021 Erythrocyte distribution width (RBC) [Entitic vol] 51.5 fL 35.1-43.9 [facility] Work Phone: Erythrocyte distribution width (RBC) [Ratio] 15.8 % 11.6-14.6 [facility] Work Phone: Immature granulocytes/100 WBC (Bld) 0.700 % 0.0-0.9 [facility] Work Phone: Comment on above: IG% - Immature Granu locytes (promyelocytes, myelocytes and metamyelocytes) > 1% indicates that a LEFT SHIFT is Present. MCH (RBC) [Entitic mass] 27.1 pg 27.0-32.0 [facility] Work Phone: Nucleated RBC/100 WBC (Bld) [Ratio] 0 % 0-5 [facility] Work Phone: MCHC Auto (RBC) [Mass/Vol]on 10-14-2021 MCHC (RBC) [Mass/Vol] 30.3 g/dL 32-36 [facility] Work Phone: No Panel Informationon 10-14 Estimated Creatinine Clearance Calc 68.18 ml/min [facility] Work Phone: Estimated GFR (MDRD) Amer 79 mL/min >60 [facility] Work Phone: Comment on above: GFR Calc Estimated GFR (MDRD) Non-Af Amer 65 mL/min >60 [facility] Work Phone: Comment on above: Non- GFR Calc Platelets bldon 10-14-2021 Platelets (Bld) [#/Vol] 511 10*3/uL 150-450 [facility] Work Phone: Serum or plasma albumin joseph urement (mass/volume)on 10-14-2021 Albumin [Mass/Vol] 3.4 g/dL 3.2-5.0 [facility] Work Phone: Serum or plasma albumin/glob ulin mass ratioon 10-14-2021 Albumin/Globulin [Mass ratio] 0.9 {ratio} 0.9-2.4 [facility] Work Phone: Serum or plasma calcium joseph urement (mass/volume)on 10-14-2021 Calcium [Mass/Vol] 8.7 mg/dL 8.5-10.1 [facility] Work Phone: Serum or plasma creatinine m easurement (mass/volume)on 10-14-2021 Creatinine [Mass/Vol] 0.96 mg/dL 0.55-1.02 [facility] Work Phone: Comment on above: The validity of the calculated GFR & GFRAA in patients over 70 years has not been determined. Clinical correlation is essential. Serum or plasma urea nitroge n measurement (mass/volume)on 10-14-2021 Urea nitrogen [Mass/Vol] 8 mg/dL 7-18 [facility] Work Phone: Thin prep Papanicolaou smear with manual screeningon 10-14-2021 Thin prep Papanicolaou smear with manual screening 20 U/L 15-37 [facility] Work Phone: Thin prep Papanicolaou smear with manual screening 6 5-15 [facility] Work Phone: Absolute lymphocyte counton 10-04-2021 Lymphocytes Auto (Unsp spec) [#/Vol] 3.67 10*3/uL 0.83-4.51 [facility] Work Phone: Basophil percentageon 2021 Basophils/100 WBC (Bld) 0.6 % 0-1 [facility] Work Phone: [phone] Chloride [Moles/Vol] 109 mmol/L 98-107 [facility] Work Phone: Eosinophils/100 WBC (Bld) 2.1 % 0-5 [facility] Work Phone: Glucose [Mass/Vol] 103 mg/dL 74-106 [facility] Work Phone: Comment on above: Fasting Glucose resu lt from 100 to 125 mg/dL suggests IMPAIRED HOMEOSTASIS per A.D.A. criteria. Neutrophils (Bld) [#/Vol] 4.4 10*3/uL 2.0-7.7 [facility] Work Phone: Neutrophils/100 WBC (Bld) 49.3 % 47-70 [facility] Work Phone: Potassium [Moles/Vol] 4.0 mmol/L 3.5-5.1 [facility] Work Phone: Sodium [Moles/Vol] 138 mmol/L 136-145 [facility] Work Phone: WBC (Bld) [#/Vol] 8.9 10*3/uL 4.4-11.0 [facility] Work Phone: Blood erythrocytes count (nu mber/volume)on 10-04-2021 RBC (Bld) [#/Vol] 3.87 10*6/uL 4.2-5.4 [facility] Work Phone: Blood hemoglobin measurement (mass/volume)on 10-04-2021 Hemoglobin (Bld) [Mass/Vol] 9.2 g/dL 12.0-15.0 [facility] Work Phone: Blood lymphocytes/100 leukoc yteson 10-04-2021 Lymphocytes/100 WBC (Bld) 41.4 % 19-41 [facility] Work Phone: [phone] Blood monocytes/100 leukocyt eson 10-04-2021 Monocytes/100 WBC (Bld) 6.0 % 0-10 [facility] Work Phone: Blood platelet mean volumeon 10-04-2021 Platelet mean volume (Bld) [Entitic vol] 9.1 fL 6.2-12.0 [facility] Work Phone: Determination of erythrocyte mean corpuscular volume (MCV)on 10-04-2021 MCV (RBC) [Entitic vol] 86.0 fL 81-99 [facility] Work Phone: Hematocrit Auto (Bld) [Volum e fraction]on 10-04-2021 Hematocrit (Bld) [Volume fraction] 27.8 % 37-47 [facility] Work Phone: Laboratory - Chemistry and C hemistry - challengeon 10-04-2021 CO2 [Moles/Vol] 24.0 mmol/L 21.0-32.0 [facility] Work Phone: Urea nitrogen/Creatinine [Mass ratio] 33.9 mg/mg 10-20 [facility] Work Phone: Laboratory - Hematology and Cell countson 10-04-2021 Erythrocyte distribution width (RBC) [Entitic vol] 47.6 fL 35.1-43.9 [facility] Work Phone: Erythrocyte distribution width (RBC) [Ratio] 15.2 % 11.6-14.6 [facility] Work Phone: Immature granulocytes/100 WBC (Bld) 0.600 % 0.0-0.9 [facility] Work Phone: Comment on above: IG% - Immature Granu locytes (promyelocytes, myelocytes and metamyelocytes) > 1% indicates that a LEFT SHIFT is Present. MCH (RBC) [Entitic mass] 27.4 pg 27.0-32.0 [facility] Work Phone: Nucleated RBC/100 WBC (Bld) [Ratio] 0 % 0-5 [facility] Work Phone: MCHC Auto (RBC) [Mass/Vol]on 10-04-2021 MCHC (RBC) [Mass/Vol] 31.8 g/dL 32-36 [facility] Work Phone: No Panel Informationon 10-04 Estimated Creatinine Clearance Calc 96.25 ml/min [facility] Work Phone: Estimated GFR (MDRD) Amer 118 mL/min >60 [facility] Work Phone: Comment on above: GFR Calc Estimated GFR (MDRD) Non-Af Amer 98 mL/min >60 [facility] Work Phone: Comment on above: Non- GFR Calc Platelets bldon 10-04-2021 Platelets (Bld) [#/Vol] 437 10*3/uL 150-450 [facility] Work Phone: Serum or plasma calcium joseph urement (mass/volume)on 10-04-2021 Calcium [Mass/Vol] 8.5 mg/dL 8.5-10.1 [facility] Work Phone: Serum or plasma creatinine m easurement (mass/volume)on 10-04-2021 Creatinine [Mass/Vol] 0.68 mg/dL 0.55-1.02 [facility] Work Phone: Comment on above: The validity of the calculated GFR & GFRAA in patients over 70 years has not been determined. Clinical correlation is essential. Serum or plasma urea nitroge n measurement (mass/volume)on 10-04-2021 Urea nitrogen [Mass/Vol] 23 mg/dL 7-18 [facility] Work Phone: Thin prep Papanicolaou smear with manual screeningon 10-04-2021 Thin prep Papanicolaou smear with manual screening 5 5-15 [facility] Work Phone: Absolute lymphocyte counton 10-03-2021 Lymphocytes Auto (Unsp spec) [#/Vol] 3.05 10*3/uL 0.83-4.51 [facility] Work Phone: Basophil percentageon 2021 Basophils/100 WBC (Bld) 0.4 % 0-1 [facility] Work Phone: Bilirubin [Mass/Vol] 0.10 mg/dL 0.20-1.00 [facility] Work Phone: Comment on above: For patients on eltr ombopag therapy, use of Dimension [place] TBIL is not recommended. Chloride [Moles/Vol] 109 mmol/L 98-107 [facility] Work Phone: Eosinophils/100 WBC (Bld) 2.0 % 0-5 [facility] Work Phone: Glucose [Mass/Vol] 104 mg/dL 74-106 [facility] Work Phone: Comment on above: Fasting Glucose resu lt from 100 to 125 mg/dL suggests IMPAIRED HOMEOSTASIS per A.D.A. criteria. Neutrophils (Bld) [#/Vol] 3.3 10*3/uL 2.0-7.7 [facility] Work Phone: Neutrophils/100 WBC (Bld) 47.5 % 47-70 [facility] Work Phone: Potassium [Moles/Vol] 4.0 mmol/L 3.5-5.1 [facility] Work Phone: Protein [Mass/Vol] 7.1 g/dL 6.4-8.2 [facility] Work Phone: Sodium [Moles/Vol] 138 mmol/L 136-145 [facility] Work Phone: WBC (Bld) [#/Vol] 6.9 10*3/uL 4.4-11.0 [facility] Work Phone: Basophil percentage 0-5 SEEN /hpf 0-5 [facility] Work Phone: Bilirubin Test strip Ql (U)o n 10-03-2021 Bilirubin Ql (U) Negative Negative [facility] Work Phone: Blood erythrocytes count (nu mber/volume)on 10-03-2021 RBC (Bld) [#/Vol] 4.02 10*6/uL 4.2-5.4 [facility] Work Phone: Blood hemoglobin measurement (mass/volume)on 10-03-2021 Hemoglobin (Bld) [Mass/Vol] 11.1 g/dL 12.0-15.0 [facility] Work Phone: [phone] Blood lymphocytes/100 leukoc yteson 10-03-2021 Lymphocytes/100 WBC (Bld) 44.3 % 19-41 [facility] Work Phone: [phone] Blood monocytes/100 leukocyt eson 10-03-2021 Monocytes/100 WBC (Bld) 5.2 % 0-10 [facility] Work Phone: [phone] Blood platelet mean volumeon 10-03-2021 Platelet mean volume (Bld) [Entitic vol] 9.0 fL 6.2-12.0 [facility] Work Phone: Determination of erythrocyte mean corpuscular volume (MCV)on 10-03-2021 MCV (RBC) [Entitic vol] 85.8 fL 81-99 [facility] Work Phone: Direct bilirubinon 2 Bilirubin.direct [Mass/Vol] mg/dL 0.00-0.30 [facility] Work Phone: Hematocrit Auto (Bld) [Volum e fraction]on 10-03-2021 Hematocrit (Bld) [Volume fraction] 34.5 % 37-47 [facility] Work Phone: Ketones Test strip Ql (U)on 10-03-2021 Ketones Ql (U) 5 mg/dl Negative [facility] Work Phone: Laboratory - Chemistry and C hemistry - challengeon 10-03-2021 ALP [Catalytic activity/Vol] 67 U/L 45-117 [facility] Work Phone: [phone] ALT [Catalytic activity/Vol] 26 U/L 13-56 [facility] Work Phone: [phone] CK [Catalytic activity/Vol] 74 U/L 26-192 [facility] Work Phone: CO2 [Moles/Vol] 26.0 mmol/L 21.0-32.0 [facility] Work Phone: Globulin (S) [Mass/Vol] 3.7 g/dL 2.2-4.2 [facility] Work Phone: Lipase [Catalytic activity/Vol] 239 U/L 73-393 [facility] Work Phone: Urea nitrogen/Creatinine [Mass ratio] 30.5 mg/mg 10-20 [facility] Work Phone: Laboratory - Hematology and Cell countson 10-03-2021 Erythrocyte distribution width (RBC) [Entitic vol] 46.5 fL 35.1-43.9 [facility] Work Phone: Erythrocyte distribution width (RBC) [Ratio] 14.7 % 11.6-14.6 [facility] Work Phone: Immature granulocytes/100 WBC (Bld) 0.600 % 0.0-0.9 [facility] Work Phone: Comment on above: IG% - Immature Granu locytes (promyelocytes, myelocytes and metamyelocytes) > 1% indicates that a LEFT SHIFT is Present. MCH (RBC) [Entitic mass] 27.6 pg 27.0-32.0 [facility] Work Phone: Nucleated RBC/100 WBC (Bld) [Ratio] 0 % 0-5 [facility] Work Phone: Lower GI hemoglobin IA Ql (S tl)on 10-03-2021 Stool Occult Blood (OPHELIA) Positive [facility] Work Phone: MCHC Auto (RBC) [Mass/Vol]on 10-03-2021 MCHC (RBC) [Mass/Vol] 32.2 g/dL 32-36 [facility] Work Phone: Mucus LM Ql (Urine sed)on Mucus Ql (Urine sed) 0 SEEN /hpf [facility] Work Phone: Nitrite Test strip Ql (U)on 10-03-2021 Nitrite Ql (U) Negative Negative [facility] Work Phone: No Panel Informationon 10-03 Estimated Creatinine Clearance Calc 87.27 ml/min [facility] Work Phone: Estimated GFR (MDRD) Amer 105 mL/min >60 [facility] Work Phone: Comment on above: GFR Calc Estimated GFR (MDRD) Non-Af Amer 86 mL/min >60 [facility] Work Phone: Comment on above: Non- GFR Calc Platelets bldon 10-03-2021 Platelets (Bld) [#/Vol] 436 10*3/uL 150-450 [facility] Work Phone: Protein Test strip Ql (U)on 10-03-2021 Protein Ql (U) Negative Negative [facility] Work Phone: Serum or plasma albumin joseph urement (mass/volume)on 10-03-2021 Albumin [Mass/Vol] 3.4 g/dL 3.2-5.0 [facility] Work Phone: Serum or plasma calcium joseph urement (mass/volume)on 10-03-2021 Calcium [Mass/Vol] 9.0 mg/dL 8.5-10.1 [facility] Work Phone: Serum or plasma creatinine m easurement (mass/volume)on 10-03-2021 Creatinine [Mass/Vol] 0.75 mg/dL 0.55-1.02 [facility] Work Phone: Comment on above: The validity of the calculated GFR & GFRAA in patients over 70 years has not been determined. Clinical correlation is essential. Serum or plasma urea nitroge n measurement (mass/volume)on 10-03-2021 Urea nitrogen [Mass/Vol] 23 mg/dL 7-18 [facility] Work Phone: Squamous epithelial cells de tection in urine sediment by light microscopyon 10-03-2021 Epithelial cells.squamous LM Ql (Urine sed) 0-5 SEEN /hpf 5-10 [facility] Work Phone: Thin prep Papanicolaou smear with manual screeningon 10-03-2021 Thin prep Papanicolaou smear with manual screening 15 U/L 15-37 [facility] Work Phone: Thin prep Papanicolaou smear with manual screening 3 5-15 [facility] Work Phone: Urine blood detectionon - RBC Ql (U) 10 /ul Negative [facility] Work Phone: RBC Ql (U) 0 SEEN /hpf 0-5 [facility] Work Phone: Urine clarityon 10-03-2021 Clarity (U) Clear Clear [facility] Work Phone: Urine color determinationon 10-03-2021 Color (U) Yellow Yellow [facility] Work Phone: Urine glucose detectionon Glucose Ql (U) Normal mg/dl Normal [facility] Work Phone: Urine leukocyte esterase det ection by dipstickon 10-03-2021 Leukocyte esterase Test strip Ql (U) Negative Negative [facility] Work Phone: Urine pHon 10-03-2021 pH (U) 6.0 [pH] 5.0 - 8.0 [facility] Work Phone: Urine sediment bacteria coun t by microscopy (number/high power field)on 10-03-2021 Bacteria LM.HPF (Urine sed) [#/Area] 0 /[HPF] None Seen [facility] Work Phone: Urine specific gravity measu rementon 10-03-2021 Specific gravity (U) [Rel density] 1.020 1.002-1.030 [facility] Work Phone: Urobilinogen Auto test strip Ql (U)on 10-03-2021 Urobilinogen Ql (U) Normal mg/dl Normal [facility] Work Phone: Laboratory - Microbiology an d Antimicrobial susceptibilityon 10-01-2021 SARS-CoV-2 (COVID-19) RNA KRUNAL+probe Ql (Unsp spec) Not detected [facility] Work Phone: No Panel Informationon 10-01 Influenza Types A,B Rapid (Clinic) Not detected [facility] Work Phone: CYTOLOGYon 11-18-2018 CYTOLOGY ADDITIONAL PROCEDURES PRESENT Specimen #: [id number] Submitting Physician: ADY PHAM SPECIMEN SUBMITTED A: [...] from every slide are reviewed by a inverter and clipper. IRMA Mares(ASCP) (Electronic Signature) ADDITIONAL PROCEDURE(S) HUMAN PAPILLOMA VIRUS Date Ordered: 11/19/2018 Date Reported: 11/21/2018 Procedure Results and Interpretation Negative for HPV DNA high risk type 16 by PCR. Negative for HPV DNA high risk type 18 by PCR. Negative for HPV DNA high risk types: 31,33,35,39,45,51,52,56,58, 59,66,68 by PCR. This test was developed and its performance characteristics determined by [facility]'s Roberto Lawson [facility] [place] ([facility] It has not been cleared or approved by the FDA. -[facility] is regulated under CLIA as qualified to perform high-complexity testing. This test is used for clinical purposes. It should not be regarded as investigational or for research. CLINICAL DATA HPV Testing: Automatic HPV typing (HPV) Date of Last Menstrual Period: unk Clinical History: ROUTINE STAINS A: CERVICAL, SCREENING, FLUID THIN PREP NEWSPAPER DELIVERY DRIVER Gage Haider M.D., Yeast Fermentation Attendant Date of Report: 11/23/2018 Date of Procedure: 11/18/2018 Date of Receipt: 11/19/2018 Submitted by: ADY PHAM Location: Diagnostic interpretation performed at [facility], [address] [place] [address]. CLIA Number: [id number] The Pap Smear is a screening test for cervical cancer. False negative results occur with all screening tests, emphasizing the need for rescreening at recommended intervals, and clinical correlation. Normal [facility] Comment on above: Performed By: #### C #### See report for performing lab information. Bacteria identified Anaer cx Nom (Unsp spec) Anaerobic microbial culture No anaerobic bacteria isolated. [facility] Work Phone: Bacteria identified Cx Nom ( Wound) Wound Culture Meth. resistant Stap h. aureus [facility] Work Phone: Wound Culture Presumptive C albicans [facility] Work Phone: Gram stain for investigation of transfusion reaction Microscopic observation Gram stain Nom (Unsp spec) [facility] Work Phone: Lower GI hemoglobin IA Ql (S tl) Stool Occult Blood (OPHELIA) Positive [facility] Work Phone: Vital Signs Date Time Vital Sign Value Performing Clinician Facility 11-27-2024 04:15-0400 Diastolic blood pressure 69 mm[Hg] Negrita Nixon APRN-SENIOR PHP WEB DEVELOPER Work Phone: [facility] 11-27-2024 04:15-0400 Heart rate 69 /min Negrita Nixon ADJUNCT SPANISH INSTRUCTOR-SENIOR PHP WEB DEVELOPER Work Phone: [facility] 11-27-2024 04:15-0400 Respiratory rate 18 /min Negrita Nixon ADJUNCT SPANISH INSTRUCTOR-SENIOR PHP WEB DEVELOPER Work Phone: [facility] 11-27-2024 04:15-0400 SaO2% (BldA) [Mass fraction] 99 % Negrita Nixon ADJUNCT SPANISH INSTRUCTOR-SENIOR PHP WEB DEVELOPER Work Phone: [facility] 11-27-2024 04:15-0400 Systolic blood pressure 117 mm[Hg] Negrita Nixon ADJUNCT SPANISH INSTRUCTOR-SENIOR PHP WEB DEVELOPER Work Phone: [facility] 11-27-2024 01:35-0400 Body height 173 cm Negrita Nixon ADJUNCT SPANISH INSTRUCTOR-SENIOR PHP WEB DEVELOPER Work Phone: [facility] 11-27-2024 01:35-0400 Body mass index (BMI) [Ratio] 40.92 kg/m2 Negrita Nixon ADJUNCT SPANISH INSTRUCTOR-SENIOR PHP WEB DEVELOPER Work Phone: [facility] 11-27-2024 01:35-0400 Body temperature 97.9 [degF] Negrita Nixon ADJUNCT SPANISH INSTRUCTOR-SENIOR PHP WEB DEVELOPER Work Phone: [facility] 11-27-2024 01:35-0400 Body weight 122.47 kg Negrita Nixon ADJUNCT SPANISH INSTRUCTOR-SENIOR PHP WEB DEVELOPER Work Phone: [facility] 05-27-2024 17:46-0500 Body mass index (BMI) [Ratio] 43.46 kg/m2 Josh Miranda ADJUNCT SPANISH INSTRUCTOR.SENIOR PHP WEB DEVELOPER Work Phone: [facility] 05-27-2024 17:46-0500 Body temperature 97.39 [degF] Josh Miranda APRN.SENIOR PHP WEB DEVELOPER Work Phone: [facility] 05-27-2024 17:46-0500 Body weight 124 kg Josh Miranda APRN.SENIOR PHP WEB DEVELOPER Work Phone: [facility] 05-27-2024 17:46-0500 Diastolic blood pressure 87 mm[Hg] Josh Miranda APRN.SENIOR PHP WEB DEVELOPER Work Phone: [facility] 05-27-2024 17:46-0500 Heart rate 71 /min Josh Miranda APRN.SENIOR PHP WEB DEVELOPER Work Phone: [facility] 05-27-2024 17:46-0500 Respiratory rate 24 /min Josh Miranda APRN.SENIOR PHP WEB DEVELOPER Work Phone: [facility] 05-27-2024 17:46-0500 SaO2% (BldA) [Mass fraction] 97 % Josh Miranda APRN.SENIOR PHP WEB DEVELOPER Work Phone: [facility] 05-27-2024 17:46-0500 Systolic blood pressure 132 mm[Hg] Josh Miranda APRN.SENIOR PHP WEB DEVELOPER Work Phone: [facility] 08-22-2023 15:54-0500 Body height 173 cm Noreen Montalvo MD Work Phone: [phone])[phone] [place] [address] 08-22-2023 15:54-0500 Body mass index (BMI) [Ratio] 40.92 kg/m2 Noreen Montalvo MD Work Phone: [phone])[phone] [place] [address] 08-22-2023 15:54-0500 Body temperature 98.01 [degF] Noreen Montalvo MD Work Phone: 4(704)[phone] [place] [address] 08-22-2023 15:54-0500 Body weight 122.47 kg Noreen Montalvo MD Work Phone: 5(101)[phone] [place] [address] 08-22-2023 15:54-0500 Diastolic blood pressure 86 mm[Hg] Noreen Montalvo MD Work Phone: 1(839)929-758970 [place] [address] 08-22-2023 15:54-0500 Heart rate 77 /min Noreen Montalvo MD Work Phone: [facility] 08-22-2023 15:54-0500 Respiratory rate 17 /min Noreen Montalvo MD Work Phone: [facility] 03-09-2024 15:54-0500 SaO2% (BldA) [Mass fraction] 96 % Noreen Montalvo MD Work Phone: [facility] 08-22-2023 15:54-0500 Systolic blood pressure 140 mm[Hg] Noreen Montalvo MD Work Phone: [facility] 05-14-2023 12:34-0500 Body height 170.18 cm TAI CHI INSTRUCTOR-C Negrita Tiffani Work Phone: [facility] 05-14-2023 12:34-0500 Body mass index (BMI) [Ratio] 37.7 kg/m2 TAI CHI INSTRUCTOR-C Negrita Tiffani Work Phone: [facility] 05-14-2023 12:34-0500 Body temperature 98.2 [degF] TAI CHI INSTRUCTOR-C Negrita Tiffani Work Phone: [facility] 05-14-2023 12:34-0500 Body weight 109.31 kg TAI CHI INSTRUCTOR-C Negrita Tiffani Work Phone: [facility] 05-14-2023 12:34-0500 Diastolic blood pressure 89 mm[Hg] TAI CHI INSTRUCTOR-C Negrita Tiffani Work Phone: [facility] 05-14-2023 12:34-0500 Heart rate 86 /min TAI CHI INSTRUCTOR-C Negrita Tiffani Work Phone: [facility] 05-14-2023 12:34-0500 Respiratory rate 16 /min TAI CHI INSTRUCTOR-C Negrita Tiffani Work Phone: [facility] 05-14-2023 12:34-0500 SaO2% (BldA) [Mass fraction] 95 % TAI CHI INSTRUCTOR-C Negrita Tiffani Work Phone: [facility] 05-14-2023 12:34-0500 Systolic blood pressure 138 mm[Hg] TAI CHI INSTRUCTOR-C Negrita Tiffani Work Phone: [facility] 03-31-2023 00:09-0400 Body height 172.72 cm TAI CHI INSTRUCTOR-C Negrita Tiffani Work Phone: [facility] 03-31-2023 00:09-0400 Body temperature 96.4 [degF] TAI CHI INSTRUCTOR-C Negrita Tiffani Work Phone: [facility] 03-31-2023 00:09-0400 Diastolic blood pressure 94 mm[Hg] TAI CHI INSTRUCTOR-C Negrita Tiffani Work Phone: [facility] 03-31-2023 00:09-0400 Heart rate 79 /min TAI CHI INSTRUCTOR-C Negrita Tiffani Work Phone: [facility] 03-31-2023 00:09-0400 Respiratory rate 16 /min TAI CHI INSTRUCTOR-C Negrita Tiffani Work Phone: [facility] 03-31-2023 00:09-0400 SaO2% (BldA) [Mass fraction] 100 % TAI CHI INSTRUCTOR-C Negrita Tiffani Work Phone: [facility] 03-31-2023 00:09-0400 Systolic blood pressure 152 mm[Hg] TAI CHI INSTRUCTOR-C Negrita Tiffani Work Phone: [facility] 03-28-2023 12:03-0400 Body mass index (BMI) [Ratio] 44.1 kg/m2 TAI CHI INSTRUCTOR-C Negrita Tiffani Work Phone: [facility] 03-28-2023 12:03-0400 Body temperature 97.7 [degF] TAI CHI INSTRUCTOR-C Negrita Tiffani Work Phone: [facility] 03-28-2023 12:03-0400 Body weight 131.54 kg TAI CHI INSTRUCTOR-C Negrita Tiffani Work Phone: [facility] 03-28-2023 12:03-0400 Diastolic blood pressure 85 mm[Hg] TAI CHI INSTRUCTOR-C Negrita Tiffani Work Phone: [facility] 03-28-2023 12:03-0400 Heart rate 96 /min TAI CHI INSTRUCTOR-C Negrita Tiffani Work Phone: [facility] 03-28-2023 12:03-0400 Respiratory rate 14 /min TAI CHI INSTRUCTOR-C Negrita Nixon Work Phone: [facility] 03-28-2023 12:03-0400 SaO2% (BldA) [Mass fraction] 94 % TAI CHI INSTRUCTOR-C Negrita Nixon Work Phone: [facility] 03-28-2023 12:03-0400 Systolic blood pressure 124 mm[Hg] TAI CHI INSTRUCTOR-C Negrita Nixon Work Phone: [facility] 01-20-2023 01:57-0400 Diastolic blood pressure 78 mm[Hg] [facility] 01-20-2023 01:57-0400 Heart rate 87 /min [facility] 01-20-2023 01:57-0400 Respiratory rate 18 /min [facility] 01-20-2023 01:57-0400 SaO2% (BldA) [Mass fraction] 99 % [facility] 01-20-2023 01:57-0400 Systolic blood pressure 149 mm[Hg] [facility] 01-19-2023 22:52-0400 Body height 172.72 cm [facility] 01-19-2023 22:52-0400 Body mass index (BMI) [Ratio] 44 kg/m2 [facility] 01-19-2023 22:52-0400 Body temperature 98 [degF] [facility] 01-19-2023 22:52-0400 Body weight 131.34 kg [facility] 08-20-2022 10:05-0500 Body temperature 97.8 [degF] Dr. Hong Frazier Work Phone: [facility] 08-20-2022 10:05-0500 Diastolic blood pressure 82 mm[Hg] Dr. Hong Frazier Work Phone: [facility] 08-20-2022 10:05-0500 Heart rate 93 /min Dr. Hong Frazier Work Phone: [facility] 08-20-2022 10:05-0500 Respiratory rate 14 /min Dr. Hong Frazier Work Phone: 2(463)[phone] [place] [address] 08-20-2022 10:05-0500 SaO2% (BldA) [Mass fraction] 97 % Dr. Hong Frazier Work Phone: [facility] 08-20-2022 10:05-0500 Systolic blood pressure 132 mm[Hg] Dr. Hong Frazier Work Phone: 3(980)402-803371 [place] [address] 07-22-2022 11:40-0500 Body temperature 98 [degF] Dr. Hong Frazier Work Phone: 7(571)[phone] [place] [address] 07-22-2022 11:40-0500 Diastolic blood pressure 88 mm[Hg] Dr. Hong Frazier Work Phone: 3(988)004-447171 [place] [address] 07-22-2022 11:40-0500 Heart rate 92 /min Dr. Hong Frazier Work Phone: 6(094)405-531671 [place] [address] 07-22-2022 11:40-0500 Respiratory rate 16 /min Dr. Hong Frazier Work Phone: 4(219)919-680371 [place] [address] 07-22-2022 11:40-0500 SaO2% (BldA) [Mass fraction] 97 % Dr. Hong Frazier Work Phone: [facility] 07-22-2022 11:40-0500 Systolic blood pressure 140 mm[Hg] Dr. Hong Frazier Work Phone: [facility] 06-19-2022 10:55-0500 Body height 172.[address] Hong Frazier Work Phone: [facility] 06-19-2022 10:55-0500 Body mass index (BMI) [Ratio] 43.7 kg/m2 Dr. Hong Frazier Work Phone: 4(025)482-872771 [place] [address] 06-19-2022 10:55-0500 Body weight 130.[address] Hong Frazier Work Phone: [facility] 06-12-2022 13:04-0500 Body height 172.[address] Hong Frazier Work Phone: 8(826)615-798371 [place] [address] Work Phone: 06-12-2022 13:04-0500 Body mass index (BMI) [Ratio] 45 kg/m2 Dr. Hong Frazier Work Phone: [facility] 06-12-2022 13:04-0500 Body temperature 97.5 [degF] Dr. Hong Frazier Work Phone: [facility] 06-12-2022 13:04-0500 Body weight 134.[address] Hong Frazier Work Phone: [facility] 06-12-2022 13:04-0500 Diastolic blood pressure 73 mm[Hg] Dr. Hong Frazier Work Phone: [facility] 06-12-2022 13:04-0500 Heart rate 76 /min Dr. Hong Frazier Work Phone: [facility] 06-12-2022 13:04-0500 Respiratory rate 16 /min Dr. Hong Frazier Work Phone: [facility] 06-12-2022 13:04-0500 SaO2% (BldA) [Mass fraction] 98 % Dr. Hong Frazier Work Phone: [facility] 06-12-2022 13:04-0500 Systolic blood pressure 128 mm[Hg] Dr. Hong Frazier Work Phone: [facility] 03-13-2022 09:01-0400 Body temperature 97.8 [degF] Dr. Hong Frazier Work Phone: [facility] Work Phone: 03-13-2022 09:01-0400 Diastolic blood pressure 88 mm[Hg] Dr. Hong Frazier Work Phone: [facility] Work Phone: 03-13-2022 09:01-0400 Heart rate 82 /min Dr. Hong Frazier Work Phone: [facility] Work Phone: 03-13-2022 09:01-0400 Respiratory rate 18 /min Dr. Hong Frazier Work Phone: [facility] Work Phone: 03-13-2022 09:01-0400 SaO2% (BldA) [Mass fraction] 98 % Dr. Hong Frazier Work Phone: [facility] Work Phone: 03-13-2022 09:01-0400 Systolic blood pressure 133 mm[Hg] Dr. Hong Frazier Work Phone: [facility] Work Phone: 02-19-2022 12:19-0400 Body temperature 97.7 [degF] Dr. Hong Frazier Work Phone: [facility] Work Phone: 02-19-2022 12:19-0400 Diastolic blood pressure 66 mm[Hg] Dr. Hong Frazier Work Phone: [facility] Work Phone: 02-19-2022 12:19-0400 Heart rate 67 /min Dr. Hong Frazier Work Phone: [facility] Work Phone: 02-19-2022 12:19-0400 Respiratory rate 16 /min Dr. Hong Frazier Work Phone: [facility] Work Phone: 02-19-2022 12:19-0400 SaO2% (BldA) [Mass fraction] 92 % Dr. Hong Frazier Work Phone: [facility] Work Phone: 02-19-2022 12:19-0400 Systolic blood pressure 112 mm[Hg] Dr. Hong Frazier Work Phone: [facility] Work Phone: 02-19-2022 07:23-0400 Body height 172.[address] Hong Frazier Work Phone: [facility] Work Phone: 02-19-2022 07:23-0400 Body weight 129.[address] Hong Frazier Work Phone: [facility] Work Phone: 02-18-2022 08:57-0400 Body mass index (BMI) [Ratio] 43.4 kg/m2 Dr. Hong Frazier Work Phone: [facility] Work Phone: 01-31-2022 12:33-0400 Body temperature 97 [degF] Dr. Hong Frazier Work Phone: [facility] Work Phone: 01-31-2022 12:33-0400 Diastolic blood pressure 84 mm[Hg] Dr. Hong Frazier Work Phone: [facility] Work Phone: 01-31-2022 12:33-0400 Heart rate 104 /min Dr. Hong Frazier Work Phone: [facility] Work Phone: 01-31-2022 12:33-0400 Systolic blood pressure 153 mm[Hg] Dr. Hong Frazier Work Phone: [facility] Work Phone: 01-28-2022 10:27-0400 Body height 170.[address] Hong Frazier Work Phone: [facility] Work Phone: 01-28-2022 10:27-0400 Body mass index (BMI) [Ratio] 44.9 kg/m2 Dr. Hong Frazier Work Phone: [facility] Work Phone: 01-28-2022 10:27-0400 Body weight 129.[address] Hong Frazier Work Phone: [facility] Work Phone: 01-28-2022 10:27-0400 Diastolic blood pressure 84 mm[Hg] Dr. Hong Frazier Work Phone: [facility] Work Phone: 01-28-2022 10:27-0400 Heart rate 81 /min Dr. Hong Frazier Work Phone: [facility] [facility] Work Phone: 01-28-2022 10:27-0400 Respiratory rate 18 /min Dr. Hong Frazier Work Phone: [facility] Work Phone: 01-28-2022 10:27-0400 SaO2% (BldA) [Mass fraction] 96 % Dr. Hong Frazier Work Phone: [facility] Work Phone: 01-28-2022 10:27-0400 Systolic blood pressure 128 mm[Hg] Dr. Hong Frazier Work Phone: [facility] Work Phone: 01-13-2022 00:35-0400 Respiratory rate 18 /min Dr. Hong Frazier Work Phone: [facility] Work Phone: 01-05-2022 00:13-0400 Respiratory rate 16 /min Dr. Hong Frazier Work Phone: [facility] Work Phone: 01-04-2022 23:30-0400 Body height 172.[address] Hong Frazier Work Phone: [facility] Work Phone: 01-04-2022 23:30-0400 Body mass index (BMI) [Ratio] 42.5 kg/m2 Dr. Hong Frazier Work Phone: [facility] Work Phone: 01-04-2022 23:30-0400 Body temperature 96.3 [degF] Dr. Hong Frazier Work Phone: [facility] Work Phone: 01-04-2022 23:30-0400 Body weight 126.[address] Hong Frazier Work Phone: [facility] Work Phone: 01-04-2022 23:30-0400 Diastolic blood pressure 95 mm[Hg] Dr. Hong Frazier Work Phone: [facility] Work Phone: 01-04-2022 23:30-0400 Heart rate 95 /min Dr. Hong Frazier Work Phone: [facility] Work Phone: 01-04-2022 23:30-0400 Systolic blood pressure 158 mm[Hg] Dr. Hong Frazier Work Phone: [facility] Work Phone: 12-27-2021 08:35-0400 Body temperature 97.1 [degF] Dr. Hong Frazier Work Phone: [facility] Work Phone: 12-27-2021 08:35-0400 Diastolic blood pressure 85 mm[Hg] Dr. Hong Frazier Work Phone: [facility] Work Phone: 12-27-2021 08:35-0400 Heart rate 89 /min Dr. Hong Frazier Work Phone: [facility] Work Phone: 12-27-2021 08:35-0400 Respiratory rate 18 /min Dr. Hong Frazier Work Phone: [facility] Work Phone: 12-27-2021 08:35-0400 Systolic blood pressure 144 mm[Hg] Dr. Hong Frazier Work Phone: [facility] Work Phone: 12-20-2021 09:46-0400 Body temperature 97 [degF] Dr. Hong Frazier Work Phone: [facility] Work Phone: 12-20-2021 09:46-0400 Diastolic blood pressure 87 mm[Hg] Dr. Hong Frazier Work Phone: [facility] Work Phone: 12-20-2021 09:46-0400 Heart rate 81 /min Dr. Hong Frazier Work Phone: [facility] Work Phone: 12-20-2021 09:46-0400 Respiratory rate 18 /min Dr. Hong Frazier Work Phone: [facility] Work Phone: 12-20-2021 09:46-0400 Systolic blood pressure 139 mm[Hg] Dr. Hong Frazier Work Phone: [facility] Work Phone: 12-06-2021 11:18-0400 Body temperature 97.8 [degF] Dr. Hong Frazier Work Phone: [facility] Work Phone: 12-06-2021 11:18-0400 Diastolic blood pressure 77 mm[Hg] Dr. Hong Frazier Work Phone: [facility] Work Phone: 12-06-2021 11:18-0400 Heart rate 80 /min Dr. Hong Frazier Work Phone: [facility] Work Phone: 12-06-2021 11:18-0400 Respiratory rate 20 /min Dr. Hong Frazier Work Phone: [facility] Work Phone: 12-06-2021 11:18-0400 Systolic blood pressure 129 mm[Hg] Dr. Hong Frazier Work Phone: [facility] Work Phone: 12-01-2021 09:14-0400 Body temperature 97.88 [degF] VIRIDIANA REICHFIELD DO [facility] 12-01-2021 09:14-0400 Diastolic blood pressure 97 mm[Hg] VIRIDIANA REICHFIELD DO [facility] 12-01-2021 09:14-0400 Heart rate 105 /min VIRIDIANA REICHFIELD DO [facility] 12-01-2021 09:14-0400 Respiratory rate 20 /min VIRIDIANA REICHFIELD DO [facility] 12-01-2021 09:14-0400 Systolic blood pressure 139 mm[Hg] VIRIDIANA REICHFIELD DO [facility] 10-15-2021 00:54-0400 Heart rate 78 /min Dr. Hong Frazier Work Phone: [facility] Work Phone: 10-15-2021 00:54-0400 Respiratory rate 18 /min Dr. Hong Frazier Work Phone: [facility] Work Phone: 10-15-2021 00:54-0400 SaO2% (BldA) [Mass fraction] 96 % Dr. Hong Frazier Work Phone: [facility] Work Phone: 10-14-2021 22:51-0400 Body height 170.[address] Hong Frazier Work Phone: [facility] Work Phone: 10-14-2021 22:51-0400 Body mass index (BMI) [Ratio] 43 kg/m2 Dr. Hong Frazier Work Phone: [facility] Work Phone: 10-14-2021 22:51-0400 Body temperature 96.9 [degF] Dr. Hong Frazier Work Phone: [facility] Work Phone: 10-14-2021 22:51-0400 Body weight 124.[address] Hong Frazier Work Phone: [facility] Work Phone: 10-14-2021 22:51-0400 Diastolic blood pressure 101 mm[Hg] Dr. Hong Frazier Work Phone: [facility] Work Phone: 10-14-2021 22:51-0400 Systolic blood pressure 166 mm[Hg] Dr. Hong Frazier Work Phone: [facility] Work Phone: 10-05-2021 11:25-0400 Body temperature 98.3 [degF] Dr. Hong Frazier Work Phone: [facility] Work Phone: 10-05-2021 11:25-0400 Diastolic blood pressure 61 mm[Hg] Dr. Hong Frazier Work Phone: [facility] Work Phone: 10-05-2021 11:25-0400 Heart rate 81 /min Dr. Hong Frazier Work Phone: [facility] Work Phone: 10-05-2021 11:25-0400 Respiratory rate 16 /min Dr. Hong Frazier Work Phone: [facility] Work Phone: 10-05-2021 11:25-0400 SaO2% (BldA) [Mass fraction] 97 % Dr. Hong Frazier Work Phone: [facility] Work Phone: 10-05-2021 11:25-0400 Systolic blood pressure 106 mm[Hg] Dr. Hong Frazier Work Phone: [facility] Work Phone: 10-04-2021 15:56-0400 Body height 170.[address] Hong Frazier Work Phone: [facility] Work Phone: 10-04-2021 15:56-0400 Body mass index (BMI) [Ratio] 43.2 kg/m2 Dr. Hong Frazier Work Phone: [facility] Work Phone: 10-04-2021 15:56-0400 Body weight 125.[address] Hong Frazier Work Phone: [facility] Work Phone: 10-03-2021 23:18-0400 Body temperature 98.2 [degF] Dr. Hong Frazier Work Phone: [facility] Work Phone: 10-03-2021 23:18-0400 Diastolic blood pressure 78 mm[Hg] Dr. Hong Frazier Work Phone: [facility] Work Phone: 10-03-2021 23:18-0400 Heart rate 102 /min Dr. Hong Frazier Work Phone: [facility] Work Phone: 10-03-2021 23:18-0400 Respiratory rate 16 /min Dr. Hong Frazier Work Phone: [facility] Work Phone: 10-03-2021 23:18-0400 SaO2% (BldA) [Mass fraction] 98 % Dr. Hong Frazier Work Phone: [facility] Work Phone: 10-03-2021 23:18-0400 Systolic blood pressure 120 mm[Hg] Dr. Hong Frazier Work Phone: [facility] Work Phone: 10-03-2021 19:19-0400 Body height 170.[address] Hong Frazier Work Phone: [facility] Work Phone: 10-03-2021 19:19-0400 Body mass index (BMI) [Ratio] 43.2 kg/m2 Dr. Hong Frazier Work Phone: [facility] Work Phone: 10-03-2021 19:19-0400 Body weight 125.[address] Hong Frazier Work Phone: [facility] Work Phone: 10-01-2021 10:43-0400 Body temperature 97.6 [degF] Dr. Hong Frazier Work Phone: [facility] Work Phone: 10-01-2021 10:43-0400 Diastolic blood pressure 104 mm[Hg] Dr. Hong Frazier Work Phone: [facility] Work Phone: 10-01-2021 10:43-0400 Heart rate 125 /min Dr. Hong Frazier Work Phone: [facility] Work Phone: 10-01-2021 10:43-0400 Respiratory rate 18 /min Dr. Hong Frazier Work Phone: [facility] Work Phone: 10-01-2021 10:43-0400 SaO2% (BldA) [Mass fraction] 99 % Dr. Hong Frazier Work Phone: [facility] Work Phone: 10-01-2021 10:43-0400 Systolic blood pressure 160 mm[Hg] Dr. Hong Frazier Work Phone: [facility] Work Phone: 10-01-2021 10:43-0400 Body temperature 97.6 [degF] Dr. Hong Frazier Work Phone: [facility] Work Phone: 10-01-2021 10:43-0400 Diastolic blood pressure 104 mm[Hg] Dr. Hong Frazier Work Phone: [facility] Work Phone: 10-01-2021 10:43-0400 Heart rate 125 /min Dr. Hong Frazier Work Phone: [facility] Work Phone: 10-01-2021 10:43-0400 Respiratory rate 18 /min Dr. Hong Frazier Work Phone: [facility] Work Phone: 10-01-2021 10:43-0400 SaO2% (BldA) [Mass fraction] 99 % Dr. Hong Frazier Work Phone: [facility] Work Phone: 10-01-2021 10:43-0400 Systolic blood pressure 160 mm[Hg] Dr. Hong Frazier Work Phone: [facility] Work Phone: 06-13-2021 02:48-0500 Body mass index (BMI) [Ratio] 41.9 kg/m2 Dr. Hong Frazier Work Phone: [facility] Work Phone: 06-13-2021 02:48-0500 Body temperature 96.5 [degF] Dr. Hong Frazier Work Phone: [facility] Work Phone: 06-13-2021 02:48-0500 Body weight 125.[address] Hong Frazier Work Phone: [facility] Work Phone: 06-13-2021 02:48-0500 Diastolic blood pressure 86 mm[Hg] Dr. Hong Frazier Work Phone: [facility] Work Phone: 06-13-2021 02:48-0500 Heart rate 79 /min Dr. Hong Frazier Work Phone: [facility] Work Phone: 06-13-2021 02:48-0500 Respiratory rate 18 /min Dr. Hong Frazier Work Phone: [facility] Work Phone: 06-13-2021 02:48-0500 SaO2% (BldA) [Mass fraction] 98 % Dr. Hong Frazier Work Phone: [facility] Work Phone: 06-13-2021 02:48-0500 Systolic blood pressure 146 mm[Hg] Dr. Hong Frazier Work Phone: [facility] Work Phone: Encounters Encounter Date Encounter Type Care Provider Facility Start: 04-13-2025 ambulatory [facility] Start: 04-13-2025 End: 04-13-2025 ambulatory [facility] Facility:[facility] Start: 03-31-2025 ambulatory [facility] Start: 03-31-2025 End: 03-31-2025 ambulatory [facility] Facility:[facility] Start: 03-01-2025 Encounter for genera l adult medical examination with abnormal findings [facility] Start: 02-21-2025 End: 02-21-2025 ambulatory [facility] Facility:[facility] Start: 12-23-2024 End: 12-24-2024 Emergency department patient visit [facility] Facility:[facility] Start: 12-13-2024 ambulatory [facility] Facility:[facility] Start: 12-01-2024 ambulatory [facility] Facility:[facility] Start: 11-27-2024 End: 11-27-2024 Emergency department patient visit [facility] Comment on above: Pyogenic granuloma ( Primary Dx) Start: 11-03-2024 End: 11-03-2024 ambulatory [facility] Facility:[facility] Start: 10-27-2024 End: 10-27-2024 ambulatory Negrita Nixon [facility] Start: 05-27-2024 End: 05-27-2024 ambulatory NEGRITA NIXON Facility:[facility] Start: 05-27-2024 End: 05-27-2024 Patient encounter procedure Josh Miranda APRN.SENIOR PHP WEB DEVELOPER Work Phone: [facility] Comment on above: Bilateral impacted c erumen (Primary Dx); Acute otitis media, right; Sinus congestion; Acute cough Start: 08-22-2023 End: 08-22-2023 Emergency department patient visit Noreen Montalvo MD Work Phone: [facility] Comment on above: 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); Laceration of right ankle, initial encounter Start: 05-14-2023 End: 05-14-2023 Patient encounter procedure [employer] IN[employer]-C Negrita Nixon Work Phone: [facility] Work Phone: Start: 03-31-2023 End: 03-31-2023 Emergency department patient visit [employer] Negrita Nixon Work Phone: [facility]Emergency Department Work Phone: Start: 03-28-2023 End: 03-28-2023 Patient encounter procedure [employer] Negrita Nixon Work Phone: [facility] Work Phone: Start: 03-23-2023 Non-patient / Non-visit [employer] R saima Nixon Work Phone: [facility] Start: 03-23-2023 End: 03-23-2023 ambulatory [employer] Negrita Nixon Work Phone: [facility] Work Phone: Start: 03-23-2023 End: 03-23-2023 Patient encounter procedure T[employer] IN[employer]-C Negrita Nixon Work Phone: [facility]-Cardiovascula r Services Work Phone: Start: 02-06-2023 Registered Recurring [employer] IN[employer]CTOR-C [facility] Start: 01-19-2023 End: 01-20-2023 [facility] Start: 11-04-2022 End: 11-04-[address] Hong Frazier Work Phone: [facility] Work Phone: Start: 11-04-2022 End: 11-04-[address] Hong Frazier Work Phone: [facility] Start: 10-06-2022 End: 10-06-[address] Hong Frazier Work Phone: [facility] Start: 08-20-2022 End: 08-20-[address] Hong Frazier Work Phone: [facility] Start: 07-22-2022 End: 07-22-[address] Hong Frazier Work Phone: [facility] Start: 07-14-2022 End: 07-14-[address] Hong Frazier Work Phone: [facility] Work Phone: Start: 07-14-2022 End: 07-14-[address] Hong Frazier Work Phone: [facility]-Physical Therapy Start: 06-19-2022 End: 06-19-[address] Hong Frazier Work Phone: [facility]opa[facility] Start: 06-12-2022 Non-patient / Non-visit Dr. Jasvir Frazier Work Phone: [facility] Start: 06-12-2022 End: 06-12-2022 Emergency department patient visit Dr. Hong Frazier Work Phone: [facility]Emergency Department Start: 03-13-2022 End: 03-13-[address] Hong Frazier Work Phone: [facility] Vascular Surgery Start: 02-19-2022 Non-patient / Non-visit Dr. Jasvir Frazier Work Phone: [facility] Start: 02-19-2022 End: 02-19-2022 Admission to same day surgery center Dr[facility] Hong [facility] Start: 02-19-2022 End: 02-19-[address] Hong Frazier Work Phone: [facility] Work Phone: Start: 01-31-2022 End: 01-31-[address] [facility] Start: 01-28-2022 End: 01-28-[address] Hong Frazier Work Phone: [facility] Vascular Surgery Start: 01-10-2022 End: 01-10-[address] Hong Frazier Work Phone: [facility]Cardiov[facility] Start: 01-04-2022 End: 01-05-2022 Emergency department patient visit Dr. Hong Frazier Work Phone: [facility]Emergency Department Start: 12-27-2021 End: 01-12-[address] [facility] Start: 12-27-[address] Hong [facility] Start: 12-20-[address] [facility] Start: 12-10-2021 End: 12-12-[address] [facility] Start: 12-01-2021 End: 12-01-2021 Emergency department patient visit VIRIDIANA HANEY DO [facility] Start: 10-14-2021 End: 10-15-2021 Emergency department patient visit Dr. Hong Frazier Work Phone: [facility]Emergency Department Start: 10-05-2021 Non-patient / Non-visit Dr. Jasvir Frazier Work Phone: [facility] Inpatient Physicians Start: 10-04-2021 Non-patient / Non-visit Dr. Jasvir Frazier Work Phone: [facility] Start: 10-04-2021 Non-patient / Non-visit Dr. Jasvir Frazier Work Phone: [facility] Inpatient Physicians Start: 10-03-2021 Non-patient / Non-visit Dr. Jasvir Frazier Work Phone: [facility] Start: 10-03-2021 End: 10-05-2021 Evaluation and management of inpatient Dr. Hong Frazier Work Phone: [facility]-Medical Surgical 3 Start: 10-01-2021 End: 10-01-[address] Hong Frazier Work Phone: [facility] Start: 07-29-[address] Hong Frazier Work Phone: [facility]-Physical Therapy Start: 06-27-2021 End: 06-27-[address] Hong Frazier Work Phone: [facility]Outpatient Breast [facility] Start: 06-13-2021 End: 06-13-2021 Emergency department patient visit Dr. Hong Frazier Work Phone: [facility]Emergency Department Start: 07-07-2017 Patient encounter status Aron Miranda APRN.SENIOR PHP WEB DEVELOPER Work Phone: [facility] Procedures Date Procedure Procedure Detail Performing Clinician Start: 08-22-2023 ED LACERATION REPAIR Kayla Romo DO Work Phone: Start: 01-20-2023 CT cervical spine without contrast Start: 06-12-2022 Plain x-ray of pelvis and lower extremity Dr. Hong Frazier Work Phone: Start: 10-04-2021 End: 10-04-[address] Hong Frazier Work Phone: Start: 10-04-[address] Hong ahgan Work Phone: Start: 10-03-2021 Measurement of occult blood in stool specimen using immunoassay Dr. Hong Frazier Work Phone: Start: 06-27-[address] Hong Frazier Work Phone: Start: 07-14-2017 Lipid 1996 panel - Serum or Plasma Patrickalmita jono Miranda APRN.SENIOR PHP WEB DEVELOPER Work Phone: Start: 10-21-2016 Colonoscopy Josh Miranda APRN.SENIOR PHP WEB DEVELOPER Work Phone: Start: 2015 Laparoscopic cholecystectomy VIRIDIANA [facility] DO Start: 11-13-2006 [facility] Anaerobic microbial culture Dr. Hong Frazier Work Phone: Colonoscopy VIRIDIANA JAMES Hughes DO Comment on above: approx [phone], [facility], dr. mancia Investigation of [...] DTaP/Tdap/Td Vaccines (2 - Td or Tdap) [facility] Start: 07-07-2027 Urine microalbumin profile DTaP,Tdap,Td Vaccine (2 - Td or Tdap) [facility] Start: 10-21-2026 Screening for malign ant neoplasm of colon [facility] Start: 02-13-2025 Influenza vaccination Influenz a Vaccine (Season Ended) [facility] Start: 02-14-2024 Covid-19 Vaccine ( season) Covid-19 Vaccine ( season) [facility] Start: 02-14-2024 Influenza vaccination Influenza Vacc ine (#1) [facility] Start: 02-13-2023 COVID-19 Vaccine ( season) COVID-19 Vaccine ( season) [facility] Start: 02-13-2023 Influenza vaccination Influenza Vacc ine (#1) [facility] Start: 07-14-2022 Lipid panel Lipid Screening [facility] Start: 06-23-2022 Patient referral [facility] Work Phone: Start: 06-19-2022 Patient referral [facility] Work Phone: Start: 02-19-2022 Anes venous/lymphati c nos ther ivntl rad nos ANES THER INTERVEN RAD VEIN [facility] Work Phone: Start: 02-19-2022 Venography extremity bilateral rs&i VEIN X-RAY ARMS/LEGS [facility] Work Phone: Start: 02-19-2022 Bedrest [facility] Work Phone: Start: 02-19-2022 Notification of physician [facility] Work Phone: Start: 02-19-2022 Patient discharge [facility] Work Phone: Start: 02-19-2022 Provision of activit y privileges [facility] Work Phone: Start: 02-19-2022 Scheduling [facility] Work Phone: Start: 02-19-2022 Taking patient vital signs [facility] Work Phone: Start: 02-19-2022 Vascular disease ris k assessment [facility] Work Phone: Start: 02-19-2022 [facility] Work Phone: Start: 02-19-2022 Implantation to cardiovascular system Insertion, Vascular Port (Left) [facility] Work Phone: Start: 12-27-2021 Application rigid to margo contact leg cast APPLY RIGID LEG CAST [facility] Work Phone: Start: 10-05-2021 Patient discharge [facility] Work Phone: Start: 10-04-2021 Following clinical pathway protocol [facility] Work Phone: Start: 10-04-2021 Ambulation without limitation [facility] Work Phone: Start: 10-04-2021 Application of intermittent pneumatic compression device [facility] Work Phone: Start: 10-04-2021 Assessment of risk o f venous thromboembolism [facility] Work Phone: Start: 10-04-2021 Insertion of cathete r into peripheral vein [facility] Work Phone: Start: 10-04-2021 Providing care accor ding to standard [facility] Work Phone: Start: 10-04-2021 Referral to gastroenterology service [facility] Work Phone: Start: 10-04-2021 [facility] Work Phone: Start: 10-03-2021 Admission procedure [facility] Work Phone: Start: 08-12-2021 Pneumococcal vaccination Pneum ococcal Vaccine (1 of 1 - PCV) [facility] Start: 08-12-2021 Shingrix Vaccine (1 of 2) Concepcion grix Vaccine (1 of 2) [facility] Start: 08-12-2021 Zoster Vaccines (1 of 2) Zoster Vacc jalil (1 of 2) [facility] Start: 07-14-2020 Diabetes Screening Diabetes Screenin g [facility] Start: 10-22-2019 Screening for malign ant neoplasm of colon [facility] Start: 01-12-2018 Screening for malign ant neoplasm of cervix Cervical Cancer Screening [facility] Start: 08-12-2016 Screening for malign ant neoplasm of colon [facility] Start: 05-11-2016 Screening for malign ant neoplasm of breast Mammogram Screening [facility] Start: 2011 Screening for malign ant neoplasm of breast Mammogram [facility] Start: 08-12-1992 Screening for malign ant neoplasm of cervix [facility] Start: 08-12-1989 Annual PCP Team Meter Inspector rylie Disease Visit Annual PCP Team Chronic Disease Visit [facility] Start: 08-12-1989 Anxiety Screening Anxiety Screening [facility] Start: 08-12-1989 Depression Screening Depression Scre ening [facility] Start: 08-12-1989 Diabetes mellitus screening Diabetes Screening [facility] Start: 08-12-1989 Hepatitis C screening Hepatitis C Sc reening [facility] Start: 08-12-1989 HIV screening HIV Screening [facility] Start: 08-12-1972 MMR Vaccines (1 of 1 - Standard series) MMR Vaccines (1 of 1 - Standard series) [facility] Start: 1971 HIV screening HIV Screening [facility] Start: 1971 Lipid panel Lipid Panel [facility] Start: 1971 Screening for malign ant neoplasm of colon [facility] Start: 1971 Yearly Adult Physical Yearly Adult P hysical [facility] Doppler ultrasonogra phy of aorta [facility] Work Phone: End: 11-27-2024 Hepatitis B virus surface Ag [Presence] in Serum or Plasma by Immunoassay [facility] Work Phone: Comment on above: Once (Lab) for 1 Occ urrences starting 11/27/2024 until 11/27/2024 End: 11-27-2024 Hepatitis C virus Ab [Presence] in Serum [facility] Work Phone: Comment on above: STAT (Lab) for 1 Occ urrences starting 11/27/2024 until 11/27/2024 End: 11-27-2024 HIV 1+2 Ab+HIV1 p24 Ag [Presence] in Serum or Plasma by Immunoassay [facility] Service Area Work Phone: Comment on above: Once (Lab) for 1 Occ urrences starting 11/27/2024 until 11/27/2024 Laceration Repair Laceration Rep air Procedures Routine Laceration of right ankle, initial encounter 08/22/2023 3:38 PM EST [facility] Area Work Phone: Patient Education [facility] Work Phone: Patient referral [facility] Work Phone: Removal impacted cer umen instrumentation unilat REMOVAL OF IMPACTED CERUMEN - INSTRUMENTATION Procedures Routine Bilateral impacted cerumen Ordered: 05/27/2024 [facility] Work Phone: Comment on above: Ordered: 05/27/2024 Immunizations Immunization Date Immunization Notes Care Provider Fa cili 08-22-2023 diphtheria, tetanus toxoids and acellular pertussis vaccine, unspecified formulation Noreen Montalvo MD Work Phone: [facility] Work Phone: 02-15-2021 Covid (Jase & Jase) Dr. Hong Frazier Work Phone: [facility] 02-09-2020 hepatitis B vaccine, adult dosage Dr. Hong Frazier Work Phone: [facility] 02-09-2020 hepatitis B vaccine, unspecified formulation Dr. Hong Frazier Work Phone: [facility] Work Phone: 08-31-2019 hepatitis B vaccine, adult dosage Dr. Hong Frazier Work Phone: [facility] 08-31-2019 hepatitis B vaccine, unspecified formulation Dr. Hong Frazier Work Phone: [facility] Work Phone: 07-31-2019 hepatitis B vaccine, adult dosage Dr. Hong Frazier Work Phone: [facility] 07-31-2019 hepatitis B vaccine, unspecified formulation Dr. Hong Frazier Work Phone: [facility] Work Phone: 07-07-2017 tetanus toxoid, reduced diphtheria toxoid, and acellular pertussis vaccine, adsorbed Josh Miranda APRN.SENIOR PHP WEB DEVELOPER Work Phone: [facility] 07-07-2017 influenza virus vaccine, unspecified formulation Josh Miranda APRN.SENIOR PHP WEB DEVELOPER Work Phone: [facility] 03-15-[address] Hong Frazier Work Phone: [facility] 03-15-2007 influenza virus vaccine, unspecified formulation Noreen Montalvo MD Work Phone: [facility] Work Phone: Payers Date Payer Category Payer Self-pay [id number] 2023 Managed Care (Private) [employer] [id number] 2023 Unknown [id number] 2023 Unknown [id number] 1970 Unknown [id number] Private Health Insurance [facility] [id number] Unknown [id number] Unknown [id number] Unknown 0 [id number] [facility] [id number] Unknown [id number] Unknown [id number] 462 Unknown [id number] 462 Unknown [id number] 462 Unknown [id number] 462 Unknown [id number] 462 Unknown [id number] 462 Unknown [id number] 462 Unknown [id number] 462 Unknown [id number] 462 Social History Date Type Detail Facility [facility] Work Phone: Start: 10-03-2021 End: 05-14-2023 Tobacco smoking status NHIS Unknown if ever smoked [facility] Start: 11-02-2020 None [facility] Start: 05-03-2013 With Family [facility] Start: 11-02-2020 Cigarettes [facility] Start: 1970 Sex Assigned At Female [facility] Work Phone: Start: 05-27-2024 Tobacco smoking status Ex-smoker (fi nding) [facility] Start: 1970 Sex Assigned At Not on file [facility] Work Phone: Start: 05-20-2020 End: 05-27-2024 Gender identity Not on file [facility] Work Phone: Start: 09-18-1997 End: 09-18-2012 History of tobacco use Current smoker [facility] Start: 09-18-1997 End: 09-18-2012 History of tobacco use Cigarette Smoker [facility] Start: 05-20-2020 End: 05-27-2024 Cigarettes smoked current (pack per day) - Reported 0.5 [facility] Start: 05-27-2024 Tobacco use and exposure Smokeless tobacco non-user [facility] Start: 05-27-2024 Alcoholic beverage intake Current non-drinker of alcohol (finding) [facility] National Score (1-10 0), lower number is lower risk Not on file [facility] Medical Equipment Procedure Code Equipment Code Equipment Origin al Text Equipment Identifier Dates ([id number]) Bare-metal tracheal/bronchial/v ascular stent ()[id number] FDA Start: 02-19-2022 Goals Date Patient Goal Desired Activity /State Functional Status Date Assessment Result Facility 11-27-2024 [place] - suicide severity rating scale screener - recent [C-SSRS] [facility] Work Phone: 12-01-2021 Functional Status ID band on, Call device within reach, Bed in low position, Wheels locked, Upper/Half-Length side-rails up, Phone within reach, personal items within reach, Assistive devices within reach, Toileting device within reach, Bedside Cart Locked, Visitor at bedside, Safety level maintained [facility] 10-05-2021 Functional status Bedside Commode [facility] Work Phone: Mental Status Date Assessment Result Facility 02-19-2022 Cognitive function Level Of Cons ciousness Restless [facility] Work Phone: 12-01-2021 Mental Status Oriented x [facility] 10-05-2021 Cognitive function Voice/Name [facility] Work Phone: Clinical Notes 12-01-2021 to 04-13-2025 Discharge InstructionsTanisha Nur RN - 11/27/2024 1:32 AM Renuka Nur RN - 11/27/2024 1:32 AM Jeannette Sullivan MA - 05/27/2024 6:17 PM Josh Mathew APRN.SENIOR PHP WEB DEVELOPER - 05/27/2024 6:08 PM EST Note Date & Type Note Facility 04-13-2025 Note [facility] Medical Records Department [address] [place] [address] History Physical Exam 04/13/25 0902 MR#: [id number] Acct: [id number] Name: ROSEMARY SHIELDS Rep #: [id number] : 1970 54 From: Jarod Friend DO PCP: ADY Fox Status:REG [facility] Location: [place] [address] HPI - General General Date of Admission: 04/13/25 Date of Service: 04/13/25 Chief Complaint: Screening colonoscopy HPI Narrative ROSEMARY SHIELDS, is a 54 F who presents [today for screening colonoscopy. She is not having abdominal pain. She is here for screening colonoscopy. She has not had a colonoscopy in the past. 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 Home Medications ???Medication ???Instructions ???Recorded ???Last Taken ???Type ergocalciferol (vitamin D2) 1,250 1,250 mcg PO SA SUPPLEMENT 04/12/25 History mcg (50,000 unit) capsule spironolactone 50 mg tablet 50 mg PO DAILY DIURETIC 02/18/20 1 History aspirin 81 mg tablet,delayed 81 mg PO DAILY #90 tabs 02/19/22 1 Rx release levothyroxine 100 mcg tablet 100 mcg PO SUMOWETHFR 10/27/24 History topiramate 100 mg tablet 100 mg PO QHS 10/27/24 04/12/25 Hi story levothyroxine 100 mcg capsule 200 mcg PO THSA 04/11/25 Unknown H istory trazodone 50 mg tablet 50 mg PO QHS sleep 04/11/25 History venlafaxine 75 mg capsule,extended 75 mg PO DAILY 04/11/25 04/12/25 History release 24 hr Allergy/AdvReac Type Severity Reaction Status Date / Time No Known Allergies Allergy Verified 04/13/25 07:24 Family History Sister Arthritis Cancer Father Cancer liver cancer Surgical History Hx of colonoscopy Hx laparoscopic cholecystectomy History of esophagogastroduodenoscopy (EGD) History of hernia repair History of Social History housing: house Smoking Status: Current every day smoker (Patient smoked today.) tobacco type: cigarettes alcohol intake: never substance use type: does not use ROS Constitutional Constitutional: Denies fatigue, fever(s), poor appetite, weight gain or weight loss Gastrointestinal Gastrointestinal: Denies belching, bloating, change in bowel habits, change in stool character, chewing difficulty, coffee ground emesis, constipation, cramping, diarrhea, dyspepsia, dysphagia, early satiety, excessive flatus, fecal incontinence, heartburn, hematemesis, hematochezia, hemorrhoids, loose stools, melena, nausea, odynophagia, rectal bleeding, tenesmus, vomiting or weight changes Vital Signs Vital Signs Vital Signs: 04/13/25 07:24 04/13/25 07:24 04/13/25 08:53 Temperature 97.8 F 97.8 F Temperature Source Temporal Pulse Rate 85 85 Respiratory Rate 17 17 Respiratory Pattern Normal Blood Pressure 114/75 114/75 Blood Pressure Mean 88 Blood Pressure Source Monitor Blood Pressure Position Semi-Fowlers Blood Pressure Location Right Forearm Pulse Ox 98 98 Oxygen Delivery Method Room Air Room Air Weight Weight: 262 lb 5.601 oz Body Mass Index (BMI) 41.1 Physical Exam Const alert, oriented x3, no apparent distress and healthy appearing General Appearance: cooperative GI normal to inspection, nondistended, normoactive bowel sounds, soft to palpation, non-tender and non- distended Percussion: normal to percussion Rectal Exam: deferred Assessment Plan Assessment/Plan (1) Encounter for screening colonoscopy: PLAN: She was explained alternatives, risk and benefits include not withstanding bleeding, infection, sepsis, perforation, need for surgery . She have an ASA of 3. 04/13/25 09 Cosigner Signature (if applicable): CC: ADY Olivera Friend, DO Signed [facility] 11-27-2024 Hospital Discharge instructions Gage Echavarria PA-C - 11/27/2024 2:35 AM EDT You have been seen at a [facility] facility. It was found that you have [...] emergency room stay. documented in this encounter [facility] Work Phone: 11-27-2024 Emergency department Triage note Patient was brought in by ambulance from [facility]. Patient reports that she hit her leg on a chair and a previous scab from previous injury was uncovered. Medics at [facility] were unable to stop bleeding. Tourniquet placed by medics. Pt reports she takes baby Asprin but no other blood thinners. [facility] Work Phone: 11-27-2024 Emergency department Note Patient was brought in by ambulance from [facility]. Patient reports that she hit her leg on a chair and a previous scab from previous injury was uncovered. Medics at [facility] were unable to stop bleeding. Tourniquet placed by medics. Pt reports she takes baby Asprin but no other blood thinners. documented in this encounter [facility] Work Phone: 05-27-2024 Note HNO ID: [id number] Author: JEANNETTE LOCKHART MA Service: ? Author Type: Head Setter Type: Progress Notes Filed: 05/27/2024 18:20 Note Text: Ambulatory Ear Lavage Pre-treatment: Warm water Treatment: Both ears Equipment and Irrigation solution and Volume used: Single use syringe with single use irrigation tip Water Return flow appearance: Brown Yellow Patient tolerated procedure: yes Tympanic membrane assessment: Tympanic membrane assessed by LIP pre and post procedure Jeannette Lockhart MA [facility] 05-27-2024 History of Present illness Narrative Ambulatory [...] history is provided by the patient. No language arts teacher was used. Cough Review of Systems Constitutional: [...] Josh Miranda APRN.MARCELL documented in this encounter [facility] 05-27-2024 Note HNO ID: [id number] Author: JOSH MIRANDA APRN.MARCELL Service: ? Author Type: Nurse Practitioner Type: Progress Notes Filed: 05/27/2024 18:20 Note Text: Subjective With complaints of sinus congestion cough sinus pressure. Patient denies any shortness of breath or fatigue. Patient says her ears hurt bilaterally. Patient denies any other symptoms. The history is provided by the patient. No language arts teacher was used. Cough Review of Systems Constitutional: [...] 07/07/2017 Started at age 23 up to 13 PPD and quit around 2010 Hypothyroidism, acquired [...] is agreeable to care plan. Josh Miranda APRN.[facility] 08-22-2023 Hospital Discharge instructions Kayla Romo DO [...] Put On and Take Off Compression Stockings (Russian)Laceration Repair (Russian)documented in this encounter [facility] Work Phone: 08-22-2023 Emergency department Note PT REPORTS TO ED BY EMS FROM [facility] WITH C/O RIGHT ANKLE LAC FROM UNKNOWN INJURY, +BLOOD THINNERS, DENIES PAIN documented in this encounter [facility] Work Phone: 08-22-2023 Emergency department Triage note PT REPORTS TO ED BY EMS FROM [facility] WITH C/O RIGHT ANKLE LAC FROM UNKNOWN INJURY, +BLOOD THINNERS, DENIES PAIN [facility] Work Phone: 08-01-2022 Discharge summary Note Date/Time August 01, 2022 12:22pm [facility] Physical Therapy [facility] [address] [place] [address] / REHABILITATION SERVICES DISCHARGE SUMMARY MR#: [id number] Acct: [id number] Name: ROSEMARY SHIELDS Rep #: [id number] : 1970 51 From: Alondra Allen Referring Dr.: Dr. Hong Hodgson MD Status: REG RCR Insurance: [facility] SELF PAY INSURANCE It has been my pleasure to treat ROSEMARY SHIELDS referred by Dr. Hong Hodgson MD, with [...] please feel free to call me at [phone]. Thank you for the referral of thispatient. Sincerely, GLORIA Otto Balance/Gait/Functional tests - Balance/Special Test Scores Lower Extremity Functional Score: 48 <Electronically signed by Alondra Rodriguez MPT> 08/01/22 1222 CC: Dr. Hong Frazier MD; Dr. Hong Hodgson MD ~ Signed [facility] Work Phone: 1(872) 419-901306-19-2022 Hospital Discharge instructions Patient Education 12/01/2021 09:17:19 [...] a problem: Bleeding that soaks the dressing [place] fluid weeping from the wound Increased drainage [...] increased fatigue, or a loss of appetite [id number] [employer]. [address] [place] [address]. All rights reserved. This information is not intended as a substitute for professional medical care. Always follow yourhealthcare professional's instructions. Follow Up Care 12/01/2021 09:07:33 With:[facility] Address: When:2-4 days With:Go to emergency room if symptoms worsen Address:Unknown When:2-4 days With:HONG FRAZIER MD Address: [address] [place] [address] [place] [phone] When:2-4 days [facility] Evaluation + Plan note No data available for this section [facility] evalurhyya note* Diagnosis Onset Date Resolution Status Acute sinusitis acute Acute GI bleeding acute Anemia acute [facility] Work Phone: Evaluation note* Diagnosis Onset Date Resolution Status Acute sinusitis acute Anemia acute Acute GI bleeding resolved [facility] Work Phone: Evaluation note* Diagnosis Onset Date Resolution Status Acute sinusitis acute Anemia acute Acute GI bleeding resolved Cellulitis acute Hypothyroidism acute Lymphedema associated with obesity acute Morbid obesity acute Venous ulcer of left lower e xtremity with varicose veins acute [facility] Work Phone: Evaluation note* Diagnosis [...] e xtremity with varicose veins acute [facility] Work Phone: Evaluation note* Diagnosis [...] e xtremity with varicose veins chronic [facility] Work Phone: Evaluation note* Diagnosis [...] e xtremity with varicose veins chronic [facility] Work Phone: Evaluation note* Diagnosis Onset Date Resolution Status May-Thurner syndrome acute Venous ulcer of left lower e xtremity with varicose veins chronic [facility] Work Phone: Evaluation note* Diagnosis Onset Date Resolution Status Osteoarthritis of left hip a cute Acute bronchitis acute Contact with or suspected ex posure to other viral communicable disease acute [facility] Work Phone: Evaluation note* Diagnosis Onset Date Resolution Status Acute bronchitis acute Contact with or suspected ex posure to other viral communicable disease acute Biceps tendinitis of right shoulder acute [facility] Work Phone: Evaluation noteNo assessment information available [facility] Work Phone: Evaluation note* Diagnosis Onset Date Resolution Status Acute bacterial sinusitis ac katharine Left otitis media acute [facility] Work Phone: Evaluation note* Diagnosis Varicose veins of right lower extremity with other complications- Primary Laceration of right ankle, initial encounter documented in this encounter [facility] Work Phone: Evaluation note* Diagnosis Onset Date Resolution Status Acute bacterial sinusitis ac katharine [facility] Work Phone: Evaluation note* Diagnosis Bilateral impacted cerumen- Primary Impacted cerumen Acute otitis media, right Unspecified otitis media Sinus congestion Other diseases of nasal cavity and sinuses Acute cough [facility] Pyogenic granuloma- Primary Pyogenic granuloma of skin and subcutaneous tissue documented in this encounter [facility] Work Phone: Progress note No data available for this section [facility] Summary Purpose Family History No Family History Records Found Relationship Condition Age at Onset Recorded Date/T edson sister Arthritis Unknown Malignant neoplasm Unknown father Malignant neoplasm Unknown Advance Directives No Advanced Directives Records Found Advance Directive Response Recorded Date/ Time Advance Directives No April 2:35am Living Will No October 03, 2021 8:13pm Power of Service Superintendent No October 03 8:13pm Advance Directive Response Recorded Date/ Time Advance Directives No April 2:35am Living Will No October 04, 2021 12:16am Power of Service Superintendent No October 04 12:16am Advance Directive Response Recorded Date/ Time Advance Directives No April 2:35am Living Will No October 14, 2021 10 :54pm Power of Service Superintendent No October 14, 2021 10:54pm Advance Directive Response Recorded Date/ Time Advance Directives No April 2:35am Living Will No January 04, 2022 11:39pm Power of Service Superintendent No January 04 11:39pm Advance Directive Response Recorded Date/ Time Advance Directives No February 7:23am Living Will No February 19, 022 7:23am Power of Service Superintendent No February 19, 2022 7:23am Advance Directive Response Recorded Date/ Time Advance Directives No February 6:23am Living Will No June 12, 2 022 1:09pm Power of Service Superintendent No June 12, 2022 1:09pm Advance Directive Response Recorded Date/ Time Advance Directives No February 7:23am Living Will No June 12, 2 022 2:09pm Power of Service Superintendent No June 12, 2022 2:09pm Advance Directive Response Recorded Date/ Time Advance Directives No February 7:23am Living Will No January 19, 2023 11:02pm Power of Service Superintendent No January 19 11:02pm Advance Directive Response Recorded Date/ Time Advance Directives No February 7:23am Living Will No March 31 12:13am Power of Service Superintendent No March 31, 2023 12:13am Chief Complaint [...] section and content) DATE CREATED AUTHOR 11/24/2018 [facility] DATE CREATED AUTHOR AUTHOR'S ORGANIZ ATION 05/30/2024 [facility] DATE CREATED AUTHOR AUTHOR'S ORGANIZ ATION 12/05/2024 [facility] DATE CREATED AUTHOR AUTHOR'S ORGANIZ ATION 04/17/2025 [facility] Goals (unrecognized section and content) Goals may [...] Hong Frazier MD Family Provider Active Negrita Tiffani , TAI CHI INSTRUCTOR-C Primary Care Provider Active Team Status: Inactive Member Role Status Dates Dr. Hong Frazier MD Primary Care Provider, Referring Provider Active Dylan Wright PA, PA Attending Provider Active Team Status: Inactive Member Role Status Dates Negrita Tiffani , TAI CHI INSTRUCTOR-C Primary Care Provide r, Attending Provider, Referring Provider Active Team Status: Inactive Member Role Status Dates Negrita Nixon , TAI CHI INSTRUCTOR-C Primary Care Provider Active Dr. Wilmar Good DO Emergency Provider Active Team Status: Active Member Role Status Dates Negrita Nixon , TAI CHI INSTRUCTOR-C Primary Care Provider Active Dr. Edd Salmon MD Attending Provider Active Team Status: Inactive Member Role Status Dates Dr. Edd Salmon MD Attending Provider, Referring Pro vider Active Negrita Tiffani , TAI CHI INSTRUCTOR-C Primary Care Provider Active Team Status: Inactive Member Role Status Dates Negrita Tiffani , TAI CHI INSTRUCTOR-C Primary Care Provider Active Dr. Wilmar Good DO Attending Provider, Emergency Pr ovider Active Team Status: Active Member Role Status Dates Negrita Tiffani , TAI CHI INSTRUCTOR-C Primary Care Provide r, Attending Provider, Referring Provider Active Team Status: Inactive Member Role Status Dates Negrita Tiffani , TAI CHI INSTRUCTOR-C Primary Care Provider, Referring P rovider Active Rola Montalvo PA, PA Attending Provider Active Team Status: Inactive Member Role Status Dates Negrita Tiffani , TAI CHI INSTRUCTOR-C Primary Care Provider Active Dr. Marisol Quintero DO Emergency Provider Active Senior Sharepoint Architect Relationship Specialty Start Date End Date Hong Frazier MD [address] [place] [phone] PCP - Andrey YUO PCP 06/15/21 Negrita Nixon, ADJUNCT SPANISH INSTRUCTOR-SENIOR PHP WEB DEVELOPER [address] [phone] PCP - General Family Medicine 08/22/23 Team Status: Inactive Member Role Status Dates Negrita Nixon , TAI CHI INSTRUCTOR-C Primary Care Provider, Referring Samir mcdonnell Active Javier ANTONIO, PA Attending Provider Active Senior Sharepoint Architect Relationship Specialty Start Date End Date Negrita Nixon NP [address] [place] [id number] PCP - General Family Medicine 05/27/24 Senior Sharepoint Architect Relationship Specialty Start Date End Date Negrita Nixon, ADJUNCT SPANISH INSTRUCTOR-SENIOR PHP WEB DEVELOPER [address] [phone] PCP - General Family Medicine 08/22/23 Reason [...] or prosecute any alcohol or drug abuse patient.[facility] FOR RECORDS PERTAINING TO PATIENTS [...] BE BASED ON THE PRIMARY CLINICAL RECORDS. [facility] [employer] [facility]. provides no warranty or guarantee of the accuracy or completeness of information in this document.
[2025-06-10 00:59] VITALS: BP 123/86; PULSE 76; RESP 17; O2SAT 97
[2025-06-10 01:00] VITALS: BP 123/86; PULSE 76; RESP 17; TEMP 36.2; O2SAT 97
== END 2025-06-10 01:01 | disposition home or self-care (01) ==
PROVIDERS: Emergency Provider Specialist/Technologist Athletic Trainer; PCP Nurse Practitioner Family; Visit Provider Specialist/Technologist Athletic Trainer
DX: S80.01XA Contusion of right knee, initial encounter (principal); S90.02XA Contusion of left ankle, initial encounter; S80.11XA Contusion of right lower leg, initial encounter; F17.210 Nicotine dependence, cigarettes, uncomplicated; W18.2XXA Fall in (into) shower or empty bathtub, initial encounter; E03.9 Hypothyroidism, unspecified; Z79.890 Hormone replacement therapy; F32.A Depression, unspecified; F41.9 Anxiety disorder, unspecified; Z79.899 Other long term (current) drug therapy; Z90.49 Acquired absence of other specified parts of digestive tract
CPT/HCPCS: 73562; 73590; 73610; 99282